=== PATIENT | female | born 1995 | race Caucasian/White ===

== ENCOUNTER → 2018-03-14 15:48 | Outpatient (CLI) | payer OTHER, SELFPAY ==
[2017-09-13 16:09] VITALS: BMI 39.4
[2018-03-14 17:49] LABS: Internal QC Validated? YES +Cl - CLEAR BKGD; Pregnancy, Urine Negative Negative
== END ==
PROVIDERS: Family Provider Nurse Practitioner Family; PCP Nurse Practitioner Family; Referring Provider Dermatology Pediatric Dermatology; Visit Provider Dermatology Pediatric Dermatology
DX: L70.0 Acne vulgaris (principal); Z79.899 Other long term (current) drug therapy
CPT/HCPCS: 81025

== ENCOUNTER → 2018-04-18 14:21 | Outpatient (CLI) | payer OTHER, SELFPAY ==
[2018-03-28 16:08] VITALS: BMI 37.8
[2018-04-18 15:58] LABS: Internal QC Validated? YES +Cl - CLEAR BKGD; Pregnancy, Urine Negative Negative
== END ==
PROVIDERS: Family Provider Pediatrics; PCP Pediatrics; Referring Provider Dermatology Pediatric Dermatology; Visit Provider Dermatology Pediatric Dermatology
DX: L70.0 Acne vulgaris (principal); Z79.899 Other long term (current) drug therapy
CPT/HCPCS: 81025

== ENCOUNTER → 2018-05-23 13:16 | Outpatient (CLI) | payer OTHER, SELFPAY ==
[2018-03-28 16:08] VITALS: BMI 37.8
[2018-05-23 14:22] LABS: Internal QC Validated? YES +Cl - CLEAR BKGD; Pregnancy, Urine Negative Negative
== END ==
PROVIDERS: PCP Family Medicine
DX: L70.0 Acne vulgaris (principal)
CPT/HCPCS: 81025

== ENCOUNTER → 2018-06-26 08:23 | Outpatient (CLI) | payer OTHER, SELFPAY ==
[2018-03-28 16:08] VITALS: BMI 37.8
[2018-06-26 10:35] LABS: Internal QC Validated? YES +Cl - CLEAR BKGD; Pregnancy, Urine Negative Negative
== END ==
PROVIDERS: PCP Family Medicine; Referring Provider Physician Assistant Medical; Visit Provider Physician Assistant Medical
DX: L70.0 Acne vulgaris (principal); Z79.899 Other long term (current) drug therapy
CPT/HCPCS: 81025

== ENCOUNTER → 2018-07-09 07:14 | Outpatient (CLI) | payer OTHER, SELFPAY ==
[2018-03-28 16:08] VITALS: BMI 37.8
[2018-07-09 10:20] LABS: Absolute Neutrophil Count 4.4 X10^3/uL (2.0-7.7); Basophil# 0.02 X10^3/uL; Basophil% 0.3 % (0-1); Eosinophil# 0.22 X10^3/uL; Hematocrit 42.7 % (37-47); Hemoglobin 14.5 g/dl (12.0-15.0); Lymphocyte % 24.9 % (19-41); Mean Corpuscular Hgb 29.5 pg (27.0-32.0); Mean Corpuscular Volume 86.8 fL (81-99); Mean Platelet Vol. 9.8 fl (6.2-12.0); Monocyte# 0.79 X10^3/uL; Monocyte% 10.9 % (0-10); Neutrophil # 4.37 X10^3/uL (2.7-7.7); Neutrophil % 60.6 % (47-70); Platelet Count 266 K/mm3 (150-450); RBC Distribution Width CV 13.1 % (11.6-14.6); RBC Distribution Width SD 41.8 fl (35.1-43.9); Red Blood Count 4.92 M/mm3 (4.2-5.4); White Blood Count 7.2 K/mm3 (4.4-11.0)
[2018-07-09 10:21] LABS: POSITIVE COUNT NO; POSITIVE DIFFERENTIAL NO; POSITIVE MORPHOLOGY NO
[2018-07-09 10:23] LABS: Erythrocyte Sedimentation Rate 7 mm/hr (0-20)
[2018-07-09 10:28] LABS: ALB/GLOB Ratio 0.8 RATIO (0.9-2.4); AST(SGOT) 25 U/L (15-37); Alanine Aminotransfer ALT/SGPT 35 U/L (13-56); Albumin, Serum 3.3 g/dL (3.2-5.0); Alkaline Phosphatase 92 U/L (45-117); Anion Gap 11 (5-15); BUN 14 mg/dL (7-18); BUN/Creat Ratio 17.1 RATIO (10-20); Calcium,Total 8.5 mg/dL (8.5-10.1); Chloride 105 mmol/L (98-107); Cholesterol 229 mg/dL (200); Creatinine, Serum 0.82 mg/dL (0.55-1.02); EST Glomerular Filtration Rate 92 mL/min (>60); Est Glom Filt Rate - Afr Amer 111 mL/min (>60); Globulin 4.1 g/dL (2.2-4.2); Glucose 88 mg/dL (74-106); High Density Lipoprotein 45 mg/dL; Potassium 3.6 mmol/L (3.5-5.1); Protein, Total 7.4 g/dL (6.4-8.2); Sodium Level 140 mmol/L (136-145); Triglycerides 242 mg/dL; Very Low Density Lipoprotein 48 mg/dL (5-40)
== END ==
PROVIDERS: PCP Family Medicine; Referring Provider Physician Assistant Medical; Visit Provider Physician Assistant Medical
DX: L70.0 Acne vulgaris (principal); Z79.899 Other long term (current) drug therapy; M06.09 Rheumatoid arthritis without rheumatoid factor, multiple sites
CPT/HCPCS: 36415; 80053; 80061; 85025; 85652

== ENCOUNTER → 2018-07-31 16:26 | Outpatient (CLI) | payer OTHER, SELFPAY ==
[2018-03-28 16:08] VITALS: BMI 37.8
[2018-07-31 18:29] LABS: Internal QC Validated? YES +Cl - CLEAR BKGD; Pregnancy, Urine Negative Negative
== END ==
PROVIDERS: PCP Family Medicine; Referring Provider Physician Assistant; Visit Provider Physician Assistant
DX: L70.0 Acne vulgaris (principal); Z79.899 Other long term (current) drug therapy
CPT/HCPCS: 81025

== ENCOUNTER → 2018-09-11 16:09 | Outpatient (CLI) | payer OTHER, SELFPAY ==
[2018-03-28 16:08] VITALS: BMI 37.8
[2018-09-11 17:51] LABS: Internal QC Validated? YES +Cl - CLEAR BKGD; Pregnancy, Urine Negative Negative
== END ==
PROVIDERS: PCP Family Medicine; Referring Provider Physician Assistant; Visit Provider Physician Assistant
DX: L70.0 Acne vulgaris (principal); Z79.899 Other long term (current) drug therapy
CPT/HCPCS: 81025

== ENCOUNTER → 2018-09-16 11:53 | Outpatient (CLI) | payer OTHER, SELFPAY ==
[2018-09-16 11:15] VITALS: BMI 37.8
[2018-09-16 12:26] LABS: Estradiol 13.3 pg/mL; Follicle Stimulating Hormone 1.3 mIU/mL
== END ==
PROVIDERS: Family Provider Nurse Practitioner Family; PCP Nurse Practitioner Family; Referring Provider Obstetrics & Gynecology; Visit Provider Obstetrics & Gynecology
DX: Z01.411 Encounter for gynecological examination (general) (routine) with abnormal findings (principal); Z92.29 Personal history of other drug therapy
CPT/HCPCS: 36415; 82670; 83001

== ENCOUNTER → 2018-10-16 11:48 | Outpatient (CLI) | payer OTHER, SELFPAY ==
[2018-09-16 11:15] VITALS: BMI 37.8
[2018-10-16 14:15] LABS: Internal QC Validated? YES +Cl - CLEAR BKGD; Pregnancy, Urine Negative Negative
== END ==
PROVIDERS: Family Provider Nurse Practitioner Family; PCP Nurse Practitioner Family; Referring Provider Physician Assistant; Visit Provider Physician Assistant
DX: L70.0 Acne vulgaris (principal); Z79.899 Other long term (current) drug therapy
CPT/HCPCS: 81025

== ENCOUNTER → 2019-08-05 15:44 | Outpatient (CLI) | payer OTHER, SELFPAY ==
[2019-07-22 10:36] VITALS: BMI 37.8
--- NOTE | 2019-08-05 15:44 | US_ITS ---
STUDY: ULTRASOUND OF THE FEMALE PELVIS - COMPLETE REASON FOR EXAM: Female, 23 years old. Bleeding. Pain. TECHNIQUE: Transabdominal and Transvaginal TECHNICAL QUALITY: Adequate. COMPARISON: CT dated 08/23/2015 FINDINGS: The uterus is anteverted and is in a midline position. The uterus measures 9.0 x 6.3 x 2.8 cm cm. Normal uterine cervix. The endometrium measures 6 mm in thickness, and is hyperechoic. There is no demonstrated endometrial mass. There is no demonstrated myometrial mass. The right ovary is visualized. The right ovary measures 3.3 x 2.3 x 1.6 cm. There is no right ovarian cyst or ovarian mass. There is no visualized right adnexal mass or complex lesion. There is normal arterial and normal venous vascularity. The left ovary is visualized. The left ovary measures 3.4 x 2.1 x 1.7 cm. There is no left ovarian cyst or ovarian mass. There is no visualized left adnexal mass or complex lesion. There is normal arterial and normal venous vascularity. There is no fluid in the cul-de-sac. US/Pelvic (Non ) IMPRESSION: Normal female pelvis. Electronically Signed: Maurice Valerio, at 16:38 EDT Tel , Service support ,
--- NOTE | 2019-08-05 15:44 | US_ITS ---
STUDY: ULTRASOUND OF THE FEMALE PELVIS - COMPLETE REASON FOR EXAM: Female, 23 years old. Bleeding. Pain. TECHNIQUE: Transabdominal and Transvaginal TECHNICAL QUALITY: Adequate. COMPARISON: CT dated 08/23/2015 FINDINGS: The uterus is anteverted and is in a midline position. The uterus measures 9.0 x 6.3 x 2.8 cm cm. Normal uterine cervix. The endometrium measures 6 mm in thickness, and is hyperechoic. There is no demonstrated endometrial mass. There is no demonstrated myometrial mass. The right ovary is visualized. The right ovary measures 3.3 x 2.3 x 1.6 cm. There is no right ovarian cyst or ovarian mass. There is no visualized right adnexal mass or complex lesion. There is normal arterial and normal venous vascularity. The left ovary is visualized. The left ovary measures 3.4 x 2.1 x 1.7 cm. There is no left ovarian cyst or ovarian mass. There is no visualized left adnexal mass or complex lesion. There is normal arterial and normal venous vascularity. There is no fluid in the cul-de-sac. US/Transvaginal Non- IMPRESSION: Normal female pelvis. Electronically Signed: Maurice Valerio, at 16:38 EDT Tel , Service support ,
== END ==
PROVIDERS: PCP Nurse Practitioner Family; Referring Provider Nurse Practitioner Women's Health; Visit Provider Nurse Practitioner Women's Health
DX: N92.0 Excessive and frequent menstruation with regular cycle (principal); N94.6 Dysmenorrhea, unspecified
CPT/HCPCS: 76830; 76856

== ENCOUNTER → 2019-09-25 09:20 | Outpatient (CLI) | payer OTHER, SELFPAY ==
[2019-09-25 08:30] VITALS: BMI 37.8
[2019-09-25 09:56] LABS: Cholesterol 231 mg/dL (200); Glucose 102 mg/dL (74-106); High Density Lipoprotein 50 mg/dL; Triglycerides 252 mg/dL; Very Low Density Lipoprotein 50 mg/dL (5-40)
[2019-09-25 09:59] LABS: Vitamin D,25 Hydroxy 40.4 ng/mL
[2019-10-01 21:34] LABS: HPV Reflexed? NOT INDICATED
== END ==
PROVIDERS: PCP Nurse Practitioner Family; Referring Provider Obstetrics & Gynecology; Visit Provider Obstetrics & Gynecology
DX: Z12.4 Encounter for screening for malignant neoplasm of cervix (principal); E66.9 Obesity, unspecified
CPT/HCPCS: 36415; 80061; 82306; 82947; 88175; G0145

== ENCOUNTER → 2019-12-02 05:59 | Observation (INO) | payer OTHER, SELFPAY ==
[2019-10-09 15:04] VITALS: BMI 37.8
--- NOTE | 2019-12-01 20:54 | HP.PCM_ITS ---
History and Physical Date of Admission: 12/02/19 HISTORY OF PRESENT ILLNESS 24 year old woman presents for evaluation of hidradenitis in her axillary areas. She is having issues with both sides but states the right side is more painful at this time. She has had I&D procedures on the left and the use of the VAC in the past. She has had no procedures done on the right. She denies any fever. She has had some flare ups since she was last seen by us. She has recently been placed on Seysara by Dermatology to help control her flare ups. 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 She presents today for further evaluation and treatment. PAST MEDICAL HISTORY Axillary hidradenitis suppurativa Back problem Breast lump in female History of blood clots Fibromyalgia Rheumatoid arthritis PAST SURGICAL HISTORY [place] teeth extracted ALLERGIES No Known Allergies MEDICATIONS levothyroxine multivitamin spironolactone norgestimate-ethinyl estradiol escitalopram oxalate sarecycline spironolactone cetirizine gabapentin lorazepam FAMILY HISTORY Sister - Diabetes Grandmother - Lung cancer Grandfather - Dementia, CVA (cerebral vascular accident), Parkinsons disease Other - Anxiety, Arthritis, Asthma, Psychiatric care, Thyroid disorder SOCIAL HISTORY Smoking Status: Never smoker alcohol intake: current details: occasionally substance use type: does not use REVIEW OF SYSTEMS General - Denies fever and weight loss. Has fatigue. Eyes - Denies cataracts and glaucoma. ENT - Denies nasal congestion and sore throat. Endocrine - Denies excessive thirst and urination. Has thyroid disease. Skin - Denies skin cancer. Has bilateral axillary hidradenitis. Has family history of skin cancer. Musculoskeletal - Has joint pain, joint stiffness, weakness of muscles and joints, back pain, and arthritis. She no longer takes Methotrexate for her rheumatoid arthritis. Neuro - Denies headaches. Cardiovascular - Denies chest pain, fatigue, and shortness of breath with exertion. Psych - Denies anxiety and depression. Has claustrophobia. Respiratory - Denies chronic cough and shortness of breath. Gastrointestinal - Denies nausea, vomiting, diarrhea. Has constipation. Hematologic - Denies abnormal bruising and bleeding. Genitourinary - Denies hematuria and urinary frequency. PHYSICAL EXAMINATION General - Alert and Oriented. HEENT - PERRL. EOMI. Throat is clear. Neck - Supple and nontender. No cervical adenopathy. Lungs - Clear to auscultation. Heart - Regular rate and rhythm. Abdomen - Soft and nondistended. Extremities - FROM. No axillary adenopathy. Radial pulses are palpable. On the left axilla are scattered areas of induration and redness and scarring from hidradenitis. Measures 8 cm. No evidence of infection at this time. The area is slightly tender to palpation. On the right axilla are scattered areas of induration and redness and scarring from hidradenitis. There is some extension inferiorly onto the lateral chest wall. Measures 16 cm. No evidence of infection at this time. The area is slightly tender to palpation. Neuro - CN II-XII grossly intact. Psych - Normal mood and affect. ASSESSMENT 1. Bilateral axillary hidradenitis, worse on the right. 2. Rheumatoid arthritis, and she is off Methotrexate. 3. Family history of skin cancer. PLAN Patient's hidradenitis is stable at this time with the use of Sarecycline but she has had recent flare ups. Patient is interested in surgical excision at this time because she does not want to be on group home antibiotics. The right axilla is more bothersome at this time, so she would like to start on that side. When excised, tissue is sent to Pathology for analysis to rule out carcinoma and to Microbiology for culture. A positive culture will necessitate antibiotic therapy. Will leave the wound open initially and proceed with wound care with the VAC or with Silver dressing changes daily. Surgery will be done under general anesthesia with a surgical observation overnight stay in the hospital. Discussed the size of the wound with the patient in detail. It will be much larger than the smaller wound she had in the past that required the VAC. She voiced understanding. After discharge, can followup at the [facility]. If there is a plateau in the healing process, then can proceed with delayed closure with skin grafting. After healing has occurred on the right, then can proceed with excision of hidradenitis on the left. I don't do both sides at the same time because of difficulties with activities of daily living. Patient was informed of the risks and complications of the procedure including alternatives to surgery. These were discussed with the patient personally. Patient voices understanding and wishes to proceed. Some of the risks and complications were included in a form from the [place] [employer]. We discussed the current risks associated with COVID-19. While it is understood that there is a community spread of COVID-19, the risk of barbara COVID-19 while at [facility] ([facility]) is very low; however, the risk cannot be completely mitigated because of the community spread of the disease. We discussed in detail the risk of exposure to and/or potential harm posed by the COVID-19 virus with having a surgery/procedure at this time versus the risk of delaying the surgery/procedure. It is not possible to know either the risk of delaying the surgery or procedure or chance of getting an infection with perfect accuracy, but a joint decision was made to proceed at this time with the scheduled surgery/procedure as indicated on the consent form. Patient was notified that we will need to comply with any screening or testing [facility] wishes to perform or that surgery may be delayed for any positive results. Discussed with the patient that I was tested for COVID-19 on 08/21/19 which was negative and on 09/04/19 which was negative and on 09/18/19 which was negative and on 10/02/19 which was negative and on 10/16/19 which was negative and on 11/06/19 which was negative and on 11/27/19 which was negative. My testing regimen at this time is to be COVID-19 tested every 2 weeks or so. Procedure Criteria Procedure Type: Elective COVID Risk Discussion: The surgeon/proceduralist and patient have discussed in detail the risk of exposure to and/or potential harm posed by the COVID-19 virus with having a surgery/procedure at this time versus the risk of delaying the surgery/procedure. It is not possible to know either the risk of delaying the surgery or procedure or chance of getting an infection with perfect accuracy, but a joint decision was made between the patient and the surgeon/proceduralist to proceed at this time with the scheduled surgery/procedure as indicated on the consent form.
[2019-12-02] VITALS (10 sets, daily range): BP systolic 114–147; BP diastolic 59–88; PULSE 69–88; RESP 16–18; TEMP 36.6–37; O2SAT 95–99; BMI 43.7; BMI 44.6
--- NOTE | 2019-12-02 | HID_PTH ---
PATIENT: CHRISTIN GÓMEZ LOC: MS3 U#:[id number] AGE/SX: [place] [facility] [place]: Dr. Rudy Cerna MD : 1995 BED: 1 DIS: SPEC #: [id number] RECD: 12/02/19 10:19 STATUS: BHANU RONAL #: [id number] SOY: 12/02/19 00:[address]: Rudy Cerna DEPT: SURGICAL PATHOLOGY RECD BY: Rupert Castro ENTERED: 12/02/19 10:19 SP TYPE: Kayla JEAN DR: Ninfa Harrison, RITO Tissues: Axilla, NOS Procedures: Surgery Specimen Level III HEADER OPERATION: Excision hidradenitis axilla PRE-OP DIAGNOSIS: Bilateral axillary hidradenitis, worse on right TISSUE SUBMITTED: Debrided tissue right axillary hidradenitis MICROSCOPIC DIAGNOSIS Skin and soft tissue of right axilla, excision: Consistent with hidradenitis. AM:cele 12/03/19 MICROSCOPIC DESCRIPTION Slides are reviewed. GROSS DESCRIPTION Received in fixative is one container labeled with the patient's name and designated right axilla tissue. The specimen consists of an irregular fragment of light leblanc excised skin measuring 16 x 7 cm and excised to a depth of 2 cm. No cutaneous mass lesions are identified. Serial sections do not reveal mass lesions. Prepper sections are submitted in two cassettes. / AM:cele 12/02/19 TC:3 CPT: 29997
[2019-12-02 06:22] LABS: Internal QC Validated? YES +Cl - CLEAR BKGD; Pregnancy, Urine Negative Negative
[2019-12-02] MEDS: Lactated Ringers 1,000 ML 100 ML IV (06:43)
--- NOTE | 2019-12-02 08:26 | PCM.OPRPT ---
Report of Operation Date of Procedure: 12/02/19 Pre-Operative Diagnosis: 1. Bilateral axillary hidradenitis, worse on the right. 2. Rheumatoid arthritis, and she is off Methotrexate. 3. Family history of skin cancer. Post-Operative Diagnosis: 1. Bilateral axillary hidradenitis, worse on the right. 2. Open surgical hidradenitis wound right axilla. 3. Rheumatoid arthritis, and she is off Methotrexate. 4. Family history of skin cancer. Surgery/Procedure Performed:: Surgical preparation right axilla with excision hidradenitis (176 cm2). Description of Surgical Findings:: 24 year old woman presents for evaluation of hidradenitis in her axillary areas. She is having issues with both sides but states the right side is more painful at this time. She has had I&D procedures on the left and the use of the VAC in the past. She has had no procedures done on the right. She denies any fever. She has had some flare ups since she was last seen by us. She has recently been placed on Seysara by Dermatology to help control her flare ups. 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 Patient was informed of the risks and complications of the procedure including alternatives to surgery. These were discussed with the patient personally. Patient voices understanding and wishes to proceed. Some of the risks and complications were included in a form from the [place] [employer]. Size of defect right axilla - 16 x 11 x 4 cm. bottle labeler: None Type of Anesthesia:: General Specimen's removed: Right axillary hidradenitis to Pathology and Microbiology. Drains: None. Estimated Blood Loss (mL): 25 ml. Description of Procedure: Patient was taken to OR in supine position and was placed under general anesthesia. The right axilla was prepped and draped in the usual fashion. SCD's were placed for DVT prophylaxis. Perioperative antibiotics were given intravenously. For the procedure, I wore an N95 mask and wore proper eyewear protection. Using a scalpel, I proceeded with surgical preparation of the right axilla with extension onto the lateral chest wall with excision of her extensive hidradenitis. No purulent drainage was seen. In the subcutaneous tissue, there was extensive fat necrosis. There was indurated scar tissue extending down to the underlying muscle and was excised. Some of the tissue was sent to Pathology for analysis to rule out carcinoma and to Microbiology for culture. A positive culture will necessitate antibiotic therapy. The wound was irrigated with saline. Hemostasis was obtained with electrocautery. The size of the defect right axilla after excision hidradenitis was 16 x 11 x 4 cm or 176 cm2. The wound was dressed with Mepitel nonadherent dressing followed by Kerlix gauze and Betadine followed by dry Kerlix gauze followed by ABD pads and compression GRETEL wrap. Patient tolerated the procedure well and was sent to PACU in satisfactory condition. Patient will be sent upstairs for continued postop care. The VAC will be applied tomorrow. Grafts/Implants Used: None. - Complications None. - Admit VTE Documentation VTE Present on Admission: No VTE Mechan Device Prophylaxis: SCD's VTE Pharm Prophylaxis ordered?: No Surgery Charges CPT - 22380 ICD-10 - L73.2, S41.101A, Z80.8, M06.9
[2019-12-02] MEDS: Lactated Ringers 1,000 ML 60 ML IV (09:01)
[2019-12-02] MEDS: oxyCODONE 5 MG Tablet 10 MG PO ×3 (11:55→20:12)
--- NOTE | 2019-12-02 13:33 | CPS ---
started by nursing
--- NOTE | 2019-12-02 15:37 | NURSING ---
Rx staff brought meds to room when rounding @ approx 1500
[2019-12-02] MEDS: Spironolactone 50 MG Tablet 100 MG PO (15:44)
[2019-12-02] MEDS: Levothyroxine 25 MCG TABLET PO (15:44)
[2019-12-02] MEDS: Loratadine 10 MG Tablet PO (20:16)
[2019-12-02] MEDS: Escitalopram Oxalate 20 MG Tablet PO (21:48)
[2019-12-02] MEDS: Docusate Sodium 100 MG Capsule PO (21:48)
[2019-12-02] MEDS: NORGESTIMATE-ETHINYL ESTRADIOL 1 DOSE.PACK 1 TABLET PO (21:48)
[2019-12-03] MEDS: Lactated Ringers 1,000 ML 60 ML IV (02:14)
[2019-12-03 02:15] VITALS: BP 108/62; PULSE 79; RESP 18; TEMP 36.7; O2SAT 94
[2019-12-03] MEDS: oxyCODONE 5 MG Tablet 10 MG PO ×3 (02:15→14:57)
[2019-12-03] MEDS: Levothyroxine 25 MCG TABLET PO (05:50)
[2019-12-03 06:10] LABS: Hematocrit 43.9 % (37-47); Hemoglobin 13.3 g/dL (12.0-15.0); Mean Corp Hgb Conc 30.3 g/dL (32-36); Mean Corpuscular Hgb 30.6 pg (27.0-32.0); Mean Corpuscular Volume 100.9 fL (81-99); Mean Platelet Vol. 9.7 fl (6.2-12.0); Platelet Count 116 K/mm3 (150-450); RBC Distribution Width CV 12.7 % (11.6-14.6); RBC Distribution Width SD 47.8 fl (35.1-43.9); Red Blood Count 4.35 M/mm3 (4.2-5.4); White Blood Count 9.5 K/mm3 (4.4-11.0)
[2019-12-03 06:47] LABS: Anion Gap 3 (5-15); BUN 10 mg/dL (7-18); BUN/Creat Ratio 15.9 RATIO (10-20); Calcium,Total 7.9 mg/dL (8.5-10.1); Chloride 108 mmol/L (98-107); Creatinine, Serum 0.63 mg/dL (0.55-1.02); EST Glomerular Filtration Rate 123 mL/min (>60); Est Glom Filt Rate - Afr Amer 149 mL/min (>60); Glucose 89 mg/dL (74-106); Prealbumin 28.2 mg/dL (20.0-40.0); Sodium Level 135 mmol/L (136-145)
[2019-12-03 07:58] VITALS: BP 128/75; PULSE 80; RESP 16; TEMP 36.3; O2SAT 98
[2019-12-03] MEDS: HYDROmorphone 1 MG/ML Syringe IV (09:36)
[2019-12-03] MEDS: Spironolactone 50 MG Tablet 100 MG PO (10:45)
--- NOTE | 2019-12-03 10:45 | NURSING ---
wound photo: right axilla
[2019-12-03] MEDS: Docusate Sodium 100 MG Capsule PO (10:46)
--- NOTE | 2019-12-03 11:30 | CASEMGMT ---
JOSE NINA updated by wound nurse that patient will need HHC at discharge for wound vac dressing changes. JOSE NINA in to discuss HHC with patient and father. Patient provided options for HHC agencies and would like [facility]. JOSE NINA sent referral to [facility] and they are able to accept the patient. JOSE NINA updated patient regarding acceptance of [facility] and provided contact information. Patient had no further questions or concerns at this time.
[2019-12-03] MEDS: Multivitamins,Therapeutic Tablet 1 TABLET PO (13:19)
--- NOTE | 2019-12-03 13:21 | PN.SURG_ITS ---
Subjective: Postop #1 Patient is resting comfortably. VAC applied today. - Physical Exam Vitals/I&O's: Vital Signs Temp Pulse Resp BP Pulse Ox 97.4 F L 80 16 128/75 H 98 12/03/19 07:58 12/03/19 07:58 12/03/19 07:58 12/03/19 07:58 12/03/19 07:58 Oxygen Delivery Method Room Air Weight: 244 lb 4.355 oz Body Mass Index (BMI) 44.6 Intake and Output for Last 24 Hours 12/01/19 12/02/19 12/03/19 23:59 23:59 23:59 Intake Total 2831 / 2831 259 / 259 Balance 2831 / 2831 259 / 259 General: Alert, Oriented x3 HEENT: PERRLA, EOMI Oral: Moist Mucosa Neck: Supple Abdomen: Soft, Non-Distended Skin: Ulcer/ Wound - right axillary wound stable. No active bleeding seen. VAC applied today. Tolerated reasonably well. Neurological: Cranial nerves II-XII grossly intact Psych/Mental Status: Normal Affect, Appropriate Microbiology Past 72 Hours 12/02/19 08:39 Tissue - Arm Gram Stain - Final 12/02/19 08:39 Tissue - Arm Wound Culture - Preliminary Staphylococcus species Laboratory Results 12/03/19 05:34: WBC 9.5, RBC 4.35, Hgb 13.3, Hct 43.9, MCV 100.9 H, MCH 30.6, MCHC 30.3 L, RDW Std Deviation 47.8 H, RDW Coeff of Genesis 12.7, Plt Count 116 L, MPV 9.7 12/03/19 05:34: Sodium 135 L, Potassium 4.0, Chloride 108 H, Carbon Dioxide 24.0, Anion Gap 3 L, BUN 10, Creatinine 0.63, Estim Creat Clear Calc 108.90, Est GFR (MDRD) Af Amer 149, Est GFR (MDRD) Non-Af 123, BUN/Creatinine Ratio 15.9, Glucose 89, Calcium 7.9 L, Prealbumin 28.2 Current Medications Diazepam (Diazepam 5 Mg Tablet) 5 mg PO 4X/DAY PRN PRN PRN Reason: SPASMS Docusate Sodium (Docusate Sodium 100 Mg Capsule) 100 mg PO BID [facility]ULLEN Last Admin: 12/03/19 10:46 Dose: 100 mg Documented by: Escitalopram Oxalate (Escitalopram Oxalate 20 Mg Tablet) 20 mg PO QHS [facility] Last Admin: 12/02/19 21:48 Dose: 20 mg Documented by: Gabapentin (Gabapentin 300 Mg Capsule) 300 mg PO 4X/DAY PRN PRN PRN Reason: Pain 1-10 Hydromorphone HCl (Hydromorphone 1 Mg/Ml Syringe) 1 mg IV Q4H PRN PRN PRN Reason: Pain Score 6-10 Last Admin: 12/03/19 09:36 Dose: 1 mg Documented by: Clindamycin Phosphate 600 mg/ (Dextrose) 54 mls @ 100 mls/hr IV Q8 [facility] Last Infusion: 12/03/19 06:22 Dose: Infused Documented by: Lactated Ringer's () 1,000 mls @ 60 mls/hr IV .[id number] [facility] Last Admin: 12/03/19 02:14 Dose: 60 mls/hr Documented by: Sodium Chloride () 250 mls @ 15 mls/hr IV .[id number] PRN PRN Reason: Saline Flush Sodium Chloride () 250 mls @ 15 mls/hr IV .[id number] PRN PRN Reason: Additional IVPB Infusion Levothyroxine Sodium (Levothyroxine 25 Mcg Tablet) 25 mcg PO DAILY@0600 [facility] Last Admin: 12/03/19 05:50 Dose: 25 mcg Documented by: Loratadine (Loratadine 10 Mg Tablet) 10 mg PO DAILY PRN PRN PRN Reason: ALLERGY SYMPTOMS Last Admin: 12/02/19 20:16 Dose: 10 mg Documented by: Lorazepam (Lorazepam 0.5 Mg Tablet) 0.5 mg PO DAILY PRN PRN PRN Reason: ANXIETY Multivitamins (Multivitamins,Therapeutic Tablet) 1 tablet PO DAILY@1200 [facility] Last Admin: 12/03/19 13:19 Dose: 1 tablet Documented by: Norgestimate (Norgestimate-Ethinyl Estradiol 1 Dose.Pack) 1 tablet PO DAILY [facility] Last Admin: 12/03/19 10:47 Dose: Not Given Documented by: Nutritional Formula (Nutritional Supplement (Abdullahi) Packet) 1 packet PO BIDCM [facility] Last Admin: 12/03/19 07:56 Dose: 1 packet Documented by: Ondansetron HCl (Ondansetron 4 Mg/2 Ml Vial) 4 mg IV Q6H PRN PRN PRN Reason: NAUSEA Oxycodone HCl (Oxycodone 5 Mg Tablet) 10 mg PO Q4H PRN PRN PRN Reason: Pain Score 4-5 Last Admin: 12/03/19 07:56 Dose: 10 mg Documented by: Promethazine HCl (Promethazine 25 Mg Tablet) 25 mg PO Q4H PRN PRN PRN Reason: NAUSEA/VOMITING Sodium Chloride (0.9% Saline Lock 10 Ml Syringe) 10 - 40 ml IV UD PRN PRN Reason: SALINE FLUSH Spironolactone (Spironolactone 50 Mg Tablet) 100 mg PO DAILY [facility] Last Admin: 12/03/19 10:45 Dose: 100 mg Documented by: Medical Necessity - Tobacco Use Smoking Status: Never smoker Tobacco Use: Non-smoker Assessment/Plan All Active Problems (Last Reviewed 10/11/19 @ 15:[address] Rudy Cerna MD) Open wound of right axillary region with complication (Acute) Menorrhagia with regular cycle (Acute) Dysmenorrhea (Acute) Immunocompromised state due to drug therapy (Resolved) 1. Bilateral axillary hidradenitis, worse on the right. 2. Rheumatoid arthritis, and she is off Methotrexate. 3. Family history of skin cancer. 4. s/p surgical preparation right axilla with excision hidradenitis (176 cm2). Patient has some wound pain. VAC applied today and she tolerated reasonably well. Home Health to assist with VAC changes three times per week at 150 mmHg continuous suction. She is tolerating po analgesia. Operative culture shows Staphylococcus species. She is on Clindamycin. Prealbumin was 28.2. Encourage nutritional supplementation with protein to help the healing process. Discharge home today. Wrote script for Cleocin for 10 days. A positive culture may necessitate antibiotic modification. Wrote scripts for Percocet for pain (40 tabs) and for Valium for spasm (30 tabs). Followup at [facility] on 12/15/19 at 1000am. If there is a plateau in the healing process, can proceed with delayed closure with skin grafting. Encourage range of motion exercises to minimize stiffness.
[2019-12-03 13:22] VITALS: BP 115/66; PULSE 74; RESP 18; TEMP 36.6; O2SAT 98
--- NOTE | 2019-12-03 13:29 | PCM.DC ---
You will use the following diet at home:: No restrictions, Other - encourage nutritional supplementation with protein to help the healing process. Discharge Activity: May not drive while taking narcotic pain medications., May Shower - on the days the vac is changed., - - elevate right arm. no heavy lifting. May shower in (days): 2 - on the days the vac is changed. May resume sexual activity in: No Restrictions Weight Bearing Status: Weight bearing as tolerated Lifting Restrictions: 20 lbs. Keep extremity elevated above heart level: Right Arm Call your doctor if your incision/area has: Continuous Slow Oozing, Sudden Increased Bleeding, Increased Pain/ Swelling, Increased Redness, Foul Smelling Discharge, Swelling at the incision site Call your doctor if you observe: Fever of 101 or Higher, Coldness, Increased Pain, Shortness of breath, Chest pain, Calf discomfort, Uncontrolled pain Suture Line Care: - - vac changes three times per week at 150 mmHg continuous suction. Change Dressing in (Days):: 2 - vac changes three times per week. Cleanse incision/area with: Soap & Water - may cleanse the wound with soap and water at the time of the vac change., - - may shower on the days the vac is changed. Additional Dressing/Incision Instructions:: Home Health to assist with vac changes three times per week at 150 mmHg continuous suction. May cleanse the wound with soap and water at the time of the vac change. Allergies/Adverse Reactions: Allergies No Known Allergies Allergy (Verified 11/24/19 10:04) Medications to take at Discharge levothyroxine 25 mcg capsule 25 mcg PO DAILY 03/28/18 multivitamin 1 tab PO DAILY 03/28/18 spironolactone 25 mg tablet 100 mg PO DAILY 03/28/18 norgestimate 0.25 mg-ethinyl estradiol 35 mcg tablet 1 tab PO QDAY #84 tab 07/22/19 escitalopram oxalate 5 mg tablet 20 mg PO QHS 09/25/19 sarecycline 60 mg tablet 150 mg PO DAILY 10/09/19 cetirizine 10 mg tablet 10 mg PO .PRN tab 10/10/19 gabapentin 300 mg capsule 300 mg PO 4X/DAY PRN PRN cap 10/10/19 lorazepam 0.5 mg tablet 0.5 mg PO DAILY PRN 10/10/19 Clindamycin HCl [Cleocin] 300 mg PO TID #30 cap 12/03/19 Diazepam [Valium] 5 mg PO 4X/DAY PRN PRN #30 tablet 12/03/19 Docusate Sodium [Colace] 100 mg PO BID capsule 12/03/19 Loratadine [Claritin] 10 mg PO DAILY PRN PRN tablet 12/03/19 Oxycodone HCl/Acetaminophen [Percocet 5/325] 1 tablet PO Q4H PRN PRN 7 Days #40 tablet 12/03/19 The following prescriptions were given: Clindamycin HCl [Cleocin] 300 mg PO TID #30 cap Transmission Status: Pending to [facility] Oxycodone HCl/Acetaminophen [Percocet 5/325] 1 tablet PO Q4H PRN PRN 7 Days #40 tablet PRN Reason: Pain Score 6-10 Transmission Status: Sent to [facility] Diazepam [Valium] 5 mg PO 4X/DAY PRN PRN #30 tablet PRN Reason: Spasms Transmission Status: Sent to [facility] Primary Care Physician: Ninfa Harrison MILL ATTENDANT, MILL ATTENDANT-C [Primary Care Provider] - Test Results: Test results from this visit will be discussed in further detail at your follow-up appointment, if applicable. Please Follow Up With: Rudy Cerna MD - call [phone] if any questions. When: Sunday12/15/19 at [facility] at 1000am. Proposed Discharge Date: 12/03/19
--- NOTE | 2019-12-03 13:35 | NURSING ---
Pt switched over to the home VAC. proof of delivery signed and faxed to [facility]. reviewed alarms, etc. with patient. denies questions.
== END | disposition home health service (06) ==
LOC: SDC 06:00 → AC 06:00 → MS3 08:19 → SDC 08:50 → MS3 08:50
PROVIDERS: Anesthesiology; Admitting Provider Surgery; PCP Nurse Practitioner Family; Referring Provider Surgery; Visit Provider Surgery
PROC: (CPT 11450; principal; 2019-12-02 07:15)
DX: L73.2 Hidradenitis suppurativa (principal); M06.9 Rheumatoid arthritis, unspecified; E03.9 Hypothyroidism, unspecified; Z79.899 Other long term (current) drug therapy; Z86.718 Personal history of other venous thrombosis and embolism; M79.7 Fibromyalgia; Z80.8 Family history of malignant neoplasm of other organs or systems; F41.9 Anxiety disorder, unspecified
CPT/HCPCS: 00400; 11450; 36415; 80048; 81025; 84134; 85027; 87070; 87075; 87077; 87102; 87176; 87186; 87205; 87206; 87635; 88304; 96365; 96366; 96375; 99218; 99251; C9803; J7120; G0378; G0379; G0463; J2405; U0003

== ENCOUNTER 2019-12-08 21:59 | Emergency (ER) | payer OTHER, SELFPAY ==
[2019-12-02 09:55] VITALS: BMI 44.6
[2019-12-08 22:01] VITALS: BP 130/80; PULSE 76; RESP 15; TEMP 36.6; O2SAT 97; BMI 43.3
--- NOTE | 2019-12-08 23:22 | ED.DCSUM_ITS ---
History of Present Illness Chief Complaint: Allergic Reaction Narrative: Patient had surgery for hidradenitis 1 week ago, she is on a wound VAC, she developed localized reaction around the wound VAC which is spreading to her arm and neck regions. She has no shortness of breath she has no fever or chills. The rash is not generalized it seems to be spreading from the wound VAC area and spreading outwards. Past Medical History - Allergies and Home Meds Allergies/Adverse Reactions: Allergies No Known Allergies Allergy (Verified 12/08/19 22:04) Primary Care Physician: Ninfa Harrison ASSISTED SALES REPRESENTATIVE, ASSISTED SALES REPRESENTATIVE-C [Primary Care Provider] - Past Medical History: - - Hidradenitis Smoking Status: Never smoker Review of Systems All systems negative except as indicated General: Denies: Fever ENT: Denies: Sore throat Cardiovascular: Denies: Chest pain Respiratory: Denies: Dyspnea, Cough Gastrointestinal: Denies: Nausea, Vomiting Musculoskeletal: Reports: Extremity Pain Skin: Reports: Rash Neurological: Denies: Weakness Hematologic: Denies: Easy bruising, Easy bleeding Allergy: Denies: Swelling of the mouth, Swelling of the tongue Physical Exam Vital Signs/Narrative: Vital Signs Temp Pulse Resp BP Pulse Ox 12/08/19 22:01 97.8 F 76 15 130/80 H 97 General: - - Patient appears in some distress ENT: Moist mucous membranes Cardiovascular: Regular rate, Regular rhythm Respiratory: No distress, CTA bilaterally Abdomen: Soft, Nontender Back: Nontender Extremities: - - There is a wound VAC around her right axilla, this was removed. Wound has granulation tissue there is no signs of infections. There is surrounding rash, see below Skin: - - Patient has a blanching salmon-colored rash which is raised, there is some urticarial-like lesions around it also. The rash extends to the breast neck region and upper arm. There is no other rash on the other parts of the body. Neurological: Normal Strength, Normal Sensation Diagnostic/Tx/Re-eval - Medical Decision Making Patient likely has a localized reaction to either the tape or the wound VAC, this was removed I talked to Dr. Cerna who is okay with a wound VAC holiday for about a week. Otherwise we will treat her with steroids she is to continue her clindamycin. I do not believe she has an allergic reaction to clindamycin this is quite localized and not diffuse. She is to continue her clindamycin for now. If anything changes she is to return and she understands this. ED Disposition - Plan for ED Patient: Disposition: Home or Assisted Living Instructions: ED General Allergic Reactions Referrals: Rudy Cerna MD [STAFF PHYSICIAN] - 3-5 Days
[2019-12-08] MEDS: Triamcinolone Acetonide 40 MG/ML Vial IM (23:36)
[2019-12-08] MEDS: HYDROmorphone 1 MG/ML Syringe IM (23:36)
[2019-12-08] MEDS: MethylPREDNISolone 125 MG/2 ML Vial IM (23:36)
[2019-12-09 00:03] VITALS: BP 123/78; PULSE 71; RESP 18; O2SAT 98
--- NOTE | 2019-12-09 00:03 | ED.RN ---
wet to dry dressing to rt underarm per
== END 2019-12-09 00:06 | disposition home or self-care (01) ==
PROVIDERS: Emergency Provider Emergency Medicine; PCP Nurse Practitioner Family
DX: T78.40XA Allergy, unspecified, initial encounter (principal)
CPT/HCPCS: 96372; 99282

== ENCOUNTER 2019-12-15 09:53 | Outpatient (RCR) | payer OTHER, SELFPAY ==
[2019-12-02 09:55] VITALS: BMI 44.6
[2019-12-15 10:05] VITALS: BP 137/66; PULSE 79; RESP 22; TEMP 36.3; BMI 42.0
--- NOTE | 2019-12-17 13:35 | HP.PCM_ITS ---
(1) Open wound of right axillary region with complication Status: Acute Code(s): S41.101A - Unspecified open wound of right upper arm, initial encounter (2) Axillary hidradenitis suppurativa Status: Chronic Code(s): L73.2 - Hidradenitis suppurativa Comment: bilateral axillary hidradenitis, worse on the left (3) Encounter for postoperative wound care Status: Acute Code(s): Z48.89 - Encounter for other specified surgical aftercare (4) Rheumatoid arthritis Status: Chronic Code(s): M06.9 - Rheumatoid arthritis, unspecified Comment: at present is off Methotrexate History of Present Illness Date of Service: 12/15/19 Chief Complaint: post-op wound care of right axillary hidradenitis suppurative excision on 12/02/2019 History of Wound: The patient presents for her initial wound healing center visit on 12/15/2019. She has been evaluated for postsurgical wound care of her right axilla status post right axillary hidradenitis suppurative surgical excision (176 cm?) by Dr. Cerna on 12/02/2019. Following surgery, the patient was started on a wound VAC. She subsequently developed a rash of her right arm, axilla, and right sided abdomen. It was unclear whether the rash was due to the VAC or surgical prep with ChloraPrep solution. The VAC was discontinued and the patient was instructed to perform daily dressing changes with gauze packing. The rash has since cleared. The patient reports an increase in pain and difficulty managing her postsurgical wound since discontinuation of the VAC, and is eager to restart the VAC. Patient's operative wound tissue culture was positive for rare Staphylococcus lugdunensis. She is currently taking Doxycycline. The patient denies any fever, chills, nausea, vomiting, or diarrhea. Denies any increasing redness, swelling, or purulent/malodorous drainage from affected area. Past Medical History Past Medical History: Chronic Problems (Last Reviewed 12/10/19 @ 20:[address] Rudy Cerna MD) Rheumatoid arthritis (Chronic) at present is off Methotrexate Family history of skin cancer (Chronic) Axillary hidradenitis suppurativa (Chronic) bilateral axillary hidradenitis, worse on the left Allergies/Adverse Reactions: Allergies ChloraPrep Adverse Reaction (Uncoded 12/17/19 13:43) Rash Home Medications: Ambulatory Orders Medication Instructions Recorded levothyroxine 25 mcg capsule 25 mcg PO DAILY 03/28/18 multivitamin 1 tab PO DAILY 03/28/18 spironolactone 25 mg tablet 100 mg PO DAILY 03/28/18 norgestimate 0.25 mg-ethinyl 1 tab PO QDAY #84 tab 07/22/19 estradiol 35 mcg tablet escitalopram oxalate 5 mg tablet 20 mg PO QHS 09/25/19 sarecycline 60 mg tablet 150 mg PO DAILY 10/09/19 cetirizine 10 mg tablet 10 mg PO .PRN tab 10/10/19 gabapentin 300 mg capsule 300 mg PO 4X/DAY PRN PRN cap 10/10/19 lorazepam 0.5 mg tablet 0.5 mg PO DAILY PRN 10/10/19 Clindamycin HCl [Cleocin] 300 mg PO TID #30 cap 12/03/19 Diazepam [Valium] 5 mg PO 4X/DAY PRN PRN #30 tab 12/03/19 Docusate Sodium [Colace] 100 mg PO BID cap 12/03/19 Loratadine [Claritin] 10 mg PO DAILY PRN PRN tab 12/03/19 doxycycline hyclate 100 mg capsule 100 mg PO BID #60 cap 12/09/19 gabapentin 300 mg capsule 300 mg PO BID #60 cap 12/11/19 oxycodone-acetaminophen 5 mg-325 1 tab PO Q4H PRN PRN 7 Days #40 tab 12/13/19 mg tablet Escitalopram Oxalate [Lexapro] 25 mg PO DAILY 12/15/19 Smoking Status: Never smoker Review of Systems Constitutional: Denies: Chills, Fever, Weight Change Eyes: Denies: Pain, Vision Change HEENT: Denies: Difficulty Hearing, Difficulty Swallowing, Sinus Congestion Cardiovascular: Denies: Chest Pain, Palpitations Respiratory: Denies: Cough, Shortness of Breath Gastrointestinal: Denies: Diarrhea, Nausea, Vomiting Genitourinary: Denies: Dysuria, Hematuria Musculoskeletal: Reports: Arm Pain Skin: Reports: Wounds - Postsurgical right axilla wound Neurological: Denies: Balance problems, Focal weakness Endocrine: Denies: Heat/ Cold Intolerance, Polydipsia, Polyuria Hematologic/ Lymphatic: Denies: Easy Bruising, Easy Bleeding - Physical Exam Vital Signs Temp Pulse Resp BP 97.3 F L 79 22 H 137/66 H 12/15/19 10:05 12/15/19 10:05 12/15/19 10:05 12/15/19 10:05 General: Alert, Oriented x3, Cooperative, No apparent distress HEENT: Atraumatic, Normocephalic Oral: Moist Mucosa Neck: Supple, No JVD, Trachea Midline Lungs: Clear to auscultation, Normal air movement, No rhonchi, No wheeze, No rales Cardiovascular: Regular rate, Regular Rhythm, Normal S1, Normal S2 Abdomen: Bowel Sounds Present, Soft, Non Tender, Obese Extremities: No clubbing, No cyanosis, No edema, Capillary Refill Less than 3 Seconds, Peripheral Pulses Normal Skin: Ulcer/ Wound - Large postsurgical right axillary wound with subcutaneous layer exposed. Beefy red tissue is present. No tunneling or undermining. No purulent/malodorous drainage. Wound Measurements and Assessment WC - Nurse 1 - General Ulcer Measurement Start: 12/15/19 09:58 Freq: Status: Active Protocol: Activity Type Activity Date Activity User E-Sign Co-Sign Detail Recorded Client Recorded Date Recorded By Document 12/15/19 10:05 DL [id number] 12/15/19 10:31 DL 12/15/19 10:05 Wound Center Nurse 1 [Ulcer Assessment] #1 R Axilla -Current Size (cm) - Length 12 -Current Size (cm) - Width 10 -Current Size (cm) - Depth 4.2 -Total Square Cm 120 -Photo Taken Yes -Classification - Thickness Full Thickness without Exposed Support Structure -Exudate Amt Medium -Exudate Type Sanguineous -Wound Margin Distinct, Outline Attached -Granulation Amt Large (67-100%) -Granulation Quality Red -Necrosis Amt None Present (0 %) -Structure Exposed N/A -Texture (Karin-wound Skin Appearance) No Abnormality, Rash -Moisture (Karin-wound Skin Appearance No Abnormality ) -Color (Karin-wound Skin Appearance) No Abnormality -Temperature (Karin-wound Skin No Abnormality Appearance) (Pt Warm) -Ulcer Cleansing Wound Cleanser -Foul Odor after Cleansing No -Anesthetic Used 4% Lidocaine Solution WC - Nurse 2 - General Ulcer CM Notes Start: 12/15/19 09:58 Freq: Status: Active Protocol: Activity Type Activity Date Activity User E-Sign Co-Sign Detail Recorded Client Recorded Date Recorded By Document 12/15/19 10:56 [id number] 12/15/19 11:05 12/15/19 10:56 Wound Center Nurse 2 [Procedure/Treatment] -Time 10:56 -Correct Patient Yes -Correct Side, Site, Position Yes -Correct Procedure Yes -Procedure Performed Yes -Type of Procedure Debridement -Clinical Debridement Subcutaneous -Tissue Removed Subcutaneous -Post Debridement (cm) - Length 12.1 -Post Debridement (cm) - Width 10.1 -Post Debridement (cm) - Depth 4.2 -Total Square (Post) (cm) 122.21 -Area of Debridement (cm) - Length 12.1 -Area of Debridement (cm) - Width 10.1 -Total Square (Area) (cm) 122.21 -Tunneling No -Undermining/Tunneling No -Circular Undermining No -Wound/Ulcer Outcome Not Healed -Ulcer Cleansing Rinsed/ Irrigated with Saline -Foul Odor after Cleansing No -Bioengineered Tissue No -Bleeding Controlled with Pressure -Offloading No -Treatment Response Procedure Tolerated Well -Debridement - Subq, 1st 20sq cm Yes -Debridement, SubQ, ea addt'l 20sq cm 6 or part thereof [See Physician Procedure note for Specifics] Pain Scale: 0-10 Numeric [Pain] -Is Patient Pain Free? Yes - Nurse 3 - General Ulcer D/C NN Start: 12/15/19 09:58 Freq: Status: Active Protocol: Activity Type Activity Date Activity User E-Sign Co-Sign Detail Recorded Client Recorded Date Recorded By Document 12/15/19 11:34 [facility] [id number] 12/15/19 11:34 [facility] 12/15/19 11:34 Wound Care Nurse 3 [Wound Dressing] #1 R Axilla -Ulcer Cleansing Rinsed/ Irrigated with Saline -Foul Odor after Cleansing No -Negative Pressure Wound Therapy Continue -Setting (mmHg) 150 -Negative Pressure is Continuous -NPWT Application Charge ($) NPWT > 50 sq cm [Post Procedure Tolerated] -Treatment Response Procedure Tolerated Well Pain Scale: 0-10 Numeric [Pain] -Is Patient Pain Free? Yes - Visit Discharge [Visit Discharge Information] -Discharge Condition Stable -Ambulatory Status Ambulatory -Transportation Private Auto -Accompanied by dad [Facility Notification] -Facility Type Home Health Musculoskeletal: Tenderness - On debridement of right axilla Neurological: Neuro grossly intact Psych/Mental Status: Normal Affect, Appropriate Debridement Note Post-Debridement Measurements/Treatment - Nurse 2 - General Ulcer CM Notes Start: 12/15/19 09:58 Freq: Status: Active Protocol: Activity Type Activity Date Activity User E-Sign Co-Sign Detail Recorded Client Recorded Date Recorded By Document 12/15/19 10:56 [id number] 12/15/19 11:05 12/15/19 10:56 Wound Center Nurse 2 #1 R Axilla -Time 10:56 -Correct Patient Yes -Correct Side, Site, Position Yes -Correct Procedure Yes -Procedure Performed Yes -Type of Procedure Debridement -Clinical Debridement Subcutaneous -Tissue Removed Subcutaneous -Post Debridement (cm) - Length 12.1 -Post Debridement (cm) - Width 10.1 -Post Debridement (cm) - Depth 4.2 -Total Square (Post) (cm) 122.21 -Area of Debridement (cm) - Length 12.1 -Area of Debridement (cm) - Width 10.1 -Total Square (Area) (cm) 122.21 -Tunneling No -Undermining/Tunneling No -Circular Undermining No -Wound/Ulcer Outcome Not Healed -Ulcer Cleansing Rinsed/ Irrigated with Saline -Foul Odor after Cleansing No -Bioengineered Tissue No -Bleeding Controlled with Pressure -Offloading No -Treatment Response Procedure Tolerated Well -Debridement - Subq, 1st 20sq cm Yes -Debridement, SubQ, ea addt'l 20sq cm 6 or part thereof Pain Scale: 0-10 Numeric Is Patient Pain Free? Yes - Nurse 3 - General Ulcer D/C NN Start: 12/15/19 09:58 Freq: Status: Active Protocol: Activity Type Activity Date Activity User E-Sign Co-Sign Detail Recorded Client Recorded Date Recorded By Document 12/15/19 11:34 [facility] [id number] 12/15/19 11:34 [facility] 12/15/19 11:34 Wound Care Nurse 3 #1 R Axilla -Ulcer Cleansing Rinsed/ Irrigated with Saline -Foul Odor after Cleansing No -Negative Pressure Wound Therapy Continue -Setting (mmHg) 150 -Negative Pressure is Continuous -NPWT Application Charge ($) NPWT > 50 sq cm Treatment Response Procedure Tolerated Well Pain Scale: 0-10 Numeric Is Patient Pain Free? Yes WC - Visit Discharge Discharge Condition Stable Ambulatory Status Ambulatory Transportation Private Auto Accompanied by dad Facility Type Home Health Wound debrided: Right axilla Laterality: Right Type of Debridement: Excisional debridement Anesthesia Used: 4% Lidocaine Solution Depth: in the subcutaneous layer Percentage of wound debrided: 100 Instrument Used: 7mm curette Tissue Removed: Slough and devitalized tissue Severity: Fat Layer Exposed Amount of bleeding with debridement: Moderate Bleeding Controlled with: Pressure Patient tolerated procedure well Assessment/Plan Active Problems (Last Reviewed 12/10/19 @ 20:[address] Rudy Cerna MD) Encounter for postoperative wound care (Acute) Open wound of right axillary region with complication (Acute) Rheumatoid arthritis (Chronic) at present is off Methotrexate Axillary hidradenitis suppurativa (Chronic) bilateral axillary hidradenitis, worse on the left Assessment: Encounter for postoperative wound care (right axilla at bedtime surgery 12/02/2019). Open wound of right axillary region with complication. Axillary hidradenitis suppurative. Rheumatoid arthritis Plan: Debridement performed today in clinic. Wound VAC applied. At home wound- care instructions: Prior to VAC changes, remove VAC and shower, washing right axilla region with antibacterial soap and water and rinsing thoroughly. Diet: Patient encouraged to increase protein and vitamin C intake while taking caution to avoid high carbohydrate and/or sugar intake. Labs/cultures/imaging: Intraoperative wound tissue culture was positive for rare Staphylococcus lugdunensis. Patient is currently taking doxycycline and this should be continued. Patient's recent labs from 12/03/2019 were reviewed. Continue gabapentin, oxycodone?acetaminophen, and lorazepam as prescribed for pain management. Follow-up: Return to clinic in 1 week for re-evaluation. Return sooner or report to the emergency room should symptoms worsen, or new symptoms arise. Note: Matthew [employer] speech recognition tire fabric impregnating range tender software was used to create portions of this document. Sound-alike and misspelled words, as well as other tire fabric impregnating range tender errors may be contained in the documentation. [id number]: [id number] Global Visit
== END 2019-12-20 23:59 ==
LOC: WC 09:53
PROVIDERS: PCP Nurse Practitioner Family; Visit Provider Surgery
DX: L73.2 Hidradenitis suppurativa (principal); S41.101A Unspecified open wound of right upper arm, initial encounter; Z48.89 Encounter for other specified surgical aftercare; M06.9 Rheumatoid arthritis, unspecified; Z79.899 Other long term (current) drug therapy
CPT/HCPCS: 11042; 11045; 97606; 99213; G0463

== ENCOUNTER 2020-01-19 08:30 | Outpatient (RCR) | payer OTHER, SELFPAY ==
[2019-12-21 00:39] VITALS: BP 137/66; PULSE 79; RESP 22; TEMP 36.3
[2019-12-22 08:23] VITALS: BP 132/83; PULSE 73; RESP 17; TEMP 36.2; BMI 42.0
--- NOTE | 2019-12-22 12:36 | PN.PCM_ITS ---
(1) Open wound of right axillary region with complication Status: Acute Code(s): S41.101A - Unspecified open wound of right upper arm, initial encounter (2) Axillary hidradenitis suppurativa Status: Chronic Code(s): L73.2 - Hidradenitis suppurativa Comment: bilateral axillary hidradenitis, worse on the left (3) Rheumatoid arthritis Status: Chronic Code(s): M06.9 - Rheumatoid arthritis, unspecified Comment: at present is off Methotrexate Type of Wound Date of Service: 12/22/19 Chief Complaint: post-op wound care of right axillary hidradenitis suppurative excision on 12/02/2019 History of Wound: The patient presents for her initial wound healing center visit on 12/15/2019. She has been evaluated for postsurgical wound care of her right axilla status post right axillary hidradenitis suppurative surgical excision (176 cm?) by Dr. Cerna on 12/02/2019. Following surgery, the patient was started on a wound VAC. She subsequently developed a rash of her right arm, axilla, and right sided abdomen. It was unclear whether the rash was due to the VAC or surgical prep with ChloraPrep solution. The VAC was discontinued and the patient was instructed to perform daily dressing changes with gauze packing. The rash has since cleared. The patient reports an increase in pain and difficulty managing her postsurgical wound since discontinuation of the VAC, and is eager to restart the VAC. Patient's operative wound tissue culture was positive for rare Staphylococcus lugdunensis. She is currently taking Doxycycline. The patient denies any fever, chills, nausea, vomiting, or diarrhea. Denies any increasing redness, swelling, or purulent/malodorous drainage from affected area. Progress of Wound: Improved. - Physical Exam Vital Signs Temp Pulse Resp BP 97.1 F L 73 17 132/83 H 12/22/19 08:23 12/22/19 08:23 12/22/19 08:23 12/22/19 08:23 General: Alert, Oriented x3, Cooperative HEENT: Atraumatic Oral: Moist Mucosa Lungs: Normal air movement Cardiovascular: Regular rate Extremities: Capillary Refill Less than 3 Seconds Skin: Ulcer/ Wound - Right axilla wound is beefy pink with good granulation tissue. Wound Measurements and Assessment WC - Nurse 1 - General Ulcer Measurement Start: 12/22/19 08:23 Freq: Status: Active Protocol: Activity Type Activity Date Activity User E-Sign Co-Sign Detail Recorded Client Recorded Date Recorded By Document 12/22/19 08:23 MS [id number] 12/22/19 08:32 MS 12/22/19 08:23 Wound Center Nurse 1 [Ulcer Assessment] #1 R Axilla -Current Size (cm) - Length 16.1 -Current Size (cm) - Width 9 -Current Size (cm) - Depth 4.8 -Total Square Cm 144.9 -Exudate Amt Medium -Exudate Type Serosanguineous -Wound Margin Distinct, Outline Attached -Granulation Amt Large (67-100%) -Granulation Quality Red -Slough/Fibrin Yes -Necrosis Amt Small (1-33%) -Necrotic Tissue Type Adherent Slough -Texture (Karin-wound Skin Appearance) No Abnormality -Moisture (Karin-wound Skin Appearance No Abnormality ) -Color (Karin-wound Skin Appearance) No Abnormality, Assessed -Tenderness on Palpation (Karin-wound No Skin Appearance) -Ulcer Cleansing Rinsed/ Irrigated with Saline -Foul Odor after Cleansing No -Anesthetic Used 4% Lidocaine Solution - Nurse 2 - General Ulcer CM Notes Start: 12/22/19 08:23 Freq: Status: Active Protocol: Activity Type Activity Date Activity User E-Sign Co-Sign Detail Recorded Client Recorded Date Recorded By Document 12/22/19 09:05 MARQUITA [id number] 12/22/19 09:07 MARQUITA 12/22/19 09:05 Wound Center Nurse 2 [Procedure/Treatment] -Time 09:05 -Correct Patient Yes -Correct Side, Site, Position Yes -Correct Procedure Yes -Procedure Performed Yes -Type of Procedure Debridement -Clinical Debridement Subcutaneous -Tissue Removed Subcutaneous -Post Debridement (cm) - Length 15.5 -Post Debridement (cm) - Width 10.5 -Post Debridement (cm) - Depth 3.5 -Total Square (Post) (cm) 162.75 -Area of Debridement (cm) - Length 15.5 -Area of Debridement (cm) - Width 10.5 -Total Square (Area) (cm) 162.75 -Tunneling No -Undermining/Tunneling No -Circular Undermining No -Wound/Ulcer Outcome Not Healed -Ulcer Cleansing Rinsed/ Irrigated with Saline -Foul Odor after Cleansing No -Bioengineered Tissue No -Bleeding Controlled with Pressure -Offloading No -Treatment Response Procedure Tolerated Well -Debridement - Subq, 1st 20sq cm Yes -Debridement, SubQ, ea addt'l 20sq cm 8 or part thereof [See Physician Procedure note for Specifics] Pain Scale: 0-10 Numeric [Pain] -Is Patient Pain Free? Yes - Nurse 3 - General Ulcer D/C NN Start: 12/22/19 08:23 Freq: Status: Active Protocol: Activity Type Activity Date Activity User E-Sign Co-Sign Detail Recorded Client Recorded Date Recorded By Document 12/22/19 09:17 ALFRED [id number] 12/22/19 09:19 DL 12/22/19 09:17 Wound Care Nurse 3 [Wound Dressing] #1 R Axilla -Ulcer Cleansing Wound Cleanser -Foul Odor after Cleansing No -Negative Pressure Wound Therapy Continue -Setting (mmHg) 150 -Negative Pressure is Continuous -NPWT Application Charge ($) NPWT </= 50 sq cm [Post Procedure Tolerated] -Treatment Response Procedure Tolerated Well Pain Scale: 0-10 Numeric [Pain] -Is Patient Pain Free? Yes - Visit Discharge [Visit Discharge Information] -Discharge Condition Stable -Ambulatory Status Ambulatory -Transportation Private Auto Musculoskeletal: No Tenderness to Palpation of Joints or Extremities Neurological: Cranial nerves II-XII grossly intact Psych/Mental Status: Normal Affect, Appropriate Debridement Note Post-Debridement Measurements/Treatment - Nurse 2 - General Ulcer CM Notes Start: 12/22/19 08:23 Freq: Status: Active Protocol: Activity Type Activity Date Activity User E-Sign Co-Sign Detail Recorded Client Recorded Date Recorded By Document 12/22/19 09:05 MARQUITA [id number] 12/22/19 09:07 MARQUITA 12/22/19 09:05 Wound Center Nurse 2 #1 R Axilla -Time 09:05 -Correct Patient Yes -Correct Side, Site, Position Yes -Correct Procedure Yes -Procedure Performed Yes -Type of Procedure Debridement -Clinical Debridement Subcutaneous -Tissue Removed Subcutaneous -Post Debridement (cm) - Length 15.5 -Post Debridement (cm) - Width 10.5 -Post Debridement (cm) - Depth 3.5 -Total Square (Post) (cm) 162.75 -Area of Debridement (cm) - Length 15.5 -Area of Debridement (cm) - Width 10.5 -Total Square (Area) (cm) 162.75 -Tunneling No -Undermining/Tunneling No -Circular Undermining No -Wound/Ulcer Outcome Not Healed -Ulcer Cleansing Rinsed/ Irrigated with Saline -Foul Odor after Cleansing No -Bioengineered Tissue No -Bleeding Controlled with Pressure -Offloading No -Treatment Response Procedure Tolerated Well -Debridement - Subq, 1st 20sq cm Yes -Debridement, SubQ, ea addt'l 20sq cm 8 or part thereof Pain Scale: 0-10 Numeric Is Patient Pain Free? Yes - Nurse 3 - General Ulcer D/C NN Start: 12/22/19 08:23 Freq: Status: Active Protocol: Activity Type Activity Date Activity User E-Sign Co-Sign Detail Recorded Client Recorded Date Recorded By Document 12/22/19 09:17 DL [id number] 12/22/19 09:19 DL 12/22/19 09:17 Wound Care Nurse 3 #1 R Axilla -Ulcer Cleansing Wound Cleanser -Foul Odor after Cleansing No -Negative Pressure Wound Therapy Continue -Setting (mmHg) 150 -Negative Pressure is Continuous -NPWT Application Charge ($) NPWT </= 50 sq cm Treatment Response Procedure Tolerated Well Pain Scale: 0-10 Numeric Is Patient Pain Free? Yes WC - Visit Discharge Discharge Condition Stable Ambulatory Status Ambulatory Transportation Private Auto Wound debrided: axilla wound Laterality: Right Type of Debridement: Excisional debridement Anesthesia Used: 5% Lidocaine Gel Depth: Down to and including healthy tissue, in the subcutaneous layer Percentage of wound debrided: 100 Instrument Used: 7mm curette Tissue Removed: Subcutaneous tissue and slough Severity: Fat Layer Exposed Amount of bleeding with debridement: Mild Bleeding Controlled with: Pressure Patient tolerated procedure well Assessment/Plan Assessment: Encounter for postoperative wound care (right axilla at bedtime surgery 12/02/2019). Open wound of right axillary region with complication. Axillary hidradenitis suppurative. Rheumatoid arthritis Plan: Debridement performed today in clinic. Wound VAC applied. At home wound- care instructions: Prior to VAC changes, remove VAC and shower, washing right axilla region with antibacterial soap and water and rinsing thoroughly. Had extensive discussion about applying water down the tube to help moisten/loosen the sponge to help make it less painful when removing. Diet: Patient encouraged to increase protein and vitamin C intake while taking caution to avoid high carbohydrate and/or sugar intake. Labs/cultures/imaging: Intraoperative wound tissue culture was positive for rare Staphylococcus lugdunensis. Patient is currently taking doxycycline and this should be continued. Follow-up: Return to clinic in 1 week for re-evaluation. Return sooner or report to the emergency room should symptoms worsen, or new symptoms arise. Note: [employer] speech recognition bus analyst software was used to create portions of this document. Sound-alike and misspelled words, as well as other bus analyst errors may be contained in the documentation. [id number]: [id number] Global Visit
[2019-12-29 08:49] VITALS: BP 137/74; PULSE 83; TEMP 36.1; BMI 42.0
--- NOTE | 2019-12-29 14:25 | PCM.WC.PN ---
(1) Open wound of right axillary region with complication Status: Acute Code(s): S41.101A - Unspecified open wound of right upper arm, initial encounter (2) Axillary hidradenitis suppurativa Status: Chronic Code(s): L73.2 - Hidradenitis suppurativa Comment: bilateral axillary hidradenitis, worse on the left (3) Rheumatoid arthritis Status: Chronic Code(s): M06.9 - Rheumatoid arthritis, unspecified Comment: at present is off Methotrexate Type of Wound Date of Service: 12/29/19 Chief Complaint: post-op wound care of right axillary hidradenitis suppurative excision on 12/02/2019 History of Wound: The patient presents for her initial wound healing center visit on 12/15/2019. She has been evaluated for postsurgical wound care of her right axilla status post right axillary hidradenitis suppurative surgical excision (176 cm?) by Dr. Cerna on 12/02/2019. Following surgery, the patient was started on a wound VAC. She subsequently developed a rash of her right arm, axilla, and right sided abdomen. It was unclear whether the rash was due to the VAC or surgical prep with ChloraPrep solution. The VAC was discontinued and the patient was instructed to perform daily dressing changes with gauze packing. The rash has since cleared. The patient reports an increase in pain and difficulty managing her postsurgical wound since discontinuation of the VAC, and is eager to restart the VAC. Patient's operative wound tissue culture was positive for rare Staphylococcus lugdunensis. She is currently taking Doxycycline. The patient denies any fever, chills, nausea, vomiting, or diarrhea. Denies any increasing redness, swelling, or purulent/malodorous drainage from affected area. Progress of Wound: Surgical wound improved. Karin- wound is very excoriated. - Physical Exam Vital Signs Temp Pulse Resp BP 97.0 F L 83 17 137/74 H 12/29/19 08:49 12/29/19 08:49 12/22/19 08:23 12/29/19 08:49 General: Alert, Oriented x3, Cooperative HEENT: Atraumatic Oral: Moist Mucosa Lungs: Normal air movement Cardiovascular: Regular rate Extremities: Capillary Refill Less than 3 Seconds Skin: Ulcer/ Wound - Right axilla wound is beefy pink with good granulation tissue. The karin wound is excoriated where the drape is located. Wound Measurements and Assessment WC - Nurse 1 - General Ulcer Measurement Start: 12/22/19 08:23 Freq: Status: Active Protocol: Activity Type Activity Date Activity User E-Sign Co-Sign Detail Recorded Client Recorded Date Recorded By Document 12/29/19 08:49 MARGAUX [id number] 12/29/19 09:03 MARGAUX 12/29/19 08:49 Wound Center Nurse 1 [Ulcer Assessment] #1 R Axilla -Current Size (cm) - Length 14.7 -Current Size (cm) - Width 9.5 -Current Size (cm) - Depth 2 -Total Square Cm 139.65 -Photo Taken No -Exudate Amt Medium -Exudate Type Serosanguineous -Wound Margin Distinct, Outline Attached -Granulation Amt Large (67-100%) -Granulation Quality Red -Slough/Fibrin Yes -Necrosis Amt Small (1-33%) -Necrotic Tissue Type Adherent Slough -Structure Exposed N/A -Texture (Karin-wound Skin Appearance) Assessed, Excoriation, Scarring -Moisture (Karin-wound Skin Appearance Assessed ) -Color (Karin-wound Skin Appearance) Assessed -Temperature (Karin-wound Skin No Abnormality Appearance) (Pt Warm) -Tenderness on Palpation (Karin-wound Yes Skin Appearance) -Ulcer Cleansing Wound Cleanser -Foul Odor after Cleansing No -Anesthetic Used 4% Lidocaine Solution WC - Nurse 2 - General Ulcer CM Notes Start: 12/22/19 08:23 Freq: Status: Active Protocol: Activity Type Activity Date Activity User E-Sign Co-Sign Detail Recorded Client Recorded Date Recorded By Document 12/29/19 09:30 MARQUITA [id number] 12/29/19 09:36 MARQUITA 12/29/19 09:30 Wound Center Nurse 2 [Procedure/Treatment] -Time 09:30 -Correct Patient Yes -Correct Side, Site, Position Yes -Correct Procedure Yes -Procedure Performed Yes -Type of Procedure Debridement -Clinical Debridement Subcutaneous -Tissue Removed Subcutaneous -Post Debridement (cm) - Length 16.2 -Post Debridement (cm) - Width 8.5 -Post Debridement (cm) - Depth 2.8 -Total Square (Post) (cm) 137.70 -Area of Debridement (cm) - Length 16.2 -Area of Debridement (cm) - Width 8.5 -Total Square (Area) (cm) 137.70 -Tunneling No -Undermining/Tunneling No -Circular Undermining No -Wound/Ulcer Outcome Not Healed -Ulcer Cleansing Rinsed/ Irrigated with Saline -Foul Odor after Cleansing No -Bioengineered Tissue No -Bleeding Controlled with Pressure -Offloading No -Treatment Response Procedure Tolerated Well -Debridement - Subq, 1st 20sq cm Yes -Debridement, SubQ, ea addt'l 20sq cm 6 or part thereof [See Physician Procedure note for Specifics] Pain Scale: 0-10 Numeric [Pain] -Is Patient Pain Free? Yes - Nurse 3 - General Ulcer D/C NN Start: 12/22/19 08:23 Freq: Status: Active Protocol: Activity Type Activity Date Activity User E-Sign Co-Sign Detail Recorded Client Recorded Date Recorded By Document 12/29/19 09:45 MARGAUX [id number] 12/29/19 09:51 KR 12/29/19 09:45 Wound Care Nurse 3 [Wound Dressing] #1 R Axilla -Ulcer Cleansing Rinsed/ Irrigated with Saline -Foul Odor after Cleansing No -Primary Dressing Applied Silvercel -Primary Dressing Covered/Secured Dry Gauze with -Silvercel 1 - Visit Discharge [Visit Discharge Information] -Discharge Condition Stable -Ambulatory Status Ambulatory -Transportation Private Auto -Notes: Silvercel applied today. pt to start dakins at home. Musculoskeletal: No Tenderness to Palpation of Joints or Extremities, - - Good range of motion of right shoulder Neurological: Cranial nerves II-XII grossly intact Psych/Mental Status: Normal Affect, Appropriate Debridement Note Post-Debridement Measurements/Treatment - Nurse 2 - General Ulcer CM Notes Start: 12/22/19 08:23 Freq: Status: Active Protocol: Activity Type Activity Date Activity User E-Sign Co-Sign Detail Recorded Client Recorded Date Recorded By Document 12/22/19 09:05 MARQUITA [id number] 12/22/19 09:07 JF Document 12/29/19 09:30 MARQUITA [id number] 12/29/19 09:36 JF 12/22/19 12/29/19 09:05 09:30 Wound Center Nurse 2 #1 R Axilla -Time 09:05 09:30 -Correct Patient Yes Yes -Correct Side, Site, Position Yes Yes -Correct Procedure Yes Yes -Procedure Performed Yes Yes -Type of Procedure Debridement Debridement -Clinical Debridement Subcutaneous Subcutaneous -Tissue Removed Subcutaneous Subcutaneous -Post Debridement (cm) - Length 15.5 16.2 -Post Debridement (cm) - Width 10.5 8.5 -Post Debridement (cm) - Depth 3.5 2.8 -Total Square (Post) (cm) 162.75 137.70 -Area of Debridement (cm) - Length 15.5 16.2 -Area of Debridement (cm) - Width 10.5 8.5 -Total Square (Area) (cm) 162.75 137.70 -Tunneling No No -Undermining/Tunneling No No -Circular Undermining No No -Wound/Ulcer Outcome Not Healed Not Healed -Ulcer Cleansing Rinsed/ Rinsed/ Irrigated with Irrigated with Saline Saline -Foul Odor after Cleansing No No -Bioengineered Tissue No No -Bleeding Controlled with Pressure Pressure -Offloading No No -Treatment Response Procedure Procedure Tolerated Well Tolerated Well -Debridement - Subq, 1st 20sq cm Yes Yes -Debridement, SubQ, ea addt'l 20sq cm 8 6 or part thereof Pain Scale: 0-10 Numeric Is Patient Pain Free? Yes Yes - Nurse 3 - General Ulcer D/C NN Start: 12/22/19 08:23 Freq: Status: Active Protocol: Activity Type Activity Date Activity User E-Sign Co-Sign Detail Recorded Client Recorded Date Recorded By Document 12/22/19 09:17 DL [id number] 12/22/19 09:19 DL Document 12/29/19 09:45 KR [id number] 12/29/19 09:51 KR 12/22/19 12/29/19 09:17 09:45 Wound Care Nurse 3 #1 R Axilla -Ulcer Cleansing Wound Cleanser Rinsed/ Irrigated with Saline -Foul Odor after Cleansing No No -Negative Pressure Wound Therapy Continue -Setting (mmHg) 150 -Negative Pressure is Continuous -Primary Dressing Applied Silvercel -Primary Dressing Covered/Secured with Dry Gauze -NPWT Application Charge ($) NPWT </= 50 sq cm -Silvercel 1 Treatment Response Procedure Tolerated Well Pain Scale: 0-10 Numeric Is Patient Pain Free? Yes - Visit Discharge Discharge Condition Stable Stable Ambulatory Status Ambulatory Ambulatory Transportation Private Auto Private Auto Notes: Silvercel applied today. pt to start dakins at home. Wound debrided: axilla wound Laterality: Right Type of Debridement: Excisional debridement Anesthesia Used: 5% Lidocaine Gel Depth: Down to and including healthy tissue, in the subcutaneous layer Percentage of wound debrided: 100 Instrument Used: 7mm curette Tissue Removed: Subcutaneous tissue and slough Severity: Fat Layer Exposed Amount of bleeding with debridement: Moderate Bleeding Controlled with: Pressure, Compression and gauze Patient tolerated procedure well Assessment/Plan Active Problems (Last Reviewed 12/10/19 @ 20:[address] Rudy Cerna MD) Open wound of right axillary region with complication (Acute) Rheumatoid arthritis (Chronic) at present is off Methotrexate Axillary hidradenitis suppurativa (Chronic) bilateral axillary hidradenitis, worse on the left Assessment: Encounter for postoperative wound care (right axilla at bedtime surgery 12/02/2019). Open wound of right axillary region with complication. Axillary hidradenitis suppurative. Rheumatoid arthritis Plan: Debridement performed today in clinic. Wound VAC holiday until Sunday to help get karin wound healed. She will do 1/4 strength Dakin's solution moistened gauze covered by ABD daily until Sunday. Home health can restart VAC Sunday01/02/20. At home wound-care instructions: Prior to VAC changes, remove VAC and shower, washing right axilla region with antibacterial soap and water and rinsing thoroughly. Had extensive discussion about applying water down the tube to help moisten/loosen the sponge to help make it less painful when removing. Diet: Patient encouraged to increase protein and vitamin C intake while taking caution to avoid high carbohydrate and/or sugar intake. Labs/cultures/imaging: Intraoperative wound tissue culture was positive for rare Staphylococcus lugdunensis. Patient is currently taking doxycycline and this should be continued. Renewed Percocet (28 tabs). PDMP reviewed. Follow-up: Return to clinic in 1 week for re-evaluation. Return sooner or report to the emergency room should symptoms worsen, or new symptoms arise. 111xxx-[id number]: [id number] Global Visit
[2020-01-05 08:22] VITALS: BP 159/89; PULSE 84; TEMP 35.7; BMI 42.0
--- NOTE | 2020-01-05 15:57 | PCM.WC.PN ---
Type of Wound Date of Service: 01/05/20 Chief Complaint: Nonhealing hidradenitis ulcer right axilla. History of Wound: Surgery 12/02/19 - Surgical preparation right axilla with excision hidradenitis (176 cm2). Wound care - Dakin's with a VAC holiday. Operative culture - Staphylococcus lugdunensis. She was treated perioperatively with Clindamycin. She was then switched to Doxycycline and is finishing them. Prealbumin from 12/03/19 was 28.2. Encourage nutritional supplementation with protein to help the healing process. Today she denies fever. Her appetite is good. She has no problems with range of motion with her right arm and shoulder. She is able to do daily hygiene activities with her right upper extremity. She is interested while she is currently off work to take care of her left axillary hidradenitis. Progress of Wound: Improved. - Physical Exam Vital Signs Temp Pulse Resp BP 96.3 F L 84 17 159/89 H 01/05/20 08:22 01/05/20 08:22 12/22/19 08:23 01/05/20 08:22 Wound Measurements and Assessment WC - Nurse 1 - General Ulcer Measurement Start: 12/22/19 08:23 Freq: Status: Active Protocol: Activity Type Activity Date Activity User E-Sign Co-Sign Detail Recorded Client Recorded Date Recorded By Document 01/05/20 08:22 [email or web address] [id number] 01/05/20 08:36 [email or web address] 01/05/20 08:22 Wound Center Nurse 1 [Ulcer Assessment] #1 R Axilla -Combined with other wound No -Current Size (cm) - Length 14.7 -Current Size (cm) - Width 6.3 -Current Size (cm) - Depth 2.8 -Total Square Cm 92.61 -Photo Taken No -Exudate Amt Medium -Exudate Type Serosanguineous -Wound Margin Distinct, Outline Attached -Granulation Amt Large (67-100%) -Granulation Quality Red -Slough/Fibrin No -Necrosis Amt None Present (0 %) -Structure Exposed N/A -Texture (Karin-wound Skin Appearance) Assessed, Scarring -Moisture (Karin-wound Skin Appearance No Abnormality ) -Color (Karin-wound Skin Appearance) No Abnormality -Temperature (Karin-wound Skin No Abnormality Appearance) (Pt Warm) -Tenderness on Palpation (Karin-wound Yes Skin Appearance) -Ulcer Cleansing soapy water -Anesthetic Used 4% Lidocaine Solution,5% Lidocaine Gel ERMA - Nurse 2 - General Ulcer CM Notes Start: 12/22/19 08:23 Freq: Status: Active Protocol: Activity Type Activity Date Activity User E-Sign Co-Sign Detail Recorded Client Recorded Date Recorded By Document 01/05/20 08:46 [id number] 01/05/20 08:48 01/05/20 08:46 Wound Center Nurse 2 [Procedure/Treatment] -Time 08:46 -Correct Patient Yes -Correct Side, Site, Position Yes -Correct Procedure Yes -Procedure Performed Yes -Type of Procedure Debridement -Clinical Debridement Subcutaneous -Tissue Removed Subcutaneous -Post Debridement (cm) - Length 15.2 -Post Debridement (cm) - Width 6.2 -Post Debridement (cm) - Depth 2.0 -Total Square (Post) (cm) 94.24 -Area of Debridement (cm) - Length 15.2 -Area of Debridement (cm) - Width 6.2 -Total Square (Area) (cm) 94.24 -Tunneling No -Undermining/Tunneling No -Circular Undermining No -Wound/Ulcer Outcome Not Healed -Ulcer Cleansing Rinsed/ Irrigated with Saline -Foul Odor after Cleansing No -Bioengineered Tissue No -Bleeding Controlled with Pressure -Offloading No -Treatment Response Procedure Tolerated Well -Debridement - Subq, 1st 20sq cm Yes -Debridement, SubQ, ea addt'l 20sq cm 4 or part thereof [See Physician Procedure note for Specifics] Pain Scale: 0-10 Numeric [Pain] -Is Patient Pain Free? Yes ERMA - Nurse 3 - General Ulcer D/C NN Start: 12/22/19 08:23 Freq: Status: Active Protocol: Activity Type Activity Date Activity User E-Sign Co-Sign Detail Recorded Client Recorded Date Recorded By Document 01/05/20 09:16 DL [id number] 01/05/20 09:17 DL 01/05/20 09:16 Wound Care Nurse 3 [Wound Dressing] #1 R Axilla -Ulcer Cleansing Wound Cleanser -Foul Odor after Cleansing No -Negative Pressure Wound Therapy Start -Setting (mmHg) 150 -Negative Pressure is Continuous -NPWT Application Charge ($) NPWT </= 50 sq cm [Post Procedure Tolerated] -Treatment Response Procedure Tolerated Well Pain Scale: 0-10 Numeric [Pain] -Is Patient Pain Free? Yes WC - Visit Discharge [Visit Discharge Information] -Discharge Condition Stable -Ambulatory Status Ambulatory -Transportation Private Auto [Facility Notification] -Facility Type Home Health -Telephoned (if yes, spoke with:) Yes Debridement Note Post-Debridement Measurements/Treatment WC - Nurse 2 - General Ulcer CM Notes Start: 12/22/19 08:23 Freq: Status: Active Protocol: Activity Type Activity Date Activity User E-Sign Co-Sign Detail Recorded Client Recorded Date Recorded By Document 12/22/19 09:05 [id number] 12/22/19 09:07 Document 12/29/19 09:30 [id number] 12/29/19 09:36 Document 01/05/20 08:46 [id number] 01/05/20 08:48 12/22/19 12/29/19 01/05/20 09:05 09:30 08:46 Wound Center Nurse 2 #1 R Axilla -Time 09:05 09:30 08:46 -Correct Patient Yes Yes Yes -Correct Side, Site, Position Yes Yes Yes -Correct Procedure Yes Yes Yes -Procedure Performed Yes Yes Yes -Type of Procedure Debridement Debridement Debridement -Clinical Debridement Subcutaneous Subcutaneous Subcutaneous -Tissue Removed Subcutaneous Subcutaneous Subcutaneous -Post Debridement (cm) - Length 15.5 16.2 15.2 -Post Debridement (cm) - Width 10.5 8.5 6.2 -Post Debridement (cm) - Depth 3.5 2.8 2.0 -Total Square (Post) (cm) 162.75 137.70 94.24 -Area of Debridement (cm) - Length 15.5 16.2 15.2 -Area of Debridement (cm) - Width 10.5 8.5 6.2 -Total Square (Area) (cm) 162.75 137.70 94.24 -Tunneling No No No -Undermining/Tunneling No No No -Circular Undermining No No No -Wound/Ulcer Outcome Not Healed Not Healed Not Healed -Ulcer Cleansing Rinsed/ Rinsed/ Rinsed/ Irrigated with Irrigated with Irrigated with Saline Saline Saline -Foul Odor after Cleansing No No No -Bioengineered Tissue No No No -Bleeding Controlled with Pressure Pressure Pressure -Offloading No No No -Treatment Response Procedure Procedure Procedure Tolerated Well Tolerated Well Tolerated Well -Debridement - Subq, 1st 20sq cm Yes Yes Yes -Debridement, SubQ, ea addt'l 20sq cm 8 6 4 or part thereof Pain Scale: 0-10 Numeric Is Patient Pain Free? Yes Yes Yes WC - Nurse 3 - General Ulcer D/C NN Start: 12/22/19 08:23 Freq: Status: Active Protocol: Activity Type Activity Date Activity User E-Sign Co-Sign Detail Recorded Client Recorded Date Recorded By Document 12/22/19 09:17 DL [id number] 12/22/19 09:19 DL Document 12/29/19 09:45 KR [id number] 12/29/19 09:51 KR Document 01/05/20 09:16 DL [id number] 01/05/20 09:17 DL 12/22/19 12/29/19 01/05/20 09:17 09:45 09:16 Wound Care Nurse 3 #1 R Axilla -Ulcer Cleansing Wound Cleanser Rinsed/ Wound Cleanser Irrigated with Saline -Foul Odor after Cleansing No No No -Negative Pressure Wound Therapy Continue Start -Setting (mmHg) 150 150 -Negative Pressure is Continuous Continuous -Primary Dressing Applied Silvercel -Primary Dressing Covered/Secured with Dry Gauze -NPWT Application Charge ($) NPWT </= 50 sq NPWT </= 50 sq cm cm -Silvercel 1 Treatment Response Procedure Procedure Tolerated Well Tolerated Well Pain Scale: 0-10 Numeric Is Patient Pain Free? Yes Yes WC - Visit Discharge Discharge Condition Stable Stable Stable Ambulatory Status Ambulatory Ambulatory Ambulatory Transportation Private Auto Private Auto Private Auto Notes: Silvercel applied today. pt to start dakins at home. Facility Type Home Health Telephoned (if yes, spoke with:) Yes Wound debrided: #1 Right axilla. Laterality: Right Wound Grade/Stage: 2. Type of Debridement: Excisional debridement Anesthesia Used: 4% Lidocaine Solution Depth: Down to and including healthy tissue, in the subcutaneous layer Percentage of wound debrided: 100 Instrument Used: 5mm curette Tissue Removed: subcutaneous tissue. Severity: Fat Layer Exposed Amount of bleeding with debridement: Mild Bleeding Controlled with: Pressure Patient tolerated procedure well Assessment/Plan Active Problems (Last Reviewed 12/10/19 @ 20:[address] Rudy Cerna MD) Open wound of right axillary region with complication (Acute) Rheumatoid arthritis (Chronic) at present is off Methotrexate Axillary hidradenitis suppurativa (Chronic) bilateral axillary hidradenitis, worse on the left Assessment: 1. Nonhealing hidradenitis ulcer right axilla. 2. Bilateral axillary hidradenitis, worse on the right. 3. Rheumatoid arthritis, and she is off Methotrexate. 4. Family history of skin cancer. Plan: The periwound area is better. Will change the Dakin's back to the VAC. Good improvement is noted. It is not quite ready for a skin graft but is becoming more superficial. She exhibits good range of motion of her right arm and shoulder. Operative culture showed Staphylococcus lugdunensis. She was treated perioperatively with Clindamycin and was switched to Doxycycline and is finishing them. Prealbumin from 12/03/19 was 28.2. Encourage nutritional supplementation with protein to help the healing process. Patient is interested in proceeding with surgery on her left axilla for hidradenitis as she is able to perform daily hygiene activities with her right upper extremity. Will schedule the surgery after Thanksgi. She is not quite ready yet for a skin graft on the right as I would like to see a little more superficial healing before proceeding with a skin graft. Surgery will be done under general anesthesia with a surgical observation overnight stay. Will leave the wound open and proceed with the VAC for postoperative wound care. At that time, we would have already switched dressings on the right as I don't want both axillae to have a VAC. Patient was informed of the risks and complications of the procedure including alternaitves to surgery. These were discussed with her personally. She voices understanding and wishes to proceed. We discussed the current risks associated with COVID-19. While it is understood that there is a community spread of COVID-19, the risk of barbara COVID-19 while at [facility] ([facility]) is very low; however, the risk cannot be completely mitigated because of the community spread of the disease. We discussed in detail the risk of exposure to and/or potential harm posed by the COVID-19 virus with having a surgery/procedure at this time versus the risk of delaying the surgery/procedure. It is not possible to know either the risk of delaying the surgery or procedure or chance of getting an infection with perfect accuracy, but a joint decision was made to proceed at this time with the scheduled surgery/procedure as indicated on the consent form. Patient was notified that we will need to comply with any screening or testing [facility] wishes to perform or that surgery may be delayed for any positive results. Followup one week. Discussed with the patient that I was tested for COVID-19 on 08/21/19 which was negative and on 09/04/19 which was negative and on 09/18/19 which was negative and on 10/02/19 which was negative and on 10/16/19 which was negative and on 11/06/19 which was negative and on 11/27/19 which was negative. My testing regimen at this time is to be COVID-19 tested every 2 weeks or so. I was recently tested on 01/01/20. Those results are pending.
[2020-01-12 08:33] VITALS: BP 131/90; PULSE 88; RESP 20; TEMP 36.4; BMI 42.0
--- NOTE | 2020-01-12 13:03 | PCM.WC.PN ---
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 History of Wound: Surgery 12/02/19 - Surgical preparation right axilla with excision hidradenitis (176 cm2). Wound care - Dakin's with a VAC holiday that was started on Sunday due to excoriation of karin wound. Operative culture - Staphylococcus lugdunensis. She was treated perioperatively with Clindamycin. She was then switched to Doxycycline and is finishing them. Prealbumin from 12/03/19 was 28.2. Encourage nutritional supplementation with protein to help the healing process. Today she denies fever. Her appetite is good. She has no problems with range of motion with her right arm and shoulder. She is able to do daily hygiene activities with her right upper extremity. She is scheduled on 01/23/20 to have excision of her left axillary hidradenitis. Progress of Wound: Improved. Ulcer is beefy pink. Karin wound is excoriated this week. - Physical Exam Vital Signs Temp Pulse Resp BP 97.6 F L 88 20 H 131/90 H 01/12/20 08:33 01/12/20 08:33 01/12/20 08:33 01/12/20 08:33 General: Alert, Oriented x3, Cooperative HEENT: Atraumatic Oral: Moist Mucosa Lungs: Normal air movement Cardiovascular: Regular rate Abdomen: Soft Extremities: Capillary Refill Less than 3 Seconds Skin: Ulcer/ Wound - Right axilla ulcer is beefy pink. There is excoriation of the karin wound Wound Measurements and Assessment WC - Nurse 1 - General Ulcer Measurement Start: 12/22/19 08:23 Freq: Status: Active Protocol: Activity Type Activity Date Activity User E-Sign Co-Sign Detail Recorded Client Recorded Date Recorded By Document 01/12/20 08:33 DL [id number] 01/12/20 08:41 DL 01/12/20 08:33 Wound Center Nurse 1 [Ulcer Assessment] #1 R Axilla -Current Size (cm) - Length 14.3 -Current Size (cm) - Width 5 -Current Size (cm) - Depth 2.3 -Total Square Cm 71.5 -Photo Taken No -Exudate Amt Large -Exudate Type Sanguineous -Wound Margin Distinct, Outline Attached -Granulation Amt Large (67-100%) -Granulation Quality Red -Necrosis Amt None Present (0 %) -Structure Exposed N/A -Texture (Karin-wound Skin Appearance) Scarring -Moisture (Karin-wound Skin Appearance No Abnormality ) -Color (Karin-wound Skin Appearance) No Abnormality -Temperature (Karin-wound Skin No Abnormality Appearance) (Pt Warm) -Tenderness on Palpation (Karin-wound No Skin Appearance) -Ulcer Cleansing Wound Cleanser -Foul Odor after Cleansing No -Anesthetic Used 4% Lidocaine Solution WC - Nurse 2 - General Ulcer CM Notes Start: 12/22/19 08:23 Freq: Status: Active Protocol: Activity Type Activity Date Activity User E-Sign Co-Sign Detail Recorded Client Recorded Date Recorded By Document 01/12/20 09:14 MARQUITA [id number] 01/12/20 09:15 01/12/20 09:14 Wound Center Nurse 2 [Procedure/Treatment] -Time 09:14 -Correct Patient Yes -Correct Side, Site, Position Yes -Correct Procedure Yes -Procedure Performed Yes -Type of Procedure Debridement -Clinical Debridement Subcutaneous -Tissue Removed Subcutaneous -Post Debridement (cm) - Length 14.6 -Post Debridement (cm) - Width 6 -Post Debridement (cm) - Depth 1.3 -Total Square (Post) (cm) 87.6 -Area of Debridement (cm) - Length 14.6 -Area of Debridement (cm) - Width 6.0 -Total Square (Area) (cm) 87.60 -Tunneling No -Undermining/Tunneling No -Circular Undermining No -Wound/Ulcer Outcome Not Healed -Ulcer Cleansing Rinsed/ Irrigated with Saline -Foul Odor after Cleansing No -Bioengineered Tissue No -Bleeding Controlled with Pressure -Offloading No -Treatment Response Procedure Tolerated Well -Debridement - Subq, 1st 20sq cm Yes -Debridement, SubQ, ea addt'l 20sq cm 4 or part thereof [See Physician Procedure note for Specifics] Pain Scale: 0-10 Numeric [Pain] -Is Patient Pain Free? Yes - Nurse 3 - General Ulcer D/C NN Start: 12/22/19 08:23 Freq: Status: Active Protocol: Activity Type Activity Date Activity User E-Sign Co-Sign Detail Recorded Client Recorded Date Recorded By Document 01/12/20 09:25 [facility] [id number] 01/12/20 09:26 [facility] 01/12/20 09:25 Wound Care Nurse 3 [Wound Dressing] #1 R Axilla -Ulcer Cleansing Rinsed/ Irrigated with Saline -Foul Odor after Cleansing No -Primary Dressing Applied Other -Other Dressing saline moistened gauze -Primary Dressing Covered/Secured Secured with with Tape,Other -Other Covering abd [Post Procedure Tolerated] -Treatment Response Procedure Tolerated Well Pain Scale: 0-10 Numeric [Pain] -Is Patient Pain Free? Yes - Visit Discharge [Visit Discharge Information] -Discharge Condition Stable -Ambulatory Status Ambulatory -Transportation Private Auto Musculoskeletal: No Tenderness to Palpation of Joints or Extremities Neurological: Cranial nerves II-XII grossly intact Psych/Mental Status: Normal Affect, Appropriate Debridement Note Post-Debridement Measurements/Treatment - Nurse 2 - General Ulcer CM Notes Start: 12/22/19 08:23 Freq: Status: Active Protocol: Activity Type Activity Date Activity User E-Sign Co-Sign Detail Recorded Client Recorded Date Recorded By Document 12/22/19 09:05 [id number] 12/22/19 09:07 Document 12/29/19 09:30 [id number] 12/29/19 09:36 Document 01/05/20 08:46 [id number] 01/05/20 08:48 Document 01/12/20 09:14 [id number] 01/12/20 09:15 12/22/19 12/29/19 01/05/20 09:05 09:30 08:46 Wound Center Nurse 2 #1 R Axilla -Time 09:05 09:30 08:46 -Correct Patient Yes Yes Yes -Correct Side, Site, Position Yes Yes Yes -Correct Procedure Yes Yes Yes -Procedure Performed Yes Yes Yes -Type of Procedure Debridement Debridement Debridement -Clinical Debridement Subcutaneous Subcutaneous Subcutaneous -Tissue Removed Subcutaneous Subcutaneous Subcutaneous -Post Debridement (cm) - Length 15.5 16.2 15.2 -Post Debridement (cm) - Width 10.5 8.5 6.2 -Post Debridement (cm) - Depth 3.5 2.8 2.0 -Total Square (Post) (cm) 162.75 137.70 94.24 -Area of Debridement (cm) - Length 15.5 16.2 15.2 -Area of Debridement (cm) - Width 10.5 8.5 6.2 -Total Square (Area) (cm) 162.75 137.70 94.24 -Tunneling No No No -Undermining/Tunneling No No No -Circular Undermining No No No -Wound/Ulcer Outcome Not Healed Not Healed Not Healed -Ulcer Cleansing Rinsed/ Rinsed/ Rinsed/ Irrigated with Irrigated with Irrigated with Saline Saline Saline -Foul Odor after Cleansing No No No -Bioengineered Tissue No No No -Bleeding Controlled with Pressure Pressure Pressure -Offloading No No No -Treatment Response Procedure Procedure Procedure Tolerated Well Tolerated Well Tolerated Well -Debridement - Subq, 1st 20sq cm Yes Yes Yes -Debridement, SubQ, ea addt'l 20sq cm 8 6 4 or part thereof Pain Scale: 0-10 Numeric Is Patient Pain Free? Yes Yes Yes 01/12/20 09:14 Wound Center Nurse 2 #1 R Axilla -Time 09:14 -Correct Patient Yes -Correct Side, Site, Position Yes -Correct Procedure Yes -Procedure Performed Yes -Type of Procedure Debridement -Clinical Debridement Subcutaneous -Tissue Removed Subcutaneous -Post Debridement (cm) - Length 14.6 -Post Debridement (cm) - Width 6 -Post Debridement (cm) - Depth 1.3 -Total Square (Post) (cm) 87.6 -Area of Debridement (cm) - Length 14.6 -Area of Debridement (cm) - Width 6.0 -Total Square (Area) (cm) 87.60 -Tunneling No -Undermining/Tunneling No -Circular Undermining No -Wound/Ulcer Outcome Not Healed -Ulcer Cleansing Rinsed/ Irrigated with Saline -Foul Odor after Cleansing No -Bioengineered Tissue No -Bleeding Controlled with Pressure -Offloading No -Treatment Response Procedure Tolerated Well -Debridement - Subq, 1st 20sq cm Yes -Debridement, SubQ, ea addt'l 20sq cm 4 or part thereof Pain Scale: 0-10 Numeric Is Patient Pain Free? Yes - Nurse 3 - General Ulcer D/C NN Start: 12/22/19 08:23 Freq: Status: Active Protocol: Activity Type Activity Date Activity User E-Sign Co-Sign Detail Recorded Client Recorded Date Recorded By Document 12/22/19 09:17 DL [id number] 12/22/19 09:19 DL Document 12/29/19 09:45 KR [id number] 12/29/19 09:51 KR Document 01/05/20 09:16 DL [id number] 01/05/20 09:17 DL Document 01/12/20 09:25 BMF [id number] 01/12/20 09:26 BM 12/22/19 12/29/19 01/05/20 09:17 09:45 09:16 Wound Care Nurse 3 #1 R Axilla -Ulcer Cleansing Wound Cleanser Rinsed/ Wound Cleanser Irrigated with Saline -Foul Odor after Cleansing No No No -Negative Pressure Wound Therapy Continue Start -Setting (mmHg) 150 150 -Negative Pressure is Continuous Continuous -Primary Dressing Applied Silvercel -Other Dressing -Primary Dressing Covered/Secured with Dry Gauze -Other Covering -NPWT Application Charge ($) NPWT </= 50 sq NPWT > 50 sq cm cm -Silvercel 1 Treatment Response Procedure Procedure Tolerated Well Tolerated Well Pain Scale: 0-10 Numeric Is Patient Pain Free? Yes Yes WC - Visit Discharge Discharge Condition Stable Stable Stable Ambulatory Status Ambulatory Ambulatory Ambulatory Transportation Private Auto Private Auto Private Auto Notes: Silvercel applied today. pt to start dakins at home. Facility Type Home Health Telephoned (if yes, spoke with:) Yes 01/12/20 09:25 Wound Care Nurse 3 #1 R Axilla -Ulcer Cleansing Rinsed/ Irrigated with Saline -Foul Odor after Cleansing No -Negative Pressure Wound Therapy -Setting (mmHg) -Negative Pressure is -Primary Dressing Applied Other -Other Dressing saline moistened gauze -Primary Dressing Covered/Secured with Secured with Tape,Other -Other Covering abd -NPWT Application Charge ($) -Silvercel Treatment Response Procedure Tolerated Well Pain Scale: 0-10 Numeric Is Patient Pain Free? Yes WC - Visit Discharge Discharge Condition Stable Ambulatory Status Ambulatory Transportation Private Auto Notes: Facility Type Telephoned (if yes, spoke with:) Wound debrided: axilla ulcer Laterality: Right Type of Debridement: Excisional debridement Anesthesia Used: 5% Lidocaine Gel Depth: Down to and including healthy tissue, in the subcutaneous layer Percentage of wound debrided: 100 Instrument Used: 7mm curette Tissue Removed: Subcutaneous tissue and slough Severity: Fat Layer Exposed Amount of bleeding with debridement: Mild Bleeding Controlled with: Pressure Patient tolerated procedure well Assessment/Plan Active Problems (Last Reviewed 12/10/19 @ 20:[address] Rudy Cerna MD) Skin ulcer of axilla with fat layer exposed (Chronic) Open wound of right axillary region with complication (Acute) Rheumatoid arthritis (Chronic) at present is off Methotrexate Axillary hidradenitis suppurativa (Chronic) bilateral axillary hidradenitis, worse on the left Assessment: 1. Nonhealing hidradenitis ulcer right axilla. 2. Bilateral axillary hidradenitis, worse on the right. 3. Rheumatoid arthritis, and she is off Methotrexate. 4. Family history of skin cancer. Plan: Wound care - She started a VAC holiday on Sunday. Will continue VAC holiday with daily Dakin's moistened gauze dressing changes due to her excoriated karin wound. Will re-evaluate next week. It is not quite ready for a skin graft but is becoming more superficial. She exhibits good range of motion of her right arm and shoulder. Operative culture showed Staphylococcus lugdunensis. She was treated perioperatively with Clindamycin and was switched to Doxycycline and is finishing them. Prealbumin from 12/03/19 was 28.2. Encourage nutritional supplementation with protein to help the healing process. Patient is interested in proceeding with surgery on her left axilla for hidradenitis as she is able to perform daily hygiene activities with her right upper extremity which is scheduled 01/23/20. Surgery will be done under general anesthesia with a surgical observation overnight stay. Will leave the wound open and proceed with the VAC for postoperative wound care. At that time, we would have already switched dressings on the right as I don't want both axillae to have a VAC. Patient was informed of the risks and complications of the procedure including alternaitves to surgery. These were discussed with her personally. She voices understanding and wishes to proceed. We discussed the current risks associated with COVID-19. While it is understood that there is a community spread of COVID-19, the risk of barbara COVID-19 while at [facility] ([facility]) is very low; however, the risk cannot be completely mitigated because of the community spread of the disease. We discussed in detail the risk of exposure to and/or potential harm posed by the COVID-19 virus with having a surgery/procedure at this time versus the risk of delaying the surgery/procedure. It is not possible to know either the risk of delaying the surgery or procedure or chance of getting an infection with perfect accuracy, but a joint decision was made to proceed at this time with the scheduled surgery/procedure as indicated on the consent form. Patient was notified that we will need to comply with any screening or testing [facility] wishes to perform or that surgery may be delayed for any positive results. Followup one week. Discussed with the patient that I was tested for COVID-19 on 08/21/19 which was negative and on 09/04/19 which was negative and on 09/18/19 which was negative and on 10/02/19 which was negative and on 10/16/19 which was negative and on 11/06/19 which was negative and on 11/27/19 which was negative. My testing regimen at this time is to be COVID-19 tested every 2 weeks or so. I was recently tested on 01/01/20 which was negative. [id number]: [id number] Global Visit
[2020-01-19 08:38] VITALS: BP 132/88; PULSE 89; RESP 18; TEMP 36.2; BMI 42.0
--- NOTE | 2020-01-19 12:41 | PN.PCM_ITS ---
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 History of Wound: Surgery 12/02/19 - Surgical preparation right axilla with excision hidradenitis (176 cm2). Wound care - Dakin's daily. We were taking a VAC holiday and will discontinue the VAC. Operative culture - Staphylococcus lugdunensis. She was treated perioperatively with Clindamycin. She was then switched to Doxycycline and is finishing them. Prealbumin from 12/03/19 was 28.2. Encourage nutritional supplementation with protein to help the healing process. Today she denies fever. Her appetite is good. She has no problems with range of motion with her right arm and shoulder. She is able to do daily hygiene activities with her right upper extremity. She is scheduled on 01/23/20 to have excision of her left axillary hidradenitis. Progress of Wound: Improved. Ulcer is beefy pink. Karin wound is excoriation is improved this week. - Physical Exam Vital Signs Temp Pulse Resp BP 97.2 F L 89 18 132/88 H 01/19/20 08:38 01/19/20 08:38 01/19/20 08:38 01/19/20 08:38 General: Alert, Oriented x3, Cooperative HEENT: Atraumatic Oral: Moist Mucosa Lungs: Normal air movement Cardiovascular: Regular rate Extremities: No edema, Capillary Refill Less than 3 Seconds Skin: Ulcer/ Wound - Right axilla ulcer is beefy pink and improved. Karin wound is much improved with the VAC holiday. Wound Measurements and Assessment WC - Nurse 1 - General Ulcer Measurement Start: 12/22/19 08:23 Freq: Status: Active Protocol: Activity Type Activity Date Activity User E-Sign Co-Sign Detail Recorded Client Recorded Date Recorded By Document 01/19/20 08:38 ALFRED [id number] 01/19/20 08:45 DL 01/19/20 08:38 Wound Center Nurse 1 [Ulcer Assessment] #1 R Axilla -Current Size (cm) - Length 11.5 -Current Size (cm) - Width 5.2 -Current Size (cm) - Depth 0.1 -Total Square Cm 59.80 -Photo Taken No -Exudate Amt Small -Exudate Type Serosanguineous -Wound Margin Distinct, Outline Attached -Granulation Amt Large (67-100%) -Granulation Quality Red -Necrosis Amt None Present (0 %) -Necrotic Tissue Type Adherent Slough -Structure Exposed N/A -Texture (Karin-wound Skin Appearance) Scarring -Moisture (Karin-wound Skin Appearance Dry/Scaly ) -Color (Karin-wound Skin Appearance) No Abnormality, Rubor -Temperature (Karin-wound Skin No Abnormality Appearance) (Pt Warm) -Tenderness on Palpation (Karin-wound No Skin Appearance) -Ulcer Cleansing Wound Cleanser -Foul Odor after Cleansing No -Anesthetic Used 4% Lidocaine Solution WC - Nurse 2 - General Ulcer CM Notes Start: 12/22/19 08:23 Freq: Status: Active Protocol: Activity Type Activity Date Activity User E-Sign Co-Sign Detail Recorded Client Recorded Date Recorded By Document 01/19/20 08:55 MARQUITA [id number] 01/19/20 08:57 MARQUITA 01/19/20 08:55 Wound Center Nurse 2 [Procedure/Treatment] -Time 08:55 -Correct Patient Yes -Correct Side, Site, Position Yes -Correct Procedure Yes -Procedure Performed Yes -Type of Procedure Debridement -Clinical Debridement Subcutaneous -Tissue Removed Subcutaneous -Post Debridement (cm) - Length 14.6 -Post Debridement (cm) - Width 6 -Post Debridement (cm) - Depth 1.3 -Total Square (Post) (cm) 87.6 -Area of Debridement (cm) - Length 14.6 -Area of Debridement (cm) - Width 6 -Total Square (Area) (cm) 87.6 -Tunneling No -Undermining/Tunneling No -Circular Undermining No -Wound/Ulcer Outcome Not Healed -Ulcer Cleansing Rinsed/ Irrigated with Saline -Foul Odor after Cleansing No -Bioengineered Tissue No -Bleeding Controlled with Pressure -Offloading No -Treatment Response Procedure Tolerated Well -Debridement - Subq, 1st 20sq cm Yes -Debridement, SubQ, ea addt'l 20sq cm 4 or part thereof [See Physician Procedure note for Specifics] Pain Scale: 0-10 Numeric [Pain] -Is Patient Pain Free? Yes - Nurse 3 - General Ulcer D/C NN Start: 12/22/19 08:23 Freq: Status: Active Protocol: Activity Type Activity Date Activity User E-Sign Co-Sign Detail Recorded Client Recorded Date Recorded By Document 01/19/20 09:04 [id number] 01/19/20 09:07 01/19/20 09:04 Wound Care Nurse 3 [Wound Dressing] #1 R Axilla -Ulcer Cleansing Wound Cleanser -Foul Odor after Cleansing No -Primary Dressing Covered/Secured Dry Gauze, with Secured with Tape Pain Scale: 0-10 Numeric [Pain] -Is Patient Pain Free? Yes - Visit Discharge [Visit Discharge Information] -Discharge Condition Stable -Ambulatory Status Ambulatory -Transportation Private Auto -Notes: resume Dakins at home. Musculoskeletal: No Muscle Wasting Neurological: Cranial nerves II-XII grossly intact Psych/Mental Status: Normal Affect, Appropriate Debridement Note Post-Debridement Measurements/Treatment - Nurse 2 - General Ulcer CM Notes Start: 12/22/19 08:23 Freq: Status: Active Protocol: Activity Type Activity Date Activity User E-Sign Co-Sign Detail Recorded Client Recorded Date Recorded By Document 12/22/19 09:05 [id number] 12/22/19 09:07 Document 12/29/19 09:30 [id number] 12/29/19 09:36 Document 01/05/20 08:46 [id number] 01/05/20 08:48 Document 01/12/20 09:14 [id number] 01/12/20 09:15 Document 01/19/20 08:55 [id number] 01/19/20 08:57 12/22/19 12/29/19 01/05/20 09:05 09:30 08:46 Wound Center Nurse 2 #1 R Axilla -Time 09:05 09:30 08:46 -Correct Patient Yes Yes Yes -Correct Side, Site, Position Yes Yes Yes -Correct Procedure Yes Yes Yes -Procedure Performed Yes Yes Yes -Type of Procedure Debridement Debridement Debridement -Clinical Debridement Subcutaneous Subcutaneous Subcutaneous -Tissue Removed Subcutaneous Subcutaneous Subcutaneous -Post Debridement (cm) - Length 15.5 16.2 15.2 -Post Debridement (cm) - Width 10.5 8.5 6.2 -Post Debridement (cm) - Depth 3.5 2.8 2.0 -Total Square (Post) (cm) 162.75 137.70 94.24 -Area of Debridement (cm) - Length 15.5 16.2 15.2 -Area of Debridement (cm) - Width 10.5 8.5 6.2 -Total Square (Area) (cm) 162.75 137.70 94.24 -Tunneling No No No -Undermining/Tunneling No No No -Circular Undermining No No No -Wound/Ulcer Outcome Not Healed Not Healed Not Healed -Ulcer Cleansing Rinsed/ Rinsed/ Rinsed/ Irrigated with Irrigated with Irrigated with Saline Saline Saline -Foul Odor after Cleansing No No No -Bioengineered Tissue No No No -Bleeding Controlled with Pressure Pressure Pressure -Offloading No No No -Treatment Response Procedure Procedure Procedure Tolerated Well Tolerated Well Tolerated Well -Debridement - Subq, 1st 20sq cm Yes Yes Yes -Debridement, SubQ, ea addt'l 20sq cm 8 6 4 or part thereof Pain Scale: 0-10 Numeric Is Patient Pain Free? Yes Yes Yes 01/12/20 01/19/20 09:14 08:55 Wound Center Nurse 2 #1 R Axilla -Time 09:14 08:55 -Correct Patient Yes Yes -Correct Side, Site, Position Yes Yes -Correct Procedure Yes Yes -Procedure Performed Yes Yes -Type of Procedure Debridement Debridement -Clinical Debridement Subcutaneous Subcutaneous -Tissue Removed Subcutaneous Subcutaneous -Post Debridement (cm) - Length 14.6 14.6 -Post Debridement (cm) - Width 6 6 -Post Debridement (cm) - Depth 1.3 1.3 -Total Square (Post) (cm) 87.6 87.6 -Area of Debridement (cm) - Length 14.6 14.6 -Area of Debridement (cm) - Width 6.0 6 -Total Square (Area) (cm) 87.60 87.6 -Tunneling No No -Undermining/Tunneling No No -Circular Undermining No No -Wound/Ulcer Outcome Not Healed Not Healed -Ulcer Cleansing Rinsed/ Rinsed/ Irrigated with Irrigated with Saline Saline -Foul Odor after Cleansing No No -Bioengineered Tissue No No -Bleeding Controlled with Pressure Pressure -Offloading No No -Treatment Response Procedure Procedure Tolerated Well Tolerated Well -Debridement - Subq, 1st 20sq cm Yes Yes -Debridement, SubQ, ea addt'l 20sq cm 4 4 or part thereof Pain Scale: 0-10 Numeric Is Patient Pain Free? Yes Yes WC - Nurse 3 - General Ulcer D/C NN Start: 12/22/19 08:23 Freq: Status: Active Protocol: Activity Type Activity Date Activity User E-Sign Co-Sign Detail Recorded Client Recorded Date Recorded By Document 12/22/19 09:17 DL [id number] 12/22/19 09:19 DL Document 12/29/19 09:45 KR [id number] 12/29/19 09:51 KR Document 01/05/20 09:16 DL [id number] 01/05/20 09:17 DL Document 01/12/20 09:25 BMF [id number] 01/12/20 09:26 BMF Document 01/19/20 09:04 DL [id number] 01/19/20 09:07 DL 12/22/19 12/29/19 01/05/20 09:17 09:45 09:16 Wound Care Nurse 3 #1 R Axilla -Ulcer Cleansing Wound Cleanser Rinsed/ Wound Cleanser Irrigated with Saline -Foul Odor after Cleansing No No No -Negative Pressure Wound Therapy Continue Start -Setting (mmHg) 150 150 -Negative Pressure is Continuous Continuous -Primary Dressing Applied Silvercel -Other Dressing -Primary Dressing Covered/Secured with Dry Gauze -Other Covering -NPWT Application Charge ($) NPWT </= 50 sq NPWT > 50 sq cm cm -Silvercel 1 Treatment Response Procedure Procedure Tolerated Well Tolerated Well Pain Scale: 0-10 Numeric Is Patient Pain Free? Yes Yes WC - Visit Discharge Discharge Condition Stable Stable Stable Ambulatory Status Ambulatory Ambulatory Ambulatory Transportation Private Auto Private Auto Private Auto Notes: Silvercel applied today. pt to start dakins at home. Facility Type Home Health Telephoned (if yes, spoke with:) Yes 01/12/20 01/19/20 09:25 09:04 Wound Care Nurse 3 #1 R Axilla -Ulcer Cleansing Rinsed/ Wound Cleanser Irrigated with Saline -Foul Odor after Cleansing No No -Negative Pressure Wound Therapy -Setting (mmHg) -Negative Pressure is -Primary Dressing Applied Other -Other Dressing saline moistened gauze -Primary Dressing Covered/Secured with Secured with Dry Gauze, Tape,Other Secured with Tape -Other Covering abd -NPWT Application Charge ($) -Silvercel Treatment Response Procedure Tolerated Well Pain Scale: 0-10 Numeric Is Patient Pain Free? Yes Yes WC - Visit Discharge Discharge Condition Stable Stable Ambulatory Status Ambulatory Ambulatory Transportation Private Auto Private Auto Notes: resume Dakins at home. Facility Type Telephoned (if yes, spoke with:) Wound debrided: axilla ulcer Laterality: Right Type of Debridement: Excisional debridement Anesthesia Used: 5% Lidocaine Gel Depth: Down to and including healthy tissue, in the subcutaneous layer Percentage of wound debrided: 100 Instrument Used: 7mm curette Tissue Removed: Subcutaneous tissue and slough Severity: Fat Layer Exposed Amount of bleeding with debridement: Mild Bleeding Controlled with: Pressure, Compression and gauze Patient tolerated procedure well Assessment/Plan Active Problems (Last Reviewed 12/10/19 @ 20:[address] Rudy Cerna MD) Skin ulcer of axilla with fat layer exposed (Chronic) Open wound of right axillary region with complication (Acute) Rheumatoid arthritis (Chronic) at present is off Methotrexate Axillary hidradenitis suppurativa (Chronic) bilateral axillary hidradenitis, worse on the left Assessment: 1. Nonhealing hidradenitis ulcer right axilla. 2. Bilateral axillary hidradenitis, worse on the right. 3. Rheumatoid arthritis, and she is off Methotrexate. 4. Family history of skin cancer. Plan: Wound care - Will discontinue VAC and continue Dakin's moistened gauze dressing changes daily. With her having her left axilla excision on 01/23/20 and she will have a VAC to that. The right is not quite ready for a skin graft but is becoming more superficial. She exhibits good range of motion of her right arm and shoulder. Operative culture showed Staphylococcus lugdunensis. She was treated perioperatively with Clindamycin and was switched to Doxycycline and is finishing them. Prealbumin from 12/03/19 was 28.2. Encourage nutritional supplementation with protein to help the healing process. Patient is interested in proceeding with surgery on her left axilla for hidradenitis as she is able to perform daily hygiene activities with her right upper extremity which is scheduled 01/23/20. Surgery will be done under general anesthesia with a surgical observation overnight stay. Will leave the wound open and proceed with the VAC for postoperative wound care. At that time, we would have already switched dressings on the right as I don't want both axillae to have a VAC. Patient was informed of the risks and complications of the procedure including alternaitves to surgery. These were discussed with her personally. She voices understanding and wishes to proceed. We discussed the current risks associated with COVID-19. While it is understood that there is a community spread of COVID- 19, the risk of barbara COVID-19 while at [facility] ([facility]) is very low; however, the risk cannot be completely mitigated because of the community spread of the disease. We discussed in detail the risk of exposure to and/or potential harm posed by the COVID-19 virus with having a surgery/procedure at this time versus the risk of delaying the surgery/ procedure. It is not possible to know either the risk of delaying the surgery or procedure or chance of getting an infection with perfect accuracy, but a joint decision was made to proceed at this time with the scheduled surgery/procedure as indicated on the consent form. Patient was notified that we will need to comply with any screening or testing [facility] wishes to perform or that surgery may be delayed for any positive results. Followup two weeks. Discussed with the patient that I was tested for COVID-19 on 08/21/19 which was negative and on 09/04/19 which was negative and on 09/18/19 which was negative and on 10/02/19 which was negative and on 10/16/19 which was negative and on 11/06/19 which was negative and on 11/27/19 which was negative. My testing regimen at this time is to be COVID-19 tested every 2 weeks or so. I was recently tested on 01/01/20 which was negative. [id number]: [id number] Global Visit
== END 2020-01-19 23:59 ==
LOC: WC 08:30
PROVIDERS: PCP Nurse Practitioner Family; Visit Provider Surgery
DX: L73.2 Hidradenitis suppurativa (principal); L98.492 Non-pressure chronic ulcer of skin of other sites with fat layer exposed; M06.9 Rheumatoid arthritis, unspecified; Z80.8 Family history of malignant neoplasm of other organs or systems
CPT/HCPCS: 11042; 11045; 97605; 97606

== ENCOUNTER 2020-01-23 12:11 | Observation (INO) | payer OTHER, SELFPAY ==
[2020-01-05 08:22] VITALS: BMI 42.0
--- NOTE | 2020-01-22 21:17 | HP.PCM_ITS ---
History and Physical Date of Admission: 01/23/20 HISTORY OF PRESENT ILLNESS 24 year old woman presents for evaluation of hidradenitis in her axillary areas. She is having issues with both sides with the right side being more painful. She has had I&D procedures on the left and the use of the VAC in the past. She has had no procedures done on the right. She denies any fever. She has had some flare ups since she was last seen by us. She has recently been placed on Seysara by Dermatology to help control her flare ups. She does not want to be on emt intermediate antibiotics due to her other chronic health conditions of rheumatoid arthritis and hypothyroidism. She underwent surgery on 12/02/19 where she underwent surgical preparation right axilla with excision hidradenitis (176 cm2). Postoperatively she did well initially with the VAC and then with daily Dakin's dressing changes. Her operative wound culture showed Staphylococcus lugdunensis. She was treated initially with Clindamycin and then with Doxycycline. She has good range of motion of her right shoulder and she has no difficulty with activities of daily living. She is ready to proceed with surgical excision left axillary hidradenitis. PAST MEDICAL HISTORY Axillary hidradenitis suppurativa Back problem Breast lump in female History of blood clots Fibromyalgia Rheumatoid arthritis PAST SURGICAL HISTORY [place] teeth extracted Surgical preparation right axilla with excision hidradenitis (176 cm2) - 12/02/19 ALLERGIES No Known Allergies MEDICATIONS levothyroxine multivitamin spironolactone norgestimate-ethinyl estradiol escitalopram oxalate sarecycline spironolactone cetirizine gabapentin lorazepam Doxycycline FAMILY HISTORY Sister - Diabetes Grandmother - Lung cancer Grandfather - Dementia, CVA (cerebral vascular accident), Parkinsons disease Other - Anxiety, Arthritis, Asthma, Psychiatric care, Thyroid disorder SOCIAL HISTORY Smoking Status: Never smoker alcohol intake: current details: occasionally substance use type: does not use REVIEW OF SYSTEMS General - Denies fever and weight loss. Has fatigue. Eyes - Denies cataracts and glaucoma. ENT - Denies nasal congestion and sore throat. Endocrine - Denies excessive thirst and urination. Has thyroid disease. Skin - Denies skin cancer. Has bilateral axillary hidradenitis. Has family history of skin cancer. Musculoskeletal - Has joint pain, joint stiffness, weakness of muscles and joints, back pain, and arthritis. She no longer takes Methotrexate for her rheumatoid arthritis. Neuro - Denies headaches. Cardiovascular - Denies chest pain, fatigue, and shortness of breath with exertion. Psych - Denies anxiety and depression. Has claustrophobia. Respiratory - Denies chronic cough and shortness of breath. Gastrointestinal - Denies nausea, vomiting, diarrhea. Has constipation. Hematologic - Denies abnormal bruising and bleeding. Genitourinary - Denies hematuria and urinary frequency. PHYSICAL EXAMINATION General - Alert and Oriented. HEENT - PERRL. EOMI. Throat is clear. Neck - Supple and nontender. No cervical adenopathy. Lungs - Clear to auscultation. Heart - Regular rate and rhythm. Abdomen - Soft and nondistended. Extremities - FROM. No axillary adenopathy. Radial pulses are palpable. On the left axilla are scattered areas of induration and redness and scarring from hidradenitis. Measures 8 cm. No evidence of infection at this time. The area is slightly tender to palpation. On the right axilla is a healing hidradenitis ulcer after recent excision on 12/02/19. The ulcer measures 14 x 6 x 1.3 cm. Good granulation tissue noted. Neuro - CN II-XII grossly intact. Psych - Normal mood and affect. ASSESSMENT 1. Left axillary hidradenitis. 2. Nonhealing hidradenitis ulcer right axilla. 3. Rheumatoid arthritis, and she is off Methotrexate. 4. Family history of skin cancer. PLAN Recommend excision left axillary hidradenitis and send the tissue to Pathology for analysis to rule out carcinoma and to Microbiology for culture. A positive culture will necessitate antibiotic therapy. Will leave the wound open initially and proceed with wound care with the VAC or with Silver dressing changes daily. Surgery will be done under general anesthesia with a surgical observation overnight stay in the hospital. Discussed the size of the wound with the patient in detail. It will be much larger than the smaller wound she had in the past that required the VAC. She voiced understanding. After discharge, can followup at the Wound Center. If there is a plateau in the healing process, then can proceed with delayed closure with skin grafting. Patient was informed of the risks and complications of the procedure including alternatives to surgery. These were discussed with the patient personally. Patient voices understanding and wishes to proceed. Some of the risks and complications were included in a form from the [employer]. We discussed the current risks associated with COVID-19. While it is understood that there is a community spread of COVID-19, the risk of barbara COVID-19 while at [facility] ([facility]) is very low; however, the risk cannot be completely mitigated because of the community spread of the disease. We discussed in detail the risk of exposure to and/or potential harm posed by the COVID-19 virus with having a surgery/procedure at this time versus the risk of delaying the surgery/procedure. It is not possible to know either the risk of delaying the surgery or procedure or chance of getting an infection with perfect accuracy, but a joint decision was made to proceed at this time with the scheduled surgery/procedure as indicated on the consent form. Patient was notified that we will need to comply with any screening or testing [facility] wishes to perform or that surgery may be delayed for any positive results. Discussed with the patient that I was tested for COVID-19 on 08/21/19 which was negative and on 09/04/19 which was negative and on 09/18/19 which was negative and on 10/02/19 which was negative and on 10/16/19 which was negative and on 11/06/19 which was negative and on 11/27/19 which was negative and on 01/01/20 which was negative and on 01/22/20 which was negative. My testing regimen at this time is to be COVID-19 tested every 2 weeks or so. Procedure Criteria Procedure Type: Elective COVID Risk Discussion: The surgeon/proceduralist and patient have discussed in detail the risk of exposure to and/or potential harm posed by the COVID-19 virus with having a surgery/procedure at this time versus the risk of delaying the surgery/pr ocedure. It is not possible to know either the risk of delaying the surgery or procedure or chance of getting an infection with perfect accuracy, but a joint decision was made between the patient and the surgeon/proceduralist to proceed at this time with the scheduled surgery/procedure as indicated on the consent form.
[2020-01-23] VITALS (10 sets, daily range): BP systolic 118–137; BP diastolic 64–87; PULSE 73–96; RESP 16–18; TEMP 36.3–37.2; O2SAT 96–100; BMI 43.7
[2020-01-23 09:16] LABS: Internal QC Validated? YES +Cl - CLEAR BKGD
[2020-01-23 09:19] LABS: Pregnancy, Urine Negative Negative
[2020-01-23] MEDS: Lactated Ringers 1,000 ML 100 ML IV (09:27)
--- NOTE | 2020-01-23 09:30 | CASEMGMT ---
JOSE NINA updated that patient will need HHC for wound vac at discharge. JOSE NINA reviewed notes and patient was previously setup with [facility]. JOSE NINA called [facility] and they are still active with patient and plan for visit Sunday for next vac change. JOSE NINA updated wound nurse regarding HHC with [facility].
--- NOTE | 2020-01-23 10:30 | SOF_PTH ---
PATIENT: CHRISTIN GÓMEZ LOC: MS3 U#:[id number] AGE/SX: 24F ROOM: MS316 RE01/23/[address]: Dr. Rudy Cerna MD : [id number] BED: 1 DIS: 01/24/2020 SPEC #: [id number] RECD: 01/23/20 13:24 STATUS: BHANU RECorey #: [id number] SOY: 01/23/20 10:[address]: Rudy Cerna DEPT: SURGICAL PATHOLOGY RECD BY: Marianna Mckeon ENTERED: 01/23/20 13:55 SP TYPE: SOFT TISS OTHR DR: RITO Augustine Tissues: Soft tissues, NOS Procedures: Surgery Specimen Level III HEADER OPERATION: Surgical preparation axilla with excision hidradenitis PRE-OP DIAGNOSIS: Left axillary hidradenitis TISSUE SUBMITTED: Soft tissue hidradenitis, left axilla MICROSCOPIC DIAGNOSIS Skin and soft tissue of left axilla, excision: Consistent with hidradenitis. AM:cele 01/26/20 MICROSCOPIC DESCRIPTION Slides are reviewed. GROSS DESCRIPTION Received in fixative is one container labeled with the patient's name and designated soft tissue hidradenitis left axilla. The specimen consists of a piece of skin with underlying tissue measuring 15 x 8 x 3 cm. Sections do not reveal any mass lesion. The skin surface is unremarkable. Speeder Worker sections are submitted in six cassettes. / [place]:cele 01/23/20 TC:2 CPT: 62808
[2020-01-23] MEDS: Lidocaine 1% /Epi 1:100 (20ml) 20 ML Vial (11:57)
--- NOTE | 2020-01-23 12:05 | PCM.OPRPT ---
Report of Operation Date of Procedure: 01/23/20 Pre-Operative Diagnosis: 1. Left axillary hidradenitis. 2. Nonhealing hidradenitis ulcer right axilla. 3. Rheumatoid arthritis, and she is off Methotrexate. 4. Family history of skin cancer. Post-Operative Diagnosis: Same. Surgery/Procedure Performed:: Surgical preparation left axilla with excision hidradenitis (93 cm2). Description of Surgical Findings:: 24 year old woman presents for evaluation of hidradenitis in her axillary areas. She is having issues with both sides with the right side being more painful. She has had I&D procedures on the left and the use of the VAC in the past. She has had no procedures done on the right. She denies any fever. She has had some flare ups since she was last seen by us. She has recently been placed on Seysara by Dermatology to help control her flare ups. 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 She underwent surgery on 12/02/19 where she underwent surgical preparation right axilla with excision hidradenitis (176 cm2). Postoperatively she did well initially with the VAC and then with daily Dakin's dressing changes. Her operative wound culture showed Staphylococcus lugdunensis. She was treated initially with Clindamycin and then with Doxycycline. She has good range of motion of her right shoulder and she has no difficulty with activities of daily living. She is ready to proceed with surgical excision left axillary hidradenitis. Patient was informed of the risks and complications of the procedure including alternatives to surgery. These were discussed with the patient personally. Patient voices understanding and wishes to proceed. Some of the risks and complications were included in a form from the [employer]. Size of defect left axilla - 15.5 x 6 x 4 cm. video production coordinator: None Type of Anesthesia:: General Specimen's removed: Left axillary hidradenitis to Pathology and Microbiology. Drains: None. Estimated Blood Loss (mL): 50 ml. Description of Procedure: Patient was taken to OR in supine position and was placed under general anesthesia. The left axilla was prepped and draped in the usual fashion. SCD's were placed for DVT prophylaxis. Perioperative antibiotics were given intravenously. For the procedure, I wore an N95 mask and wore proper eyewear protection. Using a scalpel, I proceeded with surgical preparation of the left axilla with excision of her hidradenitis. No purulent drainage was seen. In the subcutaneous tissue, there was extensive fat necrosis. There was extensive indurated scar tissue extending down to the underlying muscle and was excised. Some of the tissue was sent to Pathology for analysis to rule out carcinoma and to Microbiology for culture. A positive culture will necessitate antibiotic therapy. The wound was irrigated with saline. Hemostasis was obtained with electrocautery. The size of the defect left axilla after excision hidradenitis was 15.5 x 6 x 4 cm or 93 cm2. The wound was dressed with Mepitel nonadherent dressing followed by Kerlix gauze and Betadine followed by dry Kerlix gauze followed by ABD pads and compression GRETEL wrap. Patient tolerated the procedure well and was sent to PACU in satisfactory condition. Patient will be sent upstairs for continued postop care. The VAC will be applied tomorrow. Grafts/Implants Used: None. - Complications None. - Admit VTE Documentation VTE Present on Admission: No VTE Mechan Device Prophylaxis: SCD's VTE Pharm Prophylaxis ordered?: No Surgery Charges CPT - 48351-25 ICD-10 - L73.2, Z80.8, M06.9
[2020-01-23] MEDS: Lactated Ringers 1,000 ML 60 ML IV (12:56)
[2020-01-23] MEDS: HYDROmorphone 1 MG/ML Syringe IV ×2 (13:52→17:15)
[2020-01-23] MEDS: 0.9% NaCl Peripheral Flush Adult/Peds IV (17:15)
[2020-01-23] MEDS: Juven (unflavored) Packet 1 PACKET PO (17:15)
[2020-01-23] MEDS: oxyCODONE 5 MG Tablet 10 MG PO (18:54)
[2020-01-23] MEDS: Ondansetron 4 MG/2 ML Vial IV (18:57)
[2020-01-23] MEDS: Escitalopram Oxalate 20 MG Tablet PO (21:50)
[2020-01-23] MEDS: Docusate Sodium 100 MG Capsule PO (21:50)
[2020-01-23] MEDS: Gabapentin 300 MG Capsule PO (21:50)
[2020-01-23] MEDS: Loratadine 10 MG Tablet PO (21:54)
[2020-01-24] MEDS: oxyCODONE 5 MG Tablet 10 MG PO ×2 (00:09→14:16)
[2020-01-24 02:43] VITALS: BP 106/50; PULSE 66; RESP 16; TEMP 36.6; O2SAT 95
[2020-01-24] MEDS: Lactated Ringers 1,000 ML 60 ML IV (05:32)
[2020-01-24] MEDS: Levothyroxine 25 MCG TABLET PO (05:32)
[2020-01-24 08:07] LABS: Hematocrit 37.8 % (37-47); Hemoglobin 12.4 g/dL (12.0-15.0); Mean Corp Hgb Conc 32.8 g/dL (32-36); Mean Corpuscular Hgb 30.5 pg (27.0-32.0); Mean Corpuscular Volume 92.9 fL (81-99); Mean Platelet Vol. 9.5 fl (6.2-12.0); Platelet Count 221 K/mm3 (150-450); RBC Distribution Width CV 12.5 % (11.6-14.6); RBC Distribution Width SD 42.4 fl (35.1-43.9); Red Blood Count 4.07 M/mm3 (4.2-5.4); White Blood Count 9.2 K/mm3 (4.4-11.0)
[2020-01-24 08:35] LABS: Anion Gap 4 (5-15); BUN 11 mg/dL (7-18); BUN/Creat Ratio 18.6 RATIO (10-20); Calcium,Total 8.1 mg/dL (8.5-10.1); Chloride 106 mmol/L (98-107); Creatinine, Serum 0.59 mg/dL (0.55-1.02); EST Glomerular Filtration Rate 132 mL/min (>60); Est Glom Filt Rate - Afr Amer 160 mL/min (>60); Estimated Creatinine Clearance 116.29 ml/min; Glucose 88 mg/dL (74-106); Potassium 3.6 mmol/L (3.5-5.1); Prealbumin 26.8 mg/dL (20.0-40.0); Sodium Level 139 mmol/L (136-145)
[2020-01-24 08:43] VITALS: BP 153/55; PULSE 85; RESP 18; TEMP 36.6; O2SAT 95
--- NOTE | 2020-01-24 09:32 | PCM.PN.SRG ---
Subjective: Postop #1 Patient is resting comfortably. VAC applied today. - Physical Exam Vitals/I&O's: Vital Signs Temp Pulse Resp BP Pulse Ox 97.8 F 85 18 153/55 H 95 01/24/20 08:43 01/24/20 08:43 01/24/20 08:43 01/24/20 08:43 01/24/20 08:43 Oxygen Delivery Method Room Air Weight: 238 lb 15.697 oz Body Mass Index (BMI) 43.7 Intake and Output for Last 24 Hours 01/22/20 01/23/20 01/24/20 23:59 23:59 23:59 Intake Total 1760 / 1760 1217 / 1217 Balance 1760 / 1760 1217 / 1217 General: Alert, Oriented x3 HEENT: PERRLA, EOMI Oral: Moist Mucosa Neck: Supple Abdomen: Soft, Non-Distended Skin: Ulcer/ Wound - left axillary wound is stable. No active bleeding noted. VAC applied today. right axillary wound is stable. Good granulation tissue seen. Redressed with Silver dressing. Will continue Dakin's dressing changes at home. Neurological: Cranial nerves II-XII grossly intact Psych/Mental Status: Normal Affect, Appropriate Microbiology Past 72 Hours 01/23/20 11:46 Other - Other Gram Stain - Final 01/22/20 09:42 Interface Orders SARS-CoV-2 Antigen (Rapid) - Final Laboratory Results 01/24/20 07:37: WBC 9.2, RBC 4.07 L, Hgb 12.4, Hct 37.8, MCV 92.9, MCH 30.5, MCHC 32.8, RDW Std Deviation 42.4, RDW Coeff of Genesis 12.5, Plt Count 221, MPV 9.5 01/24/20 07:37: Sodium 139, Potassium 3.6, Chloride 106, Carbon Dioxide 29.0, Anion Gap 4 L, BUN 11, Creatinine 0.59, Estim Creat Clear Calc 116.29, Est GFR (MDRD) Af Amer 160, Est GFR (MDRD) Non-Af 132, BUN/Creatinine Ratio 18.6, Glucose 88, Calcium 8.1 L, Prealbumin 26.8 Current Medications Diazepam (Diazepam 5 Mg Tablet) 5 mg PO 4X/DAY PRN PRN PRN Reason: SPASMS Docusate Sodium (Docusate Sodium 100 Mg Capsule) 100 mg PO BID [facility] Last Admin: 01/23/20 21:50 Dose: 100 mg Documented by: Escitalopram Oxalate (Escitalopram Oxalate 20 Mg Tablet) 25 mg PO DAILY [facility] Escitalopram Oxalate (Escitalopram Oxalate 20 Mg Tablet) 20 mg PO QHS [facility] Last Admin: 01/23/20 21:50 Dose: 20 mg Documented by: Gabapentin (Gabapentin 300 Mg Capsule) 300 mg PO BID [facility] Last Admin: 01/23/20 21:50 Dose: 300 mg Documented by: Hydromorphone HCl (Hydromorphone 1 Mg/Ml Syringe) 1 mg IV Q3H PRN PRN PRN Reason: Pain Score 6-10 Last Admin: 01/23/20 17:15 Dose: 1 mg Documented by: Clindamycin Phosphate 600 mg/ (Dextrose) 54 mls @ 100 mls/hr IV Q8H [facility] Last Infusion: 01/24/20 03:18 Dose: Infused Documented by: Lactated Ringer's () 1,000 mls @ 60 mls/hr IV .[id number] [facility] Last Admin: 01/24/20 05:32 Dose: 60 mls/hr Documented by: Sodium Chloride () 250 mls @ 15 mls/hr IV .[id number] PRN PRN Reason: Saline Flush Sodium Chloride () 250 mls @ 15 mls/hr IV .[id number] PRN PRN Reason: Additional IVPB Infusion L-Arginine/L-Glutamine/Calcium HMB ([facility] (Unflavored) Packet) [facility] Last Admin: 01/23/20 17:15 Dose: 1 packet Documented by: Levothyroxine Sodium (Levothyroxine 25 Mcg Tablet) 25 mcg PO DAILY@0600 [facility] Last Admin: 01/24/20 05:32 Dose: 25 mcg Documented by: Loratadine (Loratadine 10 Mg Tablet) 10 mg PO DAILY PRN PRN PRN Reason: ALLERGY SYMPTOMS Last Admin: 01/23/20 21:54 Dose: 10 mg Documented by: Lorazepam (Lorazepam 0.5 Mg Tablet) 0.5 mg PO DAILY PRN PRN Reason: ANXIETY Multivitamins (Multivitamins,Therapeutic Tablet) [facility] Non-Formulary Medication (Sarecycline Hcl [Seysara]) 150 mg PO DAILY [facility] Norgestimate (Norgestimate-Ethinyl Estradiol 1 Dose.Pack) tablet PO QDAY [facility] Ondansetron HCl (Ondansetron 4 Mg/2 Ml Vial) 4 mg IV Q6H PRN PRN PRN Reason: NAUSEA Last Admin: 01/23/20 18:57 Dose: 4 mg Documented by: Oxycodone HCl (Oxycodone 5 Mg Tablet) 10 mg PO Q4H PRN PRN PRN Reason: Pain Score 4-5 Last Admin: 01/24/20 00:09 Dose: 10 mg Documented by: Promethazine HCl (Promethazine 25 Mg Tablet) 25 mg PO Q4H PRN PRN PRN Reason: NAUSEA/VOMITING Sodium Chloride (0.9% Nacl Peripheral Flush Adult/Peds) 5 - 15 ml IV UD PRN PRN Reason: SALINE FLUSH Last Admin: 01/23/20 17:15 Dose: 10 ml Documented by: Sodium Chloride (0.9% Saline Lock 10 Ml Syringe) 10 - 40 ml IV UD PRN PRN Reason: SALINE FLUSH Spironolactone (Spironolactone 50 Mg Tablet) 100 mg PO DAILY [facility] Medical Necessity - Tobacco Use Smoking Status: Never smoker Tobacco Use: Non-smoker Assessment/Plan All Active Problems (Last Reviewed 12/10/19 @ 20:[address] Rudy Cerna MD) Encounter for postoperative wound care (Acute) Open wound of right axillary region with complication (Acute) Menorrhagia with regular cycle (Acute) Dysmenorrhea (Acute) Immunocompromised state due to drug therapy (Resolved) 1. Left axillary hidradenitis. 2. Nonhealing hidradenitis ulcer right axilla. 3. Rheumatoid arthritis, and she is off Methotrexate. 4. Family history of skin cancer. 5. s/p surgical preparation left axilla with excision hidradenitis (93 cm2). 6. Open surgical hidradenitis wound left axilla. Left axillary wound is stable. No active bleeding noted. VAC applied. Nonhealing hidradenitis ulcer right axilla is stable. Redressed with Silver dressing. Will continue Dakin's dressing changes at home. Operative culture is pending. Will be discharged on Doxycycline. When the operative culture is available, antibiotic modification may be necessary. Prealbumin was 26.8. Encourage nutritional supplementation with protein to help the healing process. Discharge home today. VAC has been approved. Wrote script for Doxycycline. Wrote scripts for Percocet for pain (40 tabs) and for Valium for spasm (30 tabs). Wrote script for Phenergan for nausea (30 tabs) and a refill. Elevate left arm. Encourage range of motion exercises to minimize stiffness. Followup Wound Center on 02/02/20.
[2020-01-24 09:34] VITALS: BP 141/82; PULSE 86; RESP 18; TEMP 37; O2SAT 96
--- NOTE | 2020-01-24 09:37 | DCINST_ITS ---
You will use the following diet at home:: No restrictions, Other - encourage nutritional supplementatin wtih protein to help the healing process. Discharge Activity: May not drive while taking narcotic pain medications., May Shower - at the time of the vac change., - - elevate left arm. no heavy lifting. May shower in (days): 2 - on the days the vac is changed. May resume sexual activity in: No Restrictions Weight Bearing Status: Weight bearing as tolerated Lifting Restrictions: 20 lbs. Keep extremity elevated above heart level: Left Arm Additional Activity Instructions:: encourage range of motion exercises to minimize stiffness. Call your doctor if your incision/area has: Continuous Slow Oozing, Sudden Increased Bleeding, Increased Pain/ Swelling, Increased Redness, Foul Smelling Discharge, Swelling at the incision site Call your doctor if you observe: Fever of 101 or Higher, Coldness, Increased Pain, Shortness of breath, Chest pain, Calf discomfort, Uncontrolled pain Suture Line Care: - - vac changes three times per weet at 150 mmHg continuous suction to left axilla, Dakin's dressing changes daily to right axilla. Cleanse incision/area with: Soap & Water - may cleanse the wounds with soap and water at the time of the vac change., - - may shower on the days the vac is changed. Allergies/Adverse Reactions: Allergies ChloraPrep Adverse Reaction (Uncoded 01/20/20 12:18) Rash Medications to take at Discharge levothyroxine 25 mcg capsule 25 mcg PO DAILY 03/28/18 multivitamin 1 tab PO DAILY 03/28/18 spironolactone 25 mg tablet 100 mg PO DAILY 03/28/18 norgestimate 0.25 mg-ethinyl estradiol 35 mcg tablet 1 tab PO QDAY #84 tab 07/22/19 escitalopram oxalate 5 mg tablet 20 mg PO QHS 09/25/19 sarecycline 60 mg tablet 150 mg PO DAILY 10/09/19 cetirizine 10 mg tablet 10 mg PO .PRN tab 10/10/19 lorazepam 0.5 mg tablet 0.5 mg PO DAILY PRN 10/10/19 Docusate Sodium [Colace] 100 mg PO BID cap 12/03/19 Loratadine [Claritin] 10 mg PO DAILY PRN PRN tab 12/03/19 gabapentin 300 mg capsule 300 mg PO BID #60 cap 12/11/19 Escitalopram Oxalate [Lexapro] 25 mg PO DAILY 12/15/19 Diazepam [Valium] 5 mg PO 4X/DAY PRN PRN #30 tab 01/24/20 Doxycycline Hyclate [Acticlate] 150 mg PO BID #60 tab 01/24/20 Oxycodone HCl/Acetaminophen [Percocet 5/325] 1 tablet PO Q4H PRN PRN 7 Days #40 tablet 01/24/20 proMETHazine tablet [Phenergan tablet] 25 mg PO 4X/DAY PRN PRN #30 tab 01/24/20 The following prescriptions were given: Doxycycline Hyclate [Acticlate] 150 mg PO BID #60 tab Transmission Status: Pending to [employer] [facility] #30 Oxycodone HCl/Acetaminophen [Percocet 5/325] 1 tablet PO Q4H PRN PRN 7 Days #40 tablet PRN Reason: Pain Score 6-10 Transmission Status: Sent to [employer] [facility] [employer] #30 proMETHazine tablet [Phenergan tablet] 25 mg PO 4X/DAY PRN PRN #30 tab PRN Reason: NAUSEA/VOMITING Transmission Status: Pending to [employer] [facility] [employer] #30 Diazepam [Valium] 5 mg PO 4X/DAY PRN PRN #30 tab PRN Reason: Spasms Transmission Status: Sent to [employer] #30 Primary Care Physician: Ninfa Harrison MIMEOGRAPHER, MIMEOGRAPHER-C [Primary Care Provider] - Test Results: Test results from this visit will be discussed in further detail at your follow- up appointment, if applicable. Please Follow Up With: Rudy Cerna MD - call [phone] for appt. When: sunday02/02/20 at [facility]. Proposed Discharge Date: 01/24/20
[2020-01-24] MEDS: 0.9% NaCl Peripheral Flush Adult/Peds IV (09:38)
[2020-01-24] MEDS: HYDROmorphone 1 MG/ML Syringe IV ×2 (09:38→13:46)
[2020-01-24] MEDS: Juven (unflavored) Packet 1 PACKET PO (09:39)
[2020-01-24] MEDS: Docusate Sodium 100 MG Capsule PO (09:39)
[2020-01-24] MEDS: Multivitamins,Therapeutic Tablet 1 TABLET PO (09:40)
[2020-01-24] MEDS: Gabapentin 300 MG Capsule PO (09:40)
[2020-01-24] MEDS: Spironolactone 50 MG Tablet 100 MG PO (09:41)
[2020-01-24] MEDS: Ondansetron 4 MG/2 ML Vial IV (09:42)
[2020-01-24] MEDS: diazePAM 5 MG Tablet PO (10:41)
== END 2020-01-24 14:21 | disposition home health service (06) ==
LOC: SDC 12:36 → MS3 12:36
PROVIDERS: Anesthesiology; Admitting Provider Surgery; PCP Nurse Practitioner Family; Referring Provider Surgery; Visit Provider Surgery
PROC: (CPT 11450; principal; 2020-01-23 10:15)
DX: L73.2 Hidradenitis suppurativa (principal); Z20.828 Contact with and (suspected) exposure to other viral communicable diseases; E03.9 Hypothyroidism, unspecified; M06.9 Rheumatoid arthritis, unspecified; M79.7 Fibromyalgia; Z79.899 Other long term (current) drug therapy; Z86.718 Personal history of other venous thrombosis and embolism; E78.00 Pure hypercholesterolemia, unspecified
CPT/HCPCS: 00400; 11450; 36415; 80048; 81025; 84134; 85027; 87070; 87075; 87077; 87102; 87176; 87186; 87205; 87206; 87426; 88304; 88305; 96365; 96366; 96375; 96376; 99218; 99251; C9803; J7120; A4216; G0378; G0379; G0463; J2405

== ENCOUNTER 2020-02-16 10:00 | Outpatient (RCR) | payer OTHER, SELFPAY ==
[2020-01-20 00:36] VITALS: BP 132/88; PULSE 89; RESP 18; TEMP 36.2
[2020-01-23 13:19] VITALS: BMI 43.7
[2020-02-02 08:17] VITALS: BP 150/89; PULSE 102; RESP 20; TEMP 35.7; BMI 43.7
--- NOTE | 2020-02-02 12:03 | PCM.WC.PN ---
Type of Wound Date of Service: 02/02/20 Chief Complaint: Nonhealing hidradenitis ulcer right axilla and open surgical hidradenitis wound left axilla. History of Wound: Surgery 12/02/19 - Surgical preparation right axilla with excision hidradenitis (176 cm2). Surgery 01/23/20 - Surgical preparation left axilla with excision hidradenitis (93 cm2). Wound care - Silver dressing on the right and VAC on the left. Operative culture 12/02/19 - Staphylococcus lugdunensis. She was treated perioperatively with Clindamycin. She was then switched to Doxycycline and has finished them. Operative culture 01/23/20 - MRSA. She was discharged on Doxycycline. Prealbumin from 01/24/20 was 26.8. Encourage nutritional supplementation with protein to help the healing process. Today she denies fever. Her appetite is good. She has no problems with range of motion with both arms and shoulders. Progress of Wound: Improved on the right. Recent surgery on the left, 01/23/20. - Physical Exam Vital Signs Temp Pulse Resp BP 96.2 F L 102 H 20 H 150/89 H 02/02/20 08:17 02/02/20 08:17 02/02/20 08:17 02/02/20 08:17 Wound Measurements and Assessment WC - Nurse 1 - General Ulcer Measurement Start: 02/02/20 08:17 Freq: Status: Active Protocol: Activity Type Activity Date Activity User E-Sign Co-Sign Detail Recorded Client Recorded Date Recorded By Document 02/02/20 08:17 DL [id number] 02/02/20 08:27 DL 02/02/20 08:17 Wound Center Nurse 1 [Ulcer Assessment] #2 L Axilla -Current Size (cm) - Length 17.8 -Current Size (cm) - Width 3.7 -Current Size (cm) - Depth 2.2 -Total Square Cm 65.86 -Photo Taken Yes -Exudate Amt Small -Exudate Type Serosanguineous -Wound Margin Distinct, Outline Attached -Granulation Amt Medium (34-66%) -Granulation Quality Red -Necrosis Amt Medium (34-66%) -Necrotic Tissue Type Adherent Slough -Structure Exposed N/A -Texture (Karin-wound Skin Appearance) Scarring -Moisture (Karin-wound Skin Appearance No Abnormality ) -Color (Karin-wound Skin Appearance) No Abnormality -Temperature (Karin-wound Skin No Abnormality Appearance) (Pt Warm) -Tenderness on Palpation (Karin-wound Yes Skin Appearance) -Ulcer Cleansing Wound Cleanser -Foul Odor after Cleansing No -Anesthetic Used 4% Lidocaine Solution #1 R Axilla -Current Size (cm) - Length 9.7 -Current Size (cm) - Width 2.2 -Current Size (cm) - Depth 0.1 -Total Square Cm 21.34 -Photo Taken No -Exudate Amt Small -Exudate Type Serosanguineous -Wound Margin Distinct, Outline Attached -Granulation Amt Large (67-100%) -Granulation Quality Red -Necrosis Amt Small (1-33%) -Necrotic Tissue Type Adherent Slough -Structure Exposed N/A -Texture (Karin-wound Skin Appearance) Scarring -Moisture (Karin-wound Skin Appearance No Abnormality ) -Color (Karin-wound Skin Appearance) No Abnormality -Temperature (Karin-wound Skin No Abnormality Appearance) (Pt Warm) -Tenderness on Palpation (Karin-wound No Skin Appearance) -Ulcer Cleansing Wound Cleanser -Foul Odor after Cleansing No -Anesthetic Used 4% Lidocaine Solution WC - Nurse 2 - General Ulcer CM Notes Start: 02/02/20 08:17 Freq: Status: Active Protocol: Activity Type Activity Date Activity User E-Sign Co-Sign Detail Recorded Client Recorded Date Recorded By Document 02/02/20 08:52 MARQUITA [id number] 02/02/20 08:56 MARQUITA 02/02/20 08:52 Wound Center Nurse 2 [Procedure/Treatment] #2 L Axilla -Time 08:52 -Correct Patient No -Correct Side, Site, Position No -Correct Procedure No -Procedure Performed No -Wound/Ulcer Outcome Not Healed -Debridement - Subq, 1st 20sq cm No #1 R Axilla -Time 08:53 -Correct Patient Yes -Correct Side, Site, Position Yes -Correct Procedure Yes -Procedure Performed Yes -Type of Procedure Debridement -Clinical Debridement Subcutaneous -Tissue Removed Subcutaneous -Post Debridement (cm) - Length 10.5 -Post Debridement (cm) - Width 2.0 -Post Debridement (cm) - Depth 0.1 -Total Square (Post) (cm) 21.00 -Area of Debridement (cm) - Length 10.5 -Area of Debridement (cm) - Width 2 -Total Square (Area) (cm) 21.0 -Tunneling No -Undermining/Tunneling No -Circular Undermining No -Wound/Ulcer Outcome Not Healed -Ulcer Cleansing Rinsed/ Irrigated with Saline -Foul Odor after Cleansing No -Bioengineered Tissue No -Bleeding Controlled with Pressure -Offloading No -Treatment Response Procedure Tolerated Well -Debridement - Subq, 1st 20sq cm Yes -Debridement, SubQ, ea addt'l 20sq cm 1 or part thereof [See Physician Procedure note for Specifics] Pain Scale: 0-10 Numeric [Pain] -Is Patient Pain Free? Yes - Nurse 3 - General Ulcer D/C NN Start: 02/02/20 08:17 Freq: Status: Active Protocol: Activity Type Activity Date Activity User E-Sign Co-Sign Detail Recorded Client Recorded Date Recorded By Document 02/02/20 09:21 [email or web address] [id number] 02/02/20 09:23 DL 02/02/20 09:21 Wound Care Nurse 3 [Wound Dressing] #2 L Axilla -Ulcer Cleansing Wound Cleanser -Foul Odor after Cleansing No -Negative Pressure Wound Therapy Continue -Setting (mmHg) 150 -Negative Pressure is Continuous -NPWT Application Charge ($) NPWT </= 50 sq cm #1 R Axilla -Ulcer Cleansing Wound Cleanser -Foul Odor after Cleansing No -Other Dressing moist gauze -Primary Dressing Covered/Secured Dry Gauze, with Secured with Tape [Post Procedure Tolerated] -Treatment Response Procedure Tolerated Well Pain Scale: 0-10 Numeric [Pain] -Is Patient Pain Free? Yes - Visit Discharge [Visit Discharge Information] -Discharge Condition Stable -Ambulatory Status Ambulatory -Transportation Private Auto -Notes: Pt to resume dakins to R Axilla. Debridement Note Post-Debridement Measurements/Treatment - Nurse 2 - General Ulcer CM Notes Start: 02/02/20 08:17 Freq: Status: Active Protocol: Activity Type Activity Date Activity User E-Sign Co-Sign Detail Recorded Client Recorded Date Recorded By Document 02/02/20 08:52 MARQUITA [id number] 02/02/20 08:56 MARQUITA 02/02/20 08:52 Wound Center Nurse 2 #2 L Axilla -Time 08:52 -Correct Patient No -Correct Side, Site, Position No -Correct Procedure No -Procedure Performed No -Wound/Ulcer Outcome Not Healed -Debridement - Subq, 1st 20sq cm No #1 R Axilla -Time 08:53 -Correct Patient Yes -Correct Side, Site, Position Yes -Correct Procedure Yes -Procedure Performed Yes -Type of Procedure Debridement -Clinical Debridement Subcutaneous -Tissue Removed Subcutaneous -Post Debridement (cm) - Length 10.5 -Post Debridement (cm) - Width 2.0 -Post Debridement (cm) - Depth 0.1 -Total Square (Post) (cm) 21.00 -Area of Debridement (cm) - Length 10.5 -Area of Debridement (cm) - Width 2 -Total Square (Area) (cm) 21.0 -Tunneling No -Undermining/Tunneling No -Circular Undermining No -Wound/Ulcer Outcome Not Healed -Ulcer Cleansing Rinsed/ Irrigated with Saline -Foul Odor after Cleansing No -Bioengineered Tissue No -Bleeding Controlled with Pressure -Offloading No -Treatment Response Procedure Tolerated Well -Debridement - Subq, 1st 20sq cm Yes -Debridement, SubQ, ea addt'l 20sq cm 1 or part thereof Pain Scale: 0-10 Numeric Is Patient Pain Free? Yes - Nurse 3 - General Ulcer D/C NN Start: 02/02/20 08:17 Freq: Status: Active Protocol: Activity Type Activity Date Activity User E-Sign Co-Sign Detail Recorded Client Recorded Date Recorded By Document 02/02/20 09:21 [id number] 02/02/20 09:23 DL 02/02/20 09:21 Wound Care Nurse 3 #2 L Axilla -Ulcer Cleansing Wound Cleanser -Foul Odor after Cleansing No -Negative Pressure Wound Therapy Continue -Setting (mmHg) 150 -Negative Pressure is Continuous -NPWT Application Charge ($) NPWT </= 50 sq cm #1 R Axilla -Ulcer Cleansing Wound Cleanser -Foul Odor after Cleansing No -Other Dressing moist gauze -Primary Dressing Covered/Secured with Dry Gauze, Secured with Tape Treatment Response Procedure Tolerated Well Pain Scale: 0-10 Numeric Is Patient Pain Free? Yes WC - Visit Discharge Discharge Condition Stable Ambulatory Status Ambulatory Transportation Private Auto Notes: Pt to resume dakins to R Axilla. Wound debrided: #1 Right axilla. Laterality: Right Wound Grade/Stage: 2. Type of Debridement: Excisional debridement Anesthesia Used: 4% Lidocaine Solution Depth: Down to and including healthy tissue, in the subcutaneous layer Percentage of wound debrided: 100 Instrument Used: 7mm curette Tissue Removed: subcutaneous tissue. Severity: Fat Layer Exposed Amount of bleeding with debridement: Mild Bleeding Controlled with: Pressure Patient tolerated procedure well - Additional Wound Wound debrided: #2 Left axilla. Laterality: Left Wound Grade/Stage: 2. Patient tolerated procedure: - - No debridement was done today as she had recent surgery on 01/23/20. Assessment/Plan Assessment: 1. Nonhealing hidradenitis ulcer right axilla. 2. Open surgical hidradenitis wound left axilla. 3. Rheumatoid arthritis, and she is off Methotrexate. 4. Family history of skin cancer. Plan: Continue Silver dressing changes to the right axilla and the VAC to the left axilla. She exhibits good range of motion of both arms and shoulders. Operative culture from 12/02/19 showed Staphylococcus lugdunensis. She was treated perioperatively with Clindamycin and was switched to Doxycycline and has finished them. Operative culture from 01/23/20 showed MRSA. She is on Doxycycline. Prealbumin from 01/24/20 was 26.8. Encourage nutritional supplementation with protein to help the healing process. After her recent surgery on the left axilla, she had noticed increased swelling around the wound that is slowly resolving. Reassured her it should continue to resolve. Renewed her Percocet for pain (40 tabs) and her Valium for spasm (30 tabs). We have discussed further surgery on the right axilla with skin grafting. She will think about it and let me know at a future visit. Followup one week. [id number]: [id number] Global Visit - ICD-10 - Z48.89, L98.492, S41.102A, L73.2, M06.9, Z80.8
[2020-02-09 09:07] VITALS: BP 128/84; PULSE 89; RESP 18; TEMP 36.3; BMI 43.7
--- NOTE | 2020-02-09 13:22 | PN.PCM_ITS ---
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 History of Wound: Surgery 12/02/19 - Surgical preparation right axilla with excision hidradenitis (176 cm2). Surgery 01/23/20 - Surgical preparation left axilla with excision hidradenitis (93 cm2). Wound care - Dakin's moistened gauze on the right and VAC on the left. Taking VAC holiday from left due to davin wound excoriation. Using Dakin's moistened gauze this week. Will restart wound VAC next week. Operative culture 12/02/19 - Staphylococcus lugdunensis. She was treated perioperatively with Clindamycin. She was then switched to Doxycycline and has finished them. Operative culture 01/23/20 - MRSA. She was discharged on Doxycycline. Prealbumin from 01/24/20 was 26.8. Encourage nutritional supplementation with protein to help the healing process. Today she denies fever. Her appetite is good. She has no problems with range of motion with both arms and shoulders. Progress of Wound: Improved on the right. Left is beefy pink. Left davin wound improving since she stopped the VAC last Sunday. - Physical Exam Vital Signs Temp Pulse Resp BP 97.3 F L 89 18 128/84 H 02/09/20 09:07 02/09/20 09:07 02/09/20 09:07 02/09/20 09:07 General: Alert, Oriented x3, Cooperative HEENT: Atraumatic Oral: Moist Mucosa Lungs: Normal air movement Cardiovascular: Regular rate Extremities: Capillary Refill Less than 3 Seconds, Edema - Left arm edema is to her hand. Pain with range of motion of left arm and shoulder. Skin: Ulcer/ Wound - Right axilla ulcer is improved. Beefy pink, decreasing in depth. Left axilla wound is beefy pink. Davin wound is excoriated. Wound Measurements and Assessment WC - Nurse 1 - General Ulcer Measurement Start: 02/02/20 08:17 Freq: Status: Active Protocol: Activity Type Activity Date Activity User E-Sign Co-Sign Detail Recorded Client Recorded Date Recorded By Document 02/09/20 09:07 DL [id number] 02/09/20 09:16 DL 02/09/20 09:07 Wound Center Nurse 1 [Ulcer Assessment] #2 L Axilla -Current Size (cm) - Length 16.6 -Current Size (cm) - Width 2.5 -Current Size (cm) - Depth 1.3 -Total Square Cm 41.50 -Photo Taken No -Exudate Amt Large -Exudate Type Serosanguineous -Wound Margin Distinct, Outline Attached -Granulation Amt Large (67-100%) -Granulation Quality Red -Necrosis Amt None Present (0 %) -Texture (Davin-wound Skin Appearance) Assessed, Localized Edema ,Scarring -Moisture (Davin-wound Skin Appearance No Abnormality, ) Assessed -Color (Davin-wound Skin Appearance) No Abnormality, Assessed -Temperature (Davin-wound Skin No Abnormality Appearance) (Pt Warm) -Tenderness on Palpation (Davin-wound No Skin Appearance) -Ulcer Cleansing Rinsed/ Irrigated with Saline -Foul Odor after Cleansing No -Anesthetic Used 4% Lidocaine Solution #1 R Axilla -Current Size (cm) - Length 9 -Current Size (cm) - Width 1.6 -Current Size (cm) - Depth 0.1 -Total Square Cm 14.4 -Wound Margin Distinct, Outline Attached -Granulation Amt Medium (34-66%) -Granulation Quality Red -Necrosis Amt Medium (34-66%) -Necrotic Tissue Type Adherent Slough -Texture (Davin-wound Skin Appearance) Assessed, Scarring -Moisture (Davin-wound Skin Appearance No Abnormality, ) Assessed -Color (Davin-wound Skin Appearance) No Abnormality, Assessed -Temperature (Davin-wound Skin No Abnormality Appearance) (Pt Warm) -Tenderness on Palpation (Davin-wound No Skin Appearance) -Ulcer Cleansing Rinsed/ Irrigated with Saline -Anesthetic Used 4% Lidocaine Solution WC - Nurse 2 - General Ulcer CM Notes Start: 02/02/20 08:17 Freq: Status: Active Protocol: Activity Type Activity Date Activity User E-Sign Co-Sign Detail Recorded Client Recorded Date Recorded By Document 02/09/20 09:39 MARQUITA [id number] 02/09/20 09:45 MARQUITA 02/09/20 09:39 Wound Center Nurse 2 [Procedure/Treatment] #2 L Axilla -Time 09:40 -Correct Patient Yes -Correct Side, Site, Position Yes -Correct Procedure Yes -Procedure Performed Yes -Type of Procedure Debridement -Clinical Debridement Muscle / Fascia -Tissue Removed Muscle -Post Debridement (cm) - Length 16.5 -Post Debridement (cm) - Width 3 -Post Debridement (cm) - Depth 3.3 -Total Square (Post) (cm) 49.5 -Area of Debridement (cm) - Length 16.5 -Area of Debridement (cm) - Width 3 -Total Square (Area) (cm) 49.5 -Tunneling No -Undermining/Tunneling No -Circular Undermining No -Wound/Ulcer Outcome Not Healed -Ulcer Cleansing Rinsed/ Irrigated with Saline -Foul Odor after Cleansing No -Bioengineered Tissue No -Bleeding Controlled with Pressure -Offloading No -Treatment Response Procedure Tolerated Well -Debridement - Subq, 1st 20sq cm No -Debridement - Muscle / Fascia, 1st Yes 20sq cm -Debridement, Muscle/Fascia, ea addt' 2 l 20sq cm or part thereof #1 R Axilla -Time 09:41 -Correct Patient Yes -Correct Side, Site, Position Yes -Correct Procedure Yes -Procedure Performed Yes -Type of Procedure Debridement -Clinical Debridement Subcutaneous -Tissue Removed Subcutaneous -Post Debridement (cm) - Length 8 -Post Debridement (cm) - Width 1.8 -Post Debridement (cm) - Depth 0.2 -Total Square (Post) (cm) 14.4 -Area of Debridement (cm) - Length 8 -Area of Debridement (cm) - Width 1.8 -Total Square (Area) (cm) 14.4 -Tunneling No -Undermining/Tunneling No -Circular Undermining No -Wound/Ulcer Outcome Not Healed -Ulcer Cleansing Rinsed/ Irrigated with Saline -Foul Odor after Cleansing No -Bioengineered Tissue No -Bleeding Controlled with Pressure -Offloading No -Treatment Response Procedure Tolerated Well -Debridement - Subq, 1st 20sq cm Yes [See Physician Procedure note for Specifics] Pain Scale: 0-10 Numeric [Pain] -Is Patient Pain Free? Yes - Nurse 3 - General Ulcer D/C NN Start: 02/02/20 08:17 Freq: Status: Active Protocol: Activity Type Activity Date Activity User E-Sign Co-Sign Detail Recorded Client Recorded Date Recorded By Document 02/09/20 10:09 [facility] [id number] 02/09/20 10:10 [facility] 02/09/20 10:09 Wound Care Nurse 3 [Wound Dressing] #2 L Axilla -Ulcer Cleansing Rinsed/ Irrigated with Saline -Foul Odor after Cleansing No -Primary Dressing Applied Other -Other Dressing dakins -Primary Dressing Covered/Secured Secured with with Tape,Other -Other Covering abd #1 R Axilla -Ulcer Cleansing Rinsed/ Irrigated with Saline -Foul Odor after Cleansing No -Primary Dressing Applied Other -Other Dressing dakins -Primary Dressing Covered/Secured Secured with with Tape,Other -Other Covering abd [Post Procedure Tolerated] -Treatment Response Procedure Tolerated Well Pain Scale: 0-10 Numeric [Pain] -Is Patient Pain Free? Yes - Visit Discharge [Visit Discharge Information] -Discharge Condition Stable -Ambulatory Status Ambulatory -Transportation Private Auto [Facility Notification] -Facility Type Home Health Musculoskeletal: No Tenderness to Palpation of Joints or Extremities Neurological: Cranial nerves II-XII grossly intact Psych/Mental Status: Normal Affect, Appropriate Debridement Note Post-Debridement Measurements/Treatment - Nurse 2 - General Ulcer CM Notes Start: 02/02/20 08:17 Freq: Status: Active Protocol: Activity Type Activity Date Activity User E-Sign Co-Sign Detail Recorded Client Recorded Date Recorded By Document 02/02/20 08:52 [id number] 02/02/20 08:56 Document 02/09/20 09:39 [id number] 02/09/20 09:45 02/02/20 02/09/20 08:52 09:39 Wound Center Nurse 2 #2 L Axilla -Time 08:52 09:40 -Correct Patient No Yes -Correct Side, Site, Position No Yes -Correct Procedure No Yes -Procedure Performed No Yes -Type of Procedure Debridement -Clinical Debridement Muscle / Fascia -Tissue Removed Muscle -Post Debridement (cm) - Length 16.5 -Post Debridement (cm) - Width 3 -Post Debridement (cm) - Depth 3.3 -Total Square (Post) (cm) 49.5 -Area of Debridement (cm) - Length 16.5 -Area of Debridement (cm) - Width 3 -Total Square (Area) (cm) 49.5 -Tunneling No -Undermining/Tunneling No -Circular Undermining No -Wound/Ulcer Outcome Not Healed Not Healed -Ulcer Cleansing Rinsed/ Irrigated with Saline -Foul Odor after Cleansing No -Bioengineered Tissue No -Bleeding Controlled with Pressure -Offloading No -Treatment Response Procedure Tolerated Well -Debridement - Subq, 1st 20sq cm No No -Debridement - Muscle / Fascia, 1st Yes 20sq cm -Debridement, Muscle/Fascia, ea addt'l 2 20sq cm or part thereof #1 R Axilla -Time 08:53 09:41 -Correct Patient Yes Yes -Correct Side, Site, Position Yes Yes -Correct Procedure Yes Yes -Procedure Performed Yes Yes -Type of Procedure Debridement Debridement -Clinical Debridement Subcutaneous Subcutaneous -Tissue Removed Subcutaneous Subcutaneous -Post Debridement (cm) - Length 10.5 8 -Post Debridement (cm) - Width 2.0 1.8 -Post Debridement (cm) - Depth 0.1 0.2 -Total Square (Post) (cm) 21.00 14.4 -Area of Debridement (cm) - Length 10.5 8 -Area of Debridement (cm) - Width 2 1.8 -Total Square (Area) (cm) 21.0 14.4 -Tunneling No No -Undermining/Tunneling No No -Circular Undermining No No -Wound/Ulcer Outcome Not Healed Not Healed -Ulcer Cleansing Rinsed/ Rinsed/ Irrigated with Irrigated with Saline Saline -Foul Odor after Cleansing No No -Bioengineered Tissue No No -Bleeding Controlled with Pressure Pressure -Offloading No No -Treatment Response Procedure Procedure Tolerated Well Tolerated Well -Debridement - Subq, 1st 20sq cm Yes Yes -Debridement, SubQ, ea addt'l 20sq cm 1 or part thereof Pain Scale: 0-10 Numeric Is Patient Pain Free? Yes Yes WC - Nurse 3 - General Ulcer D/C NN Start: 02/02/20 08:17 Freq: Status: Active Protocol: Activity Type Activity Date Activity User E-Sign Co-Sign Detail Recorded Client Recorded Date Recorded By Document 02/02/20 09:21 [id number] 02/02/20 09:23 DL Document 02/09/20 10:09 [facility] [id number] 02/09/20 10:10 [facility] 02/02/20 02/09/20 09:21 10:09 Wound Care Nurse 3 #2 L Axilla -Ulcer Cleansing Wound Cleanser Rinsed/ Irrigated with Saline -Foul Odor after Cleansing No No -Negative Pressure Wound Therapy Continue -Setting (mmHg) 150 -Negative Pressure is Continuous -Primary Dressing Applied Other -Other Dressing dakins -Primary Dressing Covered/Secured with Secured with Tape,Other -Other Covering abd -NPWT Application Charge ($) NPWT </= 50 sq cm #1 R Axilla -Ulcer Cleansing Wound Cleanser Rinsed/ Irrigated with Saline -Foul Odor after Cleansing No No -Primary Dressing Applied Other -Other Dressing moist gauze dakins -Primary Dressing Covered/Secured with Dry Gauze, Secured with Secured with Tape,Other Tape -Other Covering abd Treatment Response Procedure Procedure Tolerated Well Tolerated Well Pain Scale: 0-10 Numeric Is Patient Pain Free? Yes Yes WC - Visit Discharge Discharge Condition Stable Stable Ambulatory Status Ambulatory Ambulatory Transportation Private Auto Private Auto Notes: Pt to resume dakins to R Axilla. Facility Type Home Health Wound debrided: axillary ulcer Laterality: Right Type of Debridement: Excisional debridement Anesthesia Used: 5% Lidocaine Gel Depth: Down to and including healthy tissue, in the subcutaneous layer Percentage of wound debrided: 100 Instrument Used: 7mm curette Tissue Removed: Subcutaneous tissue and slough Severity: Fat Layer Exposed Amount of bleeding with debridement: Moderate Bleeding Controlled with: Pressure, Compression and gauze Patient tolerated procedure well - Additional Wound Wound debrided: axilla wound Laterality: Left Anesthesia Used: 5% Lidocaine Gel Depth: Down to and including healthy tissue, in the subcutaneous layer, to muscle Percentage of wound debrided: 100 Instrument Used: 7mm curette Tissue Removed: Subcutaneous tissue and slough into the muscle Severity: Fat Layer Exposed Amount of bleeding with debridement: Moderate Bleeding Controlled with: Pressure, Compression and gauze Patient tolerated procedure: Patient tolerated procedure well Assessment/Plan Assessment: 1. Nonhealing hidradenitis ulcer right axilla. 2. Open surgical hidradenitis wound left axilla. 3. Rheumatoid arthritis, and she is off Methotrexate. 4. Family history of skin cancer. Plan: Wound care - Dakin's moistened gauze on the right and VAC on the left. Taking VAC holiday from left due to davin wound excoriation. Using Dakin's moistened gauze this week. Will restart wound VAC next week. She will GRETEL wrap on the left arm for compression. She exhibits good range of motion of both arms and shoulders. She is having swelling of her left arm with increasing pain, will order OT for evaluation and treatment for edema and pain management and range of motion. Operative culture from 12/02/19 showed Staphylococcus lugdunensis. She was treated perioperatively with Clindamycin and was switched to Doxycycline and has finished them. Operative culture from 01/23/20 showed MRSA. She is on Doxycycline. Prealbumin from 01/24/20 was 26.8. Encourage nutritional supplementation with protein to help the healing process. We have discussed further surgery on the right axilla with skin grafting. She will think about it and let me know at a future visit. Followup one week. [id number]: [id number] Global Visit
[2020-02-16 10:11] VITALS: BP 130/73; PULSE 89; RESP 18; TEMP 36.4; BMI 43.7
--- NOTE | 2020-02-16 13:18 | PCM.WC.PN ---
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 History of Wound: Surgery 12/02/19 - Surgical preparation right axilla with excision hidradenitis (176 cm2). Surgery 01/23/20 - Surgical preparation left axilla with excision hidradenitis (93 cm2). Wound care - Dakin's moistened gauze on the right and VAC on the left. Took a VAC holiday from left due to karin wound excoriation. Left karin wound has improved. She continues to have problems with left arm swelling and pain. Will obtain an ultrasound of left arm to r/o DVT. After the ultrasound is obtained, will reapply the wound VAC to the left axilla. Operative culture 12/02/19 - Staphylococcus lugdunensis. She was treated perioperatively with Clindamycin. She was then switched to Doxycycline and has finished them. Operative culture 01/23/20 - MRSA. She was discharged on Doxycycline. Prealbumin from 01/24/20 was 26.8. Encourage nutritional supplementation with protein to help the healing process. Today she denies fever. Her appetite is good. She has no problems with range of motion with both arms and shoulders. Progress of Wound: Improved on the right. Left is beefy pink. Left karin wound has improved. She continues to have problems with left arm swelling and pain. Will obtain an ultrasound of left arm to r/o DVT. After the ultrasound is obtained, will reapply the wound VAC to the left axilla. - Physical Exam Vital Signs Temp Pulse Resp BP 97.5 F L 89 18 130/73 H 02/16/20 10:11 02/16/20 10:11 02/16/20 10:11 02/16/20 10:11 General: Alert, Oriented x3, Cooperative HEENT: Atraumatic Oral: Moist Mucosa Lungs: Normal air movement Cardiovascular: Regular rate Extremities: Edema - Left arm is swollen from hand to shoulder. She complains of increased pain at antecubital area when bending arm. She is wearing GRETEL wraps for compression. Skin: Ulcer/ Wound - Right axilla ulcer is beefy pink and improving in size. Left axilla ulcer is beefy pink. Karin wound is much improved from VAC holiday. Wound Measurements and Assessment WC - Nurse 1 - General Ulcer Measurement Start: 02/02/20 08:17 Freq: Status: Active Protocol: Activity Type Activity Date Activity User E-Sign Co-Sign Detail Recorded Client Recorded Date Recorded By Document 02/16/20 10:11 DL [id number] 02/16/20 10:24 DL 02/16/20 10:11 Wound Center Nurse 1 [Ulcer Assessment] #2 L Axilla -Current Size (cm) - Length 3.8 -Current Size (cm) - Width 11.9 -Current Size (cm) - Depth 1.5 -Total Square Cm 45.22 -Photo Taken No -Exudate Amt Small -Exudate Type Sanguineous -Wound Margin Distinct, Outline Attached -Granulation Amt Large (67-100%) -Granulation Quality Red -Necrosis Amt None Present (0 %) -Structure Exposed N/A -Texture (Karin-wound Skin Appearance) Scarring -Moisture (Karin-wound Skin Appearance No Abnormality ) -Color (Karin-wound Skin Appearance) No Abnormality -Temperature (Karin-wound Skin No Abnormality Appearance) (Pt Warm) -Tenderness on Palpation (Karin-wound No Skin Appearance) -Ulcer Cleansing Wound Cleanser -Foul Odor after Cleansing No -Anesthetic Used 4% Lidocaine Solution #1 R Axilla -Current Size (cm) - Length 8.2 -Current Size (cm) - Width 1 -Current Size (cm) - Depth 0.1 -Total Square Cm 8.2 -Photo Taken No -Exudate Amt Small -Exudate Type Serosanguineous -Wound Margin Distinct, Outline Attached -Granulation Amt Large (67-100%) -Granulation Quality [place],Red -Necrosis Amt Small (1-33%) -Necrotic Tissue Type Adherent Slough -Structure Exposed N/A -Texture (Karin-wound Skin Appearance) Scarring -Moisture (Karin-wound Skin Appearance No Abnormality ) -Color (Karin-wound Skin Appearance) No Abnormality -Temperature (Karin-wound Skin No Abnormality Appearance) (Pt Warm) -Tenderness on Palpation (Karin-wound No Skin Appearance) -Ulcer Cleansing Wound Cleanser -Foul Odor after Cleansing No -Anesthetic Used 4% Lidocaine Solution WC - Nurse 2 - General Ulcer CM Notes Start: 02/02/20 08:17 Freq: Status: Active Protocol: Activity Type Activity Date Activity User E-Sign Co-Sign Detail Recorded Client Recorded Date Recorded By Document 02/16/20 10:57 MARQUITA [id number] 02/16/20 11:04 MARQUITA 02/16/20 10:57 Wound Center Nurse 2 [Procedure/Treatment] #2 L Axilla -Time 10:58 -Correct Patient Yes -Correct Side, Site, Position Yes -Correct Procedure Yes -Procedure Performed Yes -Type of Procedure Debridement -Clinical Debridement Subcutaneous -Tissue Removed Subcutaneous -Post Debridement (cm) - Length 14.2 -Post Debridement (cm) - Width 4.0 -Post Debridement (cm) - Depth 1.3 -Total Square (Post) (cm) 56.80 -Area of Debridement (cm) - Length 14.2 -Area of Debridement (cm) - Width 4 -Total Square (Area) (cm) 56.8 -Tunneling No -Undermining/Tunneling No -Circular Undermining No -Wound/Ulcer Outcome Not Healed -Ulcer Cleansing Rinsed/ Irrigated with Saline -Foul Odor after Cleansing No -Bioengineered Tissue No -Bleeding Controlled with Pressure -Offloading No -Treatment Response Procedure Tolerated Well -Debridement - Subq, 1st 20sq cm Yes -Debridement, SubQ, ea addt'l 20sq cm 3 or part thereof #1 R Axilla -Time 10:59 -Correct Patient Yes -Correct Side, Site, Position Yes -Correct Procedure Yes -Procedure Performed Yes -Type of Procedure Debridement -Clinical Debridement Subcutaneous -Tissue Removed Subcutaneous -Post Debridement (cm) - Length 8.2 -Post Debridement (cm) - Width 1.3 -Post Debridement (cm) - Depth 0.1 -Total Square (Post) (cm) 10.66 -Area of Debridement (cm) - Length 8.2 -Area of Debridement (cm) - Width 1.3 -Total Square (Area) (cm) 10.66 -Tunneling No -Undermining/Tunneling No -Circular Undermining No -Wound/Ulcer Outcome Not Healed -Ulcer Cleansing Rinsed/ Irrigated with Saline -Foul Odor after Cleansing No -Bioengineered Tissue No -Bleeding Controlled with Pressure -Offloading No -Treatment Response Procedure Tolerated Well -Debridement - Subq, 1st 20sq cm No [See Physician Procedure note for Specifics] Pain Scale: 0-10 Numeric [Pain] -Is Patient Pain Free? Yes - Nurse 3 - General Ulcer D/C NN Start: 02/02/20 08:17 Freq: Status: Active Protocol: Activity Type Activity Date Activity User E-Sign Co-Sign Detail Recorded Client Recorded Date Recorded By Document 02/16/20 11:18 [facility] [id number] 02/16/20 11:19 [facility] 02/16/20 11:18 Wound Care Nurse 3 [Wound Dressing] #2 L Axilla -Ulcer Cleansing Rinsed/ Irrigated with Saline -Foul Odor after Cleansing No -Primary Dressing Applied Other -Other Dressing MOIST TO DRY -Primary Dressing Covered/Secured Dry Gauze, with Secured with Tape #1 R Axilla -Ulcer Cleansing Rinsed/ Irrigated with Saline -Foul Odor after Cleansing No -Primary Dressing Applied Aquacel AG 4x4 -Primary Dressing Covered/Secured Dry Gauze, with Secured with Tape -Aquacel AG 4x4 1 [Post Procedure Tolerated] -Treatment Response Procedure Tolerated Well Pain Scale: 0-10 Numeric [Pain] -Is Patient Pain Free? Yes - Visit Discharge [Visit Discharge Information] -Discharge Condition Stable -Ambulatory Status Ambulatory -Transportation Private Auto -Accompanied by DAD [Facility Notification] -Facility Type Home Health Musculoskeletal: Tenderness - left arm Neurological: Cranial nerves II-XII grossly intact Psych/Mental Status: Normal Affect, Appropriate Debridement Note Post-Debridement Measurements/Treatment - Nurse 2 - General Ulcer CM Notes Start: 02/02/20 08:17 Freq: Status: Active Protocol: Activity Type Activity Date Activity User E-Sign Co-Sign Detail Recorded Client Recorded Date Recorded By Document 02/02/20 08:52 [id number] 02/02/20 08:56 Document 02/09/20 09:39 [id number] 02/09/20 09:45 Document 02/16/20 10:57 [id number] 02/16/20 11:04 02/02/20 02/09/20 02/16/20 08:52 09:39 10:57 Wound Center Nurse 2 #2 L Axilla -Time 08:52 09:40 10:58 -Correct Patient No Yes Yes -Correct Side, Site, Position No Yes Yes -Correct Procedure No Yes Yes -Procedure Performed No Yes Yes -Type of Procedure Debridement Debridement -Clinical Debridement Muscle / Fascia Subcutaneous -Tissue Removed Muscle Subcutaneous -Post Debridement (cm) - Length 16.5 14.2 -Post Debridement (cm) - Width 3 4.0 -Post Debridement (cm) - Depth 3.3 1.3 -Total Square (Post) (cm) 49.5 56.80 -Area of Debridement (cm) - Length 16.5 14.2 -Area of Debridement (cm) - Width 3 4 -Total Square (Area) (cm) 49.5 56.8 -Tunneling No No -Undermining/Tunneling No No -Circular Undermining No No -Wound/Ulcer Outcome Not Healed Not Healed Not Healed -Ulcer Cleansing Rinsed/ Rinsed/ Irrigated with Irrigated with Saline Saline -Foul Odor after Cleansing No No -Bioengineered Tissue No No -Bleeding Controlled with Pressure Pressure -Offloading No No -Treatment Response Procedure Procedure Tolerated Well Tolerated Well -Debridement - Subq, 1st 20sq cm No No Yes -Debridement, SubQ, ea addt'l 20sq cm 3 or part thereof -Debridement - Muscle / Fascia, 1st Yes 20sq cm -Debridement, Muscle/Fascia, ea addt'l 2 20sq cm or part thereof #1 R Axilla -Time 08:53 09:41 10:59 -Correct Patient Yes Yes Yes -Correct Side, Site, Position Yes Yes Yes -Correct Procedure Yes Yes Yes -Procedure Performed Yes Yes Yes -Type of Procedure Debridement Debridement Debridement -Clinical Debridement Subcutaneous Subcutaneous Subcutaneous -Tissue Removed Subcutaneous Subcutaneous Subcutaneous -Post Debridement (cm) - Length 10.5 8 8.2 -Post Debridement (cm) - Width 2.0 1.8 1.3 -Post Debridement (cm) - Depth 0.1 0.2 0.1 -Total Square (Post) (cm) 21.00 14.4 10.66 -Area of Debridement (cm) - Length 10.5 8 8.2 -Area of Debridement (cm) - Width 2 1.8 1.3 -Total Square (Area) (cm) 21.0 14.4 10.66 -Tunneling No No No -Undermining/Tunneling No No No -Circular Undermining No No No -Wound/Ulcer Outcome Not Healed Not Healed Not Healed -Ulcer Cleansing Rinsed/ Rinsed/ Rinsed/ Irrigated with Irrigated with Irrigated with Saline Saline Saline -Foul Odor after Cleansing No No No -Bioengineered Tissue No No No -Bleeding Controlled with Pressure Pressure Pressure -Offloading No No No -Treatment Response Procedure Procedure Procedure Tolerated Well Tolerated Well Tolerated Well -Debridement - Subq, 1st 20sq cm Yes Yes No -Debridement, SubQ, ea addt'l 20sq cm 1 or part thereof Pain Scale: 0-10 Numeric Is Patient Pain Free? Yes Yes Yes WC - Nurse 3 - General Ulcer D/C NN Start: 02/02/20 08:17 Freq: Status: Active Protocol: Activity Type Activity Date Activity User E-Sign Co-Sign Detail Recorded Client Recorded Date Recorded By Document 02/02/20 09:21 [id number] 02/02/20 09:23 DL Document 02/09/20 10:09 [facility] [id number] 02/09/20 10:10 [facility] Document 02/16/20 11:18 [facility] [id number] 02/16/20 11:19 [facility] 02/02/20 02/09/20 02/16/20 09:21 10:09 11:18 Wound Care Nurse 3 #2 L Axilla -Ulcer Cleansing Wound Cleanser Rinsed/ Rinsed/ Irrigated with Irrigated with Saline Saline -Foul Odor after Cleansing No No No -Negative Pressure Wound Therapy Continue -Setting (mmHg) 150 -Negative Pressure is Continuous -Primary Dressing Applied Other Other -Other Dressing dakins MOIST TO DRY -Primary Dressing Covered/Secured with Secured with Dry Gauze, Tape,Other Secured with Tape -Other Covering abd -NPWT Application Charge ($) NPWT </= 50 sq cm #1 R Axilla -Ulcer Cleansing Wound Cleanser Rinsed/ Rinsed/ Irrigated with Irrigated with Saline Saline -Foul Odor after Cleansing No No No -Primary Dressing Applied Other Aquacel AG 4x4 -Other Dressing moist gauze dakins -Primary Dressing Covered/Secured with Dry Gauze, Secured with Dry Gauze, Secured with Tape,Other Secured with Tape Tape -Other Covering abd -Aquacel AG 4x4 1 Treatment Response Procedure Procedure Procedure Tolerated Well Tolerated Well Tolerated Well Pain Scale: 0-10 Numeric Is Patient Pain Free? Yes Yes Yes WC - Visit Discharge Discharge Condition Stable Stable Stable Ambulatory Status Ambulatory Ambulatory Ambulatory Transportation Private Auto Private Auto Private Auto Accompanied by DAD Notes: Pt to resume dakins to R Axilla. Facility Type Home Health Home Health Wound debrided: axilla ulcer Laterality: Right Type of Debridement: Excisional debridement Anesthesia Used: 5% Lidocaine Gel Depth: Down to and including healthy tissue, in the subcutaneous layer Percentage of wound debrided: 100 Instrument Used: 3mm curette Tissue Removed: subcutaneous tissue and slough Severity: Fat Layer Exposed Amount of bleeding with debridement: Mild Bleeding Controlled with: Pressure Patient tolerated procedure well - Additional Wound Wound debrided: axilla wound Laterality: Left Type of Debridement: Excisional debridement Anesthesia Used: 5% Lidocaine Gel Depth: Down to and including healthy tissue, in the subcutaneous layer Percentage of wound debrided: 100 Instrument Used: 7mm curette Tissue Removed: Subcutaneous tissue and slough Severity: Fat Layer Exposed Amount of bleeding with debridement: Mild Bleeding Controlled with: Pressure Patient tolerated procedure: Patient tolerated procedure well Assessment/Plan Active Problems (Last Reviewed 12/10/19 @ 20:[address] Rudy Cerna MD) Open wound of left axillary region with complication (Acute) Skin ulcer of axilla with fat layer exposed (Chronic) Rheumatoid arthritis (Chronic) at present is off Methotrexate Axillary hidradenitis suppurativa (Chronic) bilateral axillary hidradenitis, worse on the left Assessment: 1. Nonhealing hidradenitis ulcer right axilla. 2. Open surgical hidradenitis wound left axilla. 3. Rheumatoid arthritis, and she is off Methotrexate. 4. Family history of skin cancer. Plan: Wound care - Dakin's moistened gauze on the right and VAC on the left. Took a VAC holiday from left due to karin wound excoriation for a week. Left karin wound has improved. She continues to have problems with left arm swelling and pain. Will obtain an ultrasound of left arm to r/o DVT. After the ultrasound is obtained, will reapply the wound VAC to the left axilla. She will GRETEL wrap on the left arm for compression. She exhibits good range of motion of both arms and shoulders. OT was ordered for evaluation and treatment for edema and pain management and range of motion of left arm. Operative culture from 12/02/19 showed Staphylococcus lugdunensis. She was treated perioperatively with Clindamycin and was switched to Doxycycline and has finished them. Operative culture from 01/23/20 showed MRSA. She is on Doxycycline. Prealbumin from 01/24/20 was 26.8. Encourage nutritional supplementation with protein to help the healing process. We have discussed further surgery on the right axilla with skin grafting. She will think about it and let me know at a future visit. Renewed Percocet (28 tabs) and Neurontin. PDMP reviewed. Followup one week. [id number]: [id number] Global Visit
== END 2020-02-19 23:59 ==
LOC: WC 10:00
PROVIDERS: PCP Nurse Practitioner Family; Visit Provider Surgery
DX: L73.2 Hidradenitis suppurativa (principal); S41.102A Unspecified open wound of left upper arm, initial encounter; L98.492 Non-pressure chronic ulcer of skin of other sites with fat layer exposed; M06.9 Rheumatoid arthritis, unspecified; Z80.8 Family history of malignant neoplasm of other organs or systems
CPT/HCPCS: 11042; 11043; 11045; 11046; 97605

== ENCOUNTER → 2020-02-16 12:49 | Outpatient (CLI) | payer OTHER, SELFPAY ==
[2020-02-16 10:11] VITALS: BMI 43.7
--- NOTE | 2020-02-16 12:51 | VDUE_ITS ---
Reason For Study: Arm swelling Left Proximal Left jugular vein is spontaneous, widely patent, phasic, with no intraluminal echogenicity noted. Left subclavian vein is spontaneous, widely patent, phasic, with no intraluminal echogenicity noted. Left Arm Left axillary vein is spontaneous, patent, phasic, competent, compressible and demonstrates augmentation. Left brachial vein is compressible. Left cephalic vein is compressible. Left basilic vein is compressible. Left Lower Arm Left radial vein is compressible. Left ulnar vein is compressible. Patient Safety Prelim to Gilberto. Interpretation Summary Deep veins of the left upper extremity are patent and compressible segmentally. There is no evidence of deep vein thrombosis. The superficial veins of the left upper extremity, the basilic and cephalic veins, are patent and compressible. There is no evidence of left upper extremity superficial thrombophlebitis involving the veins imaged. Ordering Physician: Francoise Macias Referring Physician: Ninfa Harrison Performed By: Aliza Marte RVT ?
== END ==
PROVIDERS: PCP Nurse Practitioner Family; Referring Provider Nurse Practitioner Family; Visit Provider Nurse Practitioner Family
DX: M79.89 Other specified soft tissue disorders (principal)
CPT/HCPCS: 93971

== ENCOUNTER → 2020-02-26 14:46 | Outpatient (CLI) | payer OTHER, SELFPAY ==
[2020-02-23 08:58] VITALS: BMI 43.7
== END ==
LOC: MFPLAB 14:47 → LABSPEC 14:48
PROVIDERS: PCP Family Medicine; Referring Provider Family Medicine; Visit Provider Family Medicine
DX: Z20.822 Contact with and (suspected) exposure to COVID-19 (principal)
CPT/HCPCS: 87635; U0005; U0003

== ENCOUNTER 2020-03-15 13:15 | Outpatient (RCR) | payer OTHER, SELFPAY ==
[2020-02-20 00:30] VITALS: BP 130/73; PULSE 89; RESP 18; TEMP 36.4
[2020-02-23 08:58] VITALS: BP 148/78; PULSE 93; TEMP 36; BMI 43.7
--- NOTE | 2020-02-23 11:45 | PCM.WC.PN ---
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 History of Wound: Surgery 12/02/19 - Surgical preparation right axilla with excision hidradenitis (176 cm2). Surgery 01/23/20 - Surgical preparation left axilla with excision hidradenitis (93 cm2). Wound care - Dakin's moistened gauze on the right and VAC on the left. Left periwound is erythematous from the VAC drape. Will take a VAC holiday and do Dakin's on bilateral ulcers. Will discuss next week if with try VAC again. Operative culture 12/02/19 - Staphylococcus lugdunensis. She was treated perioperatively with Clindamycin. She was then switched to Doxycycline and has finished them. Operative culture 01/23/20 - MRSA. She was discharged on Doxycycline. Prealbumin from 01/24/20 was 26.8. Encourage nutritional supplementation with protein to help the healing process. Today she denies fever. Her appetite is good. She has no problems with range of motion with both arms and shoulders. Progress of Wound: Improved on the right. Left is beefy pink. Left davin wound is erythematous from the VAC drape. - Physical Exam Vital Signs Temp Pulse Resp BP 96.8 F L 93 18 148/78 H 02/23/20 08:58 02/23/20 08:58 02/20/20 00:30 02/23/20 08:58 General: Alert, Oriented x3, Cooperative HEENT: Atraumatic Oral: Moist Mucosa Lungs: Normal air movement Cardiovascular: Regular rate Extremities: Capillary Refill Less than 3 Seconds Skin: Ulcer/ Wound - Right axilla ulcer is beefy pink. Left axilla ulcer is beefy pink but the periwound is erythematous from reaction to the VAC drape. Wound Measurements and Assessment WC - Nurse 1 - General Ulcer Measurement Start: 02/23/20 08:57 Freq: Status: Active Protocol: Activity Type Activity Date Activity User E-Sign Co-Sign Detail Recorded Client Recorded Date Recorded By Document 02/23/20 08:58 [place] [id number] 02/23/20 09:09 [place] 02/23/20 08:58 Wound Center Nurse 1 [Ulcer Assessment] #2 L Axilla -Current Size (cm) - Length 14.3 -Current Size (cm) - Width 3.5 -Current Size (cm) - Depth 2.7 -Total Square Cm 50.05 -Tunneling Position (O'clock) 6 -Tunneling Distance (cm) 0.4 -Exudate Amt Medium -Exudate Type Serosanguineous -Wound Margin Distinct, Outline Attached -Granulation Amt Medium (34-66%) -Granulation Quality Red -Necrosis Amt Medium (34-66%) -Necrotic Tissue Type Adherent Slough -Texture (Davin-wound Skin Appearance) No Abnormality, Assessed -Moisture (Davin-wound Skin Appearance No Abnormality, ) Assessed -Color (Davin-wound Skin Appearance) No Abnormality, Assessed -Temperature (Davin-wound Skin No Abnormality Appearance) (Pt Warm) -Ulcer Cleansing Rinsed/ Irrigated with Saline -Foul Odor after Cleansing No -Anesthetic Used 4% Lidocaine Solution #1 R Axilla -Current Size (cm) - Length 7.2 -Current Size (cm) - Width 1 -Current Size (cm) - Depth 0.1 -Total Square Cm 7.2 -Exudate Amt Medium -Exudate Type Serosanguineous -Wound Margin Distinct, Outline Attached -Granulation Amt Medium (34-66%) -Granulation Quality [place],Red -Necrosis Amt Medium (34-66%) -Necrotic Tissue Type Adherent Slough -Texture (Davin-wound Skin Appearance) Assessed, Scarring -Moisture (Davin-wound Skin Appearance No Abnormality, ) Assessed -Color (Davin-wound Skin Appearance) No Abnormality, Assessed -Temperature (Davin-wound Skin No Abnormality Appearance) (Pt Warm) -Tenderness on Palpation (Davin-wound No Skin Appearance) -Ulcer Cleansing Rinsed/ Irrigated with Saline -Foul Odor after Cleansing No -Anesthetic Used 4% Lidocaine Solution WC - Nurse 2 - General Ulcer CM Notes Start: 02/23/20 08:57 Freq: Status: Active Protocol: Activity Type Activity Date Activity User E-Sign Co-Sign Detail Recorded Client Recorded Date Recorded By Document 02/23/20 09:24 PL [id number] 02/23/20 09:31 PL 02/23/20 09:24 Wound Center Nurse 2 [Procedure/Treatment] #2 L Axilla -Time 09:25 -Correct Patient Yes -Correct Side, Site, Position Yes -Correct Procedure Yes -Procedure Performed Yes -Type of Procedure Debridement -Clinical Debridement Subcutaneous -Tissue Removed Subcutaneous -Post Debridement (cm) - Length 14.5 -Post Debridement (cm) - Width 2.4 -Post Debridement (cm) - Depth 1.3 -Total Square (Post) (cm) 34.80 -Area of Debridement (cm) - Length 14.5 -Area of Debridement (cm) - Width 2.4 -Total Square (Area) (cm) 34.80 -Tunneling No -Undermining/Tunneling No -Wound/Ulcer Outcome Not Healed -Ulcer Cleansing Rinsed/ Irrigated with Saline -Foul Odor after Cleansing No -Bioengineered Tissue No -Debridement - Subq, 1st 20sq cm No -Debridement, SubQ, ea addt'l 20sq cm 1 or part thereof #1 R Axilla -Time 09:25 -Correct Patient Yes -Correct Side, Site, Position Yes -Correct Procedure Yes -Procedure Performed Yes -Type of Procedure Debridement -Clinical Debridement Subcutaneous -Tissue Removed Subcutaneous -Post Debridement (cm) - Length 7.5 -Post Debridement (cm) - Width 0.7 -Post Debridement (cm) - Depth 0.2 -Total Square (Post) (cm) 5.25 -Area of Debridement (cm) - Length 7.5 -Area of Debridement (cm) - Width 0.7 -Total Square (Area) (cm) 5.25 -Tunneling No -Undermining/Tunneling No -Wound/Ulcer Outcome Not Healed -Ulcer Cleansing Rinsed/ Irrigated with Saline -Foul Odor after Cleansing No -Bioengineered Tissue No -Debridement - Subq, 1st 20sq cm Yes [See Physician Procedure note for Specifics] Pain Scale: 0-10 Numeric [Pain] -Is Patient Pain Free? Yes - Nurse 3 - General Ulcer D/C NN Start: 02/23/20 08:57 Freq: Status: Active Protocol: Activity Type Activity Date Activity User E-Sign Co-Sign Detail Recorded Client Recorded Date Recorded By Document 02/23/20 09:45 [facility] [id number] 02/23/20 10:01 [facility] 02/23/20 09:45 Wound Care Nurse 3 [Wound Dressing] #2 L Axilla -Ulcer Cleansing Rinsed/ Irrigated with Saline -Foul Odor after Cleansing No -Primary Dressing Applied Other -Other Dressing moist to dry -Primary Dressing Covered/Secured Dry Gauze, with Secured with Tape #1 R Axilla -Ulcer Cleansing Rinsed/ Irrigated with Saline -Foul Odor after Cleansing No -Primary Dressing Applied Aquacel AG 4x4 -Primary Dressing Covered/Secured Dry Gauze, with Secured with Tape -Aquacel AG 4x4 1 [Post Procedure Tolerated] -Treatment Response Procedure Tolerated Well Pain Scale: 0-10 Numeric [Pain] -Is Patient Pain Free? Yes - Visit Discharge [Visit Discharge Information] -Discharge Condition Stable -Ambulatory Status Ambulatory -Transportation Private Auto -Accompanied by dad Musculoskeletal: No Tenderness to Palpation of Joints or Extremities Neurological: Cranial nerves II-XII grossly intact Psych/Mental Status: Normal Affect, Appropriate Debridement Note Post-Debridement Measurements/Treatment - Nurse 2 - General Ulcer CM Notes Start: 02/23/20 08:57 Freq: Status: Active Protocol: Activity Type Activity Date Activity User E-Sign Co-Sign Detail Recorded Client Recorded Date Recorded By Document 02/23/20 09:24 [id number] 02/23/20 09:31 PL 02/23/20 09:24 Wound Center Nurse 2 #2 L Axilla -Time 09:25 -Correct Patient Yes -Correct Side, Site, Position Yes -Correct Procedure Yes -Procedure Performed Yes -Type of Procedure Debridement -Clinical Debridement Subcutaneous -Tissue Removed Subcutaneous -Post Debridement (cm) - Length 14.5 -Post Debridement (cm) - Width 2.4 -Post Debridement (cm) - Depth 1.3 -Total Square (Post) (cm) 34.80 -Area of Debridement (cm) - Length 14.5 -Area of Debridement (cm) - Width 2.4 -Total Square (Area) (cm) 34.80 -Tunneling No -Undermining/Tunneling No -Wound/Ulcer Outcome Not Healed -Ulcer Cleansing Rinsed/ Irrigated with Saline -Foul Odor after Cleansing No -Bioengineered Tissue No -Debridement - Subq, 1st 20sq cm No -Debridement, SubQ, ea addt'l 20sq cm 1 or part thereof #1 R Axilla -Time 09:25 -Correct Patient Yes -Correct Side, Site, Position Yes -Correct Procedure Yes -Procedure Performed Yes -Type of Procedure Debridement -Clinical Debridement Subcutaneous -Tissue Removed Subcutaneous -Post Debridement (cm) - Length 7.5 -Post Debridement (cm) - Width 0.7 -Post Debridement (cm) - Depth 0.2 -Total Square (Post) (cm) 5.25 -Area of Debridement (cm) - Length 7.5 -Area of Debridement (cm) - Width 0.7 -Total Square (Area) (cm) 5.25 -Tunneling No -Undermining/Tunneling No -Wound/Ulcer Outcome Not Healed -Ulcer Cleansing Rinsed/ Irrigated with Saline -Foul Odor after Cleansing No -Bioengineered Tissue No -Debridement - Subq, 1st 20sq cm Yes Pain Scale: 0-10 Numeric Is Patient Pain Free? Yes - Nurse 3 - General Ulcer D/C NN Start: 02/23/20 08:57 Freq: Status: Active Protocol: Activity Type Activity Date Activity User E-Sign Co-Sign Detail Recorded Client Recorded Date Recorded By Document 02/23/20 09:45 [facility] [id number] 02/23/20 10:01 [facility] 02/23/20 09:45 Wound Care Nurse 3 #2 L Axilla -Ulcer Cleansing Rinsed/ Irrigated with Saline -Foul Odor after Cleansing No -Primary Dressing Applied Other -Other Dressing moist to dry -Primary Dressing Covered/Secured with Dry Gauze, Secured with Tape #1 R Axilla -Ulcer Cleansing Rinsed/ Irrigated with Saline -Foul Odor after Cleansing No -Primary Dressing Applied Aquacel AG 4x4 -Primary Dressing Covered/Secured with Dry Gauze, Secured with Tape -Aquacel AG 4x4 1 Treatment Response Procedure Tolerated Well Pain Scale: 0-10 Numeric Is Patient Pain Free? Yes WC - Visit Discharge Discharge Condition Stable Ambulatory Status Ambulatory Transportation Private Auto Accompanied by dad Wound debrided: axilla ulcer Laterality: Right Type of Debridement: Excisional debridement Anesthesia Used: 5% Lidocaine Gel Depth: Down to and including healthy tissue, in the subcutaneous layer Percentage of wound debrided: 100 Instrument Used: 5mm curette Tissue Removed: Subcutaneous tissue and slough Severity: Fat Layer Exposed Amount of bleeding with debridement: Mild Bleeding Controlled with: Pressure, Compression and gauze Patient tolerated procedure well - Additional Wound Wound debrided: Axilla wound Laterality: Left Type of Debridement: Excisional debridement Anesthesia Used: 5% Lidocaine Gel Depth: Down to and including healthy tissue, in the subcutaneous layer Percentage of wound debrided: 100 Instrument Used: 7mm curette Tissue Removed: Subcutaneous tissue and slough Severity: Fat Layer Exposed Amount of bleeding with debridement: Mild Bleeding Controlled with: Pressure Patient tolerated procedure: Patient tolerated procedure well Assessment/Plan Assessment: 1. Nonhealing hidradenitis ulcer right axilla. 2. Open surgical hidradenitis wound left axilla. 3. Rheumatoid arthritis, and she is off Methotrexate. 4. Family history of skin cancer. Plan: Wound care - Dakin's moistened gauze on the right and left. Taking VAC holiday from left due to davin wound excoriation. Using Dakin's moistened gauze this week. She will GRETEL wrap on the left arm for compression. She exhibits good range of motion of both arms and shoulders. She is having swelling of her left arm with increasing pain, ordered OT for evaluation and treatment for edema and pain management and range of motion. Operative culture from 12/02/19 showed Staphylococcus lugdunensis. She was treated perioperatively with Clindamycin and was switched to Doxycycline and has finished them. Operative culture from 01/23/20 showed MRSA. She is on Doxycycline. Prealbumin from 01/24/20 was 26.8. Encourage nutritional supplementation with protein to help the healing process. We have discussed further surgery on the right axilla with skin grafting. She will think about it and let me know at a future visit. She returns to work on 03/08/19. Followup one week. [id number]: [id number] Global Visit
[2020-03-01 09:00] VITALS: BP 117/62; PULSE 87; RESP 16; TEMP 35.5; BMI 43.7
--- NOTE | 2020-03-01 13:14 | PN.PCM_ITS ---
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 History of Wound: Surgery 12/02/19 - Surgical preparation right axilla with excision hidradenitis (176 cm2). Surgery 01/23/20 - Surgical preparation left axilla with excision hidradenitis (93 cm2). Wound care - Dakin's moistened gauze on the right and on the left. Took a VAC holiday and will discontinue the wound VAC. Operative culture 12/02/19 - Staphylococcus lugdunensis. She was treated perioperatively with Clindamycin. She was then switched to Doxycycline and has finished them. Operative culture 01/23/20 - MRSA. She was discharged on Doxycycline. Prealbumin from 01/24/20 was 26.8. Encourage nutritional manrique pplementation with protein to help the healing process. Today she denies fever. Her appetite is good. She has no problems with range of motion with both arms and shoulders. Progress of Wound: Improved on the right. Left is beefy pink and improved. Left karin wound is improved. - Physical Exam Vital Signs Temp Pulse Resp BP 96 F L 87 16 117/62 03/01/20 09:00 03/01/20 09:00 03/01/20 09:00 03/01/20 09:00 General: Alert, Oriented x3, Cooperative HEENT: Atraumatic Oral: Moist Mucosa Lungs: Normal air movement Cardiovascular: Regular rate Extremities: Capillary Refill Less than 3 Seconds Skin: Ulcer/ Wound - Right axilla is beefy pink. Left axilla is beefy pink, the karin wound is much improved without the VAC. Wound Measurements and Assessment WC - Nurse 1 - General Ulcer Measurement Start: 02/23/20 08:57 Freq: Status: Active Protocol: Activity Type Activity Date Activity User E-Sign Co-Sign Detail Recorded Client Recorded Date Recorded By Document 03/01/20 09:00 [facility] [id number] 03/01/20 09:10 [facility] 03/01/20 09:00 Wound Center Nurse 1 [Ulcer Assessment] #2 L Axilla -Combined with other wound No -Current Size (cm) - Length 13.5 -Current Size (cm) - Width 1.5 -Current Size (cm) - Depth 0.1 -Total Square Cm 20.25 -Photo Taken No -Epithelialization Small 1-33% -Tunneling No -Undermining/Tunneling No -Circular Undermining No -Exudate Amt Medium -Exudate Type Serosanguineous -Wound Margin Distinct, Outline Attached -Granulation Amt Large (67-100%) -Granulation Quality Red -Slough/Fibrin No -Necrosis Amt None Present (0 %) -Texture (Karin-wound Skin Appearance) Assessed, Scarring -Moisture (Karin-wound Skin Appearance Assessed ) -Color (Karin-wound Skin Appearance) Assessed -Temperature (Karin-wound Skin No Abnormality Appearance) (Pt Warm) -Tenderness on Palpation (Karin-wound No Skin Appearance) -Ulcer Cleansing Rinsed/ Irrigated with Saline -Foul Odor after Cleansing No -Anesthetic Used 4% Lidocaine Solution #1 R Axilla -Combined with other wound No -Current Size (cm) - Length 6.5 -Current Size (cm) - Width 0.4 -Current Size (cm) - Depth 0.2 -Total Square Cm 2.60 -Photo Taken No -Epithelialization None Present -Tunneling No -Undermining/Tunneling No -Circular Undermining No -Exudate Amt Medium -Exudate Type Serosanguineous -Wound Margin Distinct, Outline Attached -Granulation Amt Large (67-100%) -Granulation Quality Red -Slough/Fibrin No -Necrosis Amt None Present (0 %) -Texture (Karin-wound Skin Appearance) Assessed, Scarring -Moisture (Karin-wound Skin Appearance Assessed ) -Color (Karin-wound Skin Appearance) Assessed -Temperature (Karin-wound Skin No Abnormality Appearance) (Pt Warm) -Tenderness on Palpation (Karin-wound No Skin Appearance) -Ulcer Cleansing Rinsed/ Irrigated with Saline -Foul Odor after Cleansing No -Anesthetic Used 4% Lidocaine Solution WC - Nurse 2 - General Ulcer CM Notes Start: 02/23/20 08:57 Freq: Status: Active Protocol: Activity Type Activity Date Activity User E-Sign Co-Sign Detail Recorded Client Recorded Date Recorded By Document 03/01/20 09:14 MARQUITA [id number] 03/01/20 09:21 MARQUITA 03/01/20 09:14 Wound Center Nurse 2 [Procedure/Treatment] #2 L Axilla -Time 09:17 -Correct Patient Yes -Correct Side, Site, Position Yes -Correct Procedure Yes -Procedure Performed Yes -Type of Procedure Debridement -Clinical Debridement Subcutaneous -Tissue Removed Subcutaneous -Post Debridement (cm) - Length 12.9 -Post Debridement (cm) - Width 2 -Post Debridement (cm) - Depth 1 -Total Square (Post) (cm) 25.8 -Area of Debridement (cm) - Length 12.9 -Area of Debridement (cm) - Width 2 -Total Square (Area) (cm) 25.8 -Tunneling No -Undermining/Tunneling No -Circular Undermining No -Wound/Ulcer Outcome Not Healed -Ulcer Cleansing Wound Cleanser -Foul Odor after Cleansing No -Bioengineered Tissue No -Bleeding Controlled with Pressure -Offloading No -Treatment Response Procedure Tolerated Well -Debridement - Subq, 1st 20sq cm Yes -Debridement, SubQ, ea addt'l 20sq cm 1 or part thereof #1 R Axilla -Time 09:19 -Correct Patient Yes -Correct Side, Site, Position Yes -Correct Procedure Yes -Procedure Performed Yes -Type of Procedure Debridement -Clinical Debridement Subcutaneous -Tissue Removed Subcutaneous -Post Debridement (cm) - Length 7 -Post Debridement (cm) - Width 0.5 -Post Debridement (cm) - Depth 0.1 -Total Square (Post) (cm) 3.5 -Area of Debridement (cm) - Length 7 -Area of Debridement (cm) - Width 0.5 -Total Square (Area) (cm) 3.5 -Tunneling No -Undermining/Tunneling No -Circular Undermining No -Wound/Ulcer Outcome Not Healed -Ulcer Cleansing Rinsed/ Irrigated with Saline -Foul Odor after Cleansing No -Bioengineered Tissue No -Bleeding Controlled with Pressure -Offloading No -Treatment Response Procedure Tolerated Well -Debridement - Subq, 1st 20sq cm No [See Physician Procedure note for Specifics] Pain Scale: 0-10 Numeric [Pain] -Is Patient Pain Free? Yes Pain Scale: Adult NonVerbal [Pain] -Is Patient Pain Free? Yes Pain Scale: Ribera/Tesfaye Faces [Pain] -Is Patient Pain Free? Yes - Nurse 3 - General Ulcer D/C NN Start: 02/23/20 08:57 Freq: Status: Active Protocol: Activity Type Activity Date Activity User E-Sign Co-Sign Detail Recorded Client Recorded Date Recorded By Document 03/01/20 09:32 [facility] [id number] 03/01/20 09:33 [facility] 03/01/20 09:32 Wound Care Nurse 3 [Wound Dressing] #2 L Axilla -Ulcer Cleansing Rinsed/ Irrigated with Saline -Foul Odor after Cleansing No -Primary Dressing Applied Other -Other Dressing MOIST TO DRY -Primary Dressing Covered/Secured Dry Gauze, with Secured with Tape #1 R Axilla -Ulcer Cleansing Rinsed/ Irrigated with Saline -Foul Odor after Cleansing No -Primary Dressing Applied Aquacel AG 2x2 -Primary Dressing Covered/Secured Dry Gauze, with Secured with Tape -Aquacel AG 2x2 1 [Post Procedure Tolerated] -Treatment Response Procedure Tolerated Well Pain Scale: 0-10 Numeric [Pain] -Is Patient Pain Free? Yes - Visit Discharge [Visit Discharge Information] -Discharge Condition Stable -Ambulatory Status Ambulatory -Transportation Private Auto -Accompanied by SISTER Musculoskeletal: No Tenderness to Palpation of Joints or Extremities Neurological: Cranial nerves II-XII grossly intact Psych/Mental Status: Normal Affect, Appropriate Debridement Note Post-Debridement Measurements/Treatment - Nurse 2 - General Ulcer CM Notes Start: 02/23/20 08:57 Freq: Status: Active Protocol: Activity Type Activity Date Activity User E-Sign Co-Sign Detail Recorded Client Recorded Date Recorded By Document 02/23/20 09:24 PL [id number] 02/23/20 09:31 PL Document 03/01/20 09:14 JF [id number] 03/01/20 09:21 JF 02/23/20 03/01/20 09:24 09:14 Wound Center Nurse 2 #2 L Axilla -Time 09:25 09:17 -Correct Patient Yes Yes -Correct Side, Site, Position Yes Yes -Correct Procedure Yes Yes -Procedure Performed Yes Yes -Type of Procedure Debridement Debridement -Clinical Debridement Subcutaneous Subcutaneous -Tissue Removed Subcutaneous Subcutaneous -Post Debridement (cm) - Length 14.5 12.9 -Post Debridement (cm) - Width 2.4 2 -Post Debridement (cm) - Depth 1.3 1 -Total Square (Post) (cm) 34.80 25.8 -Area of Debridement (cm) - Length 14.5 12.9 -Area of Debridement (cm) - Width 2.4 2 -Total Square (Area) (cm) 34.80 25.8 -Tunneling No No -Undermining/Tunneling No No -Circular Undermining No -Wound/Ulcer Outcome Not Healed Not Healed -Ulcer Cleansing Rinsed/ Wound Cleanser Irrigated with Saline -Foul Odor after Cleansing No No -Bioengineered Tissue No No -Bleeding Controlled with Pressure -Offloading No -Treatment Response Procedure Tolerated Well -Debridement - Subq, 1st 20sq cm No Yes -Debridement, SubQ, ea addt'l 20sq cm 1 1 or part thereof #1 R Axilla -Time 09: 09:19 -Correct Patient Yes Yes -Correct Side, Site, Position Yes Yes -Correct Procedure Yes Yes -Procedure Performed Yes Yes -Type of Procedure Debridement Debridement -Clinical Debridement Subcutaneous Subcutaneous -Tissue Removed Subcutaneous Subcutaneous -Post Debridement (cm) - Length 7.5 7 -Post Debridement (cm) - Width 0.7 0.5 -Post Debridement (cm) - Depth 0.2 0.1 -Total Square (Post) (cm) 5.25 3.5 -Area of Debridement (cm) - Length 7.5 7 -Area of Debridement (cm) - Width 0.7 0.5 -Total Square (Area) (cm) 5.25 3.5 -Tunneling No No -Undermining/Tunneling No No -Circular Undermining No -Wound/Ulcer Outcome Not Healed Not Healed -Ulcer Cleansing Rinsed/ Rinsed/ Irrigated with Irrigated with Saline Saline -Foul Odor after Cleansing No No -Bioengineered Tissue No No -Bleeding Controlled with Pressure -Offloading No -Treatment Response Procedure Tolerated Well -Debridement - Subq, 1st 20sq cm Yes No Pain Scale: 0-10 Numeric Is Patient Pain Free? Yes Yes Pain Scale: Adult NonVerbal Is Patient Pain Free? Yes Pain Scale: Ribera/Tesfaye Faces Is Patient Pain Free? Yes - Nurse 3 - General Ulcer D/C NN Start: 02/23/20 08:57 Freq: Status: Active Protocol: Activity Type Activity Date Activity User E-Sign Co-Sign Detail Recorded Client Recorded Date Recorded By Document 02/23/20 09:45 [facility] [id number] 02/23/20 10:01 [facility] Document 03/01/20 09:32 [facility] [id number] 03/01/20 09:33 [facility] 02/23/20 03/01/20 09:45 09:32 Wound Care Nurse 3 #2 L Axilla -Ulcer Cleansing Rinsed/ Rinsed/ Irrigated with Irrigated with Saline Saline -Foul Odor after Cleansing No No -Primary Dressing Applied Other Other -Other Dressing moist to dry MOIST TO DRY -Primary Dressing Covered/Secured with Dry Gauze, Dry Gauze, Secured with Secured with Tape Tape #1 R Axilla -Ulcer Cleansing Rinsed/ Rinsed/ Irrigated with Irrigated with Saline Saline -Foul Odor after Cleansing No No -Primary Dressing Applied Aquacel AG 4x4 Aquacel AG 2x2 -Primary Dressing Covered/Secured with Dry Gauze, Dry Gauze, Secured with Secured with Tape Tape -Aquacel AG 4x4 1 -Aquacel AG 2x2 1 Treatment Response Procedure Procedure Tolerated Well Tolerated Well Pain Scale: 0-10 Numeric Is Patient Pain Free? Yes Yes - Visit Discharge Discharge Condition Stable Stable Ambulatory Status Ambulatory Ambulatory Transportation Private Auto Private Auto Accompanied by dad SISTER Wound debrided: axilla ulcer Laterality: Right Type of Debridement: Excisional debridement Anesthesia Used: 5% Lidocaine Gel Depth: Down to and including healthy tissue, in the subcutaneous layer Percentage of wound debrided: 100 Instrument Used: 3mm curette Tissue Removed: Subcutaneous tissue and slough Severity: Fat Layer Exposed Amount of bleeding with debridement: Mild Bleeding Controlled with: Pressure, Compression and gauze Patient tolerated procedure well - Additional Wound Wound debrided: axilla wound Laterality: Left Type of Debridement: Excisional debridement Anesthesia Used: 5% Lidocaine Gel Depth: Down to and including healthy tissue, in the subcutaneous layer Percentage of wound debrided: 100 Instrument Used: 7mm curette Tissue Removed: Subcutaneous tissue and slough Severity: Fat Layer Exposed Amount of bleeding with debridement: Mild Bleeding Controlled with: Pressure, Compression and gauze Patient tolerated procedure: Patient tolerated procedure well Assessment/Plan Active Problems (Last Reviewed 12/10/19 @ 20:[address] Rudy Cerna MD) Open wound of left axillary region with complication (Acute) Skin ulcer of axilla with fat layer exposed (Chronic) Rheumatoid arthritis (Chronic) at present is off Methotrexate Axillary hidradenitis suppurativa (Chronic) bilateral axillary hidradenitis, worse on the left Assessment: 1. Nonhealing hidradenitis ulcer right axilla. 2. Open surgical hidradenitis wound left axilla. 3. Rheumatoid arthritis, and she is off Methotrexate. 4. Family history of skin cancer. Plan: Wound care - Dakin's moistened gauze on the right and left. Discontinue wound VAC. She will GRETEL wrap on the left arm for compression. She exhibits good range of motion of both arms and shoulders. She is having swelling of her left arm with increasing pain, ordered OT for evaluation and treatment for edema and pain management and range of motion. Operative culture from 12/02/19 showed Staphylococcus lugdunensis. She was treated perioperatively with Clindamycin and was switched to Doxycycline and has finished them. Operative culture from 01/23/20 showed MRSA. She is on Doxycycline. Prealbumin from 01/24/20 was 26.8. Encourage nutritional supplementation with protein to help the healing process. We have discussed further surgery on the right axilla with skin grafting. She will think about it and let me know at a future visit. She returns to work on 03/08/19. Followup one week. [id number]: [id number] Global Visit
[2020-03-08 14:25] VITALS: BP 135/58; PULSE 80; TEMP 36.6; BMI 43.7
--- NOTE | 2020-03-08 16:45 | PCM.WC.PN ---
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 History of Wound: Surgery 12/02/19 - Surgical preparation right axilla with excision hidradenitis (176 cm2). Surgery 01/23/20 - Surgical preparation left axilla with excision hidradenitis (93 cm2). Wound care - Dakin's moistened gauze on the left. Will start Collagen hydrogel on the right ulcer. Operative culture 12/02/19 - Staphylococcus lugdunensis. She was treated perioperatively with Clindamycin. She was then switched to Doxycycline and has finished them. Operative culture 01/23/20 - MRSA. She was discharged on Doxycycline. Prealbumin from 01/24/20 was 26.8. Encourage nutritional supplementation with protein to help the healing process. Today she denies fever. Her appetite is good. She has no problems with range of motion with both arms and shoulders. Progress of Wound: Improved on the right. Left is beefy pink and improved. - Physical Exam Vital Signs Temp Pulse Resp BP 97.8 F 80 16 135/58 H 03/08/20 14:25 03/08/20 14:25 03/01/20 09:00 03/08/20 14:25 General: Alert, Oriented x3, Cooperative HEENT: Atraumatic Oral: Moist Mucosa Lungs: Normal air movement Cardiovascular: Regular rate Extremities: Capillary Refill Less than 3 Seconds, Edema, Tenderness Skin: Ulcer/ Wound - Right axilla ulcer is almost healed. It is very superficial. Left axilla wound is improved in over size and depth. It is beefy pink in color. Periwound is stable now that she is no longer using the wound VAC. Wound Measurements and Assessment WC - Nurse 1 - General Ulcer Measurement Start: 02/23/20 08:57 Freq: Status: Active Protocol: Activity Type Activity Date Activity User E-Sign Co-Sign Detail Recorded Client Recorded Date Recorded By Document 03/08/20 14:25 DL [id number] 03/08/20 14:29 DL 03/08/20 14:25 Wound Center Nurse 1 [Ulcer Assessment] #2 L Axilla -Current Size (cm) - Length 8.5 -Current Size (cm) - Width 1 -Current Size (cm) - Depth 0.1 -Total Square Cm 8.5 -Exudate Amt Small -Exudate Type Serosanguineous -Wound Margin Distinct, Outline Attached -Granulation Amt Large (67-100%) -Granulation Quality Red -Necrosis Amt None Present (0 %) -Texture (Karin-wound Skin Appearance) Assessed, Scarring -Moisture (Karin-wound Skin Appearance No Abnormality, ) Assessed -Color (Karin-wound Skin Appearance) No Abnormality, Assessed -Temperature (Karin-wound Skin No Abnormality Appearance) (Pt Warm) -Tenderness on Palpation (Karin-wound No Skin Appearance) -Ulcer Cleansing Rinsed/ Irrigated with Saline -Foul Odor after Cleansing No -Anesthetic Used 4% Lidocaine Solution #1 R Axilla -Current Size (cm) - Length 4.2 -Current Size (cm) - Width 0.5 -Current Size (cm) - Depth 0.1 -Total Square Cm 2.10 -Exudate Amt Small -Exudate Type Serosanguineous -Wound Margin Distinct, Outline Attached -Granulation Amt Large (67-100%) -Granulation Quality [place] -Slough/Fibrin No -Necrosis Amt None Present (0 %) -Texture (Karin-wound Skin Appearance) Assessed, Scarring -Moisture (Karin-wound Skin Appearance No Abnormality, ) Assessed -Color (Karin-wound Skin Appearance) No Abnormality, Assessed -Temperature (Karin-wound Skin No Abnormality Appearance) (Pt Warm) -Tenderness on Palpation (Karin-wound No Skin Appearance) -Ulcer Cleansing Rinsed/ Irrigated with Saline -Foul Odor after Cleansing No -Anesthetic Used 4% Lidocaine Solution ERMA - Nurse 2 - General Ulcer CM Notes Start: 02/23/20 08:57 Freq: Status: Active Protocol: Activity Type Activity Date Activity User E-Sign Co-Sign Detail Recorded Client Recorded Date Recorded By Document 03/08/20 14:37 MARQUITA [id number] 03/08/20 14:40 MARQUITA 03/08/20 14:37 Wound Center Nurse 2 [Procedure/Treatment] #2 L Axilla -Time 14:38 -Correct Patient Yes -Correct Side, Site, Position Yes -Correct Procedure Yes -Procedure Performed Yes -Type of Procedure Debridement -Clinical Debridement Subcutaneous -Tissue Removed Subcutaneous -Post Debridement (cm) - Length 8.9 -Post Debridement (cm) - Width 1.4 -Post Debridement (cm) - Depth 0.3 -Total Square (Post) (cm) 12.46 -Area of Debridement (cm) - Length 8.9 -Area of Debridement (cm) - Width 1.4 -Total Square (Area) (cm) 12.46 -Tunneling No -Undermining/Tunneling No -Circular Undermining No -Ulcer Cleansing Rinsed/ Irrigated with Saline -Foul Odor after Cleansing No -Bioengineered Tissue No -Bleeding Controlled with Pressure -Offloading No -Treatment Response Procedure Tolerated Well -Debridement - Subq, 1st 20sq cm Yes #1 R Axilla -Time 14:39 -Correct Patient Yes -Correct Side, Site, Position Yes -Correct Procedure Yes -Procedure Performed Yes -Type of Procedure Debridement -Clinical Debridement Subcutaneous -Tissue Removed Subcutaneous -Post Debridement (cm) - Length 4.5 -Post Debridement (cm) - Width 0.3 -Post Debridement (cm) - Depth 0.1 -Total Square (Post) (cm) 1.35 -Area of Debridement (cm) - Length 4.5 -Area of Debridement (cm) - Width 0.3 -Total Square (Area) (cm) 1.35 -Tunneling No -Undermining/Tunneling No -Circular Undermining No -Wound/Ulcer Outcome Not Healed -Ulcer Cleansing Rinsed/ Irrigated with Saline -Foul Odor after Cleansing No -Bioengineered Tissue No -Bleeding Controlled with Pressure -Offloading No -Treatment Response Procedure Tolerated Well -Debridement - Subq, 1st 20sq cm No [See Physician Procedure note for Specifics] Pain Scale: 0-10 Numeric [Pain] -Is Patient Pain Free? Yes WC - Nurse 3 - General Ulcer D/C NN Start: 02/23/20 08:57 Freq: Status: Active Protocol: Activity Type Activity Date Activity User E-Sign Co-Sign Detail Recorded Client Recorded Date Recorded By Document 03/08/20 14:52 MARGAUX [id number] 03/08/20 14:52 MARGAUX 03/08/20 14:52 Wound Care Nurse 3 [Wound Dressing] #2 L Axilla -Ulcer Cleansing Rinsed/ Irrigated with Saline -Primary Dressing Applied Silvercel -Primary Dressing Covered/Secured Dry Gauze, with Secured with Tape -Silvercel 1 #1 R Axilla -Ulcer Cleansing Rinsed/ Irrigated with Saline -Primary Dressing Applied C Hydrogel ($) Pain Scale: 0-10 Numeric [Pain] -Is Patient Pain Free? Yes - Visit Discharge [Visit Discharge Information] -Discharge Condition Stable -Ambulatory Status Ambulatory -Transportation Private Auto -Accompanied by dad Musculoskeletal: No Tenderness to Palpation of Joints or Extremities Neurological: Cranial nerves II-XII grossly intact Psych/Mental Status: Normal Affect, Appropriate Debridement Note Post-Debridement Measurements/Treatment - Nurse 2 - General Ulcer CM Notes Start: 02/23/20 08:57 Freq: Status: Active Protocol: Activity Type Activity Date Activity User E-Sign Co-Sign Detail Recorded Client Recorded Date Recorded By Document 02/23/20 09:24 PL [id number] 02/23/20 09:31 PL Document 03/01/20 09:14 [id number] 03/01/20 09:21 Document 03/08/20 14:37 [id number] 03/08/20 14:40 02/23/20 03/01/20 03/08/20 09:24 09:14 14:37 Wound Center Nurse 2 #2 L Axilla -Time 09:25 09:17 14:38 -Correct Patient Yes Yes Yes -Correct Side, Site, Position Yes Yes Yes -Correct Procedure Yes Yes Yes -Procedure Performed Yes Yes Yes -Type of Procedure Debridement Debridement Debridement -Clinical Debridement Subcutaneous Subcutaneous Subcutaneous -Tissue Removed Subcutaneous Subcutaneous Subcutaneous -Post Debridement (cm) - Length 14.5 12.9 8.9 -Post Debridement (cm) - Width 2.4 2 1.4 -Post Debridement (cm) - Depth 1.3 1 0.3 -Total Square (Post) (cm) 34.80 25.8 12.46 -Area of Debridement (cm) - Length 14.5 12.9 8.9 -Area of Debridement (cm) - Width 2.4 2 1.4 -Total Square (Area) (cm) 34.80 25.8 12.46 -Tunneling No No No -Undermining/Tunneling No No No -Circular Undermining No No -Wound/Ulcer Outcome Not Healed Not Healed -Ulcer Cleansing Rinsed/ Wound Cleanser Rinsed/ Irrigated with Irrigated with Saline Saline -Foul Odor after Cleansing No No No -Bioengineered Tissue No No No -Bleeding Controlled with Pressure Pressure -Offloading No No -Treatment Response Procedure Procedure Tolerated Well Tolerated Well -Debridement - Subq, 1st 20sq cm No Yes Yes -Debridement, SubQ, ea addt'l 20sq cm 1 1 or part thereof #1 R Axilla -Time 09:25 09:19 14:39 -Correct Patient Yes Yes Yes -Correct Side, Site, Position Yes Yes Yes -Correct Procedure Yes Yes Yes -Procedure Performed Yes Yes Yes -Type of Procedure Debridement Debridement Debridement -Clinical Debridement Subcutaneous Subcutaneous Subcutaneous -Tissue Removed Subcutaneous Subcutaneous Subcutaneous -Post Debridement (cm) - Length 7.5 7 4.5 -Post Debridement (cm) - Width 0.7 0.5 0.3 -Post Debridement (cm) - Depth 0.2 0.1 0.1 -Total Square (Post) (cm) 5.25 3.5 1.35 -Area of Debridement (cm) - Length 7.5 7 4.5 -Area of Debridement (cm) - Width 0.7 0.5 0.3 -Total Square (Area) (cm) 5.25 3.5 1.35 -Tunneling No No No -Undermining/Tunneling No No No -Circular Undermining No No -Wound/Ulcer Outcome Not Healed Not Healed Not Healed -Ulcer Cleansing Rinsed/ Rinsed/ Rinsed/ Irrigated with Irrigated with Irrigated with Saline Saline Saline -Foul Odor after Cleansing No No No -Bioengineered Tissue No No No -Bleeding Controlled with Pressure Pressure -Offloading No No -Treatment Response Procedure Procedure Tolerated Well Tolerated Well -Debridement - Subq, 1st 20sq cm Yes No No Pain Scale: 0-10 Numeric Is Patient Pain Free? Yes Yes Yes Pain Scale: Adult NonVerbal Is Patient Pain Free? Yes Pain Scale: [place]faye Faces Is Patient Pain Free? Yes - Nurse 3 - General Ulcer D/C NN Start: 02/23/20 08:57 Freq: Status: Active Protocol: Activity Type Activity Date Activity User E-Sign Co-Sign Detail Recorded Client Recorded Date Recorded By Document 02/23/20 09:45 [facility] [id number] 02/23/20 10:01 BM Document 03/01/20 09:32 BMF [id number] 03/01/20 09:33 [facility] Document 03/08/20 14:52 KR [id number] 03/08/20 14:52 KR 02/23/20 03/01/20 03/08/20 09:45 09:32 14:52 Wound Care Nurse 3 #2 L Axilla -Ulcer Cleansing Rinsed/ Rinsed/ Rinsed/ Irrigated with Irrigated with Irrigated with Saline Saline Saline -Foul Odor after Cleansing No No -Primary Dressing Applied Other Other Silvercel -Other Dressing moist to dry MOIST TO DRY -Primary Dressing Covered/Secured with Dry Gauze, Dry Gauze, Dry Gauze, Secured with Secured with Secured with Tape Tape Tape -Silvercel 1 #1 R Axilla -Ulcer Cleansing Rinsed/ Rinsed/ Rinsed/ Irrigated with Irrigated with Irrigated with Saline Saline Saline -Foul Odor after Cleansing No No -Primary Dressing Applied Aquacel AG 4x4 Aquacel AG 2x2 C Hydrogel ($) -Primary Dressing Covered/Secured with Dry Gauze, Dry Gauze, Secured with Secured with Tape Tape -Aquacel AG 4x4 1 -Aquacel AG 2x2 1 Treatment Response Procedure Procedure Tolerated Well Tolerated Well Pain Scale: 0-10 Numeric Is Patient Pain Free? Yes Yes Yes - Visit Discharge Discharge Condition Stable Stable Stable Ambulatory Status Ambulatory Ambulatory Ambulatory Transportation Private Auto Private Auto Private Auto Accompanied by dad SISTER dad Wound debrided: axilla ulcer Laterality: Right Type of Debridement: Excisional debridement Anesthesia Used: 5% Lidocaine Gel Depth: Down to and including healthy tissue, in the subcutaneous layer Percentage of wound debrided: 100 Instrument Used: 3mm curette Tissue Removed: Subcutaneous tissue and slough Severity: Limited To Skin Breakdown Amount of bleeding with debridement: Mild Bleeding Controlled with: Pressure Patient tolerated procedure well - Additional Wound Wound debrided: axilla wound Laterality: Left Type of Debridement: Excisional debridement Anesthesia Used: 5% Lidocaine Gel Depth: Down to and including healthy tissue, in the subcutaneous layer, to muscle Percentage of wound debrided: 100 Instrument Used: 5mm curette Tissue Removed: Subcutaneous tissue and slough Severity: Fat Layer Exposed Amount of bleeding with debridement: Mild Bleeding Controlled with: Pressure, Compression and gauze Patient tolerated procedure: Patient tolerated procedure well Assessment/Plan Active Problems (Last Reviewed 12/10/19 @ 20:[address] Rudy Cerna MD) Open wound of left axillary region with complication (Acute) Skin ulcer of axilla with fat layer exposed (Chronic) Rheumatoid arthritis (Chronic) at present is off Methotrexate Axillary hidradenitis suppurativa (Chronic) bilateral axillary hidradenitis, worse on the left Assessment: 1. Nonhealing hidradenitis ulcer right axilla. 2. Open surgical hidradenitis wound left axilla. 3. Rheumatoid arthritis, and she is off Methotrexate. 4. Family history of skin cancer. Plan: Wound care - Stop Dakin's moistened gauze. On the left wound start daily Silver dressings covered with gauze. Will star Collagen hydrogel covered with gauze daily to the right axilla ulcer. She will GRETEL wrap on the left arm for compression. She exhibits good range of motion of both arms and shoulders. She is having swelling of her left arm with increasing pain, ordered OT for evaluation and treatment for edema and pain management and range of motion. Operative culture from 12/02/19 showed Staphylococcus lugdunensis. She was treated perioperatively with Clindamycin and was switched to Doxycycline and has finished them. Operative culture from 01/23/20 showed MRSA. She is on Doxycycline. Prealbumin from 01/24/20 was 26.8. Encourage nutritional supplementation with protein to help the healing process. We have discussed further surgery on the right axilla with skin grafting. She will think about it and let me know at a future visit. She returned to work today. Followup one week. [id number]: [id number] Global Visit
[2020-03-15 13:21] VITALS: BP 159/93; PULSE 79; TEMP 36; BMI 43.7
--- NOTE | 2020-03-15 13:57 | PN.PCM_ITS ---
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 History of Wound: Surgery 12/02/19 - Surgical preparation right axilla with excision hidradenitis (176 cm2). Surgery 01/23/20 - Surgical preparation left axilla with excision hidradenitis (93 cm2). Wound care - Will stop Dakin's moistened gauze on the left and start Silver daily. Right ulcer is healed today. Operative culture 12/02/19 - Staphylococcus lugdunensis. She was treated perioperatively with Clindamycin. She was then switched to Doxycycline and has finished them. Operative culture 01/23/20 - MRSA. She was discharged on Doxycycline. Prealbumin from 01/24/20 was 26.8. Encourage nutritional supplementation with protein to help the healing process. Today she denies fever. Her appetite is good. She has no problems with range of motion with both arms and shoulders. Progress of Wound: Healed on the right. Left is beefy pink and improved. - Physical Exam Vital Signs Temp Pulse Resp BP 96.8 F L 79 16 159/93 H 03/15/20 13:21 03/15/20 13:21 03/01/20 09:00 03/15/20 13:21 General: Alert, Oriented x3, Cooperative HEENT: Atraumatic Oral: Moist Mucosa Lungs: Normal air movement Cardiovascular: Regular rate Extremities: Capillary Refill Less than 3 Seconds, Edema - left upper arm swelling is improving. Skin: Ulcer/ Wound - Right axilla ulcer is healed today. Left wound is beefy pink and decreasing in size. Wound Measurements and Assessment WC - Nurse 1 - General Ulcer Measurement Start: 02/23/20 08:57 Freq: Status: Active Protocol: Activity Type Activity Date Activity User E-Sign Co-Sign Detail Recorded Client Recorded Date Recorded By Document 03/15/20 13:21 MARGAUX [id number] 03/15/20 13:26 KR 03/15/20 13:21 Wound Center Nurse 1 [Ulcer Assessment] #2 L Axilla -Current Size (cm) - Length 2.6 -Current Size (cm) - Width 0.9 -Current Size (cm) - Depth 0.2 -Total Square Cm 2.34 -Photo Taken No -Exudate Amt Medium -Exudate Type Serosanguineous -Wound Margin Distinct, Outline Attached -Granulation Amt Large (67-100%) -Granulation Quality [place] -Necrosis Amt Small (1-33%) -Necrotic Tissue Type Adherent Slough -Structure Exposed N/A -Texture (Karin-wound Skin Appearance) Scarring -Moisture (Karin-wound Skin Appearance No Abnormality ) -Color (Karin-wound Skin Appearance) No Abnormality -Temperature (Karin-wound Skin No Abnormality Appearance) (Pt Warm) -Tenderness on Palpation (Karin-wound No Skin Appearance) -Ulcer Cleansing Wound Cleanser -Foul Odor after Cleansing No -Anesthetic Used 4% Lidocaine Solution #1 R Axilla -Current Size (cm) - Length 0 -Current Size (cm) - Width 0 -Current Size (cm) - Depth 0 -Total Square Cm 0 -Photo Taken Yes -Exudate Amt None Present -Wound Margin Flat & Intact -Granulation Amt Large (67-100%) -Granulation Quality [place] -Necrosis Amt None Present (0 %) -Structure Exposed N/A -Texture (Karin-wound Skin Appearance) Scarring -Moisture (Karin-wound Skin Appearance No Abnormality ) -Color (Karin-wound Skin Appearance) No Abnormality -Temperature (Karin-wound Skin No Abnormality Appearance) (Pt Warm) -Tenderness on Palpation (Karin-wound No Skin Appearance) -Ulcer Cleansing Wound Cleanser -Foul Odor after Cleansing No WC - Nurse 2 - General Ulcer CM Notes Start: 02/23/20 08:57 Freq: Status: Active Protocol: Activity Type Activity Date Activity User E-Sign Co-Sign Detail Recorded Client Recorded Date Recorded By Document 03/15/20 13:37 MARQUITA [id number] 03/15/20 13:40 JF 03/15/20 13:37 Wound Center Nurse 2 [Procedure/Treatment] #2 L Axilla -Time 13:37 -Correct Patient Yes -Correct Side, Site, Position Yes -Correct Procedure Yes -Procedure Performed Yes -Type of Procedure Debridement -Clinical Debridement Subcutaneous -Tissue Removed Subcutaneous -Post Debridement (cm) - Length 7.5 -Post Debridement (cm) - Width 0.8 -Post Debridement (cm) - Depth 0.3 -Total Square (Post) (cm) 6.00 -Area of Debridement (cm) - Length 7.5 -Area of Debridement (cm) - Width 0.8 -Total Square (Area) (cm) 6.00 -Tunneling No -Undermining/Tunneling No -Circular Undermining No -Wound/Ulcer Outcome Not Healed -Ulcer Cleansing Rinsed/ Irrigated with Saline -Foul Odor after Cleansing No -Bioengineered Tissue No -Bleeding Controlled with Pressure -Offloading No -Treatment Response Procedure Tolerated Well -Debridement - Subq, 1st 20sq cm Yes #1 R Axilla -Correct Patient No -Correct Side, Site, Position No -Correct Procedure No -Procedure Performed No -Post Debridement (cm) - Length 0 -Post Debridement (cm) - Width 0 -Post Debridement (cm) - Depth 0 -Total Square (Post) (cm) 0 -Area of Debridement (cm) - Length 0 -Area of Debridement (cm) - Width 0 -Total Square (Area) (cm) 0 -Wound/Ulcer Outcome Healed- Epithelialized [See Physician Procedure note for Specifics] Pain Scale: 0-10 Numeric [Pain] -Is Patient Pain Free? Yes WC - Nurse 3 - General Ulcer D/C NN Start: 02/23/20 08:57 Freq: Status: Active Protocol: Activity Type Activity Date Activity User E-Sign Co-Sign Detail Recorded Client Recorded Date Recorded By Document 03/15/20 13:50 MARGAUX [id number] 03/15/20 13:50 MARGAUX 03/15/20 13:50 Wound Care Nurse 3 [Wound Dressing] #2 L Axilla -Ulcer Cleansing Rinsed/ Irrigated with Saline -Foul Odor after Cleansing No -Primary Dressing Applied Aquacel AG 2x2 -Primary Dressing Covered/Secured Dry Gauze, with Secured with Tape -[employer] AG 2x2 2 Pain Scale: 0-10 Numeric [Pain] -Is Patient Pain Free? Yes WC - Visit Discharge [Visit Discharge Information] -Discharge Condition Stable -Ambulatory Status Ambulatory -Transportation Private Auto -Accompanied by father Musculoskeletal: No Tenderness to Palpation of Joints or Extremities - Good range of motion of arms and shoulders bilaterally. Neurological: Cranial nerves II-XII grossly intact Psych/Mental Status: Normal Affect, Appropriate Debridement Note Post-Debridement Measurements/Treatment - Nurse 2 - General Ulcer CM Notes Start: 02/23/20 08:57 Freq: Status: Active Protocol: Activity Type Activity Date Activity User E-Sign Co-Sign Detail Recorded Client Recorded Date Recorded By Document 02/23/20 09:24 PL [id number] 02/23/20 09:31 PL Document 03/01/20 09:14 JF [id number] 03/01/20 09:21 JF Document 03/08/20 14:37 JF [id number] 03/08/20 14:40 JF Document 03/15/20 13:37 [id number] 03/15/20 13:40 JF 02/23/20 03/01/20 03/08/20 09:24 09:14 14:37 Wound Center Nurse 2 #2 L Axilla -Time 09:25 09:17 14:38 -Correct Patient Yes Yes Yes -Correct Side, Site, Position Yes Yes Yes -Correct Procedure Yes Yes Yes -Procedure Performed Yes Yes Yes -Type of Procedure Debridement Debridement Debridement -Clinical Debridement Subcutaneous Subcutaneous Subcutaneous -Tissue Removed Subcutaneous Subcutaneous Subcutaneous -Post Debridement (cm) - Length 14.5 12.9 8.9 -Post Debridement (cm) - Width 2.4 2 1.4 -Post Debridement (cm) - Depth 1.3 1 0.3 -Total Square (Post) (cm) 34.80 25.8 12.46 -Area of Debridement (cm) - Length 14.5 12.9 8.9 -Area of Debridement (cm) - Width 2.4 2 1.4 -Total Square (Area) (cm) 34.80 25.8 12.46 -Tunneling No No No -Undermining/Tunneling No No No -Circular Undermining No No -Wound/Ulcer Outcome Not Healed Not Healed -Ulcer Cleansing Rinsed/ Wound Cleanser Rinsed/ Irrigated with Irrigated with Saline Saline -Foul Odor after Cleansing No No No -Bioengineered Tissue No No No -Bleeding Controlled with Pressure Pressure -Offloading No No -Treatment Response Procedure Procedure Tolerated Well Tolerated Well -Debridement - Subq, 1st 20sq cm No Yes Yes -Debridement, SubQ, ea addt'l 20sq cm 1 1 or part thereof #1 R Axilla -Time 09:25 09:19 14:39 -Correct Patient Yes Yes Yes -Correct Side, Site, Position Yes Yes Yes -Correct Procedure Yes Yes Yes -Procedure Performed Yes Yes Yes -Type of Procedure Debridement Debridement Debridement -Clinical Debridement Subcutaneous Subcutaneous Subcutaneous -Tissue Removed Subcutaneous Subcutaneous Subcutaneous -Post Debridement (cm) - Length 7.5 7 4.5 -Post Debridement (cm) - Width 0.7 0.5 0.3 -Post Debridement (cm) - Depth 0.2 0.1 0.1 -Total Square (Post) (cm) 5.25 3.5 1.35 -Area of Debridement (cm) - Length 7.5 7 4.5 -Area of Debridement (cm) - Width 0.7 0.5 0.3 -Total Square (Area) (cm) 5.25 3.5 1.35 -Tunneling No No No -Undermining/Tunneling No No No -Circular Undermining No No -Wound/Ulcer Outcome Not Healed Not Healed Not Healed -Ulcer Cleansing Rinsed/ Rinsed/ Rinsed/ Irrigated with Irrigated with Irrigated with Saline Saline Saline -Foul Odor after Cleansing No No No -Bioengineered Tissue No No No -Bleeding Controlled with Pressure Pressure -Offloading No No -Treatment Response Procedure Procedure Tolerated Well Tolerated Well -Debridement - Subq, 1st 20sq cm Yes No No Pain Scale: 0-10 Numeric Is Patient Pain Free? Yes Yes Yes Pain Scale: Adult NonVerbal Is Patient Pain Free? Yes Pain Scale: Ribera/Tesfaye Faces Is Patient Pain Free? Yes 03/15/20 13:37 Wound Center Nurse 2 #2 L Axilla -Time 13:37 -Correct Patient Yes -Correct Side, Site, Position Yes -Correct Procedure Yes -Procedure Performed Yes -Type of Procedure Debridement -Clinical Debridement Subcutaneous -Tissue Removed Subcutaneous -Post Debridement (cm) - Length 7.5 -Post Debridement (cm) - Width 0.8 -Post Debridement (cm) - Depth 0.3 -Total Square (Post) (cm) 6.00 -Area of Debridement (cm) - Length 7.5 -Area of Debridement (cm) - Width 0.8 -Total Square (Area) (cm) 6.00 -Tunneling No -Undermining/Tunneling No -Circular Undermining No -Wound/Ulcer Outcome Not Healed -Ulcer Cleansing Rinsed/ Irrigated with Saline -Foul Odor after Cleansing No -Bioengineered Tissue No -Bleeding Controlled with Pressure -Offloading No -Treatment Response Procedure Tolerated Well -Debridement - Subq, 1st 20sq cm Yes -Debridement, SubQ, ea addt'l 20sq cm or part thereof #1 R Axilla -Time -Correct Patient No -Correct Side, Site, Position No -Correct Procedure No -Procedure Performed No -Type of Procedure -Clinical Debridement -Tissue Removed -Post Debridement (cm) - Length 0 -Post Debridement (cm) - Width 0 -Post Debridement (cm) - Depth 0 -Total Square (Post) (cm) 0 -Area of Debridement (cm) - Length 0 -Area of Debridement (cm) - Width 0 -Total Square (Area) (cm) 0 -Tunneling -Undermining/Tunneling -Circular Undermining -Wound/Ulcer Outcome Healed- Epithelialized -Ulcer Cleansing -Foul Odor after Cleansing -Bioengineered Tissue -Bleeding Controlled with -Offloading -Treatment Response -Debridement - Subq, 1st 20sq cm Pain Scale: 0-10 Numeric Is Patient Pain Free? Yes Pain Scale: Adult NonVerbal Is Patient Pain Free? Pain Scale: Ribera/Tesfaye Faces Is Patient Pain Free? WC - Nurse 3 - General Ulcer D/C NN Start: 02/23/20 08:57 Freq: Status: Active Protocol: Activity Type Activity Date Activity User E-Sign Co-Sign Detail Recorded Client Recorded Date Recorded By Document 02/23/20 09:45 [facility] [id number] 02/23/20 10:01 BMF Document 03/01/20 09:32 BMF [id number] 03/01/20 09:33 BMF Document 03/08/20 14:52 KR [id number] 03/08/20 14:52 KR Document 03/15/20 13:50 KR [id number] 03/15/20 13:50 KR 02/23/20 03/01/20 03/08/20 09:45 09:32 14:52 Wound Care Nurse 3 #2 L Axilla -Ulcer Cleansing Rinsed/ Rinsed/ Rinsed/ Irrigated with Irrigated with Irrigated with Saline Saline Saline -Foul Odor after Cleansing No No -Primary Dressing Applied Other Other Silvercel -Other Dressing moist to dry MOIST TO DRY -Primary Dressing Covered/Secured with Dry Gauze, Dry Gauze, Dry Gauze, Secured with Secured with Secured with Tape Tape Tape -Aquacel AG 2x2 -Silvercel 1 #1 R Axilla -Ulcer Cleansing Rinsed/ Rinsed/ Rinsed/ Irrigated with Irrigated with Irrigated with Saline Saline Saline -Foul Odor after Cleansing No No -Primary Dressing Applied Aquacel AG 4x4 Aquacel AG 2x2 C Hydrogel ($) -Primary Dressing Covered/Secured with Dry Gauze, Dry Gauze, Secured with Secured with Tape Tape -Aquacel AG 4x4 1 -Aquacel AG 2x2 1 Treatment Response Procedure Procedure Tolerated Well Tolerated Well Pain Scale: 0-10 Numeric Is Patient Pain Free? Yes Yes Yes WC - Visit Discharge Discharge Condition Stable Stable Stable Ambulatory Status Ambulatory Ambulatory Ambulatory Transportation Private Auto Private Auto Private Auto Accompanied by dad SISTER javad 03/15/20 13:50 Wound Care Nurse 3 #2 L Axilla -Ulcer Cleansing Rinsed/ Irrigated with Saline -Foul Odor after Cleansing No -Primary Dressing Applied Aquac[employer] AG 2x2 -Other Dressing -Primary Dressing Covered/Secured with Dry Gauze, Secured with Tape -Aqu[employer]el AG 2x2 2 -Silvercel #1 R Axilla -Ulcer Cleansing -Foul Odor after Cleansing -Primary Dressing Applied -Primary Dressing Covered/Secured with -Aquacel AG 4x4 -Aquacel AG 2x2 Treatment Response Pain Scale: 0-10 Numeric Is Patient Pain Free? Yes WC - Visit Discharge Discharge Condition Stable Ambulatory Status Ambulatory Transportation Private Auto Accompanied by father Wound debrided: axilla wound Laterality: Left Type of Debridement: Excisional debridement Anesthesia Used: 5% Lidocaine Gel Depth: Down to and including healthy tissue, in the subcutaneous layer Percentage of wound debrided: 100 Instrument Used: 5mm curette Tissue Removed: Subcutaneous tissue and slough Severity: Fat Layer Exposed Amount of bleeding with debridement: Mild Bleeding Controlled with: Pressure, Compression and gauze Patient tolerated procedure well Assessment/Plan Active Problems (Last Reviewed 12/10/19 @ 20:[address] Rudy Cerna MD) Open wound of left axillary region with complication (Acute) Skin ulcer of axilla with fat layer exposed (Chronic) Rheumatoid arthritis (Chronic) at present is off Methotrexate Axillary hidradenitis suppurativa (Chronic) bilateral axillary hidradenitis, worse on the left Assessment: 1. Nonhealing hidradenitis ulcer right axilla. 2. Open surgical hidradenitis wound left axilla. 3. Rheumatoid arthritis, and she is off Methotrexate. 4. Family history of skin cancer. Plan: Wound care - The left wound daily Silver dressings covered with gauze. Right axilla ulcer is healed. She will GRETEL wrap on the left arm for compression. She exhibits good range of motion of both arms and shoulders. She is having swelling of her left arm with increasing pain, ordered OT for evaluation and treatment for edema and pain management and range of motion. Prealbumin from 01/24/20 was 26.8. Encourage nutritional supplementation with protein to help the healing process. She returned to work and is doing well. Followup one week. [id number]: [id number] Global Visit
== END 2020-03-21 23:59 ==
LOC: WC 13:15
PROVIDERS: PCP Nurse Practitioner Family; Visit Provider Surgery
DX: L98.492 Non-pressure chronic ulcer of skin of other sites with fat layer exposed (principal); M06.9 Rheumatoid arthritis, unspecified; L73.2 Hidradenitis suppurativa; Z80.8 Family history of malignant neoplasm of other organs or systems; S41.102A Unspecified open wound of left upper arm, initial encounter
CPT/HCPCS: 11042; 11045

== ENCOUNTER 2020-04-12 14:15 | Outpatient (RCR) | payer OTHER, SELFPAY ==
[2020-03-22 00:28] VITALS: BP 159/93; PULSE 79; RESP 16; TEMP 36
[2020-03-22 13:35] VITALS: BP 130/75; PULSE 88; RESP 18; TEMP 36.1; BMI 43.7
--- NOTE | 2020-03-22 14:33 | PCM.WC.PN ---
(1) Open wound of left axillary region with complication Status: Chronic Code(s): S41.102A - Unspecified open wound of left upper arm, initial encounter (2) Rheumatoid arthritis Status: Chronic Code(s): M06.9 - Rheumatoid arthritis, unspecified Comment: at present is off Methotrexate (3) Axillary hidradenitis suppurativa Status: Chronic Code(s): L73.2 - Hidradenitis suppurativa Comment: bilateral axillary hidradenitis, worse on the left Type of Wound Date of Service: 03/22/20 Chief Complaint: Nonhealing hidradenitis ulcer right axilla and open surgical hidradenitis wound left axilla. History of Wound: Surgery 12/02/19 - Surgical preparation right axilla with excision hidradenitis (176 cm2). Surgery 01/23/20 - Surgical preparation left axilla with excision hidradenitis (93 cm2). Wound care - Will stop Silver and start collagen hydrogel covered by gauze daily. Right ulcer remains healed. Operative culture 12/02/19 - Staphylococcus lugdunensis. She was treated perioperatively with Clindamycin. She was then switched to Doxycycline and has finished them. Operative culture 01/23/20 - MRSA. She was discharged on Doxycycline. Prealbumin from 01/24/20 was 26.8. Encourage nutritional supplementation with protein to help the healing process. Today she denies fever. Her appetite is good. She has no problems with range of motion with both arms and shoulders. Progress of Wound: Left is beefy pink and improved. Right axilla remains healed. - Physical Exam Vital Signs Temp Pulse Resp BP 96.9 F L 88 18 130/75 H 03/22/20 13:35 03/22/20 13:35 03/22/20 13:35 03/22/20 13:35 General: Alert, Oriented x3, Cooperative HEENT: Atraumatic Oral: Moist Mucosa Lungs: Normal air movement Cardiovascular: Regular rate Extremities: Capillary Refill Less than 3 Seconds Skin: Ulcer/ Wound - Left axilla ulcer is beefy pink and is smaller in size Wound Measurements and Assessment WC - Nurse 1 - General Ulcer Measurement Start: 03/22/20 13:33 Freq: Status: Active Protocol: Activity Type Activity Date Activity User E-Sign Co-Sign Detail Recorded Client Recorded Date Recorded By Document 03/22/20 13:35 ALFRED [id number] 03/22/20 13:38 DL 03/22/20 13:35 Wound Center Nurse 1 [Ulcer Assessment] #2 L Axilla -Current Size (cm) - Length 0.7 -Current Size (cm) - Width 2.1 -Current Size (cm) - Depth 0.1 -Total Square Cm 1.47 -Photo Taken No -Exudate Amt Small -Exudate Type Serosanguineous -Wound Margin Distinct, Outline Attached -Granulation Amt Large (67-100%) -Granulation Quality [place] -Necrosis Amt Small (1-33%) -Necrotic Tissue Type Adherent Slough -Structure Exposed N/A -Texture (Karin-wound Skin Appearance) Scarring -Moisture (Karin-wound Skin Appearance No Abnormality ) -Color (Karin-wound Skin Appearance) No Abnormality -Temperature (Karin-wound Skin No Abnormality Appearance) (Pt Warm) -Tenderness on Palpation (Karin-wound No Skin Appearance) -Ulcer Cleansing Rinsed/ Irrigated with Saline -Foul Odor after Cleansing No -Anesthetic Used 4% Lidocaine Solution WC - Nurse 2 - General Ulcer CM Notes Start: 03/22/20 13:33 Freq: Status: Active Protocol: Activity Type Activity Date Activity User E-Sign Co-Sign Detail Recorded Client Recorded Date Recorded By Document 03/22/20 13:56 MARQUITA [id number] 03/22/20 13:59 03/22/20 13:56 Wound Center Nurse 2 [Procedure/Treatment] -Time 13:57 -Correct Patient Yes -Correct Side, Site, Position Yes -Correct Procedure Yes -Procedure Performed Yes -Type of Procedure Debridement -Clinical Debridement Subcutaneous -Tissue Removed Subcutaneous -Post Debridement (cm) - Length 5.4 -Post Debridement (cm) - Width 0.9 -Post Debridement (cm) - Depth 0.2 -Total Square (Post) (cm) 4.86 -Area of Debridement (cm) - Length 5.4 -Area of Debridement (cm) - Width 0.9 -Total Square (Area) (cm) 4.86 -Tunneling No -Undermining/Tunneling No -Circular Undermining No -Wound/Ulcer Outcome Not Healed -Ulcer Cleansing Rinsed/ Irrigated with Saline -Foul Odor after Cleansing No -Bioengineered Tissue No -Bleeding Controlled with Pressure -Offloading No -Treatment Response Procedure Tolerated Well -Debridement - Subq, 1st 20sq cm Yes [See Physician Procedure note for Specifics] Pain Scale: 0-10 Numeric [Pain] -Is Patient Pain Free? Yes - Nurse 3 - General Ulcer D/C NN Start: 03/22/20 13:33 Freq: Status: Active Protocol: Activity Type Activity Date Activity User E-Sign Co-Sign Detail Recorded Client Recorded Date Recorded By Document 03/22/20 14:03 [id number] 03/22/20 14:03 03/22/20 14:03 Wound Care Nurse 3 [Wound Dressing] #2 L Axilla -Ulcer Cleansing Rinsed/ Irrigated with Saline -Foul Odor after Cleansing No -Primary Dressing Applied C Hydrogel ($) -Primary Dressing Covered/Secured Dry Gauze, with Secured with Tape Pain Scale: 0-10 Numeric [Pain] -Is Patient Pain Free? Yes - Visit Discharge [Visit Discharge Information] -Discharge Condition Stable -Ambulatory Status Ambulatory -Transportation Private Auto -Accompanied by DAD -Medication Reconcilliation completed Yes & provided to patient/care provider -Clinical Summary of Care Provided Yes Musculoskeletal: No Tenderness to Palpation of Joints or Extremities Neurological: Cranial nerves II-XII grossly intact Psych/Mental Status: Normal Affect, Appropriate Debridement Note Post-Debridement Measurements/Treatment - Nurse 2 - General Ulcer CM Notes Start: 03/22/20 13:33 Freq: Status: Active Protocol: Activity Type Activity Date Activity User E-Sign Co-Sign Detail Recorded Client Recorded Date Recorded By Document 03/22/20 13:56 [id number] 03/22/20 13:59 03/22/20 13:56 Wound Center Nurse 2 #2 L Axilla -Time 13:57 -Correct Patient Yes -Correct Side, Site, Position Yes -Correct Procedure Yes -Procedure Performed Yes -Type of Procedure Debridement -Clinical Debridement Subcutaneous -Tissue Removed Subcutaneous -Post Debridement (cm) - Length 5.4 -Post Debridement (cm) - Width 0.9 -Post Debridement (cm) - Depth 0.2 -Total Square (Post) (cm) 4.86 -Area of Debridement (cm) - Length 5.4 -Area of Debridement (cm) - Width 0.9 -Total Square (Area) (cm) 4.86 -Tunneling No -Undermining/Tunneling No -Circular Undermining No -Wound/Ulcer Outcome Not Healed -Ulcer Cleansing Rinsed/ Irrigated with Saline -Foul Odor after Cleansing No -Bioengineered Tissue No -Bleeding Controlled with Pressure -Offloading No -Treatment Response Procedure Tolerated Well -Debridement - Subq, 1st 20sq cm Yes Pain Scale: 0-10 Numeric Is Patient Pain Free? Yes - Nurse 3 - General Ulcer D/C NN Start: 03/22/20 13:33 Freq: Status: Active Protocol: Activity Type Activity Date Activity User E-Sign Co-Sign Detail Recorded Client Recorded Date Recorded By Document 03/22/20 14:03 MARQUITA [id number] 03/22/20 14:03 MARQUITA 03/22/20 14:03 Wound Care Nurse 3 #2 L Axilla -Ulcer Cleansing Rinsed/ Irrigated with Saline -Foul Odor after Cleansing No -Primary Dressing Applied C Hydrogel ($) -Primary Dressing Covered/Secured with Dry Gauze, Secured with Tape Pain Scale: 0-10 Numeric Is Patient Pain Free? Yes WC - Visit Discharge Discharge Condition Stable Ambulatory Status Ambulatory Transportation Private Auto Accompanied by DAD Medication Reconcilliation completed & Yes provided to patient/care provider Clinical Summary of Care Provided Yes Wound debrided: axilla ulcer Laterality: Left Type of Debridement: Excisional debridement Anesthesia Used: 5% Lidocaine Gel Depth: Down to and including healthy tissue, in the subcutaneous layer Percentage of wound debrided: 100 Instrument Used: 5mm curette Tissue Removed: Subcutaneous tissue and slough Severity: Fat Layer Exposed Amount of bleeding with debridement: Mild Bleeding Controlled with: Pressure, Compression and gauze Patient tolerated procedure well Assessment/Plan Assessment: 1. Nonhealing hidradenitis ulcer right axilla. 2. Open surgical hidradenitis wound left axilla. 3. Rheumatoid arthritis, and she is off Methotrexate. 4. Family history of skin cancer. Plan: Wound care - The left wound will start Collagen Hydrogel covered with gauze. Right axilla ulcer remains healed. She will GRETEL wrap on the left arm for compression. She exhibits good range of motion of both arms and shoulders. She is having swelling of her left arm with increasing pain, ordered OT for evaluation and treatment for edema and pain management and range of motion. Prealbumin from 01/24/20 was 26.8. Encourage nutritional supplementation with protein to help the healing process. She returned to work and is doing well. Followup one week. [id number]: [id number] Global Visit
[2020-03-29 14:02] VITALS: BP 137/64; PULSE 84; TEMP 36.1; BMI 43.7
--- NOTE | 2020-03-29 14:32 | PN.PCM_ITS ---
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 Code(s): L98.492 - Non-pressure chronic ulcer of skin of other sites with fat layer exposed Comment: hidradenitis ulcer left axilla (2) Candidal skin infection Status: Acute Code(s): B37.2 - Candidiasis of skin and nail (3) Rheumatoid arthritis Status: Chronic Code(s): M06.9 - Rheumatoid arthritis, unspecified Comment: at present is off Methotrexate (4) Axillary hidradenitis suppurativa Status: Chronic Code(s): L73.2 - Hidradenitis suppurativa Comment: bilateral axillary hidradenitis, worse on the left Type of Wound Date of Service: 03/29/20 Chief Complaint: Nonhealing hidradenitis ulcer right axilla and open surgical hidradenitis wound left axilla. History of Wound: Surgery 12/02/19 - Surgical preparation right axilla with excision hidradenitis (176 cm2). Surgery 01/23/20 - Surgical preparation left axilla with excision hidradenitis (93 cm2). Wound care - Collagen hydrogel covered by gauze daily to the left. Right ulcer remains healed. Will order Lotrisone cream for her left karin wound where there appears to be yeast infection. Operative culture 12/02/19 - Staphylococcus lugdunensis. She was treated perioperatively with Clindamycin. She was then switched to Doxycycline and has finished them. Operative culture 01/23/20 - MRSA. She was discharged on Doxycycline. Prealbumin from 01/24/20 was 26.8. Encourage nutritional supplementation with protein to help the healing process. Today she denies fever. Her appetite is good. She has no problems with range of motion with both arms and shoulders. Progress of Wound: Right axilla remains healed. Left is beefy pink and improved. Her left karin wound is very excoriated and looks like there is yeast present. - Physical Exam Vital Signs Temp Pulse Resp BP 96.9 F L 84 18 137/64 H 03/29/20 14:02 03/29/20 14:02 03/22/20 13:35 03/29/20 14:02 General: Alert, Oriented x3, Cooperative HEENT: Atraumatic Oral: Moist Mucosa Lungs: Normal air movement Cardiovascular: Regular rate Extremities: No edema Skin: Ulcer/ Wound - Left axilla ulcer is beefy pink and improving in size. Her left karin wound is excoriated and appears to have a red, yeasty rash. Wound Measurements and Assessment WC - Nurse 1 - General Ulcer Measurement Start: 03/22/20 13:33 Freq: Status: Active Protocol: Activity Type Activity Date Activity User E-Sign Co-Sign Detail Recorded Client Recorded Date Recorded By Document 03/29/20 14:02 MARGAUX [id number] 03/29/20 14:05 MARGAUX 03/29/20 14:02 Wound Center Nurse 1 [Ulcer Assessment] #2 L Axilla -Current Size (cm) - Length 8.1 -Current Size (cm) - Width 0.6 -Current Size (cm) - Depth 0.1 -Total Square Cm 4.86 -Exudate Amt Small -Exudate Type Serosanguineous -Wound Margin Distinct, Outline Attached -Granulation Amt Large (67-100%) -Granulation Quality Red -Necrosis Amt None Present (0 %) -Texture (Karin-wound Skin Appearance) Assessed, Scarring -Moisture (Karin-wound Skin Appearance No Abnormality, ) Assessed -Color (Karin-wound Skin Appearance) No Abnormality, Assessed -Temperature (Karin-wound Skin No Abnormality Appearance) (Pt Warm) -Tenderness on Palpation (Karin-wound No Skin Appearance) -Ulcer Cleansing Rinsed/ Irrigated with Saline -Foul Odor after Cleansing No -Anesthetic Used 4% Lidocaine Solution ERMA - Nurse 2 - General Ulcer CM Notes Start: 03/22/20 13:33 Freq: Status: Active Protocol: Activity Type Activity Date Activity User E-Sign Co-Sign Detail Recorded Client Recorded Date Recorded By Document 03/29/20 14:19 MARQUITA [id number] 03/29/20 14:19 MARQUITA 03/29/20 14:19 Wound Center Nurse 2 [Procedure/Treatment] -Time 14:19 -Correct Patient Yes -Correct Side, Site, Position Yes -Correct Procedure Yes -Procedure Performed Yes -Type of Procedure Debridement -Clinical Debridement Subcutaneous -Tissue Removed Subcutaneous -Post Debridement (cm) - Length 2.0 -Post Debridement (cm) - Width 0.7 -Post Debridement (cm) - Depth 0.2 -Total Square (Post) (cm) 1.40 -Area of Debridement (cm) - Length 2.0 -Area of Debridement (cm) - Width 0.7 -Total Square (Area) (cm) 1.40 -Tunneling No -Undermining/Tunneling No -Circular Undermining No -Wound/Ulcer Outcome Not Healed -Ulcer Cleansing Rinsed/ Irrigated with Saline -Foul Odor after Cleansing No -Bioengineered Tissue No -Bleeding Controlled with Pressure -Offloading No -Treatment Response Procedure Tolerated Well -Debridement - Subq, 1st 20sq cm Yes [See Physician Procedure note for Specifics] Pain Scale: 0-10 Numeric [Pain] -Is Patient Pain Free? Yes - Nurse 3 - General Ulcer D/C NN Start: 03/22/20 13:33 Freq: Status: Active Protocol: Activity Type Activity Date Activity User E-Sign Co-Sign Detail Recorded Client Recorded Date Recorded By Document 03/29/20 14:24 [facility] [id number] 03/29/20 14:25 [facility] 03/29/20 14:24 Wound Care Nurse 3 [Wound Dressing] #2 L Axilla -Ulcer Cleansing Rinsed/ Irrigated with Saline -Foul Odor after Cleansing No -Primary Dressing Applied C Hydrogel ($) -Primary Dressing Covered/Secured Dry Gauze, with Secured with Tape [Post Procedure Tolerated] -Treatment Response Procedure Tolerated Well Pain Scale: 0-10 Numeric [Pain] -Is Patient Pain Free? Yes - Visit Discharge [Visit Discharge Information] -Discharge Condition Stable -Ambulatory Status Ambulatory -Transportation Private Auto -Accompanied by father Musculoskeletal: No Tenderness to Palpation of Joints or Extremities, - - good ROM of bilateral arms and shoulders. Neurological: Cranial nerves II-XII grossly intact Psych/Mental Status: Normal Affect, Appropriate Debridement Note Post-Debridement Measurements/Treatment - Nurse 2 - General Ulcer CM Notes Start: 03/22/20 13:33 Freq: Status: Active Protocol: Activity Type Activity Date Activity User E-Sign Co-Sign Detail Recorded Client Recorded Date Recorded By Document 03/22/20 13:56 [id number] 03/22/20 13:59 Document 03/29/20 14:19 [id number] 03/29/20 14:19 03/22/20 03/29/20 13:56 14:19 Wound Center Nurse 2 #2 L Axilla -Time 13:57 14:19 -Correct Patient Yes Yes -Correct Side, Site, Position Yes Yes -Correct Procedure Yes Yes -Procedure Performed Yes Yes -Type of Procedure Debridement Debridement -Clinical Debridement Subcutaneous Subcutaneous -Tissue Removed Subcutaneous Subcutaneous -Post Debridement (cm) - Length 5.4 2.0 -Post Debridement (cm) - Width 0.9 0.7 -Post Debridement (cm) - Depth 0.2 0.2 -Total Square (Post) (cm) 4.86 1.40 -Area of Debridement (cm) - Length 5.4 2.0 -Area of Debridement (cm) - Width 0.9 0.7 -Total Square (Area) (cm) 4.86 1.40 -Tunneling No No -Undermining/Tunneling No No -Circular Undermining No No -Wound/Ulcer Outcome Not Healed Not Healed -Ulcer Cleansing Rinsed/ Rinsed/ Irrigated with Irrigated with Saline Saline -Foul Odor after Cleansing No No -Bioengineered Tissue No No -Bleeding Controlled with Pressure Pressure -Offloading No No -Treatment Response Procedure Procedure Tolerated Well Tolerated Well -Debridement - Subq, 1st 20sq cm Yes Yes Pain Scale: 0-10 Numeric Is Patient Pain Free? Yes Yes - Nurse 3 - General Ulcer D/C NN Start: 03/22/20 13:33 Freq: Status: Active Protocol: Activity Type Activity Date Activity User E-Sign Co-Sign Detail Recorded Client Recorded Date Recorded By Document 03/22/20 14:03 [id number] 03/22/20 14:03 Document 03/29/20 14:24 [facility] [id number] 03/29/20 14:25 [facility] 03/22/20 03/29/20 14:03 14:24 Wound Care Nurse 3 #2 L Axilla -Ulcer Cleansing Rinsed/ Rinsed/ Irrigated with Irrigated with Saline Saline -Foul Odor after Cleansing No No -Primary Dressing Applied C Hydrogel ($) C Hydrogel ($) -Primary Dressing Covered/Secured with Dry Gauze, Dry Gauze, Secured with Secured with Tape Tape Treatment Response Procedure Tolerated Well Pain Scale: 0-10 Numeric Is Patient Pain Free? Yes Yes - Visit Discharge Discharge Condition Stable Stable Ambulatory Status Ambulatory Ambulatory Transportation Private Auto Private Auto Accompanied by DAD father Medication Reconcilliation completed & Yes provided to patient/care provider Clinical Summary of Care Provided Yes Wound debrided: Axilla ulcer Laterality: Left Type of Debridement: Excisional debridement Anesthesia Used: 5% Lidocaine Gel Depth: Down to and including healthy tissue, in the subcutaneous layer Percentage of wound debrided: 100 Instrument Used: 5mm curette Tissue Removed: Subcutaneous tissue and slough Severity: Fat Layer Exposed Amount of bleeding with debridement: Mild Bleeding Controlled with: Pressure Patient tolerated procedure well Assessment/Plan Active Problems (Last Reviewed 12/10/19 @ 20:[address] Rudy Cerna MD) Rheumatoid arthritis (Chronic) at present is off Methotrexate Axillary hidradenitis suppurativa (Chronic) bilateral axillary hidradenitis, worse on the left Assessment: 1. Nonhealing hidradenitis ulcer right axilla. 2. Open surgical hidradenitis wound left axilla. 3. Rheumatoid arthritis, and she is off Methotrexate. 4. Family history of skin cancer. Plan: Wound care - The left ulcer isCollagen Hydrogel covered with gauze. Right axilla ulcer remains healed. She will GRETEL wrap on the left arm for compression. Will start her on Lotrisone cream to the left karin wound twice daily because it is excoriated and has a yeast appearance to it. She exhibits good range of motion of both arms and shoulders. She is having swelling of her left arm with increasing pain, ordered OT for evaluation and treatment for edema and pain management and range of motion. Prealbumin from 01/24/20 was 26.8. Encourage nutritional supplementation with protein to help the healing process. She returned to work and is doing well. Renewed her Percocet (14 tabs). PDMP reviewed. Followup one week. [id number]: [id number] Global Visit
[2020-04-05 13:12] VITALS: TEMP 36.3; BMI 43.7
--- NOTE | 2020-04-05 14:00 | PN.PCM_ITS ---
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 Code(s): L98.492 - Non-pressure chronic ulcer of skin of other sites with fat layer exposed Comment: hidradenitis ulcer left axilla (2) Candidal skin infection Status: Acute Code(s): B37.2 - Candidiasis of skin and nail (3) Rheumatoid arthritis Status: Chronic Code(s): M06.9 - Rheumatoid arthritis, unspecified Comment: at present is off Methotrexate (4) Axillary hidradenitis suppurativa Status: Chronic Code(s): L73.2 - Hidradenitis suppurativa Comment: bilateral axillary hidradenitis, worse on the left Type of Wound Date of Service: 04/05/20 Chief Complaint: Nonhealing hidradenitis ulcer right axilla and open surgical hidradenitis wound left axilla. History of Wound: Surgery 12/02/19 - Surgical preparation right axilla with excision hidradenitis (176 cm2). Surgery 01/23/20 - Surgical preparation left axilla with excision hidradenitis (93 cm2). Wound care - Collagen hydrogel covered by gauze daily to the left. Right ulcer remains healed. Will order Lotrisone cream for her left davin wound where there appears to be yeast infection. Operative culture 12/02/19 - Staphylococcus lugdunensis. She was treated perioperatively with Clindamycin. She was then switched to Doxycycline and has finished them. Operative culture 01/23/20 - MRSA. She was discharged on Doxycycline. Prealbumin from 01/24/20 was 26.8. Encourage nutritional supplementation with protein to help the healing process. Today she denies fever. Her appetite is good. She has no problems with range of motion with both arms and shoulders. Progress of Wound: Right axilla remains healed. Left is beefy pink and much smaller in size. Her left davin wound is much improved compared to last week. She tolerate the Lotrosone cream well. - Physical Exam Vital Signs Temp Pulse Resp BP 97.3 F L 84 18 137/64 H 04/05/20 13:12 03/29/20 14:02 03/22/20 13:35 03/29/20 14:02 General: Alert, Oriented x3, Cooperative HEENT: Atraumatic Oral: Moist Mucosa Lungs: Normal air movement Cardiovascular: Regular rate Abdomen: Soft Extremities: Capillary Refill Less than 3 Seconds Skin: Ulcer/ Wound - Left axilla ulcer is smaller and beefy pink. Periwound is much improved with no excoriation after using the Lotrisone cream for a week. Wound Measurements and Assessment WC - Nurse 1 - General Ulcer Measurement Start: 03/22/20 13:33 Freq: Status: Active Protocol: Activity Type Activity Date Activity User E-Sign Co-Sign Detail Recorded Client Recorded Date Recorded By Document 04/05/20 13:12 UT [id number] 04/05/20 13:18 MS 04/05/20 13:12 Wound Center Nurse 1 [Ulcer Assessment] #2 L Axilla -Combined with other wound No -Current Size (cm) - Length 0.4 -Current Size (cm) - Width 1.5 -Current Size (cm) - Depth 0.1 -Total Square Cm 0.60 -Exudate Amt Small -Exudate Type Serosanguineous -Wound Margin Distinct, Outline Attached -Granulation Amt Large (67-100%) -Slough/Fibrin Yes -Ulcer Cleansing soap and water -Foul Odor after Cleansing No -Anesthetic Used 4% Lidocaine Solution - Nurse 2 - General Ulcer CM Notes Start: 03/22/20 13:33 Freq: Status: Active Protocol: Activity Type Activity Date Activity User E-Sign Co-Sign Detail Recorded Client Recorded Date Recorded By Document 04/05/20 13:32 [id number] 04/05/20 13:33 04/05/20 13:32 Wound Center Nurse 2 [Procedure/Treatment] -Time 13:33 -Correct Patient Yes -Correct Side, Site, Position Yes -Correct Procedure Yes -Procedure Performed Yes -Type of Procedure Debridement -Clinical Debridement Subcutaneous -Tissue Removed Subcutaneous -Post Debridement (cm) - Length 1.5 -Post Debridement (cm) - Width 0.7 -Post Debridement (cm) - Depth 0.1 -Total Square (Post) (cm) 1.05 -Area of Debridement (cm) - Length 1.5 -Area of Debridement (cm) - Width 0.7 -Total Square (Area) (cm) 1.05 -Tunneling No -Undermining/Tunneling No -Circular Undermining No -Wound/Ulcer Outcome Not Healed -Ulcer Cleansing Rinsed/ Irrigated with Saline -Foul Odor after Cleansing No -Bioengineered Tissue No -Bleeding Controlled with Pressure -Offloading No -Treatment Response Procedure Tolerated Well -Debridement - Subq, 1st 20sq cm Yes [See Physician Procedure note for Specifics] Pain Scale: 0-10 Numeric [Pain] -Is Patient Pain Free? Yes - Nurse 3 - General Ulcer D/C NN Start: 03/22/20 13:33 Freq: Status: Active Protocol: Activity Type Activity Date Activity User E-Sign Co-Sign Detail Recorded Client Recorded Date Recorded By Document 04/05/20 13:38 [id number] 04/05/20 13:38 04/05/20 13:38 Wound Care Nurse 3 [Wound Dressing] #2 L Axilla -Ulcer Cleansing Rinsed/ Irrigated with Saline -Foul Odor after Cleansing No -Primary Dressing Applied C Hydrogel ($) -Primary Dressing Covered/Secured Dry Gauze, with Secured with Tape Pain Scale: 0-10 Numeric [Pain] -Is Patient Pain Free? Yes - Visit Discharge [Visit Discharge Information] -Discharge Condition Stable -Ambulatory Status Ambulatory -Transportation Private Auto -Medication Reconcilliation completed Yes & provided to patient/care provider -Clinical Summary of Care Provided Yes Musculoskeletal: No Tenderness to Palpation of Joints or Extremities Neurological: Cranial nerves II-XII grossly intact Psych/Mental Status: Normal Affect, Appropriate Debridement Note Post-Debridement Measurements/Treatment - Nurse 2 - General Ulcer CM Notes Start: 03/22/20 13:33 Freq: Status: Active Protocol: Activity Type Activity Date Activity User E-Sign Co-Sign Detail Recorded Client Recorded Date Recorded By Document 03/22/20 13:56 [id number] 03/22/20 13:59 Document 03/29/20 14:19 [id number] 03/29/20 14:19 Document 04/05/20 13:32 [id number] 04/05/20 13:33 03/22/20 03/29/20 04/05/20 13:56 14:19 13:32 Wound Center Nurse 2 #2 L Axilla -Time 13:57 14:19 13:33 -Correct Patient Yes Yes Yes -Correct Side, Site, Position Yes Yes Yes -Correct Procedure Yes Yes Yes -Procedure Performed Yes Yes Yes -Type of Procedure Debridement Debridement Debridement -Clinical Debridement Subcutaneous Subcutaneous Subcutaneous -Tissue Removed Subcutaneous Subcutaneous Subcutaneous -Post Debridement (cm) - Length 5.4 2.0 1.5 -Post Debridement (cm) - Width 0.9 0.7 0.7 -Post Debridement (cm) - Depth 0.2 0.2 0.1 -Total Square (Post) (cm) 4.86 1.40 1.05 -Area of Debridement (cm) - Length 5.4 2.0 1.5 -Area of Debridement (cm) - Width 0.9 0.7 0.7 -Total Square (Area) (cm) 4.86 1.40 1.05 -Tunneling No No No -Undermining/Tunneling No No No -Circular Undermining No No No -Wound/Ulcer Outcome Not Healed Not Healed Not Healed -Ulcer Cleansing Rinsed/ Rinsed/ Rinsed/ Irrigated with Irrigated with Irrigated with Saline Saline Saline -Foul Odor after Cleansing No No No -Bioengineered Tissue No No No -Bleeding Controlled with Pressure Pressure Pressure -Offloading No No No -Treatment Response Procedure Procedure Procedure Tolerated Well Tolerated Well Tolerated Well -Debridement - Subq, 1st 20sq cm Yes Yes Yes Pain Scale: 0-10 Numeric Is Patient Pain Free? Yes Yes Yes WC - Nurse 3 - General Ulcer D/C NN Start: 03/22/20 13:33 Freq: Status: Active Protocol: Activity Type Activity Date Activity User E-Sign Co-Sign Detail Recorded Client Recorded Date Recorded By Document 03/22/20 14:03 [id number] 03/22/20 14:03 Document 03/29/20 14:24 [facility] [id number] 03/29/20 14:25 [facility] Document 04/05/20 13:38 [id number] 04/05/20 13:38 03/22/20 03/29/20 04/05/20 14:03 14:24 13:38 Wound Care Nurse 3 #2 L Axilla -Ulcer Cleansing Rinsed/ Rinsed/ Rinsed/ Irrigated with Irrigated with Irrigated with Saline Saline Saline -Foul Odor after Cleansing No No No -Primary Dressing Applied C Hydrogel ($) C Hydrogel ($) C Hydrogel ($) -Primary Dressing Covered/Secured with Dry Gauze, Dry Gauze, Dry Gauze, Secured with Secured with Secured with Tape Tape Tape Treatment Response Procedure Tolerated Well Pain Scale: 0-10 Numeric Is Patient Pain Free? Yes Yes Yes WC - Visit Discharge Discharge Condition Stable Stable Stable Ambulatory Status Ambulatory Ambulatory Ambulatory Transportation Private Auto Private Auto Private Auto Accompanied by DAD father Medication Reconcilliation completed & Yes Yes provided to patient/care provider Clinical Summary of Care Provided Yes Yes Wound debrided: Axilla ulcer Laterality: Left Type of Debridement: Excisional debridement Anesthesia Used: 5% Lidocaine Gel Depth: Down to and including healthy tissue, in the subcutaneous layer Percentage of wound debrided: 100 Instrument Used: 3mm curette Tissue Removed: Subcutaneous tissue and slough Severity: Limited To Skin Breakdown Amount of bleeding with debridement: Mild Bleeding Controlled with: Pressure Patient tolerated procedure well Assessment/Plan Active Problems (Last Reviewed 12/10/19 @ 20:[address] Rudy Cerna MD) Candidal skin infection (Acute) Skin ulcer of axilla with fat layer exposed (Chronic) hidradenitis ulcer left axilla Rheumatoid arthritis (Chronic) at present is off Methotrexate Axillary hidradenitis suppurativa (Chronic) bilateral axillary hidradenitis, worse on the left Assessment: 1. Nonhealing hidradenitis ulcer right axilla. 2. Open surgical hidradenitis wound left axilla. 3. Rheumatoid arthritis, and she is off Methotrexate. 4. Family history of skin cancer. Plan: Wound care - The left ulcer is Collagen Hydrogel covered with gauze. Right axilla ulcer remains healed. She will GRETEL wrap on the left arm for compression. The Lotrisone cream to the left davin wound twice daily improved the excoriated area. She exhibits good range of motion of both arms and shoulders. She is having swelling of her left arm with increasing pain, ordered OT for evaluation and treatment for edema and pain management and range of motion. Prealbumin from 01/24/20 was 26.8. Encourage nutritional supplem entation with protein to help the healing process. She returned to work and is doing well. Followup one week. [id number]: [id number] Global Visit
[2020-04-12 14:31] VITALS: BP 151/107; PULSE 94; RESP 16; BMI 43.7
--- NOTE | 2020-04-12 15:17 | PCM.WC.PN ---
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 Code(s): L98.492 - Non-pressure chronic ulcer of skin of other sites with fat layer exposed Comment: hidradenitis ulcer left axilla (2) Candidal skin infection Status: Acute Code(s): B37.2 - Candidiasis of skin and nail (3) Rheumatoid arthritis Status: Chronic Code(s): M06.9 - Rheumatoid arthritis, unspecified Comment: at present is off Methotrexate (4) Axillary hidradenitis suppurativa Status: Chronic Code(s): L73.2 - Hidradenitis suppurativa Comment: bilateral axillary hidradenitis, worse on the left Type of Wound Date of Service: 04/12/20 Chief Complaint: Nonhealing hidradenitis ulcer right axilla and open surgical hidradenitis wound left axilla. History of Wound: Surgery 12/02/19 - Surgical preparation right axilla with excision hidradenitis (176 cm2). Surgery 01/23/20 - Surgical preparation left axilla with excision hidradenitis (93 cm2). Wound care - Collagen hydrogel covered by gauze daily to the left. Right ulcer remains healed. The Lotrisone cream for her left davin wound where there appears to be yeast infection, improved her symptoms. Operative culture 12/02/19 - Staphylococcus lugdunensis. She was treated perioperatively with Clindamycin. She was then switched to Doxycycline and has finished them. Operative culture 01/23/20 - MRSA. She was discharged on Doxycycline. Prealbumin from 01/24/20 was 26.8. Encourage nutritional supplementation with protein to help the healing process. Today she denies fever. Her appetite is good. She has no problems with range of motion with both arms and shoulders. Progress of Wound: Right axilla remains healed. Left axila ulcer is almost healed. Davin wound much improved this week after using the antifungal/steroid cream. - Physical Exam Vital Signs Temp Pulse Resp BP 97.3 F L 94 16 151/107 H 04/05/20 13:12 04/12/20 14:31 04/12/20 14:31 04/12/20 14:31 General: Alert, Oriented x3, Cooperative HEENT: Atraumatic Oral: Moist Mucosa Lungs: Normal air movement Cardiovascular: Regular rate Extremities: No edema, Capillary Refill Less than 3 Seconds Skin: Ulcer/ Wound - Left axilla ulcer is much smaller, it is almost healed. Good ROM in her left shoulder and arm. Wound Measurements and Assessment - Nurse 1 - General Ulcer Measurement Start: 03/22/20 13:33 Freq: Status: Active Protocol: Activity Type Activity Date Activity User E-Sign Co-Sign Detail Recorded Client Recorded Date Recorded By Document 04/12/20 14:31 [facility] [id number] 04/12/20 14:37 [facility] 04/12/20 14:31 Wound Center Nurse 1 [Ulcer Assessment] #2 L Axilla -Combined with other wound No -Current Size (cm) - Length 0.1 -Current Size (cm) - Width 0.1 -Current Size (cm) - Depth 0.1 -Total Square Cm 0.01 -Epithelialization Large 67-100% -Tunneling No -Undermining/Tunneling No -Circular Undermining No -Exudate Amt None Present -Wound Margin Distinct, Outline Attached -Granulation Amt Small (1-33%) -Granulation Quality Red -Slough/Fibrin No -Necrosis Amt None Present (0 %) -Texture (Davin-wound Skin Appearance) Assessed, Scarring -Moisture (Davin-wound Skin Appearance Assessed ) -Color (Davin-wound Skin Appearance) Assessed -Temperature (Davin-wound Skin No Abnormality Appearance) (Pt Warm) -Tenderness on Palpation (Davin-wound No Skin Appearance) -Ulcer Cleansing Rinsed/ Irrigated with Saline -Foul Odor after Cleansing No -Anesthetic Used 4% Lidocaine Solution - Nurse 2 - General Ulcer CM Notes Start: 03/22/20 13:33 Freq: Status: Active Protocol: Activity Type Activity Date Activity User E-Sign Co-Sign Detail Recorded Client Recorded Date Recorded By Document 04/12/20 14:46 [id number] 04/12/20 14:46 04/12/20 14:46 Wound Center Nurse 2 [Procedure/Treatment] -Time 14:46 -Correct Patient Yes -Correct Side, Site, Position Yes -Correct Procedure Yes -Procedure Performed Yes -Type of Procedure Debridement -Clinical Debridement Subcutaneous -Tissue Removed Subcutaneous -Post Debridement (cm) - Length 0.4 -Post Debridement (cm) - Width 0.3 -Post Debridement (cm) - Depth 0.1 -Total Square (Post) (cm) 0.12 -Area of Debridement (cm) - Length 0.4 -Area of Debridement (cm) - Width 0.3 -Total Square (Area) (cm) 0.12 -Tunneling No -Undermining/Tunneling No -Circular Undermining No -Wound/Ulcer Outcome Not Healed -Ulcer Cleansing Rinsed/ Irrigated with Saline -Foul Odor after Cleansing No -Bioengineered Tissue No -Bleeding Controlled with Pressure -Offloading No -Treatment Response Procedure Tolerated Well -Debridement - Subq, 1st 20sq cm Yes [See Physician Procedure note for Specifics] Pain Scale: 0-10 Numeric [Pain] -Is Patient Pain Free? Yes - Nurse 3 - General Ulcer D/C NN Start: 03/22/20 13:33 Freq: Status: Active Protocol: Activity Type Activity Date Activity User E-Sign Co-Sign Detail Recorded Client Recorded Date Recorded By Document 04/12/20 14:46 [id number] 04/12/20 14:47 04/12/20 14:46 Wound Care Nurse 3 [Wound Dressing] #2 L Axilla -Ulcer Cleansing Rinsed/ Irrigated with Saline -Foul Odor after Cleansing No -Primary Dressing Applied C Hydrogel ($) -Primary Dressing Covered/Secured Dry Gauze, with Secured with Tape Pain Scale: 0-10 Numeric [Pain] -Is Patient Pain Free? Yes - Visit Discharge [Visit Discharge Information] -Discharge Condition Stable -Ambulatory Status Ambulatory -Transportation Private Auto -Medication Reconcilliation completed Yes & provided to patient/care provider -Clinical Summary of Care Provided Yes Musculoskeletal: No Tenderness to Palpation of Joints or Extremities Neurological: Deep Tendon Reflexes 2+/4 and Symmetrical Psych/Mental Status: Normal Affect, Appropriate Debridement Note Post-Debridement Measurements/Treatment - Nurse 2 - General Ulcer CM Notes Start: 03/22/20 13:33 Freq: Status: Active Protocol: Activity Type Activity Date Activity User E-Sign Co-Sign Detail Recorded Client Recorded Date Recorded By Document 03/22/20 13:56 [id number] 03/22/20 13:59 Document 03/29/20 14:19 [id number] 03/29/20 14:19 Document 04/05/20 13:32 [id number] 04/05/20 13:33 Document 04/12/20 14:46 [id number] 04/12/20 14:46 JF 03/22/20 0204/05/20 13:56 14:19 13:32 Wound Center Nurse 2 #2 L Axilla -Time 13:57 14:19 13:33 -Correct Patient Yes Yes Yes -Correct Side, Site, Position Yes Yes Yes -Correct Procedure Yes Yes Yes -Procedure Performed Yes Yes Yes -Type of Procedure Debridement Debridement Debridement -Clinical Debridement Subcutaneous Subcutaneous Subcutaneous -Tissue Removed Subcutaneous Subcutaneous Subcutaneous -Post Debridement (cm) - Length 5.4 2.0 1.5 -Post Debridement (cm) - Width 0.9 0.7 0.7 -Post Debridement (cm) - Depth 0.2 0.2 0.1 -Total Square (Post) (cm) 4.86 1.40 1.05 -Area of Debridement (cm) - Length 5.4 2.0 1.5 -Area of Debridement (cm) - Width 0.9 0.7 0.7 -Total Square (Area) (cm) 4.86 1.40 1.05 -Tunneling No No No -Undermining/Tunneling No No No -Circular Undermining No No No -Wound/Ulcer Outcome Not Healed Not Healed Not Healed -Ulcer Cleansing Rinsed/ Rinsed/ Rinsed/ Irrigated with Irrigated with Irrigated with Saline Saline Saline -Foul Odor after Cleansing No No No -Bioengineered Tissue No No No -Bleeding Controlled with Pressure Pressure Pressure -Offloading No No No -Treatment Response Procedure Procedure Procedure Tolerated Well Tolerated Well Tolerated Well -Debridement - Subq, 1st 20sq cm Yes Yes Yes Pain Scale: 0-10 Numeric Is Patient Pain Free? Yes Yes Yes 04/12/20 14:46 Wound Center Nurse 2 #2 L Axilla -Time 14:46 -Correct Patient Yes -Correct Side, Site, Position Yes -Correct Procedure Yes -Procedure Performed Yes -Type of Procedure Debridement -Clinical Debridement Subcutaneous -Tissue Removed Subcutaneous -Post Debridement (cm) - Length 0.4 -Post Debridement (cm) - Width 0.3 -Post Debridement (cm) - Depth 0.1 -Total Square (Post) (cm) 0.12 -Area of Debridement (cm) - Length 0.4 -Area of Debridement (cm) - Width 0.3 -Total Square (Area) (cm) 0.12 -Tunneling No -Undermining/Tunneling No -Circular Undermining No -Wound/Ulcer Outcome Not Healed -Ulcer Cleansing Rinsed/ Irrigated with Saline -Foul Odor after Cleansing No -Bioengineered Tissue No -Bleeding Controlled with Pressure -Offloading No -Treatment Response Procedure Tolerated Well -Debridement - Subq, 1st 20sq cm Yes Pain Scale: 0-10 Numeric Is Patient Pain Free? Yes - Nurse 3 - General Ulcer D/C NN Start: 03/22/20 13:33 Freq: Status: Active Protocol: Activity Type Activity Date Activity User E-Sign Co-Sign Detail Recorded Client Recorded Date Recorded By Document 03/22/20 14:03 [id number] 03/22/20 14:03 Document 03/29/20 14:24 [facility] [id number] 03/29/20 14:25 [facility] Document 04/05/20 13:38 [id number] 04/05/20 13:38 Document 04/12/20 14:46 [id number] 04/12/20 14:47 03/22/20 03/29/20 04/05/20 14:03 14:24 13:38 Wound Care Nurse 3 #2 L Axilla -Ulcer Cleansing Rinsed/ Rinsed/ Rinsed/ Irrigated with Irrigated with Irrigated with Saline Saline Saline -Foul Odor after Cleansing No No No -Primary Dressing Applied C Hydrogel ($) C Hydrogel ($) C Hydrogel ($) -Primary Dressing Covered/Secured with Dry Gauze, Dry Gauze, Dry Gauze, Secured with Secured with Secured with Tape Tape Tape Treatment Response Procedure Tolerated Well Pain Scale: 0-10 Numeric Is Patient Pain Free? Yes Yes Yes WC - Visit Discharge Discharge Condition Stable Stable Stable Ambulatory Status Ambulatory Ambulatory Ambulatory Transportation Private Auto Private Auto Private Auto Accompanied by DAD Medication Reconcilliation completed & Yes Yes provided to patient/care provider Clinical Summary of Care Provided Yes Yes 04/12/20 14:46 Wound Care Nurse 3 #2 L Axilla -Ulcer Cleansing Rinsed/ Irrigated with Saline -Foul Odor after Cleansing No -Primary Dressing Applied C Hydrogel ($) -Primary Dressing Covered/Secured with Dry Gauze, Secured with Tape Treatment Response Pain Scale: 0-10 Numeric Is Patient Pain Free? Yes WC - Visit Discharge Discharge Condition Stable Ambulatory Status Ambulatory Transportation Private Auto Accompanied by Medication Reconcilliation completed & Yes provided to patient/care provider Clinical Summary of Care Provided Yes Wound debrided: axilla ulcer Laterality: Left Type of Debridement: Excisional debridement Anesthesia Used: 5% Lidocaine Gel Depth: Down to and including healthy tissue, in the subcutaneous layer Percentage of wound debrided: 100 Instrument Used: 3mm curette Tissue Removed: Subcutaneous tissue and slough Severity: Limited To Skin Breakdown Amount of bleeding with debridement: Mild Bleeding Controlled with: Pressure Patient tolerated procedure well Assessment/Plan Active Problems (Last Reviewed 12/10/19 @ 20:[address] Rudy Cerna MD) Candidal skin infection (Acute) Skin ulcer of axilla with fat layer exposed (Chronic) hidradenitis ulcer left axilla Rheumatoid arthritis (Chronic) at present is off Methotrexate Axillary hidradenitis suppurativa (Chronic) bilateral axillary hidradenitis, worse on the left Assessment: 1. Nonhealing hidradenitis ulcer right axilla. 2. Open surgical hidradenitis wound left axilla. 3. Rheumatoid arthritis, and she is off Methotrexate. 4. Family history of skin cancer. Plan: Wound care - The left ulcer is Collagen Hydrogel covered with gauze. Right axilla ulcer remains healed. She will GRETEL wrap on the left arm for compression. The Lotrisone cream to the left davin wound twice daily improved the excoriated area. She exhibits good range of motion of both arms and shoulders. She is having swelling of her left arm with increasing pain, ordered OT for evaluation and treatment for edema and pain management and range of motion. Prealbumin from 01/24/20 was 26.8. Encourage nutritional supplementation with protein to help the healing process. She returned to work and is doing well. Followup one week. [id number]: [id number] Global Visit
== END 2020-04-18 23:59 ==
LOC: WC 14:15
PROVIDERS: PCP Nurse Practitioner Family; Visit Provider Surgery
DX: L73.2 Hidradenitis suppurativa (principal); L98.492 Non-pressure chronic ulcer of skin of other sites with fat layer exposed; S41.102A Unspecified open wound of left upper arm, initial encounter; M06.9 Rheumatoid arthritis, unspecified; Z80.8 Family history of malignant neoplasm of other organs or systems; B37.2 Candidiasis of skin and nail; Z86.14 Personal history of Methicillin resistant Staphylococcus aureus infection
CPT/HCPCS: 11042

== ENCOUNTER 2020-05-03 13:00 | Outpatient (RCR) | payer OTHER, SELFPAY ==
[2020-04-19 00:25] VITALS: BP 151/107; PULSE 94; RESP 16; TEMP 36.3
[2020-04-19 14:03] VITALS: BP 134/81; PULSE 80; RESP 18; TEMP 36.4; BMI 43.7
--- NOTE | 2020-04-19 14:45 | PCM.WC.PN ---
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 History of Wound: Surgery 12/02/19 - Surgical preparation right axilla with excision hidradenitis (176 cm2). Surgery 01/23/20 - Surgical preparation left axilla with excision hidradenitis (93 cm2). Wound care - Collagen hydrogel covered by gauze daily to the left. Right ulcer remains healed. The Lotrisone cream for her left karin wound where there appears to be yeast infection, improved her symptoms. Operative culture 12/02/19 - Staphylococcus lugdunensis. She was treated perioperatively with Clindamycin. She was then switched to Doxycycline and has finished them. Operative culture 01/23/20 - MRSA. She was discharged on Doxycycline. Prealbumin from 01/24/20 was 26.8. Encourage nutritional supplementation with protein to help the healing process. Today she denies fever. Her appetite is good. She has no problems with range of motion with both arms and shoulders. Progress of Wound: Right axilla remains healed. Left axila ulcer is almost healed. Karin wound remains healed. - Physical Exam Vital Signs Temp Pulse Resp BP 97.6 F L 80 18 134/81 H 04/19/20 14:03 04/19/20 14:03 04/19/20 14:03 04/19/20 14:03 General: Alert, Oriented x3, Cooperative HEENT: Atraumatic Oral: Moist Mucosa Lungs: Normal air movement Cardiovascular: Regular rate Extremities: No edema, Capillary Refill Less than 3 Seconds Skin: Ulcer/ Wound - Left axilla ulcer is superficial. It is along the scarring. Wound Measurements and Assessment WC - Nurse 1 - General Ulcer Measurement Start: 04/19/20 14:03 Freq: Status: Active Protocol: Activity Type Activity Date Activity User E-Sign Co-Sign Detail Recorded Client Recorded Date Recorded By Document 04/19/20 14:03 ALFRED [id number] 04/19/20 14:08 ALFRED 04/19/20 14:03 Wound Center Nurse 1 [Ulcer Assessment] #2 L Axilla -Current Size (cm) - Length 0.6 -Current Size (cm) - Width 0.3 -Current Size (cm) - Depth 0.1 -Total Square Cm 0.18 -Photo Taken No -Exudate Amt None Present -Wound Margin Flat & Intact -Granulation Amt Large (67-100%) -Granulation Quality [place] -Necrosis Amt None Present (0 %) -Structure Exposed N/A -Texture (Karin-wound Skin Appearance) Scarring -Moisture (Karin-wound Skin Appearance No Abnormality ) -Color (Karin-wound Skin Appearance) No Abnormality -Temperature (Karin-wound Skin No Abnormality Appearance) (Pt Warm) -Tenderness on Palpation (Karin-wound No Skin Appearance) -Ulcer Cleansing Rinsed/ Irrigated with Saline -Foul Odor after Cleansing No -Anesthetic Used 4% Lidocaine Solution - Nurse 2 - General Ulcer CM Notes Start: 04/19/20 14:03 Freq: Status: Active Protocol: Activity Type Activity Date Activity User E-Sign Co-Sign Detail Recorded Client Recorded Date Recorded By Document 04/19/20 14:34 MARQUITA [id number] 04/19/20 14:35 MARQUITA 04/19/20 14:34 Wound Center Nurse 2 [Procedure/Treatment] -Time 14:35 -Correct Patient Yes -Correct Side, Site, Position Yes -Correct Procedure Yes -Procedure Performed Yes -Type of Procedure Debridement -Clinical Debridement Subcutaneous -Tissue Removed Subcutaneous -Post Debridement (cm) - Length 0.7 -Post Debridement (cm) - Width 0.3 -Post Debridement (cm) - Depth 0.1 -Total Square (Post) (cm) 0.21 -Area of Debridement (cm) - Length 0.7 -Area of Debridement (cm) - Width 0.3 -Total Square (Area) (cm) 0.21 -Tunneling No -Undermining/Tunneling No -Circular Undermining No -Wound/Ulcer Outcome Not Healed -Ulcer Cleansing Rinsed/ Irrigated with Saline -Foul Odor after Cleansing No -Bioengineered Tissue No -Bleeding Controlled with Pressure -Offloading No -Treatment Response Procedure Tolerated Well -Debridement - Subq, 1st 20sq cm Yes [See Physician Procedure note for Specifics] Pain Scale: 0-10 Numeric [Pain] -Is Patient Pain Free? Yes Musculoskeletal: No Tenderness to Palpation of Joints or Extremities - Good ROM of bilateral arms and shoulders. Neurological: Cranial nerves II-XII grossly intact Psych/Mental Status: Normal Affect, Appropriate Debridement Note Post-Debridement Measurements/Treatment WC - Nurse 2 - General Ulcer CM Notes Start: 04/19/20 14:03 Freq: Status: Active Protocol: Activity Type Activity Date Activity User E-Sign Co-Sign Detail Recorded Client Recorded Date Recorded By Document 04/19/20 14:34 MARQUITA [id number] 04/19/20 14:35 MARQUITA 04/19/20 14:34 Wound Center Nurse 2 #2 L Axilla -Time 14:35 -Correct Patient Yes -Correct Side, Site, Position Yes -Correct Procedure Yes -Procedure Performed Yes -Type of Procedure Debridement -Clinical Debridement Subcutaneous -Tissue Removed Subcutaneous -Post Debridement (cm) - Length 0.7 -Post Debridement (cm) - Width 0.3 -Post Debridement (cm) - Depth 0.1 -Total Square (Post) (cm) 0.21 -Area of Debridement (cm) - Length 0.7 -Area of Debridement (cm) - Width 0.3 -Total Square (Area) (cm) 0.21 -Tunneling No -Undermining/Tunneling No -Circular Undermining No -Wound/Ulcer Outcome Not Healed -Ulcer Cleansing Rinsed/ Irrigated with Saline -Foul Odor after Cleansing No -Bioengineered Tissue No -Bleeding Controlled with Pressure -Offloading No -Treatment Response Procedure Tolerated Well -Debridement - Subq, 1st 20sq cm Yes Pain Scale: 0-10 Numeric Is Patient Pain Free? Yes Wound debrided: axilla ulcer Laterality: Left Type of Debridement: Excisional debridement Anesthesia Used: 5% Lidocaine Gel Depth: Down to and including healthy tissue, in the subcutaneous layer Percentage of wound debrided: 100 Instrument Used: 3mm curette Tissue Removed: Subcutaneous tissue and slough Severity: Limited To Skin Breakdown Amount of bleeding with debridement: Mild Bleeding Controlled with: Pressure Patient tolerated procedure well Assessment/Plan Assessment: 1. Nonhealing hidradenitis ulcer right axilla. 2. Open surgical hidradenitis wound left axilla. 3. Rheumatoid arthritis, and she is off Methotrexate. 4. Family history of skin cancer. Plan: Wound care - The left ulcer is Collagen Hydrogel covered with gauze. Right axilla ulcer remains healed. She will GRETEL wrap on the left arm for compression. The Lotrisone cream to the left karin wound twice daily improved the excoriated area. Gently massage the healed incision with lotion daily. The area that is open is different from last week. She states that it completely healed and she went skiing last week and a new spot opened up. Instructed her to keep area dry and it is ok to be active and live her life. This opening is superficial. She exhibits good range of motion of both arms and shoulders. She is having swelling of her left arm with increasing pain, ordered OT for evaluation and treatment for edema and pain management and range of motion. Prealbumin from 01/24/20 was 26.8. Encourage nutritional supplementation with protein to help the healing process. She returned to work and is doing well. Followup two weeks. [id number]: [id number] Global Visit
[2020-05-03 13:09] VITALS: BP 143/97; PULSE 85; RESP 16; TEMP 36.2; BMI 43.7
--- NOTE | 2020-05-03 14:45 | PCM.WC.PN ---
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 History of Wound: Surgery 12/02/19 - Surgical preparation right axilla with excision hidradenitis (176 cm2). Surgery 01/23/20 - Surgical preparation left axilla with excision hidradenitis (93 cm2). Wound care - She is healed on the left axilla and the right axilla remains healed. Operative culture 12/02/19 - Staphylococcus lugdunensis. She was treated perioperatively with Clindamycin. She was then switched to Doxycycline and has finished them. Operative culture 01/23/20 - MRSA. She was discharged on Doxycycline. Prealbumin from 01/24/20 was 26.8. Encourage nutritional supplementation with protein to help the healing process. Today she denies fever. Her appetite is good. She has no problems with range of motion with both arms and shoulders. Progress of Wound: Right axilla remains healed. Left axila ulcer is healed. - Physical Exam Vital Signs Temp Pulse Resp BP 97.2 F L 85 16 143/97 H 05/03/20 13:09 05/03/20 13:09 05/03/20 13:09 05/03/20 13:09 General: Alert, Oriented x3, Cooperative HEENT: Atraumatic Oral: Moist Mucosa Lungs: Normal air movement Cardiovascular: Regular rate Abdomen: Soft Extremities: No edema, Capillary Refill Less than 3 Seconds Skin: Ulcer/ Wound - Bilateral axilla are healed today. Wound Measurements and Assessment WC - Nurse 1 - General Ulcer Measurement Start: 04/19/20 14:03 Freq: Status: Active Protocol: Activity Type Activity Date Activity User E-Sign Co-Sign Detail Recorded Client Recorded Date Recorded By Document 05/03/20 13:09 [facility] [id number] 05/03/20 13:12 [facility] 05/03/20 13:09 Wound Center Nurse 1 [Ulcer Assessment] #2 L Axilla -Combined with other wound No -Current Size (cm) - Length 0.1 -Current Size (cm) - Width 0.1 -Current Size (cm) - Depth 0.1 -Total Square Cm 0.01 -Epithelialization Large 67-100% -Tunneling No -Undermining/Tunneling No -Circular Undermining No -Texture (Karin-wound Skin Appearance) Assessed, Scarring -Moisture (Karin-wound Skin Appearance Assessed,Dry/ ) Scaly -Color (Karin-wound Skin Appearance) Assessed -Temperature (Karin-wound Skin No Abnormality Appearance) (Pt Warm) -Tenderness on Palpation (Karin-wound No Skin Appearance) -Ulcer Cleansing Rinsed/ Irrigated with Saline - Nurse 2 - General Ulcer CM Notes Start: 04/19/20 14:03 Freq: Status: Active Protocol: Activity Type Activity Date Activity User E-Sign Co-Sign Detail Recorded Client Recorded Date Recorded By Document 05/03/20 13:26 [id number] 05/03/20 13:26 05/03/20 13:26 Wound Center Nurse 2 [Procedure/Treatment] -Correct Patient No -Correct Side, Site, Position No -Correct Procedure No -Procedure Performed No -Post Debridement (cm) - Length 0 -Post Debridement (cm) - Width 0 -Post Debridement (cm) - Depth 0 -Total Square (Post) (cm) 0 -Area of Debridement (cm) - Length 0 -Area of Debridement (cm) - Width 0 -Total Square (Area) (cm) 0 -Wound/Ulcer Outcome Healed- Epithelialized [See Physician Procedure note for Specifics] Pain Scale: 0-10 Numeric [Pain] -Is Patient Pain Free? Yes - Nurse 3 - General Ulcer D/C NN Start: 04/19/20 14:03 Freq: Status: Active Protocol: Activity Type Activity Date Activity User E-Sign Co-Sign Detail Recorded Client Recorded Date Recorded By Document 05/03/20 13:26 [id number] 05/03/20 13:27 05/03/20 13:26 -Is Patient Pain Free? Yes - Visit Discharge [Visit Discharge Information] -Discharge Condition Stable -Ambulatory Status Ambulatory -Transportation Private Auto -Medication Reconcilliation completed Yes & provided to patient/care provider -Clinical Summary of Care Provided Yes Musculoskeletal: No Tenderness to Palpation of Joints or Extremities - She has good range of motion of both her arms and shoulders. Neurological: Cranial nerves II-XII grossly intact Psych/Mental Status: Normal Affect, Appropriate Debridement Note Post-Debridement Measurements/Treatment WC - Nurse 2 - General Ulcer CM Notes Start: 04/19/20 14:03 Freq: Status: Active Protocol: Activity Type Activity Date Activity User E-Sign Co-Sign Detail Recorded Client Recorded Date Recorded By Document 04/19/20 14:34 [id number] 04/19/20 14:35 Document 05/03/20 13:26 [id number] 05/03/20 13:26 04/19/20 05/03/20 14:34 13:26 Wound Center Nurse 2 #2 L Axilla -Time 14:35 -Correct Patient Yes No -Correct Side, Site, Position Yes No -Correct Procedure Yes No -Procedure Performed Yes No -Type of Procedure Debridement -Clinical Debridement Subcutaneous -Tissue Removed Subcutaneous -Post Debridement (cm) - Length 0.7 0 -Post Debridement (cm) - Width 0.3 0 -Post Debridement (cm) - Depth 0.1 0 -Total Square (Post) (cm) 0.21 0 -Area of Debridement (cm) - Length 0.7 0 -Area of Debridement (cm) - Width 0.3 0 -Total Square (Area) (cm) 0.21 0 -Tunneling No -Undermining/Tunneling No -Circular Undermining No -Wound/Ulcer Outcome Not Healed Healed- Epithelialized -Ulcer Cleansing Rinsed/ Irrigated with Saline -Foul Odor after Cleansing No -Bioengineered Tissue No -Bleeding Controlled with Pressure -Offloading No -Treatment Response Procedure Tolerated Well -Debridement - Subq, 1st 20sq cm Yes Pain Scale: 0-10 Numeric Is Patient Pain Free? Yes Yes - Nurse 3 - General Ulcer D/C NN Start: 04/19/20 14:03 Freq: Status: Active Protocol: Activity Type Activity Date Activity User E-Sign Co-Sign Detail Recorded Client Recorded Date Recorded By Document 04/19/20 14:46 [id number] 04/19/20 14:46 JF Document 05/03/20 13:26 [id number] 05/03/20 13:27 JF 04/19/20 05/03/20 14:46 13:26 Wound Care Nurse 3 #2 L Axilla -Foul Odor after Cleansing No -Primary Dressing Applied C Hydrogel ($) -Primary Dressing Covered/Secured with Dry Gauze, Secured with Tape Pain Scale: 0-10 Numeric Is Patient Pain Free? Yes Yes WC - Visit Discharge Discharge Condition Stable Stable Ambulatory Status Ambulatory Ambulatory Transportation Private Auto Private Auto Medication Reconcilliation completed & Yes Yes provided to patient/care provider Clinical Summary of Care Provided Yes Yes No debridement was completed today Assessment/Plan Active Problems (Last Reviewed 12/10/19 @ 20:[address] Rudy Cerna MD) Skin ulcer of axilla with fat layer exposed (Chronic) hidradenitis ulcer left axilla Rheumatoid arthritis (Chronic) at present is off Methotrexate Axillary hidradenitis suppurativa (Chronic) bilateral axillary hidradenitis, worse on the left Assessment: 1. Nonhealing hidradenitis ulcer right axilla. 2. Open surgical hidradenitis wound left axilla. 3. Rheumatoid arthritis, and she is off Methotrexate. 4. Family history of skin cancer. Plan: Wound care - The left ulcer is healed today and the right axilla ulcer remains healed. She is now seeing dermatology and they have her on aldactone for her bilateral groin hidradenitis. She states that she was on Humira in the past for her rheumatoid arthritis and she had improvement in her hidradenitis symptoms. She exhibits good range of motion of both arms and shoulders. She is having swelling of her left arm with increasing pain, ordered OT for evaluation and treatment for edema and pain management and range of motion. Prealbumin from 01/24/20 was 26.8. Encourage nutritional supplementation with protein to help the healing process. She returned to work and is doing well. Follow up as needed. Office Visits / Consults: [id number] OV L3 Est
== END 2020-05-19 23:59 ==
LOC: WC 13:00
PROVIDERS: PCP Nurse Practitioner Family; Visit Provider Surgery
DX: L73.2 Hidradenitis suppurativa (principal); L98.492 Non-pressure chronic ulcer of skin of other sites with fat layer exposed; M06.9 Rheumatoid arthritis, unspecified; Z80.8 Family history of malignant neoplasm of other organs or systems
CPT/HCPCS: 11042; 99213; G0463

== ENCOUNTER → 2020-07-01 09:08 | Outpatient (CLI) | payer OTHER, SELFPAY ==
[2020-07-01 08:47] VITALS: BMI 43.7
[2020-07-01 10:12] LABS: Erythrocyte Sedimentation Rate 14 mm/hr (0-30)
[2020-07-01 10:15] LABS: Hematocrit 46.5 % (37-47); Hemoglobin 15.1 g/dL (12.0-15.0); Mean Corp Hgb Conc 32.5 g/dL (32-36); Mean Corpuscular Hgb 28.2 pg (27.0-32.0); Mean Corpuscular Volume 86.9 fL (81-99); Mean Platelet Vol. 9.4 fl (6.2-12.0); Platelet Count 252 K/mm3 (150-450); RBC Distribution Width SD 40.8 fl (35.1-43.9); Red Blood Count 5.35 M/mm3 (4.2-5.4); White Blood Count 7.8 K/mm3 (4.4-11.0)
[2020-07-01 10:44] LABS: Vitamin D,25 Hydroxy 19.3 ng/mL
[2020-07-01 10:56] LABS: ALB/GLOB Ratio 0.8 RATIO (0.9-2.4); AST(SGOT) 31 U/L (15-37); Alanine Aminotransfer ALT/SGPT 45 U/L (13-56); Alkaline Phosphatase 99 U/L (45-117); Anion Gap 7 (5-15); BUN 8 mg/dL (7-18); BUN/Creat Ratio 12.7 RATIO (10-20); Calcium,Total 8.6 mg/dL (8.5-10.1); Chloride 110 mmol/L (98-107); Cholesterol 225 mg/dL (200); Creatinine, Serum 0.63 mg/dL (0.55-1.02); EST Glomerular Filtration Rate 123 mL/min (>60); Est Glom Filt Rate - Afr Amer 149 mL/min (>60); Globulin 3.9 g/dL (2.2-4.2); Glucose 110 mg/dL (74-106); High Density Lipoprotein 41 mg/dL; Potassium 3.8 mmol/L (3.5-5.1); Protein, Total 6.9 g/dL (6.4-8.2); Sodium Level 141 mmol/L (136-145); T4 Free Direct 0.72 ng/dL (0.76-1.46); Triglycerides 165 mg/dL; Very Low Density Lipoprotein 33 mg/dL (5-40)
== END ==
PROVIDERS: PCP Family Medicine; Referring Provider Family Medicine; Visit Provider Family Medicine
DX: M06.9 Rheumatoid arthritis, unspecified (principal); E03.9 Hypothyroidism, unspecified; M79.7 Fibromyalgia; Z13.220 Encounter for screening for lipoid disorders
CPT/HCPCS: 36415; 80053; 80061; 82306; 84439; 84443; 85027; 85652

== ENCOUNTER → 2020-08-05 17:18 | Outpatient (CLI) | payer OTHER, SELFPAY ==
[2020-07-01 08:47] VITALS: BMI 43.7
== END ==
PROVIDERS: PCP Family Medicine; Referring Provider Family Medicine; Visit Provider Family Medicine
DX: E03.9 Hypothyroidism, unspecified (principal)
CPT/HCPCS: 36415; 84439; 84443

== ENCOUNTER 2020-08-20 17:15 | Emergency (ER) | payer OTHER, SELFPAY ==
[2020-07-01 08:47] VITALS: BMI 43.7
[2020-08-20 17:15] VITALS: BP 156/98; PULSE 79; RESP 16; TEMP 36.2; O2SAT 98; BMI 46.1
[2020-08-20 18:03] VITALS: PULSE 86; RESP 15; O2SAT 98
--- NOTE | 2020-08-20 18:58 | ED.VIS.LOWEX ---
HPI History of Present Illness HPI Narrative: Patient presents with lower extremity pain that has been getting worse over the past 2 to 3 weeks. Patient states she was on vacation in [place] recently. Patient states that while she was there she fell down some steps. Patient states the pain became worse when she got home. Patient states she contacted her primary care physician. Patient was then referred to the emergency department for possible venous duplex of her lower extremities. Patient states her pain is dull and throbbing. Patient states her pain is worse with palpation. Chief Complaint: Lower Extremity Injury Informant: patient Onset/Context/Timing Onset: Weeks (2-3) Context: Gradual Onset Timing: Continuous Quality of Pain: Dull and Throbbing Location: Bilateral lower legs Worsened by: Palpation Relieved by: Nothing Associated Symptoms Associated Symptoms: Positive for Parasthesia; Negative for Weakness and Loss of Funtion PFSH REPLACED BY [facility] Medical History Allergies Axillary hidradenitis suppurativa Back problem Breast lump in female Fibromyalgia Hidradenitis suppurativa History of blood clots Rheumatoid arthritis Home Medications levothyroxine 25 mcg capsule 150 mcg PO DAILY 03/28/18 [History Last Taken Unknown] multivitamin 1 tab PO DAILY 03/28/18 [History Last Taken Unknown] spironolactone 25 mg tablet 100 mg PO DAILY PRN 03/28/18 [History Last Taken Unknown] norgestimate 0.25 mg-ethinyl estradiol 35 mcg tablet 1 tab PO QDAY #84 tab 05/18/20 [Rx Last Taken Unknown] Allergy/AdvReac Type Severity Reaction Status Date / Time ChloraPrep AdvReac Rash Uncoded 08/20/20 17:18 Family History Sister Diabetes Grandmother Lung cancer Skin cancer Grandfather Dementia CVA (cerebral vascular accident) Parkinsons disease Other Anxiety Arthritis Asthma Psychiatric care Thyroid disorder Surgical History [place] teeth extracted Social History Smoking Status: Never smoker alcohol intake: current details: occasionally substance use type: does not use caffeine: Yes what type of physical activity do you participate in: walking, aerobics and weight training frequency: 3-4 times per week seatbelt use: always do you feel safe at home: Yes additional social history: Single- Patient works at [employer] DOES NOT USE ASPIRIN DOES NOT USE IBUPROFEN NEEDED ROS ROS ED Constitutional Constitutional ED: Denies chills or fever(s) Eyes Eyes: Denies blurry vision or change in vision ENT ENT ED: Denies rhinorrhea or sore throat Cardiovascular Cardiovascular: Denies chest pain or palpitations Respiratory/Chest Respiratory/Chest: Denies cough or dyspnea Gastrointestinal Gastrointestinal: Denies nausea or vomiting Genitourinary Genitourinary ED: Denies dysuria or hematuria Musculoskeletal Musculoskeletal: Denies back pain or neck pain Integumentary Denies abscess or rash Neurologic Neurologic: Denies headache(s) or weakness Allergic/Immunologic Allergic/Immunologic ED: Denies mouth swelling or urticaria EXAM Physical Exam Const Vital Signs: 08/20/20 17:15 08/20/20 18:03 Temperature 97.2 F L Temperature Source Temporal Pulse Rate 79 86 Respiratory Rate 16 15 Blood Pressure 156/98 H Blood Pressure Mean 117 Pulse Ox 98 98 Oxygen Delivery Method Room Air Room Air Positive well nourished, well developed and obese General Appearance ED: well developed Nutritional Appearance: obese HEENT normocephalic and atraumatic Neck full ROM Extremity Extremity Narrative: There is tenderness and edema of the lower legs bilaterally, worse on the left. There is some mild ecchymosis on the left. There is no bony crepitance or step-off. There is pain with dorsiflexion of the ankles bilaterally, worse on the left. Sensation was intact to light touch in all digits. Capillary refill was less than 2 seconds in all digits. Pedal pulses are equal bilaterally. There is full range of motion. There is no deformity noted. There is a healing abrasion of the anterior aspect of the left lower leg. Neuro oriented x3, CN's II-XII intact bilaterally, moves all extremities and no sensory deficits noted Sensorium / Orientation: alert Motor Exam: strength 5/5 throughout Psych mental status grossly normal MDM MDM MDM Narrative Medical decision making narrative: Venous duplex of the lower extremities was obtained. There is no evidence of DVT. Patient was advised of her findings. Patient was instructed to keep her legs elevated. Patient was instructed to follow-up with her primary care physician in 5 to 7 days. Patient understood and was agreeable with the plan. All questions were answered. Discharge Plan Triage Chief Complaint: Lower Extremity Injury ED Provider: Migue Yap Dx/Rx/DC Orders Clinical Impression: Contusion of lower leg, Peripheral edema Instructions: ED Contusion, Lower Extremity, ED Lymphedema Prescriptions: No Action spironolactone 25 mg tablet 100 mg PO DAILY PRN (Reason: Edema) RF: 0 levothyroxine 25 mcg capsule 150 mcg PO DAILY RF: 0 multivitamin [Daily Multi-Vitamin] tablet 1 tab PO DAILY RF: 0 norgestimate-ethinyl estradiol [Sprintec (28)] 0.25-35 mg-mcg tablet 1 tab PO QDAY Qty: 84 RF: 1 Primary Care Provider: Marlon Gaona Referrals: Marlon Gaona MD [Primary Care Provider] - 3-5 Days Disposition Disposition: Home, Self Care
--- NOTE | 2020-08-20 19:05 | US_ITS ---
STUDY: VENOUS DOPPLER ULTRASOUND - BILATERAL LOWER EXTREMITIES REASON FOR EXAM: Female, 25 years old. BILAT LEG PAIN AND SWELLING TECHNIQUE: Ultrasound evaluation of the deep vein system to include wong-scale imaging and compression was performed. Wong-scale imaging and Doppler sonographic evaluation, including duplex spectral analysis and qualitative color flow sonography, was performed. COMPARISON: None. FINDINGS: RIGHT LEG Common Femoral Vein: Normal compression, spontaneity and augmentation. Normal color Doppler. Common Femoral Vein/Greater Saphenous Junction: Normal compression Femoral Proximal: Normal compression Femoral Middle: Normal compression, spontaneity and augmentation. Normal color Doppler. Femoral Distal: Normal compression Popliteal Vein: Normal compression, spontaneity and augmentation. Normal color Doppler. Posterior Tibial Vein: Normal compression Peroneal Vein: Normal compression LEFT LEG Common Femoral Vein: Normal compression, spontaneity and augmentation. Normal color Doppler. Common Femoral Vein/Greater Saphenous Junction: Normal compression Femoral Proximal: Normal compression Femoral Middle: Normal compression, spontaneity and augmentation. Normal color Doppler. Femoral Distal: Normal compression Popliteal Vein: Normal compression, spontaneity and augmentation. Normal color Doppler. Posterior Tibial Vein: Normal compression Peroneal Vein: Normal compression US/Venous Duplex Imag/Carlos Extrem IMPRESSION: Normal venous Doppler ultrasound of the bilateral lower extremities. Electronically Signed: Carmencita Adair MD at 20:14 EDT , Service support ,
[2020-08-20 20:24] VITALS: BP 121/84; PULSE 72; RESP 15; O2SAT 98
== END 2020-08-20 20:25 | disposition home or self-care (01) ==
PROVIDERS: Emergency Provider Emergency Medicine; PCP Family Medicine
DX: S80.12XA Contusion of left lower leg, initial encounter (principal); S80.11XA Contusion of right lower leg, initial encounter; W10.9XXA Fall (on) (from) unspecified stairs and steps, initial encounter; Y92.9 Unspecified place or not applicable; Y99.9 Unspecified external cause status; M06.9 Rheumatoid arthritis, unspecified; M79.7 Fibromyalgia; R60.9 Edema, unspecified
CPT/HCPCS: 93970; 99282

== ENCOUNTER → 2020-08-25 13:28 | Outpatient (CLI) | payer OTHER, SELFPAY ==
[2020-08-20 17:15] VITALS: BMI 46.1
[2020-08-25 15:03] LABS: Absolute Lymphocyte Count 1.64 X10^3/uL (0.83-4.51); Absolute Neutrophil Count 4.4 X10^3/uL (2.0-7.7); Basophil# 0.04 X10^3/uL; Basophil% 0.6 % (0-1); Eosinophil# 0.14 X10^3/uL; Hematocrit 41.9 % (37-47); Hemoglobin 13.9 g/dL (12.0-15.0); Lymphocyte # 1.64 X10^3/ul (0.83-4.51); Lymphocyte % 23.2 % (19-41); Mean Corp Hgb Conc 33.2 g/dL (32-36); Mean Corpuscular Hgb 29.1 pg (27.0-32.0); Mean Corpuscular Volume 87.7 fL (81-99); Mean Platelet Vol. 9.9 fl (6.2-12.0); Monocyte# 0.85 X10^3/uL; NRBC Flagged by Analyzer 0 % (0-5); Neutrophil # 4.38 X10^3/uL (2.7-7.7); Neutrophil % 61.9 % (47-70); Platelet Count 302 K/mm3 (150-450); RBC Distribution Width CV 13.4 % (11.6-14.6); RBC Distribution Width SD 43.1 fl (35.1-43.9); Red Blood Count 4.78 M/mm3 (4.2-5.4); White Blood Count 7.1 K/mm3 (4.4-11.0)
[2020-08-25 15:10] LABS: Erythrocyte Sedimentation Rate 16 mm/hr (0-30)
[2020-08-25 15:24] LABS: ALB/GLOB Ratio 0.8 RATIO (0.9-2.4); AST(SGOT) 31 U/L (15-37); Alanine Aminotransfer ALT/SGPT 36 U/L (13-56); Albumin, Serum 3.3 g/dL (3.2-5.0); Alkaline Phosphatase 101 U/L (45-117); Anion Gap 7 (5-15); BUN 12 mg/dL (7-18); BUN/Creat Ratio 17.9 RATIO (10-20); Calcium,Total 8.6 mg/dL (8.5-10.1); Chloride 103 mmol/L (98-107); Creatinine, Serum 0.67 mg/dL (0.55-1.02); EST Glomerular Filtration Rate 114 mL/min (>60); Est Glom Filt Rate - Afr Amer 138 mL/min (>60); Globulin 4.1 g/dL (2.2-4.2); Glucose 98 mg/dL (74-106); Potassium 3.5 mmol/L (3.5-5.1); Protein, Total 7.4 g/dL (6.4-8.2); Sodium Level 137 mmol/L (136-145)
[2020-08-25 15:33] LABS: BNP,B-Type NATRIURETIC PEPTIDE 12.5 pg/mL (0-100)
== END ==
PROVIDERS: PCP Family Medicine; Referring Provider Family Medicine; Visit Provider Family Medicine
DX: R60.0 Localized edema (principal); M06.9 Rheumatoid arthritis, unspecified
CPT/HCPCS: 36415; 80053; 83880; 85025; 85652

== ENCOUNTER → 2020-09-14 17:54 | Outpatient (CLI) | payer OTHER, SELFPAY ==
[2020-08-20 17:15] VITALS: BMI 46.1
== END ==
PROVIDERS: Visit Provider Family Medicine
DX: T14.8XXA Other injury of unspecified body region, initial encounter (principal)
CPT/HCPCS: 87070; 87077; 87186; 87205

== ENCOUNTER → 2020-09-23 08:53 | Outpatient (CLI) | payer OTHER, SELFPAY ==
[2020-09-20 08:29] VITALS: BMI 46.1
[2020-09-23 08:58] LABS: Bacteria 0 SEEN /hpf (None Seen); Mucous, Urine 0 SEEN /hpf (<or=2+); Red Blood Cells-Urine 0 SEEN /hpf (0-5); White Blood Cells 0 SEEN /hpf (0-5)
[2020-09-23 10:07] LABS: Color, Urine Straw (Yellow); Glucose, Dipstick Normal (Normal); Ketone-Dipstick Negative (Negative); Leukocyte Esterase-Dipstick Negative /ul (Negative); Nitrite-Dipstick Negative (Negative); Occult Blood-Urine 150 /ul (Negative); Protein-Dipstick Negative (Negative); Urine Bilirubin Dipstick Negative (Negative); Urine Clarity Clear (Clear); Urine Urobilinogen Normal (Normal)
[2020-09-23 10:11] LABS: Erythrocyte Sedimentation Rate 7 mm/hr (0-30)
[2020-09-23 10:12] LABS: Absolute Lymphocyte Count 1.67 X10^3/uL (0.83-4.51); Absolute Neutrophil Count 4.9 X10^3/uL (2.0-7.7); Basophil# 0.03 X10^3/uL; Basophil% 0.4 % (0-1); Eosinophils% 3.9 % (0-5); Hematocrit 43.4 % (37-47); Hemoglobin 14.4 g/dL (12.0-15.0); Lymphocyte # 1.67 X10^3/ul (0.83-4.51); Lymphocyte % 21.9 % (19-41); Mean Corp Hgb Conc 33.2 g/dL (32-36); Mean Corpuscular Hgb 29.6 pg (27.0-32.0); Mean Corpuscular Volume 89.3 fL (81-99); Mean Platelet Vol. 9.7 fl (6.2-12.0); Monocyte# 0.69 X10^3/uL; Monocyte% 9.1 % (0-10); NRBC Flagged by Analyzer 0 % (0-5); Neutrophil # 4.89 X10^3/uL (2.7-7.7); Neutrophil % 64.3 % (47-70); Platelet Count 307 K/mm3 (150-450); RBC Distribution Width CV 13.1 % (11.6-14.6); RBC Distribution Width SD 42.8 fl (35.1-43.9); Red Blood Count 4.86 M/mm3 (4.2-5.4); White Blood Count 7.6 K/mm3 (4.4-11.0)
[2020-09-23 10:13] LABS: Squamous Epithelial Cells - UA 0-5 SEEN /hpf (5-10)
[2020-09-23 10:31] LABS: BNP,B-Type NATRIURETIC PEPTIDE 71.9 pg/mL (0-100)
[2020-09-23 10:46] LABS: ALB/GLOB Ratio 0.9 RATIO (0.9-2.4); AST(SGOT) 25 U/L (15-37); Alanine Aminotransfer ALT/SGPT 35 U/L (13-56); Albumin, Serum 3.3 g/dL (3.2-5.0); Alkaline Phosphatase 100 U/L (45-117); Anion Gap 8 (5-15); BUN 11 mg/dL (7-18); BUN/Creat Ratio 14.7 RATIO (10-20); CRP 3.59 mg/L (0.0-3.0); Calcium,Total 8.4 mg/dL (8.5-10.1); Chloride 104 mmol/L (98-107); Creatinine, Serum 0.75 mg/dL (0.55-1.02); EST Glomerular Filtration Rate 101 mL/min (>60); Est Glom Filt Rate - Afr Amer 122 mL/min (>60); Globulin 3.8 g/dL (2.2-4.2); Glucose 96 mg/dL (74-106); Potassium 3.8 mmol/L (3.5-5.1); Protein, Total 7.1 g/dL (6.4-8.2); Sodium Level 137 mmol/L (136-145)
== END ==
PROVIDERS: PCP Family Medicine; Referring Provider Family Medicine; Visit Provider Family Medicine
DX: R60.0 Localized edema (principal); T14.8XXA Other injury of unspecified body region, initial encounter; M06.9 Rheumatoid arthritis, unspecified
CPT/HCPCS: 36415; 80053; 81001; 83880; 84443; 85025; 85652; 86140

== ENCOUNTER 2020-10-18 10:30 | Outpatient (RCR) | payer OTHER, SELFPAY ==
[2020-09-20 08:29] VITALS: BP 146/93; PULSE 87; TEMP 36.4; BMI 46.1
--- NOTE | 2020-09-20 09:57 | PCM.WC.HP ---
History of Present Illness Date of Service: 09/20/20 Chief Complaint: Ulcer to left anterior leg after a fall August 13, 2020. History of Wound: Patient fell down 3 steps August 13, 2020. She went to the ED 08/21/20, an ultrasound was negative for DVT. She has been seeing her PCP for wound management. He placed her on Doxycycline, removed the scabbing. She has been doing wet to dry dressings. Her PCP did a wound Culture on 09/14/20 which was positive for Aeromonas hydrophilia/caviae, Corynebacterium amycolatum/xer, MRSA, Klebsiella oxytoca. Wound care - Start Aquacel-Ag covered by gauze daily. Double tubigrip for compression. Will seek insurance approval for a SNAP VAC to seek if negative pressure can help decrease the wound depth. Will start her on Bactrim DS twice daily for her culture. Today denies fever, chills, nausea and vomiting. States appetite is ok. Progress of Wound: Stable. [facility] Medical History Allergies Axillary hidradenitis suppurativa Back problem Breast lump in female Fibromyalgia Hidradenitis suppurativa History of blood clots Rheumatoid arthritis Home Medications levothyroxine 25 mcg capsule 150 mcg PO DAILY 03/28/18 [History Last Taken Unknown] multivitamin 1 tab PO DAILY 03/28/18 [History Last Taken Unknown] spironolactone 25 mg tablet 100 mg PO DAILY PRN 03/28/18 [History Last Taken Unknown] norgestimate 0.25 mg-ethinyl estradiol 35 mcg tablet 1 tab PO QDAY #84 tab 05/18/20 [Rx Last Taken Unknown] sulfamethoxazole-trimethoprim [Bactrim DS] 1 tab PO BID 21 Days #42 tab 09/20/20 [Rx Last Taken Unknown] Allergy/AdvReac Type Severity Reaction Status Date / Time ChloraPrep AdvReac Rash Uncoded 08/20/20 17:18 Family History Sister Diabetes Grandmother Lung cancer Skin cancer Grandfather Dementia CVA (cerebral vascular accident) Parkinsons disease Other Anxiety Arthritis Asthma Psychiatric care Thyroid disorder Surgical History [place] teeth extracted Social History Smoking Status: Never smoker alcohol intake: current details: occasionally substance use type: does not use caffeine: Yes what type of physical activity do you participate in: walking, aerobics and weight training frequency: 3-4 times per week seatbelt use: always do you feel safe at home: Yes additional social history: Single- Patient works at [employer] DOES NOT USE ASPIRIN DOES NOT USE IBUPROFEN NEEDED ROS Constitutional Constitutional: Denies body ache(s), chills, fatigue, fever(s) or headache(s) Eyes Eyes: Reports none ENT HEENT: Reports none Cardiovascular Cardiovascular: Denies chest pain, dizziness or dyspnea Respiratory/Chest Respiratory/Chest: Reports none Gastrointestinal Gastrointestinal: Reports none Musculoskeletal Musculoskeletal: Reports none Integumentary Integumentary: Reports skin ulcer and skin swelling Neurologic Neurologic: Reports none Psychiatric Psychiatric: Reports none Endocrine Endocrinology: Reports fatigue and other Details: weight gain Hematologic/Lymphatic Hematologic/Lymphatic: Reports none Allergic/Immunologic Allergic/Immunologic: Reports none Vital Signs Vital Signs Vital Signs: 09/20/20 08:29 Temperature 97.6 F L Temperature Source Temporal Pulse Rate 87 Blood Pressure 146/93 H Blood Pressure Mean 110 Blood Pressure Source Monitor Weight Body Mass Index (BMI) 46.1 Physical Exam Const alert, oriented x3 and no apparent distress General Appearance: cooperative and comfortable HEENT normocephalic Head and Scalp: normal to inspection Eyes PERRL Neck full ROM Lymph Lymphatic: no lymphedema noted Resp normal respiratory effort, normal air movement and clear to auscultation bilaterally Cardio regular rate and regular rhythm GI normal to inspection, nondistended, normoactive bowel sounds, soft to palpation and non-tender Back/Spine normal ROM Extremity full ROM and normal capillary refill Skin Skin Narrative: Left anterior leg ulcer with undermining. [place] in color. Painful to palpation. Neuro oriented x3 and CN's II-XII intact bilaterally Psych mental status grossly normal Debridement Note Debridement Note Post-Debridement Measurements and Additional Note: Post-Debridement Measurements/Treatment WC - Nurse 1 - General Ulcer Assessment Start: 09/20/20 08:29 Freq: Status: Active Protocol: WC.LOWEXT Activity Type Activity Date Activity User E-Sign Co-Sign Detail Recorded Client Recorded Date Recorded By Document 09/20/20 08:29 OLIVE [id number] 09/20/20 08:47 OLIVE 09/20/20 08:29 - Today's Visit Information Type of service Initial Visit Arrival Mode Ambulatory Patient Identification Verified (Name & Yes ) Patient Requires Transmission-Based No Precautions Height and Weight Body Mass Index (BMI) 46.1 BMI Classification Obese Vital Signs Temperature (97.8 F-99.1 F) 97.6 F L Temperature Source Temporal Pulse Rate (60-100) 87 Pulse Location Monitor Blood Pressure (90/60-120/80) 146/93 H Blood Pressure Mean 110 Source Monitor History Since Last Visit- (Skip if this is Patient's initial visit) Have you changed medications since your No last visit? Any new allergies or adverse reactions No Had a fall/change in ADL's that may No increase risk of falls Signs or symptoms of abuse and/or No neglect since last visit Have you been in the hospital since your No last visit? Has dressing in place as prescribed No Has compression in place as prescribed No Has offloadiing in place as prescribed No Experienced any changes in pain level or No management Left Footwear Regular Shoe Right Footwear Regular Shoe Pain Scale: 0-10 Numeric Is Patient Pain Free? Yes - Nurse 1 - General Ulcer Measurement Start: 09/20/20 08:29 Freq: Status: Active Protocol: Activity Type Activity Date Activity User E-Sign Co-Sign Detail Recorded Client Recorded Date Recorded By Document 09/20/20 08:29 OLIVE [id number] 09/20/20 08:47 LOIVE 09/20/20 08:29 Wound Center Nurse 1 #3 left gandara -Combined with other wound No -Current Size (cm) - Length 1.9 -Current Size (cm) - Width 2 -Current Size (cm) - Depth 0.7 -Total Square Cm 3.8 -Undermining/Tunneling Yes -Undermining/Tunneling Starts (O'clock 3 ) -Undermining/Tunneling Ends (O'clock) 4 -Maximum Distance (cm) 0.4 -Circular Undermining No -Exudate Amt Small -Exudate Type Serosanguineous -Wound Margin Distinct, Outline Attached -Granulation Amt Medium (34-66%) -Granulation Quality Red -Necrosis Amt None Present (0 %) -Necrotic Tissue Type Adherent Slough -Structure Exposed Muscle,Fat Layer Exposed -Texture (Karin-wound Skin Appearance) Assessed, Scarring -Moisture (Karin-wound Skin Appearance) No Abnormality, Assessed -Color (Karin-wound Skin Appearance) No Abnormality, Assessed -Temperature (Karin-wound Skin No Abnormality Appearance) (Pt Warm) -Tenderness on Palpation (Karin-wound Yes Skin Appearance) -Ulcer Cleansing Rinsed/ Irrigated with Saline -Foul Odor after Cleansing No -Anesthetic Used 4% Lidocaine Solution,5% Lidocaine Gel Right Calf (cm) 46.5 Right Ankle (cm) 28 Left Calf (cm) 46 Left Ankle (cm) 28.5 WC - Nurse 2 - General Ulcer CM Notes Start: 09/20/20 08:29 Freq: Status: Active Protocol: Activity Type Activity Date Activity User E-Sign Co-Sign Detail Recorded Client Recorded Date Recorded By Document 09/20/20 09:02 MARQUITA [id number] 09/20/20 09:05 MARQUITA 09/20/20 09:02 Wound Center Nurse 2 #3 left gandara -Time 09:03 -Correct Patient Yes -Correct Side, Site, Position Yes -Correct Procedure Yes -Procedure Performed Yes -Type of Procedure Debridement -Clinical Debridement Subcutaneous -Tissue Removed Epidermis, Subcutaneous -Post Debridement (cm) - Length 2 -Post Debridement (cm) - Width 2 -Post Debridement (cm) - Depth 0.7 -Total Square (Post) (cm) 4 -Area of Debridement (cm) - Length 2 -Area of Debridement (cm) - Width 2 -Total Square (Area) (cm) 4 -Tunneling No -Undermining/Tunneling Yes -Undermining/Tunneling Starts (O'clock 6 ) -Undermining/Tunneling Ends (O'clock) 7 -Maximum Distance (cm) 0.8 -Circular Undermining No -Wound/Ulcer Outcome Not Healed -Ulcer Cleansing Rinsed/ Irrigated with Saline -Foul Odor after Cleansing No -Bioengineered Tissue No -Bleeding Controlled with Pressure -Offloading No -Treatment Response Procedure Tolerated Well -Debridement - Subq, 1st 20sq cm Yes Pain Scale: 0-10 Numeric Is Patient Pain Free? Yes ERMA - Nurse 3 - General Ulcer D/C NN Start: 09/20/20 08:29 Freq: Status: Active Protocol: Activity Type Activity Date Activity User E-Sign Co-Sign Detail Recorded Client Recorded Date Recorded By Document 09/20/20 09:21 OLIVE [id number] 09/20/20 09:27 OLIVE 09/20/20 09:21 Wound Care Nurse 3 #3 left gandara -Ulcer Cleansing Rinsed/ Irrigated with Saline -Foul Odor after Cleansing No -Primary Dressing Applied Aquacel AG 4x4 -Primary Dressing Covered/Secured with Dry Gauze,Dry Gauze & Roll Gauze -Other Covering coban -Aquacel AG 4x4 1 Left -Tubular Bandage Double Layer -Size of Tubigrip Used Size E -Size E ($) 2 Treatment Response Procedure Tolerated Well Pain Scale: 0-10 Numeric Is Patient Pain Free? Yes WC - Visit Discharge Discharge Condition Stable Ambulatory Status Ambulatory Transportation Private Auto Wound debrided: Anterior leg ulcer Laterality: Left Type of Debridement: Excisional debridement Anesthesia Used: 5% Lidocaine Gel Depth: Down to and including healthy tissue and in the subcutaneous layer Percentage of wound debrided: 100 Instrument Used: 5mm curette Tissue Removed: Subcutaneous tissue and slough Severity: Fat Layer Exposed Amount of bleeding with debridement: Mild Bleeding Controlled with: Pressure and Compression and gauze Patient tolerated procedure: Patient tolerated procedure well Charges/Coding Visit Charges Office Visits / Consults: 18297 OV L3 Est (25 modifier) Procedures Integumentary 111xxx-113xx: 78024 Yakelin subq tissue 20 sq cm/< Assessment/Plan Assessment/Plan (1) Ulcer of left lower extremity with fat layer exposed: CODE(S): L97.922 - Non-pressure chronic ulcer of unspecified part of left lower leg with fat layer exposed (2) Contusion of lower leg: CODE(S): S80.10XA - Contusion of unspecified lower leg, initial encounter QUALIFIERS: Encounter type: subsequent encounter Laterality: left Qualified Code(s): S80.12XD - Contusion of left lower leg, subsequent encounter (3) Peripheral edema: CODE(S): R60.9 - Edema, unspecified PLAN: Wound care - Start Aquacel-Ag covered by gauze daily. Double layer tubigrip for compression, this should help with leg edema. Will seek insurance approval for a SNAP VAC to seek if negative pressure can help decrease the wound depth. Wound Culture on 09/14/20 which was positive for Aeromonas hydrophilia/caviae, Corynebacterium amycolatum/xer, MRSA, Klebsiella oxytoca. Will start her on Bactrim DS twice daily for her culture. Encouraged increase in protein intake to help with wound healing.
[2020-09-27 08:13] VITALS: BP 139/87; PULSE 85; RESP 18; TEMP 36.6; BMI 46.1
--- NOTE | 2020-09-27 09:44 | PCM.WC.PN ---
History of Present Illness Date of Service: 09/27/20 Chief Complaint: Ulcer to left anterior leg after a fall August 13, 2020. History of Wound: Patient fell down 3 steps August 13, 2020. She went to the ED 08/21/20, an ultrasound was negative for DVT. She has been seeing her PCP for wound management. He placed her on Doxycycline, removed the scabbing. She has been doing wet to dry dressings. Her PCP did a wound Culture on 09/14/20 which was positive for Aeromonas hydrophilia/caviae, Corynebacterium amycolatum/xer, MRSA, Klebsiella oxytoca. Being treated with Bactrim DS. Wound care - Approved for the SNAP VAC which was applied today. Double tubigrip for compression. Today denies fever, chills, nausea and vomiting. States appetite is ok. Progress of Wound: Improved. Objective Data Objective Data Vital Signs: Vital Signs Temp Pulse Resp BP 97.8 F 85 18 139/87 H 09/27/20 08:13 09/27/20 08:13 09/27/20 08:13 09/27/20 08:13 Body Mass Index (BMI) 46.1 Charges/Coding Procedures Integumentary 111xxx-113xx: [id number] Yakelin subq tissue 20 sq cm/< Physical Exam Const alert and oriented x3 General Appearance: cooperative HEENT normocephalic Head and Scalp: atraumatic Eyes PERRL Lymph Lymphatic: no lymphedema noted Resp normal respiratory effort Cardio regular rate GI normal to inspection, nondistended, normoactive bowel sounds Extremity normal capillary refill Extremity Narrative: +1 edema bilateral lower extremities. Skin Wound Narrative: Left anterior leg ulcer with undermining. Beefy pink in color. Improved in size and depth. Neuro CN's II-XII intact bilaterally Psych Appearance: grossly normal Debridement Note Debridement Note Post-Debridement Measurements and Additional Note: Post-Debridement Measurements/Treatment WC - Nurse 1 - General Ulcer Assessment Start: 09/20/20 08:29 Freq: Status: Active Protocol: KARLA Activity Type Activity Date Activity User E-Sign Co-Sign Detail Recorded Client Recorded Date Recorded By Document 09/20/20 08:29 AK [id number] 09/20/20 08:47 AK Document 09/27/20 08:13 DL [id number] 09/27/20 08:15 DL 09/20/20 09/27/20 08:29 08:13 - Today's Visit Information Type of service Initial Visit Follow-up Visit (Physician/STAFF MIDWIFE/APPRENTICESHIP DIRECTOR ) Arrival Mode Ambulatory Ambulatory Transfer Assistance None Patient Identification Verified (Name & Yes Yes ) Patient Requires Transmission-Based No No Precautions Height and Weight Body Mass Index (BMI) 46.1 46.1 BMI Classification Obese Obese Vital Signs Temperature (97.8 F-99.1 F) 97.6 F L 97.8 F Temperature Source Temporal Temporal Pulse Rate (60-100) 87 85 Pulse Location Monitor Monitor Respiratory Rate (12-18) 18 Respiratory rate source Observation Blood Pressure (90/60-120/80) 146/93 H 139/87 H Blood Pressure Mean (mm Hg) 110 104 Source Monitor Monitor History Since Last Visit- (Skip if this is Patient's initial visit) Have you changed medications since your No No last visit? Any new allergies or adverse reactions No No Had a fall/change in ADL's that may No No increase risk of falls Signs or symptoms of abuse and/or No No neglect since last visit Have you been in the hospital since your No No last visit? Has dressing in place as prescribed No Yes Has compression in place as prescribed No Yes Has offloadiing in place as prescribed No N/A Experienced any changes in pain level or No No management Left Footwear Regular Shoe Right Footwear Regular Shoe Pain Scale: 0-10 Numeric Is Patient Pain Free? Yes Yes - Nurse 1 - General Ulcer Measurement Start: 09/20/20 08:29 Freq: Status: Active Protocol: Activity Type Activity Date Activity User E-Sign Co-Sign Detail Recorded Client Recorded Date Recorded By Document 09/20/20 08:29 AK [id number] 09/20/20 08:47 AK Document 09/27/20 08:13 DL [id number] 09/27/20 08:15 DL 09/20/20 09/27/20 08:29 08:13 Wound Center Nurse 1 #3 left gandara -Combined with other wound No -Current Size (cm) - Length 1.9 1.8 -Current Size (cm) - Width 2 1.8 -Current Size (cm) - Depth 0.7 0.8 -Total Square Cm 3.8 3.24 -Photo Taken No -Undermining/Tunneling Yes -Undermining/Tunneling Starts (O'clock 3 ) -Undermining/Tunneling Ends (O'clock) 4 -Maximum Distance (cm) 0.4 -Circular Undermining No -Exudate Amt Small Medium -Exudate Type Serosanguineous Serosanguineous -Wound Margin Distinct, Distinct, Outline Outline Attached Attached -Granulation Amt Medium (34-66%) Medium (34-66%) -Granulation Quality Red -Necrosis Amt None Present (0 Medium (34-66%) %) -Necrotic Tissue Type Adherent Slough Adherent Slough -Structure Exposed Muscle,Fat N/A Layer Exposed -Texture (Karin-wound Skin Appearance) Assessed, Scarring Scarring -Moisture (Karin-wound Skin Appearance) No Abnormality, Assessed Assessed -Color (Karin-wound Skin Appearance) No Abnormality, No Abnormality Assessed -Temperature (Karin-wound Skin No Abnormality No Abnormality Appearance) (Pt Warm) (Pt Warm) -Tenderness on Palpation (Karin-wound Yes No Skin Appearance) -Ulcer Cleansing Rinsed/ Irrigated with Saline -Foul Odor after Cleansing No Yes, Due to Product Use -Anesthetic Used 4% Lidocaine 4% Lidocaine Solution,5% Solution,5% Lidocaine Gel Lidocaine Gel Right Calf (cm) 46.5 Right Ankle (cm) 28 Left Calf (cm) 46 45 Left Ankle (cm) 28.5 26.5 WC - Nurse 2 - General Ulcer CM Notes Start: 09/20/20 08:29 Freq: Status: Active Protocol: Activity Type Activity Date Activity User E-Sign Co-Sign Detail Recorded Client Recorded Date Recorded By Document 09/20/20 09:02 JF [id number] 09/20/20 09:05 Document 09/27/20 08:25 [id number] 09/27/20 08:28 09/20/20 09/27/20 09:02 08:25 Wound Center Nurse 2 #3 left gandara -Time 09:03 08:25 -Correct Patient Yes Yes -Correct Side, Site, Position Yes Yes -Correct Procedure Yes Yes -Procedure Performed Yes Yes -Type of Procedure Debridement Debridement -Clinical Debridement Subcutaneous Subcutaneous -Tissue Removed Epidermis, Subcutaneous Subcutaneous -Post Debridement (cm) - Length 2 2 -Post Debridement (cm) - Width 2 2 -Post Debridement (cm) - Depth 0.7 0.6 -Total Square (Post) (cm) 4 4 -Area of Debridement (cm) - Length 2 2 -Area of Debridement (cm) - Width 2 2 -Total Square (Area) (cm) 4 4 -Tunneling No No -Undermining/Tunneling Yes Yes -Undermining/Tunneling Starts (O'clock 6 3 ) -Undermining/Tunneling Ends (O'clock) 7 7 -Maximum Distance (cm) 0.8 1 -Circular Undermining No No -Wound/Ulcer Outcome Not Healed Not Healed -Ulcer Cleansing Rinsed/ Rinsed/ Irrigated with Irrigated with Saline Saline -Foul Odor after Cleansing No No -Bioengineered Tissue No No -Bleeding Controlled with Pressure Pressure -Offloading No No -Treatment Response Procedure Procedure Tolerated Well Tolerated Well -Debridement - Subq, 1st 20sq cm Yes Yes Pain Scale: 0-10 Numeric Is Patient Pain Free? Yes Yes - Nurse 3 - General Ulcer D/C NN Start: 09/20/20 08:29 Freq: Status: Active Protocol: Activity Type Activity Date Activity User E-Sign Co-Sign Detail Recorded Client Recorded Date Recorded By Document 09/20/20 09:21 OR [id number] 09/20/20 09:27 OR Document 09/27/20 08:51 [id number] 09/27/20 08:51 09/20/20 09/27/20 09:21 08:51 Wound Care Nurse 3 #3 left gandara -Ulcer Cleansing Rinsed/ Rinsed/ Irrigated with Irrigated with Saline Saline -Foul Odor after Cleansing No No -Negative Pressure Wound Therapy Start -Setting (mmHg) 125 -Negative Pressure is Continuous -Primary Dressing Applied Aquacel AG 4x4 -Primary Dressing Covered/Secured with Dry Gauze,Dry Gauze & Roll Gauze -Other Covering coban -NPWT Application Charge ($) NPWT </= 50 sq cm (disp) -Aquacel AG 4x4 1 Left -Compression Wrap Yony Wrap -Tubular Bandage Double Layer -Size of Tubigrip Used Size E -Size E ($) 2 Treatment Response Procedure Tolerated Well Pain Scale: 0-10 Numeric Is Patient Pain Free? Yes Yes - Visit Discharge Discharge Condition Stable Stable Ambulatory Status Ambulatory Ambulatory Transportation Private Auto Private Auto Accompanied by dad Medication Reconcilliation completed & Yes provided to patient/care provider Clinical Summary of Care Provided Yes Wound debrided: anterior leg ulcer Laterality: Left Type of Debridement: Excisional debridement Anesthesia Used: 5% Lidocaine Gel Depth: Down to and including healthy tissue and in the subcutaneous layer Percentage of wound debrided: 100 Instrument Used: 5mm curette Tissue Removed: Subcutaneous tissue and slough Severity: Fat Layer Exposed Amount of bleeding with debridement: Mild Bleeding Controlled with: Pressure Patient tolerated procedure: Patient tolerated procedure well Assessment/Plan Assessment/Plan (1) Ulcer of left lower extremity with fat layer exposed: CODE(S): L97.922 - Non-pressure chronic ulcer of unspecified part of left lower leg with fat layer exposed (2) Contusion of lower leg: CODE(S): S80.10XA - Contusion of unspecified lower leg, initial encounter QUALIFIERS: Encounter type: subsequent encounter Laterality: left Qualified Code(s): S80.12XD - Contusion of left lower leg, subsequent encounter (3) Peripheral edema: CODE(S): R60.9 - Edema, unspecified PLAN: Wound care - Start SNAP VAC. Do not get it wet. Double layer tubigrip for compression, this should help with leg edema. Wound Culture on 09/14/20 which was positive for Aeromonas hydrophilia/caviae, Corynebacterium amycolatum/xer, MRSA, Klebsiella oxytoca. Continue Bactrim DS. Encouraged increase in protein intake to help with wound healing. She has been having increased pain. She has been taking Acetaminophen with no improvement in symptoms. She is unable to take Ibuprofen, so will prescribe Tramadol (14 tabs) for breakthrough pain. PDMP reviewed. She is going out of town at the end of this week. She will remove the SNAP VAC on Sunday and do daily Aquacel-Ag dressing changes covered with gauze until she returns on Sunday to have the SNAP VAC placed Follow up one week.
[2020-10-04 08:40] VITALS: BP 150/92; PULSE 93; RESP 16; TEMP 36.6; BMI 46.1
--- NOTE | 2020-10-04 09:26 | PCM.WC.PN ---
History of Present Illness Date of Service: 10/04/20 Chief Complaint: Ulcer to left anterior leg after a fall August 13, 2020. History of Wound: Patient fell down 3 steps August 13, 2020. She went to the ED 08/21/20, an ultrasound was negative for DVT. She has been seeing her PCP for wound management. He placed her on Doxycycline, removed the scabbing. She has been doing wet to dry dressings. Her PCP did a wound Culture on 09/14/20 which was positive for Aeromonas hydrophilia/caviae, Corynebacterium amycolatum/xer, MRSA, Klebsiella oxytoca. Being treated with Bactrim DS. Wound care - Approved for the SNAP VAC which was applied today. Double tubigrip for compression. Today denies fever, chills, nausea and vomiting. States appetite is ok. Progress of Wound: Improved. Objective Data Objective Data Vital Signs: Vital Signs Temp Pulse Resp BP 97.9 F 93 16 150/92 H 10/04/20 08:40 10/04/20 08:40 10/04/20 08:40 10/04/20 08:40 Oxygen Delivery Method Room Air Body Mass Index (BMI) 46.1 Charges/Coding Procedures Integumentary 111xxx-113xx: [id number] Yakelin subq tissue 20 sq cm/< Physical Exam Const alert and oriented x3 General Appearance: cooperative HEENT normocephalic Head and Scalp: atraumatic Eyes PERRL Lymph Lymphatic: no lymphedema noted Resp normal respiratory effort Cardio regular rate GI normal to inspection, nondistended, normoactive bowel sounds Extremity normal capillary refill Skin Wound Narrative: Left anterior leg ulcer that is decreasing in size and the undermining from 3-6 o'clock is improving with the SNAP VAC. Neuro CN's II-XII intact bilaterally Psych Appearance: grossly normal Debridement Note Debridement Note Post-Debridement Measurements and Additional Note: Post-Debridement Measurements/Treatment WC - Nurse 1 - General Ulcer Assessment Start: 09/20/20 08:29 Freq: Status: Active Protocol: KARLA Activity Type Activity Date Activity User E-Sign Co-Sign Detail Recorded Client Recorded Date Recorded By Document 09/20/20 08:29 AK [id number] 09/20/20 08:47 AK Document 09/27/20 08:13 DL [id number] 09/27/20 08:15 DL Document 10/04/20 08:40 BMF [id number] 10/04/20 08:46 BMF 09/20/20 09/27/20 10/04/20 08:29 08:13 08:40 - Today's Visit Information Type of service Initial Visit Follow-up Visit Follow-up Visit (Physician/DEMONSTRATOR SEWING TECHNIQUES (Physician/DEMONSTRATOR SEWING TECHNIQUES ) ) Arrival Mode Ambulatory Ambulatory Ambulatory Transfer Assistance None None Accompanied by dad Patient Identification Verified (Name & Yes Yes Yes ) Patient Requires Transmission-Based No No No Precautions Height and Weight Body Mass Index (BMI) 46.1 46.1 46.1 BMI Classification Obese Obese Obese Vital Signs Temperature (97.8 F-99.1 F) 97.6 F L 97.8 F 97.9 F Temperature Source Temporal Temporal Temporal Pulse Rate (60-100) 87 85 93 Pulse Location Monitor Monitor Monitor Respiratory Rate (12-18) 18 16 Respiratory rate source Observation Observation Oxygen Delivery Method Room Air Blood Pressure (90/60-120/80) 146/93 H 139/87 H 150/92 H Blood Pressure Mean (mm Hg) 110 104 111 Source Monitor Monitor Monitor Position Sitting Blood Pressure Location Left Arm History Since Last Visit- (Skip if this is Patient's initial visit) Have you changed medications since your No No No last visit? Any new allergies or adverse reactions No No No Had a fall/change in ADL's that may No No No increase risk of falls Signs or symptoms of abuse and/or No No No neglect since last visit Have you been in the hospital since your No No No last visit? Has dressing in place as prescribed No Yes Yes Has compression in place as prescribed No Yes Yes Has offloadiing in place as prescribed No N/A N/A Experienced any changes in pain level or No No No management Left Footwear Regular Shoe Regular Shoe Right Footwear Regular Shoe Regular Shoe Pain Scale: 0-10 Numeric Is Patient Pain Free? Yes Yes Yes - Nurse 1 - General Ulcer Measurement Start: 09/20/20 08:29 Freq: Status: Active Protocol: Activity Type Activity Date Activity User E-Sign Co-Sign Detail Recorded Client Recorded Date Recorded By Document 09/20/20 08:29 AK [id number] 09/20/20 08:47 AK Document 09/27/20 08:13 DL [id number] 09/27/20 08:15 DL Document 10/04/20 08:40 [facility] [id number] 10/04/20 08:46 BMF 09/20/20 09/27/20 10/04/20 08:29 08:13 08:40 Wound Center Nurse 1 #3 left gandara -Combined with other wound No No -Current Size (cm) - Length 1.9 1.8 1.7 -Current Size (cm) - Width 2 1.8 1.8 -Current Size (cm) - Depth 0.7 0.8 0.4 -Total Square Cm 3.8 3.24 3.06 -Photo Taken No No -Epithelialization Small 1-33% -Tunneling No -Undermining/Tunneling Yes No -Undermining/Tunneling Starts (O'clock 3 ) -Undermining/Tunneling Ends (O'clock) 4 -Maximum Distance (cm) 0.4 -Circular Undermining No No -Exudate Amt Small Medium Medium -Exudate Type Serosanguineous Serosanguineous Serosanguineous -Wound Margin Distinct, Distinct, Distinct, Outline Outline Outline Attached Attached Attached -Granulation Amt Medium (34-66%) Medium (34-66%) Medium (34-66%) -Granulation Quality Red Pale,Red -Slough/Fibrin Yes -Necrosis Amt None Present (0 Medium (34-66%) Medium (34-66%) %) -Necrotic Tissue Type Adherent Slough Adherent Slough Adherent Slough -Structure Exposed Muscle,Fat N/A Layer Exposed -Texture (Karin-wound Skin Appearance) Assessed, Scarring Assessed, Scarring Scarring -Moisture (Karin-wound Skin Appearance) No Abnormality, Assessed Assessed Assessed -Color (Karin-wound Skin Appearance) No Abnormality, No Abnormality Assessed Assessed -Temperature (Karin-wound Skin No Abnormality No Abnormality No Abnormality Appearance) (Pt Warm) (Pt Warm) (Pt Warm) -Tenderness on Palpation (Karin-wound Yes No No Skin Appearance) -Ulcer Cleansing Rinsed/ Rinsed/ Irrigated with Irrigated with Saline Saline -Foul Odor after Cleansing No Yes, Due to No Product Use -Anesthetic Used 4% Lidocaine 4% Lidocaine 4% Lidocaine Solution,5% Solution,5% Solution Lidocaine Gel Lidocaine Gel Right Calf (cm) 46.5 Right Ankle (cm) 28 Left Calf (cm) 46 45 Left Ankle (cm) 28.5 26.5 WC - Nurse 2 - General Ulcer CM Notes Start: 09/20/20 08:29 Freq: Status: Active Protocol: Activity Type Activity Date Activity User E-Sign Co-Sign Detail Recorded Client Recorded Date Recorded By Document 09/20/20 09:02 JF [id number] 09/20/20 09:05 JF Document 09/27/20 08:25 JF [id number] 09/27/20 08:28 JF Document 10/04/20 08:56 JF [id number] 10/04/20 08:59 JF 09/20/20 09/27/20 10/04/20 09:02 08:25 08:56 Wound Center Nurse 2 #3 left gandara -Time 09:03 08:25 08:56 -Correct Patient Yes Yes Yes -Correct Side, Site, Position Yes Yes Yes -Correct Procedure Yes Yes Yes -Procedure Performed Yes Yes Yes -Type of Procedure Debridement Debridement Debridement -Clinical Debridement Subcutaneous Subcutaneous Subcutaneous -Tissue Removed Epidermis, Subcutaneous Subcutaneous Subcutaneous -Post Debridement (cm) - Length 2 2 1.8 -Post Debridement (cm) - Width 2 2 1.8 -Post Debridement (cm) - Depth 0.7 0.6 0.7 -Total Square (Post) (cm) 4 4 3.24 -Area of Debridement (cm) - Length 2 2 1.8 -Area of Debridement (cm) - Width 2 2 1.8 -Total Square (Area) (cm) 4 4 3.24 -Tunneling No No No -Undermining/Tunneling Yes Yes Yes -Undermining/Tunneling Starts (O'clock 6 3 3 ) -Undermining/Tunneling Ends (O'clock) 7 7 6 -Maximum Distance (cm) 0.8 1 0.5 -Circular Undermining No No No -Wound/Ulcer Outcome Not Healed Not Healed Not Healed -Ulcer Cleansing Rinsed/ Rinsed/ Rinsed/ Irrigated with Irrigated with Irrigated with Saline Saline Saline -Foul Odor after Cleansing No No No -Bioengineered Tissue No No No -Bleeding Controlled with Pressure Pressure Pressure -Offloading No No No -Treatment Response Procedure Procedure Procedure Tolerated Well Tolerated Well Tolerated Well -Debridement - Subq, 1st 20sq cm Yes Yes Yes Pain Scale: 0-10 Numeric Is Patient Pain Free? Yes Yes Yes - Nurse 3 - General Ulcer D/C NN Start: 09/20/20 08:29 Freq: Status: Active Protocol: Activity Type Activity Date Activity User E-Sign Co-Sign Detail Recorded Client Recorded Date Recorded By Document 09/20/20 09:21 AK [id number] 09/20/20 09:27 AK Document 09/27/20 08:51 JF [id number] 09/27/20 08:51 JF Document 10/04/20 09:16 BM [id number] 10/04/20 09:17 BM 09/20/20 09/27/20 10/04/20 09:21 08:51 09:16 Wound Care Nurse 3 #3 left gandara -Ulcer Cleansing Rinsed/ Rinsed/ Rinsed/ Irrigated with Irrigated with Irrigated with Saline Saline Saline -Foul Odor after Cleansing No No No -Negative Pressure Wound Therapy Start Continue -Setting (mmHg) 125 125 -Negative Pressure is Continuous Continuous -Primary Dressing Applied Aquacel AG 4x4 -Primary Dressing Covered/Secured with Dry Gauze,Dry Gauze & Roll Gauze -Other Covering coban -NPWT Application Charge ($) NPWT </= 50 sq NPWT </= 50 sq cm (disp) cm (disp) -Aquacel AG 4x4 1 Left -Compression Wrap Yony Wrap -Tubular Bandage Double Layer -Size of Tubigrip Used Size E -Size E ($) 2 -Other pt applied own tubi Treatment Response Procedure Procedure Tolerated Well Tolerated Well Pain Scale: 0-10 Numeric Is Patient Pain Free? Yes Yes Yes WC - Visit Discharge Discharge Condition Stable Stable Stable Ambulatory Status Ambulatory Ambulatory Ambulatory Transportation Private Auto Private Auto Private Auto Accompanied by dad javad Medication Reconcilliation completed & Yes provided to patient/care provider Clinical Summary of Care Provided Yes Wound debrided: Anterior leg ulcer Laterality: Left Type of Debridement: Excisional debridement Anesthesia Used: 5% Lidocaine Gel Depth: Down to and including healthy tissue and in the subcutaneous layer Percentage of wound debrided: 100 Instrument Used: 5mm curette Tissue Removed: Subcutaneous tissue and slough Amount of bleeding with debridement: Moderate Bleeding Controlled with: Pressure and Compression and gauze Patient tolerated procedure: Patient tolerated procedure well Assessment/Plan Assessment/Plan (1) Ulcer of left lower extremity with fat layer exposed: CODE(S): L97.922 - Non-pressure chronic ulcer of unspecified part of left lower leg with fat layer exposed (2) Contusion of lower leg: CODE(S): S80.10XA - Contusion of unspecified lower leg, initial encounter QUALIFIERS: Encounter type: subsequent encounter Laterality: left Qualified Code(s): S80.12XD - Contusion of left lower leg, subsequent encounter (3) Peripheral edema: CODE(S): R60.9 - Edema, unspecified PLAN: Wound care - Start SNAP VAC. Do not get it wet. Double layer tubigrip for compression, this should help with leg edema. Wound Culture on 09/14/20 which was positive for Aeromonas hydrophilia/caviae, Corynebacterium amycolatum/xer, MRSA, Klebsiella oxytoca. Continue Bactrim DS. Encouraged increase in protein intake to help with wound healing. Follow up at the end of the week for a nurse visit to have the SNAP VAC changed. Follow up one week.
[2020-10-04 13:22] VITALS: BMI 46.1
[2020-10-08 12:04] VITALS: BP 130/78; PULSE 80; RESP 20; TEMP 36.8; BMI 46.1
[2020-10-11 08:13] VITALS: BP 141/86; PULSE 83; RESP 16; TEMP 36.1; BMI 46.1
--- NOTE | 2020-10-11 09:42 | PN.PCM_ITS ---
History of Present Illness Date of Service: 10/11/20 Chief Complaint: Ulcer to left anterior leg after a fall August 13, 2020. History of Wound: Patient fell down 3 steps August 13, 2020. She went to the ED 08/21/20, an ultrasound was negative for DVT. She has been seeing her PCP for wound management. He placed her on Doxycycline, removed the scabbing. She has been doing wet to dry dressings. Her PCP did a wound Culture on 09/14/20 which was positive for Aeromonas hydrophilia/caviae, Corynebacterium amycolatum/xer, MRSA, Klebsiella oxytoca. Being treated with Bactrim DS. Wound Care - SNAP VAC on hold for one week. Daily Aquacel-Ag covered with gauze. Double tubigrip for compression. Today denies fever, chills, nausea and vomiting. States appetite is ok. Progress of Wound: Improved. Objective Data Objective Data Vital Signs: Vital Signs Temp Pulse Resp BP 96.9 F L 83 16 141/86 H 10/11/20 08:13 10/11/20 08:13 10/11/20 08:13 10/11/20 08:13 Oxygen Delivery Method Room Air Body Mass Index (BMI) 46.1 Charges/Coding Procedures Integumentary 111xxx-113xx: [id number] Yakelin subq tissue 20 sq cm/< Physical Exam Const alert and oriented x3 General Appearance: cooperative HEENT normocephalic Eyes PERRL Lymph Lymphatic: no lymphedema noted Resp clear to auscultation bilaterally Cardio regular rate GI non-tender Palpation: soft Extremity normal capillary refill and no calf tenderness Skin Wound Narrative: Left anterior leg ulcer is beefy pink. Undermining is improving, as is the overall depth of the ulcer. Neuro CN's II-XII intact bilaterally Psych Appearance: grossly normal Debridement Note Debridement Note Post-Debridement Measurements and Additional Note: Post-Debridement Measurements/Treatment WC - Nurse 1 - General Ulcer Assessment Start: 09/20/20 08:29 Freq: Status: Active Protocol: KARLA Activity Type Activity Date Activity User E-Sign Co-Sign Detail Recorded Client Recorded Date Recorded By Document 09/20/20 08:29 AK [id number] 09/20/20 08:47 AK Document 09/27/20 08:13 DL [id number] 09/27/20 08:15 DL Document 10/04/20 08:40 BMF [id number] 10/04/20 08:46 BMF Document 10/04/20 13:22 KR [id number] 10/04/20 13:25 KR Document 10/08/20 12:04 DL [id number] 10/08/20 12:18 DL Document 10/11/20 08:13 BMF [id number] 10/11/20 08:15 BMF 09/20/20 09/27/20 10/04/20 08:29 08:13 08:40 WC - Today's Visit Information Type of service Initial Visit Follow-up Visit Follow-up Visit (Physician/CAMPUS AIDE (Physician/CAMPUS AIDE ) ) Arrival Mode Ambulatory Ambulatory Ambulatory Transfer Assistance None None Accompanied by dad Patient Identification Verified (Name & Yes Yes Yes ) Patient Requires Transmission-Based No No No Precautions Height and Weight Body Mass Index (BMI) 46.1 46.1 46.1 BMI Classification Obese Obese Obese Vital Signs Temperature (97.8 F-99.1 F) 97.6 F L 97.8 F 97.9 F Temperature Source Temporal Temporal Temporal Pulse Rate (60-100) 87 85 93 Pulse Location Monitor Monitor Monitor Respiratory Rate (12-18) 18 16 Respiratory rate source Observation Observation Oxygen Delivery Method Room Air Blood Pressure (90/60-120/80) 146/93 H 139/87 H 150/92 H Blood Pressure Mean (mm Hg) 110 104 111 Source Monitor Monitor Monitor Position Sitting Blood Pressure Location Left Arm History Since Last Visit- (Skip if this is Patient's initial visit) Have you changed medications since your No No No last visit? Any new allergies or adverse reactions No No No Had a fall/change in ADL's that may No No No increase risk of falls Signs or symptoms of abuse and/or No No No neglect since last visit Have you been in the hospital since your No No No last visit? Has dressing in place as prescribed No Yes Yes Has compression in place as prescribed No Yes Yes Has offloadiing in place as prescribed No N/A N/A Experienced any changes in pain level or No No No management Left Footwear Regular Shoe Regular Shoe Right Footwear Regular Shoe Regular Shoe Pain Scale: 0-10 Numeric Is Patient Pain Free? Yes Yes Yes 10/04/20 10/08/20 10/11/20 13:22 12:04 08:13 WC - Today's Visit Information Type of service Nurse-only Follow-up Visit Visit (Physician/CAMPUS AIDE ) Arrival Mode Ambulatory Ambulatory Transfer Assistance None None Accompanied by Patient Identification Verified (Name & Yes Yes ) Patient Requires Transmission-Based No No Precautions Height and Weight Body Mass Index (BMI) 46.1 46.1 46.1 BMI Classification Obese Obese Obese Vital Signs Temperature (97.8 F-99.1 F) 98.3 F 96.9 F L Temperature Source Temporal Temporal Pulse Rate (60-100) 80 83 Pulse Location Monitor Monitor Respiratory Rate (12-18) 20 H 16 Respiratory rate source Observation Observation Oxygen Delivery Method Room Air Blood Pressure (90/60-120/80) 130/78 H 141/86 H Blood Pressure Mean (mm Hg) 95 104 Source Monitor Monitor Position Sitting Blood Pressure Location Left Forearm History Since Last Visit- (Skip if this is Patient's initial visit) Have you changed medications since your No No last visit? Any new allergies or adverse reactions No No Had a fall/change in ADL's that may No No increase risk of falls Signs or symptoms of abuse and/or No No neglect since last visit Have you been in the hospital since your No No last visit? Has dressing in place as prescribed No No Has compression in place as prescribed N/A No Has offloadiing in place as prescribed N/A N/A Experienced any changes in pain level or No No management Left Footwear Regular Shoe Right Footwear Regular Shoe Pain Scale: 0-10 Numeric Is Patient Pain Free? Yes Yes - Nurse 1 - General Ulcer Measurement Start: 09/20/20 08:29 Freq: Status: Active Protocol: Activity Type Activity Date Activity User E-Sign Co-Sign Detail Recorded Client Recorded Date Recorded By Document 09/20/20 08:29 AK [id number] 09/20/20 08:47 AK Document 09/27/20 08:13 DL [id number] 09/27/20 08:15 DL Document 10/04/20 08:40 BMF [id number] 10/04/20 08:46 BMF Document 10/08/20 12:04 DL [id number] 10/08/20 12:18 DL Document 10/11/20 08:13 BMF [id number] 10/11/20 08:15 BMF 09/20/20 09/27/20 10/04/20 08:29 08:13 08:40 Wound Center Nurse 1 #3 left gandara -Combined with other wound No No -Current Size (cm) - Length 1.9 1.8 1.7 -Current Size (cm) - Width 2 1.8 1.8 -Current Size (cm) - Depth 0.7 0.8 0.4 -Total Square Cm 3.8 3.24 3.06 -Photo Taken No No -Epithelialization Small 1-33% -Tunneling No -Undermining/Tunneling Yes No -Undermining/Tunneling Starts (O'clock 3 ) -Undermining/Tunneling Ends (O'clock) 4 -Maximum Distance (cm) 0.4 -Circular Undermining No No -Exudate Amt Small Medium Medium -Exudate Type Serosanguineous Serosanguineous Serosanguineous -Wound Margin Distinct, Distinct, Distinct, Outline Outline Outline Attached Attached Attached -Granulation Amt Medium (34-66%) Medium (34-66%) Medium (34-66%) -Granulation Quality Red Pale,Red -Slough/Fibrin Yes -Necrosis Amt None Present (0 Medium (34-66%) Medium (34-66%) %) -Necrotic Tissue Type Adherent Slough Adherent Slough Adherent Slough -Structure Exposed Muscle,Fat N/A Layer Exposed -Texture (Karin-wound Skin Appearance) Assessed, Scarring Assessed, Scarring Scarring -Moisture (Karin-wound Skin Appearance) No Abnormality, Assessed Assessed Assessed -Color (Karin-wound Skin Appearance) No Abnormality, No Abnormality Assessed Assessed -Temperature (Karin-wound Skin No Abnormality No Abnormality No Abnormality Appearance) (Pt Warm) (Pt Warm) (Pt Warm) -Tenderness on Palpation (Karin-wound Yes No No Skin Appearance) -Ulcer Cleansing Rinsed/ Rinsed/ Irrigated with Irrigated with Saline Saline -Foul Odor after Cleansing No Yes, Due to No Product Use -Anesthetic Used 4% Lidocaine 4% Lidocaine 4% Lidocaine Solution,5% Solution,5% Solution Lidocaine Gel Lidocaine Gel Right Calf (cm) 46.5 Right Ankle (cm) 28 Left Calf (cm) 46 45 Left Ankle (cm) 28.5 26.5 10/08/20 10/11/20 12:04 08:13 Wound Center Nurse 1 #3 left gandara -Combined with other wound No -Current Size (cm) - Length 1.5 -Current Size (cm) - Width 1.5 -Current Size (cm) - Depth 0.2 -Total Square Cm 2.25 -Photo Taken No No -Epithelialization Small 1-33% -Tunneling No -Undermining/Tunneling No -Undermining/Tunneling Starts (O'clock ) -Undermining/Tunneling Ends (O'clock) -Maximum Distance (cm) -Circular Undermining No -Exudate Amt Small Medium -Exudate Type Serosanguineous Serosanguineous -Wound Margin Distinct, Distinct, Outline Outline Attached Attached -Granulation Amt Large (67-100%) Medium (34-66%) -Granulation Quality Red -Slough/Fibrin Yes -Necrosis Amt Medium (34-66%) Medium (34-66%) -Necrotic Tissue Type Adherent Slough Adherent Slough -Structure Exposed N/A -Texture (Karin-wound Skin Appearance) Scarring Assessed, Fluctuance -Moisture (Karin-wound Skin Appearance) No Abnormality Assessed -Color (Karin-wound Skin Appearance) No Abnormality Assessed -Temperature (Karin-wound Skin No Abnormality No Abnormality Appearance) (Pt Warm) (Pt Warm) -Tenderness on Palpation (Karin-wound No No Skin Appearance) -Ulcer Cleansing Wound Cleanser Rinsed/ Irrigated with Saline -Foul Odor after Cleansing No No -Anesthetic Used 5% Lidocaine Gel Right Calf (cm) Right Ankle (cm) Left Calf (cm) Left Ankle (cm) WC - Nurse 2 - General Ulcer CM Notes Start: 09/20/20 08:29 Freq: Status: Active Protocol: Activity Type Activity Date Activity User E-Sign Co-Sign Detail Recorded Client Recorded Date Recorded By Document 09/20/20 09:02 [id number] 09/20/20 09:05 Document 09/27/20 08:25 JF [id number] 09/27/20 08:28 JF Document 10/04/20 08:56 JF [id number] 10/04/20 08:59 JF Document 10/11/20 08:23 JF [id number] 10/11/20 08:27 JF 09/20/20 09/27/20 10/04/20 09:02 08:25 08:56 Wound Center Nurse 2 #3 left gandara -Time 09:03 08:25 08:56 -Correct Patient Yes Yes Yes -Correct Side, Site, Position Yes Yes Yes -Correct Procedure Yes Yes Yes -Procedure Performed Yes Yes Yes -Type of Procedure Debridement Debridement Debridement -Clinical Debridement Subcutaneous Subcutaneous Subcutaneous -Tissue Removed Epidermis, Subcutaneous Subcutaneous Subcutaneous -Post Debridement (cm) - Length 2 2 1.8 -Post Debridement (cm) - Width 2 2 1.8 -Post Debridement (cm) - Depth 0.7 0.6 0.7 -Total Square (Post) (cm) 4 4 3.24 -Area of Debridement (cm) - Length 2 2 1.8 -Area of Debridement (cm) - Width 2 2 1.8 -Total Square (Area) (cm) 4 4 3.24 -Tunneling No No No -Undermining/Tunneling Yes Yes Yes -Undermining/Tunneling Starts (O'clock 6 3 3 ) -Undermining/Tunneling Ends (O'clock) 7 7 6 -Maximum Distance (cm) 0.8 1 0.5 -Circular Undermining No No No -Wound/Ulcer Outcome Not Healed Not Healed Not Healed -Ulcer Cleansing Rinsed/ Rinsed/ Rinsed/ Irrigated with Irrigated with Irrigated with Saline Saline Saline -Foul Odor after Cleansing No No No -Bioengineered Tissue No No No -Bleeding Controlled with Pressure Pressure Pressure -Offloading No No No -Treatment Response Procedure Procedure Procedure Tolerated Well Tolerated Well Tolerated Well -Debridement - Subq, 1st 20sq cm Yes Yes Yes Pain Scale: 0-10 Numeric Is Patient Pain Free? Yes Yes Yes 10/11/20 08:23 Wound Center Nurse 2 #3 left gandara -Time 08:23 -Correct Patient Yes -Correct Side, Site, Position Yes -Correct Procedure Yes -Procedure Performed Yes -Type of Procedure Debridement -Clinical Debridement Subcutaneous -Tissue Removed Subcutaneous -Post Debridement (cm) - Length 1.7 -Post Debridement (cm) - Width 1.7 -Post Debridement (cm) - Depth 0.3 -Total Square (Post) (cm) 2.89 -Area of Debridement (cm) - Length 1.7 -Area of Debridement (cm) - Width 1.7 -Total Square (Area) (cm) 2.89 -Tunneling No -Undermining/Tunneling Yes -Undermining/Tunneling Starts (O'clock 3 ) -Undermining/Tunneling Ends (O'clock) 5 -Maximum Distance (cm) 0.2 -Circular Undermining No -Wound/Ulcer Outcome Not Healed -Ulcer Cleansing Rinsed/ Irrigated with Saline -Foul Odor after Cleansing No -Bioengineered Tissue No -Bleeding Controlled with Pressure -Offloading No -Treatment Response Procedure Tolerated Well -Debridement - Subq, 1st 20sq cm Yes Pain Scale: 0-10 Numeric Is Patient Pain Free? Yes WC - Nurse 3 - General Ulcer D/C NN Start: 09/20/20 08:29 Freq: Status: Active Protocol: Activity Type Activity Date Activity User E-Sign Co-Sign Detail Recorded Client Recorded Date Recorded By Document 09/20/20 09:21 AK [id number] 09/20/20 09:27 AK Document 09/27/20 08:51 JF [id number] 09/27/20 08:51 JF Document 10/04/20 09:16 BMF [id number] 10/04/20 09:17 BMF Document 10/04/20 13:25 KR [id number] 10/04/20 13:27 KR Document 10/08/20 12:04 DL [id number] 10/08/20 12:18 DL Document 10/11/20 08:44 DL [id number] 10/11/20 08:48 DL 09/20/20 09/27/20 10/04/20 09:21 08:51 09:16 Wound Care Nurse 3 #3 left gandara -Ulcer Cleansing Rinsed/ Rinsed/ Rinsed/ Irrigated with Irrigated with Irrigated with Saline Saline Saline -Foul Odor after Cleansing No No No -Negative Pressure Wound Therapy Start Continue -Setting (mmHg) 125 125 -Negative Pressure is Continuous Continuous -Primary Dressing Applied Aquacel AG 4x4 -Primary Dressing Covered/Secured with Dry Gauze,Dry Gauze & Roll Gauze -Other Covering coban -NPWT Application Charge ($) NPWT </= 50 sq NPWT </= 50 sq cm (disp) cm (disp) -Aquacel AG 4x4 1 Left -Multi-Layered Wrap Application -Compression Wrap Yony Wrap -Unna Boots (Bilat) ($) -Tubular Bandage Double Layer -Size of Tubigrip Used Size E -Size E ($) 2 -Other pt applied own tubi Treatment Response Procedure Procedure Tolerated Well Tolerated Well Vital Signs Temperature (97.8 F-99.1 F) Temperature Source Pulse Rate (60-100) Pulse Location Respiratory Rate (12-18) Respiratory rate source Blood Pressure (90/60-120/80) Blood Pressure Mean (mm Hg) Source Pain Scale: 0-10 Numeric Is Patient Pain Free? Yes Yes Yes WC - Visit Discharge Discharge Condition Stable Stable Stable Ambulatory Status Ambulatory Ambulatory Ambulatory Transportation [employer] Accompanied by dad javad Medication Reconcilliation completed & Yes provided to patient/care provider Clinical Summary of Care Provided Yes Notes: 10/04/20 10/08/20 10/11/20 13:25 12:04 08:44 Wound Care Nurse 3 #3 left gandara -Ulcer Cleansing Wound Cleanser Rinsed/ Irrigated with Saline -Foul Odor after Cleansing No No -Negative Pressure Wound Therapy Continue -Setting (mmHg) 125 -Negative Pressure is Continuous -Primary Dressing Applied Aquacel AG 4x4 -Primary Dressing Covered/Secured with Dry Gauze, Secured with Tape -Other Covering -NPWT Application Charge ($) NPWT </= 50 sq cm (disp) -Aquacel AG 4x4 1 Left -Multi-Layered Wrap Application Unna Boot - Bilateral ($) -Compression Wrap -Unna Boots (Bilat) ($) 2 -Tubular Bandage Double Layer -Size of Tubigrip Used Size E -Size E ($) 2 -Other Treatment Response Vital Signs Temperature (97.8 F-99.1 F) 98.3 F Temperature Source Temporal Pulse Rate (60-100) 80 Pulse Location Monitor Respiratory Rate (12-18) 20 H Respiratory rate source Observation Blood Pressure (90/60-120/80) 130/78 H Blood Pressure Mean (mm Hg) 95 Source Monitor Pain Scale: 0-10 Numeric Is Patient Pain Free? Yes WC - Visit Discharge Discharge Condition Stable Stable Ambulatory Status Ambulatory Ambulatory Transportation [employer] Accompanied by Medication Reconcilliation completed & provided to patient/care provider Clinical Summary of Care Provided Notes: Snap Vac applied today. Wound debrided: anterior leg ulcer Laterality: Left Type of Debridement: Excisional debridement Anesthesia Used: 5% Lidocaine Gel Depth: Down to and including healthy tissue and in the subcutaneous layer Percentage of wound debrided: 100 Instrument Used: 3mm curette Tissue Removed: Subcutaneous tissue and slough Severity: Fat Layer Exposed Amount of bleeding with debridement: Mild Bleeding Controlled with: Pressure and Compression and gauze Patient tolerated procedure: Patient tolerated procedure well Assessment/Plan Assessment/Plan (1) Ulcer of left lower extremity with fat layer exposed: CODE(S): L97.922 - Non-pressure chronic ulcer of unspecified part of left lower leg with fat layer exposed (2) Contusion of lower leg: CODE(S): S80.10XA - Contusion of unspecified lower leg, initial encounter QUALIFIERS: Encounter type: subsequent encounter Laterality: left Qualified Code(s): S80.12XD - Contusion of left lower leg, subsequent encounter (3) Peripheral edema: CODE(S): R60.9 - Edema, unspecified PLAN: Wound Care - SNAP VAC on hold for one week. Daily Aquacel-Ag covered with gauze. Double tubigrip for compression. She is traveling this week for work and does not want to deal with the VAC while traveling. Will re- evaluate the need for the VAC next week. Wound Culture on 09/14/20 which was positive for Aeromonas hydrophilia/caviae, Corynebacterium amycolatum/xer, MRSA, Klebsiella oxytoca. Continue Bactrim DS. Encouraged increase in protein intake to help with wound healing. Follow up one week.
[2020-10-18 10:30] VITALS: BP 133/88; PULSE 73; RESP 18; TEMP 36.4; BMI 46.1
--- NOTE | 2020-10-18 12:43 | PN.PCM_ITS ---
History of Present Illness Date of Service: 10/18/20 Chief Complaint: Ulcer to left anterior leg after a fall August 13, 2020. History of Wound: Patient fell down 3 steps August 13, 2020. She went to the ED 08/21/20, an ultrasound was negative for DVT. She has been seeing her PCP for wound management. He placed her on Doxycycline, removed the scabbing. She has been doing wet to dry dressings. Her PCP did a wound Culture on 09/14/20 which was positive for Aeromonas hydrophilia/caviae, Corynebacterium amycolatum/xer, MRSA, Klebsiella oxytoca. Being treated with Bactrim DS. Wound Care - Daily Aquacel-Ag covered with gauze. Double tubigrip for compression. Today denies fever, chills, nausea and vomiting. States appetite is ok. Progress of Wound: Improved. Objective Data Objective Data Vital Signs: Vital Signs Temp Pulse Resp BP 97.6 F L 73 18 133/88 H 10/18/20 10:30 10/18/20 10:30 10/18/20 10:30 10/18/20 10:30 Oxygen Delivery Method Room Air Body Mass Index (BMI) 46.1 Charges/Coding Procedures Integumentary 111xxx-113xx: [id number] Yakelin subq tissue 20 sq cm/< Physical Exam Const alert and oriented x3 General Appearance: cooperative HEENT normocephalic Head and Scalp: atraumatic Lymph Lymphatic: no lymphedema noted Resp normal respiratory effort Cardio regular rate GI non-tender Palpation: soft Extremity normal to inspection Extremity Narrative: +1 edema bilateral lower leg Skin no rashes or lesions noted Neuro CN's II-XII intact bilaterally Psych Appearance: grossly normal Debridement Note Debridement Note Post-Debridement Measurements and Additional Note: Post-Debridement Measurements/Treatment WC - Nurse 1 - General Ulcer Assessment Start: 09/20/20 08:29 Freq: Status: Active Protocol: KARLA Activity Type Activity Date Activity User E-Sign Co-Sign Detail Recorded Client Recorded Date Recorded By Document 09/20/20 08:29 AK [id number] 09/20/20 08:47 AK Document 09/27/20 08:13 DL [id number] 09/27/20 08:15 DL Document 10/04/20 08:40 BMF [id number] 10/04/20 08:46 BMF Document 10/04/20 13:22 KR [id number] 10/04/20 13:25 KR Document 10/08/20 12:04 DL [id number] 10/08/20 12:18 DL Document 10/11/20 08:13 BMF [id number] 10/11/20 08:15 BMF Document 10/18/20 10:30 KR [id number] 10/18/20 10:34 KR 09/20/20 09/27/20 10/04/20 08:29 08:13 08:40 WC - Today's Visit Information Type of service Initial Visit Follow-up Visit Follow-up Visit (Physician/ADULT BASIC EDUCATION MANAGER (Physician/ADULT BASIC EDUCATION MANAGER ) ) Arrival Mode Ambulatory Ambulatory Ambulatory Transfer Assistance None None Accompanied by dad Patient Identification Verified (Name & Yes Yes Yes ) Patient Requires Transmission-Based No No No Precautions Height and Weight Body Mass Index (BMI) 46.1 46.1 46.1 BMI Classification Obese Obese Obese Vital Signs Temperature (97.8 F-99.1 F) 97.6 F L 97.8 F 97.9 F Temperature Source Temporal Temporal Temporal Pulse Rate (60-100) 87 85 93 Pulse Location Monitor Monitor Monitor Respiratory Rate (12-18) 18 16 Respiratory rate source Observation Observation Oxygen Delivery Method Room Air Blood Pressure (90/60-120/80) 146/93 H 139/87 H 150/92 H Blood Pressure Mean (mm Hg) 110 104 111 Source Monitor Monitor Monitor Position Sitting Blood Pressure Location Left Arm History Since Last Visit- (Skip if this is Patient's initial visit) Have you changed medications since your No No No last visit? Any new allergies or adverse reactions No No No Had a fall/change in ADL's that may No No No increase risk of falls Signs or symptoms of abuse and/or No No No neglect since last visit Have you been in the hospital since your No No No last visit? Has dressing in place as prescribed No Yes Yes Has compression in place as prescribed No Yes Yes Has offloadiing in place as prescribed No N/A N/A Experienced any changes in pain level or No No No management Left Footwear Regular Shoe Regular Shoe Right Footwear Regular Shoe Regular Shoe Pain Scale: 0-10 Numeric Is Patient Pain Free? Yes Yes Yes 10/04/20 10/08/20 10/11/20 13:22 12:04 08:13 WC - Today's Visit Information Type of service Nurse-only Follow-up Visit Visit (Physician/ADULT BASIC EDUCATION MANAGER ) Arrival Mode Ambulatory Ambulatory Transfer Assistance None None Accompanied by Patient Identification Verified (Name & Yes Yes ) Patient Requires Transmission-Based No No Precautions Height and Weight Body Mass Index (BMI) 46.1 46.1 46.1 BMI Classification Obese Obese Obese Vital Signs Temperature (97.8 F-99.1 F) 98.3 F 96.9 F L Temperature Source Temporal Temporal Pulse Rate (60-100) 80 83 Pulse Location Monitor Monitor Respiratory Rate (12-18) 20 H 16 Respiratory rate source Observation Observation Oxygen Delivery Method Room Air Blood Pressure (90/60-120/80) 130/78 H 141/86 H Blood Pressure Mean (mm Hg) 95 104 Source Monitor Monitor Position Sitting Blood Pressure Location Left Forearm History Since Last Visit- (Skip if this is Patient's initial visit) Have you changed medications since your No No last visit? Any new allergies or adverse reactions No No Had a fall/change in ADL's that may No No increase risk of falls Signs or symptoms of abuse and/or No No neglect since last visit Have you been in the hospital since your No No last visit? Has dressing in place as prescribed No No Has compression in place as prescribed N/A No Has offloadiing in place as prescribed N/A N/A Experienced any changes in pain level or No No management Left Footwear Regular Shoe Right Footwear Regular Shoe Pain Scale: 0-10 Numeric Is Patient Pain Free? Yes Yes 10/18/20 10:30 [facility] Today's Visit Information Type of service Follow-up Visit (Physician/ADULT BASIC EDUCATION MANAGER ) Arrival Mode Ambulatory Transfer Assistance Accompanied by Patient Identification Verified (Name & Yes ) Patient Requires Transmission-Based Precautions Height and Weight Body Mass Index (BMI) 46.1 BMI Classification Obese Vital Signs Temperature (97.8 F-99.1 F) 97.6 F L Temperature Source Temporal Pulse Rate (60-100) 73 Pulse Location Monitor Respiratory Rate (12-18) 18 Respiratory rate source Observation Oxygen Delivery Method Blood Pressure (90/60-120/80) 133/88 H Blood Pressure Mean (mm Hg) 103 Source Manual Position Blood Pressure Location History Since Last Visit- (Skip if this is Patient's initial visit) Have you changed medications since your No last visit? Any new allergies or adverse reactions No Had a fall/change in ADL's that may No increase risk of falls Signs or symptoms of abuse and/or No neglect since last visit Have you been in the hospital since your No last visit? Has dressing in place as prescribed Yes Has compression in place as prescribed N/A Has offloadiing in place as prescribed No Experienced any changes in pain level or No management Left Footwear Right Footwear Pain Scale: 0-10 Numeric Is Patient Pain Free? Yes WC - Nurse 1 - General Ulcer Measurement Start: 09/20/20 08:29 Freq: Status: Active Protocol: Activity Type Activity Date Activity User E-Sign Co-Sign Detail Recorded Client Recorded Date Recorded By Document 09/20/20 08:29 AK [id number] 09/20/20 08:47 AK Document 09/27/20 08:13 DL [id number] 09/27/20 08:15 DL Document 10/04/20 08:40 BMF [id number] 10/04/20 08:46 BMF Document 10/08/20 12:04 DL [id number] 10/08/20 12:18 DL Document 10/11/20 08:13 BMF [id number] 10/11/20 08:15 BMF Document 10/18/20 10:30 KR [id number] 10/18/20 10:34 KR 09/20/20 09/27/20 10/04/20 08:29 08:13 08:40 Wound Center Nurse 1 #3 left gandara -Combined with other wound No No -Current Size (cm) - Length 1.9 1.8 1.7 -Current Size (cm) - Width 2 1.8 1.8 -Current Size (cm) - Depth 0.7 0.8 0.4 -Total Square Cm 3.8 3.24 3.06 -Photo Taken No No -Epithelialization Small 1-33% -Tunneling No -Undermining/Tunneling Yes No -Undermining/Tunneling Starts (O'clock 3 ) -Undermining/Tunneling Ends (O'clock) 4 -Maximum Distance (cm) 0.4 -Circular Undermining No No -Exudate Amt Small Medium Medium -Exudate Type Serosanguineous Serosanguineous Serosanguineous -Wound Margin Distinct, Distinct, Distinct, Outline Outline Outline Attached Attached Attached -Granulation Amt Medium (34-66%) Medium (34-66%) Medium (34-66%) -Granulation Quality Red Pale,Red -Slough/Fibrin Yes -Necrosis Amt None Present (0 Medium (34-66%) Medium (34-66%) %) -Necrotic Tissue Type Adherent Slough Adherent Slough Adherent Slough -Structure Exposed Muscle,Fat N/A Layer Exposed -Texture (Karin-wound Skin Appearance) Assessed, Scarring Assessed, Scarring Scarring -Moisture (Karin-wound Skin Appearance) No Abnormality, Assessed Assessed Assessed -Color (Karin-wound Skin Appearance) No Abnormality, No Abnormality Assessed Assessed -Temperature (Karin-wound Skin No Abnormality No Abnormality No Abnormality Appearance) (Pt Warm) (Pt Warm) (Pt Warm) -Tenderness on Palpation (Karin-wound Yes No No Skin Appearance) -Ulcer Cleansing Rinsed/ Rinsed/ Irrigated with Irrigated with Saline Saline -Foul Odor after Cleansing No Yes, Due to No Product Use -Anesthetic Used 4% Lidocaine 4% Lidocaine 4% Lidocaine Solution,5% Solution,5% Solution Lidocaine Gel Lidocaine Gel Right Calf (cm) 46.5 Right Ankle (cm) 28 Left Calf (cm) 46 45 Left Ankle (cm) 28.5 26.5 10/08/20 10/11/20 10/18/20 12:04 08:13 10:30 Wound Center Nurse 1 #3 left gandara -Combined with other wound No -Current Size (cm) - Length 1.5 1.2 -Current Size (cm) - Width 1.5 1.3 -Current Size (cm) - Depth 0.2 0.2 -Total Square Cm 2.25 1.56 -Photo Taken No No No -Epithelialization Small 1-33% -Tunneling No -Undermining/Tunneling No -Undermining/Tunneling Starts (O'clock ) -Undermining/Tunneling Ends (O'clock) -Maximum Distance (cm) -Circular Undermining No -Exudate Amt Small Medium Small -Exudate Type Serosanguineous Serosanguineous Serosanguineous -Wound Margin Distinct, Distinct, Distinct, Outline Outline Outline Attached Attached Attached -Granulation Amt Large (67-100%) Medium (34-66%) Small (1-33%) -Granulation Quality Red Pale,[place] -Slough/Fibrin Yes -Necrosis Amt Medium (34-66%) Medium (34-66%) Large (67-100%) -Necrotic Tissue Type Adherent Slough Adherent Slough Adherent Slough -Structure Exposed N/A N/A -Texture (Karin-wound Skin Appearance) Scarring Assessed, Scarring Fluctuance -Moisture (Karin-wound Skin Appearance) No Abnormality Assessed No Abnormality -Color (Karin-wound Skin Appearance) No Abnormality Assessed No Abnormality -Temperature (Karin-wound Skin No Abnormality No Abnormality No Abnormality Appearance) (Pt Warm) (Pt Warm) (Pt Warm) -Tenderness on Palpation (Karin-wound No No No Skin Appearance) -Ulcer Cleansing Wound Cleanser Rinsed/ Wound Cleanser Irrigated with Saline -Foul Odor after Cleansing No No No -Anesthetic Used 5% Lidocaine 5% Lidocaine Gel Gel Right Calf (cm) Right Ankle (cm) Left Calf (cm) 45.5 Left Ankle (cm) 26.8 WC - Nurse 2 - General Ulcer CM Notes Start: 09/20/20 08:29 Freq: Status: Active Protocol: Activity Type Activity Date Activity User E-Sign Co-Sign Detail Recorded Client Recorded Date Recorded By Document 09/20/20 09:02 [id number] 09/20/20 09:05 Document 09/27/20 08:25 [id number] 09/27/20 08:28 JF Document 10/04/20 08:56 [id number] 10/04/20 08:59 Document 10/11/20 08:23 [id number] 10/11/20 08:27 JF Document 10/18/20 11:03 JF [id number] 10/18/20 11:05 09/20/20 09/27/20 10/04/20 09:02 08:25 08:56 Wound Center Nurse 2 #3 left gandara -Time 09:03 08:25 08:56 -Correct Patient Yes Yes Yes -Correct Side, Site, Position Yes Yes Yes -Correct Procedure Yes Yes Yes -Procedure Performed Yes Yes Yes -Type of Procedure Debridement Debridement Debridement -Clinical Debridement Subcutaneous Subcutaneous Subcutaneous -Tissue Removed Epidermis, Subcutaneous Subcutaneous Subcutaneous -Post Debridement (cm) - Length 2 2 1.8 -Post Debridement (cm) - Width 2 2 1.8 -Post Debridement (cm) - Depth 0.7 0.6 0.7 -Total Square (Post) (cm) 4 4 3.24 -Area of Debridement (cm) - Length 2 2 1.8 -Area of Debridement (cm) - Width 2 2 1.8 -Total Square (Area) (cm) 4 4 3.24 -Tunneling No No No -Undermining/Tunneling Yes Yes Yes -Undermining/Tunneling Starts (O'clock 6 3 3 ) -Undermining/Tunneling Ends (O'clock) 7 7 6 -Maximum Distance (cm) 0.8 1 0.5 -Circular Undermining No No No -Wound/Ulcer Outcome Not Healed Not Healed Not Healed -Ulcer Cleansing Rinsed/ Rinsed/ Rinsed/ Irrigated with Irrigated with Irrigated with Saline Saline Saline -Foul Odor after Cleansing No No No -Bioengineered Tissue No No No -Bleeding Controlled with Pressure Pressure Pressure -Offloading No No No -Treatment Response Procedure Procedure Procedure Tolerated Well Tolerated Well Tolerated Well -Debridement - Subq, 1st 20sq cm Yes Yes Yes Pain Scale: 0-10 Numeric Is Patient Pain Free? Yes Yes Yes 10/11/20 10/18/20 08:23 11:03 Wound Center Nurse 2 #3 left gandara -Time 08: 11:04 -Correct Patient Yes Yes -Correct Side, Site, Position Yes Yes -Correct Procedure Yes Yes -Procedure Performed Yes Yes -Type of Procedure Debridement Debridement -Clinical Debridement Subcutaneous Subcutaneous -Tissue Removed Subcutaneous Subcutaneous -Post Debridement (cm) - Length 1.7 1.7 -Post Debridement (cm) - Width 1.7 1.5 -Post Debridement (cm) - Depth 0.3 0.2 -Total Square (Post) (cm) 2.89 2.55 -Area of Debridement (cm) - Length 1.7 1.7 -Area of Debridement (cm) - Width 1.7 1.5 -Total Square (Area) (cm) 2.89 2.55 -Tunneling No No -Undermining/Tunneling Yes No -Undermining/Tunneling Starts (O'clock 3 ) -Undermining/Tunneling Ends (O'clock) 5 -Maximum Distance (cm) 0.2 -Circular Undermining No No -Wound/Ulcer Outcome Not Healed Not Healed -Ulcer Cleansing Rinsed/ Rinsed/ Irrigated with Irrigated with Saline Saline -Foul Odor after Cleansing No No -Bioengineered Tissue No No -Bleeding Controlled with Pressure Pressure -Offloading No No -Treatment Response Procedure Procedure Tolerated Well Tolerated Well -Debridement - Subq, 1st 20sq cm Yes Yes Pain Scale: 0-10 Numeric Is Patient Pain Free? Yes Yes WC - Nurse 3 - General Ulcer D/C NN Start: 09/20/20 08:29 Freq: Status: Active Protocol: Activity Type Activity Date Activity User E-Sign Co-Sign Detail Recorded Client Recorded Date Recorded By Document 09/20/20 09:21 AK [id number] 09/20/20 09:27 AK Document 09/27/20 08:51 JF [id number] 09/27/20 08:51 JF Document 10/04/20 09:16 BMF [id number] 10/04/20 09:17 BMF Document 10/04/20 13:25 KR [id number] 10/04/20 13:27 KR Document 10/08/20 12:04 DL [id number] 10/08/20 12:18 DL Document 10/11/20 08:44 DL [id number] 10/11/20 08:48 DL Document 10/18/20 11:20 KR [id number] 10/18/20 11:20 KR 09/20/20 09/27/20 10/04/20 09:21 08:51 09:16 Wound Care Nurse 3 #3 left gandara -Ulcer Cleansing Rinsed/ Rinsed/ Rinsed/ Irrigated with Irrigated with Irrigated with Saline Saline Saline -Foul Odor after Cleansing No No No -Negative Pressure Wound Therapy Start Continue -Setting (mmHg) 125 125 -Negative Pressure is Continuous Continuous -Primary Dressing Applied Aquacel AG 4x4 -Primary Dressing Covered/Secured with Dry Gauze,Dry Gauze & Roll Gauze -Other Covering coban -NPWT Application Charge ($) NPWT </= 50 sq NPWT </= 50 sq cm (disp) cm (disp) -Aquacel AG 4x4 1 Left -Multi-Layered Wrap Application -Compression Wrap Yony Wrap -Unna Boots (Bilat) ($) -Tubular Bandage Double Layer -Size of Tubigrip Used Size E -Size E ($) 2 -Other pt applied own tubi Treatment Response Procedure Procedure Tolerated Well Tolerated Well Vital Signs Temperature (97.8 F-99.1 F) Temperature Source Pulse Rate (60-100) Pulse Location Respiratory Rate (12-18) Respiratory rate source Blood Pressure (90/60-120/80) Blood Pressure Mean (mm Hg) Source Pain Scale: 0-10 Numeric Is Patient Pain Free? Yes Yes Yes WC - Visit Discharge Discharge Condition Stable Stable Stable Ambulatory Status Ambulatory Ambulatory Ambulatory Transportation Private Auto Private Auto Private Auto Accompanied by dad javad Medication Reconcilliation completed & Yes provided to patient/care provider Clinical Summary of Care Provided Yes Notes: 10/04/20 10/08/20 10/11/20 13:25 12:04 08:44 Wound Care Nurse 3 #3 left gandara -Ulcer Cleansing Wound Cleanser Rinsed/ Irrigated with Saline -Foul Odor after Cleansing No No -Negative Pressure Wound Therapy Continue -Setting (mmHg) 125 -Negative Pressure is Continuous -Primary Dressing Applied Aquacel AG 4x4 -Primary Dressing Covered/Secured with Dry Gauze, Secured with Tape -Other Covering -NPWT Application Charge ($) NPWT </= 50 sq cm (disp) -Aquacel AG 4x4 1 Left -Multi-Layered Wrap Application Unna Boot - Bilateral ($) -Compression Wrap -Unna Boots (Bilat) ($) 2 -Tubular Bandage Double Layer -Size of Tubigrip Used Size E -Size E ($) 2 -Other Treatment Response Vital Signs Temperature (97.8 F-99.1 F) 98.3 F Temperature Source Temporal Pulse Rate (60-100) 80 Pulse Location Monitor Respiratory Rate (12-18) 20 H Respiratory rate source Observation Blood Pressure (90/60-120/80) 130/78 H Blood Pressure Mean (mm Hg) 95 Source Monitor Pain Scale: 0-10 Numeric Is Patient Pain Free? Yes WC - Visit Discharge Discharge Condition Stable Stable Ambulatory Status Ambulatory Ambulatory Transportation Private Auto Private Auto Accompanied by Medication Reconcilliation completed & provided to patient/care provider Clinical Summary of Care Provided Notes: Snap Vac applied today. 10/18/20 11:20 Wound Care Nurse 3 #3 left gandara -Ulcer Cleansing Rinsed/ Irrigated with Saline -Foul Odor after Cleansing -Negative Pressure Wound Therapy -Setting (mmHg) -Negative Pressure is -Primary Dressing Applied Aquacel AG 4x4 -Primary Dressing Covered/Secured with Dry Gauze, Secured with Tape -Other Covering -NPWT Application Charge ($) -Aquacel AG 4x4 1 Left -Multi-Layered Wrap Application -Compression Wrap -Unna Boots (Bilat) ($) -Tubular Bandage -Size of Tubigrip Used -Size E ($) -Other Treatment Response Vital Signs Temperature (97.8 F-99.1 F) Temperature Source Pulse Rate (60-100) Pulse Location Respiratory Rate (12-18) Respiratory rate source Blood Pressure (90/60-120/80) Blood Pressure Mean (mm Hg) Source Pain Scale: 0-10 Numeric Is Patient Pain Free? Yes WC - Visit Discharge Discharge Condition Stable Ambulatory Status Ambulatory Transportation Private Auto Accompanied by Medication Reconcilliation completed & provided to patient/care provider Clinical Summary of Care Provided Notes: Wound debrided: anterior leg ulcer Laterality: Left Type of Debridement: Excisional debridement Anesthesia Used: 5% Lidocaine Gel Depth: Down to and including healthy tissue and in the subcutaneous layer Percentage of wound debrided: 100 Instrument Used: 3mm curette Tissue Removed: Subcutaneous tissue and slough Severity: Fat Layer Exposed Amount of bleeding with debridement: Mild Bleeding Controlled with: Pressure Patient tolerated procedure: Patient tolerated procedure well Assessment/Plan Assessment/Plan (1) Ulcer of left lower extremity with fat layer exposed: CODE(S): L97.922 - Non-pressure chronic ulcer of unspecified part of left lower leg with fat layer exposed (2) Contusion of lower leg: CODE(S): S80.10XA - Contusion of unspecified lower leg, initial encounter QUALIFIERS: Encounter type: subsequent encounter Laterality: left Qualified Code(s): S80.12XD - Contusion of left lower leg, subsequent encounter (3) Peripheral edema: CODE(S): R60.9 - Edema, unspecified (4) Rheumatoid arthritis: CODE(S): M06.9 - Rheumatoid arthritis, unspecified PLAN: Wound Care - Daily Aquacel-Ag covered with gauze. Double tubigrip for compression. Wound Culture on 09/14/20 which was positive for Aeromonas hydrophilia/caviae, Corynebacterium amycolatum/xer, MRSA, Klebsiella oxytoca. Continue Bactrim DS. Encouraged increase in protein intake to help with wound healing. Follow up two weeks due to the holiday.
== END 2020-10-19 23:59 ==
LOC: WC 10:30
PROVIDERS: PCP Family Medicine; Visit Provider Nurse Practitioner Family
DX: S80.12XD Contusion of left lower leg, subsequent encounter (principal); L97.922 Non-pressure chronic ulcer of unspecified part of left lower leg with fat layer exposed; M06.9 Rheumatoid arthritis, unspecified; R60.9 Edema, unspecified
CPT/HCPCS: 11042; 29580; 97607; 99213; G0463

== ENCOUNTER 2020-11-08 08:30 | Outpatient (RCR) | payer OTHER, SELFPAY ==
[2020-10-20 00:17] VITALS: BP 133/88; PULSE 73; RESP 18; TEMP 36.4; BMI 46.1
[2020-11-01 08:55] VITALS: BP 137/91; PULSE 80; RESP 20; TEMP 36.7; BMI 46.1
--- NOTE | 2020-11-01 09:47 | PN.PCM_ITS ---
History of Present Illness Date of Service: 11/01/20 Chief Complaint: Ulcer to left anterior leg after a fall August 13, 2020. History of Wound: Patient fell down 3 steps August 13, 2020. She went to the ED 08/21/20, an ultrasound was negative for DVT. She has been seeing her PCP for wound management. He placed her on Doxycycline, removed the scabbing. She has been doing wet to dry dressings. Her PCP did a wound Culture on 09/14/20 which was positive for Aeromonas hydrophilia/caviae, Corynebacterium amycolatum/xer, MRSA, Klebsiella oxytoca. Being treated with Bactrim DS. Wound Care - Start Collagen hydrogel covered with adaptic, then covered with dry gauze daily. Double tubigrip for compression. Today denies fever, chills, nausea and vomiting. States appetite is ok. Progress of Wound: Improved. Subjective Subjective Patient states she is having a lot of itching at the site. Objective Data Objective Data Vital Signs: Vital Signs Temp Pulse Resp BP 98.1 F 80 20 H 137/91 H 11/01/20 08:55 11/01/20 08:55 11/01/20 08:55 11/01/20 08:55 Body Mass Index (BMI) 46.1 Charges/Coding Procedures Integumentary 111xxx-113xx: [id number] Yakelin subq tissue 20 sq cm/< Physical Exam Const alert and oriented x3 General Appearance: cooperative HEENT normocephalic Head and Scalp: atraumatic Eyes PERRL Lymph Lymphatic: no lymphedema noted Resp normal respiratory effort Cardio regular rate GI Palpation: soft Extremity no calf tenderness General Extremity: Negative for edema Skin Wound Narrative: Left anterior leg ulcer is smaller, beefy pink, drying out. Healing well. Neuro CN's II-XII intact bilaterally Psych Appearance: grossly normal Debridement Note Debridement Note Wound debrided: anterior leg ulcer Laterality: Left Type of Debridement: Excisional debridement Anesthesia Used: 5% Lidocaine Gel Depth: Down to and including healthy tissue and in the subcutaneous layer Percentage of wound debrided: 100 Instrument Used: 3mm curette Tissue Removed: Subcutaneous tissue and slough Severity: Limited To Skin Breakdown Bleeding Controlled with: Pressure Patient tolerated procedure: Patient tolerated procedure well Post-Debridement Measurements and Additional Note: Post-Debridement Measurements/Treatment WC - Nurse 1 - General Ulcer Assessment Start: 11/01/20 08:54 Freq: Status: Active Protocol: KARLA Activity Type Activity Date Activity User E-Sign Co-Sign Detail Recorded Client Recorded Date Recorded By Document 11/01/20 08:55 DL [id number] 11/01/20 08:59 DL 11/01/20 08:55 - Today's Visit Information Type of service Follow-up Visit (Physician/REAL ESTATE DIRECTOR ) Arrival Mode Ambulatory Transfer Assistance None Patient Identification Verified (Name & Yes ) Patient Requires Transmission-Based No Precautions Height and Weight Body Mass Index (BMI) 46.1 BMI Classification Obese Vital Signs Temperature (97.8 F-99.1 F) 98.1 F Temperature Source Temporal Pulse Rate (60-100) 80 Pulse Location Monitor Respiratory Rate (12-18) 20 H Respiratory rate source Observation Blood Pressure (90/60-120/80) 137/91 H Blood Pressure Mean (mm Hg) 106 Source Monitor History Since Last Visit- (Skip if this is Patient's initial visit) Have you changed medications since your No last visit? Any new allergies or adverse reactions No Had a fall/change in ADL's that may No increase risk of falls Signs or symptoms of abuse and/or No neglect since last visit Have you been in the hospital since your No last visit? Has dressing in place as prescribed Yes Has compression in place as prescribed N/A Has offloadiing in place as prescribed N/A Experienced any changes in pain level or No management Pain Scale: 0-10 Numeric Is Patient Pain Free? Yes - Nurse 1 - General Ulcer Measurement Start: 11/01/20 08:54 Freq: Status: Active Protocol: Activity Type Activity Date Activity User E-Sign Co-Sign Detail Recorded Client Recorded Date Recorded By Document 11/01/20 08:55 DL [id number] 11/01/20 08:59 DL 11/01/20 08:55 Wound Center Nurse 1 #3 left gandara -Current Size (cm) - Length 0.6 -Current Size (cm) - Width 0.7 -Current Size (cm) - Depth 0.1 -Total Square Cm 0.42 -Photo Taken No -Exudate Amt None Present -Wound Margin Thickened -Granulation Quality Hyper- granulation -Necrosis Amt Large (67-100%) -Necrotic Tissue Type Eschar -Structure Exposed N/A -Texture (Karin-wound Skin Appearance) Scarring -Moisture (Karin-wound Skin Appearance) No Abnormality -Color (Karin-wound Skin Appearance) No Abnormality -Temperature (Karin-wound Skin No Abnormality Appearance) (Pt Warm) -Tenderness on Palpation (Karin-wound No Skin Appearance) -Ulcer Cleansing Rinsed/ Irrigated with Saline -Foul Odor after Cleansing No -Anesthetic Used 4% Lidocaine Solution - Nurse 2 - General Ulcer CM Notes Start: 11/01/20 08:54 Freq: Status: Active Protocol: Activity Type Activity Date Activity User E-Sign Co-Sign Detail Recorded Client Recorded Date Recorded By Document 11/01/20 09:13 [id number] 11/01/20 09:16 JF 11/01/20 09:13 Wound Center Nurse 2 -Correct Patient Yes -Correct Side, Site, Position Yes -Correct Procedure Yes -Procedure Performed Yes -Type of Procedure Debridement -Clinical Debridement Subcutaneous -Tissue Removed Subcutaneous -Post Debridement (cm) - Length 0.5 -Post Debridement (cm) - Width 0.9 -Post Debridement (cm) - Depth 0.1 -Total Square (Post) (cm) 0.45 -Area of Debridement (cm) - Length 0.5 -Area of Debridement (cm) - Width 0.9 -Total Square (Area) (cm) 0.45 -Tunneling No -Undermining/Tunneling No -Circular Undermining No -Wound/Ulcer Outcome Not Healed -Ulcer Cleansing Rinsed/ Irrigated with Saline -Foul Odor after Cleansing No -Bioengineered Tissue No -Bleeding Controlled with Pressure -Offloading No -Treatment Response Procedure Tolerated Well -Debridement - Subq, 1st 20sq cm Yes Pain Scale: 0-10 Numeric Is Patient Pain Free? Yes - Nurse 3 - General Ulcer D/C NN Start: 11/01/20 08:54 Freq: Status: Active Protocol: Activity Type Activity Date Activity User E-Sign Co-Sign Detail Recorded Client Recorded Date Recorded By Document 11/01/20 09:26 PL [id number] 11/01/20 09:26 PL 11/01/20 09:26 Wound Care Nurse 3 #3 left gandara -Ulcer Cleansing Rinsed/ Irrigated with Saline -Foul Odor after Cleansing No -Primary Dressing Applied C Hydrogel ($) -Primary Dressing Covered/Secured with Dry Gauze, Secured with Tape WC - Visit Discharge Discharge Condition Stable Ambulatory Status Ambulatory Transportation Private Auto Clinical Summary of Care Provided Yes Assessment/Plan Assessment/Plan (1) Ulcer of left lower extremity with fat layer exposed: CODE(S): L97.922 - Non-pressure chronic ulcer of unspecified part of left lower leg with fat layer exposed (2) Contusion of lower leg: CODE(S): S80.10XA - Contusion of unspecified lower leg, initial encounter QUALIFIERS: Encounter type: subsequent encounter Laterality: left Qualified Code(s): S80.12XD - Contusion of left lower leg, subsequent encounter (3) Rheumatoid arthritis: CODE(S): M06.9 - Rheumatoid arthritis, unspecified (4) Family history of skin cancer: CODE(S): Z80.8 - Family history of malignant neoplasm of other organs or systems PLAN: Wound Care - Daily collagen hydrogel covered with Adaptic, topped with dry gauze. Double tubigrip for compression. Wound Culture on 09/14/20 which was positive for Aeromonas hydrophilia/caviae, Corynebacterium amycolatum/xer, MRSA, Klebsiella oxytoca. Completed Bactrim DS. Encouraged increase in protein intake to help with wound healing. Follow up 1 week.
[2020-11-08 08:34] VITALS: BP 152/93; PULSE 93; RESP 16; TEMP 36; BMI 46.1
--- NOTE | 2020-11-08 12:53 | PCM.WC.PN ---
History of Present Illness Date of Service: 11/08/20 Chief Complaint: Ulcer to left anterior leg after a fall August 13, 2020. History of Wound: Patient fell down 3 steps August 13, 2020. She went to the ED 08/21/20, an ultrasound was negative for DVT. She has been seeing her PCP for wound management. He placed her on Doxycycline, removed the scabbing. She has been doing wet to dry dressings. Her PCP did a wound Culture on 09/14/20 which was positive for Aeromonas hydrophilia/caviae, Corynebacterium amycolatum/xer, MRSA, Klebsiella oxytoca. Being treated with Bactrim DS. Wound Care - Collagen hydrogel covered with adaptic, then covered with dry gauze daily. Double tubigrip for compression. Today denies fever, chills, nausea and vomiting. States appetite is ok. Progress of Wound: Healed. Objective Data Objective Data Vital Signs: Vital Signs Temp Pulse Resp BP 96.8 F L 93 16 152/93 H 11/08/20 08:34 11/08/20 08:34 11/08/20 08:34 11/08/20 08:34 Oxygen Delivery Method Room Air Body Mass Index (BMI) 46.1 Charges/Coding Visit Charges Office Visits / Consults: 69133 OV L3 Est Physical Exam Const alert and oriented x3 General Appearance: cooperative HEENT normocephalic Head and Scalp: atraumatic Eyes PERRL Lymph Lymphatic: no lymphedema noted Resp normal respiratory effort Cardio regular rate GI Palpation: soft Extremity normal capillary refill General Extremity: Negative for edema Skin Wound Narrative: Left anterior leg is healed today. Neuro CN's II-XII intact bilaterally Psych Appearance: grossly normal Debridement Note Debridement Note No debridement was completed: No debridement was completed today Assessment/Plan Assessment/Plan (1) Ulcer of left lower extremity with fat layer exposed: CODE(S): L97.922 - Non-pressure chronic ulcer of unspecified part of left lower leg with fat layer exposed (2) Contusion of lower leg: CODE(S): S80.10XA - Contusion of unspecified lower leg, initial encounter QUALIFIERS: Encounter type: subsequent encounter Laterality: left Qualified Code(s): S80.12XD - Contusion of left lower leg, subsequent encounter (3) Family history of skin cancer: CODE(S): Z80.8 - Family history of malignant neoplasm of other organs or systems PLAN: She is healed today. Encouraged her to massage the scarring with lotion 1-2 times per day to help soften scarring. When she is active, she may want to cover the healed scar with dry dressing to protect it until the scarring firms up. Wound Culture on 09/14/20 which was positive for Aeromonas hydrophilia/caviae, Corynebacterium amycolatum/xer, MRSA, Klebsiella oxytoca. Completed Bactrim DS. Follow up as needed.
== END 2020-11-08 09:10 | disposition home or self-care (01) ==
LOC: WC 08:30
PROVIDERS: PCP Family Medicine; Visit Provider Nurse Practitioner Family
DX: L97.922 Non-pressure chronic ulcer of unspecified part of left lower leg with fat layer exposed (principal); M06.9 Rheumatoid arthritis, unspecified; S80.12XD Contusion of left lower leg, subsequent encounter; Z80.8 Family history of malignant neoplasm of other organs or systems; W10.9XXD Fall (on) (from) unspecified stairs and steps, subsequent encounter; A49.02 Methicillin resistant Staphylococcus aureus infection, unspecified site
CPT/HCPCS: 11042; 99213; G0463

== ENCOUNTER → 2021-01-24 11:49 | Outpatient (CLI) | payer OTHER, SELFPAY ==
[2021-01-24 15:31] LABS: Vitamin B12 246 pg/mL (211-911)
[2021-01-24 15:39] LABS: Cholesterol 212 mg/dL (200); Glucose 115 mg/dL (74-106); High Density Lipoprotein 43 mg/dL; Triglycerides 231 mg/dL; Very Low Density Lipoprotein 46 mg/dL (5-40)
[2021-01-24 15:41] LABS: T4 Free Direct 1.32 ng/dL (0.76-1.46); Thyroid Stim Hormone (TSH) 5.29 uIU/mL (0.358-3.74)
[2021-01-24 15:42] LABS: Hemoglobin A1c 4.8 % (3.8-5.6)
[2021-01-27 13:13] LABS: Testosterone Free 2.1 pg/mL (0.0-4.2)
[2021-01-28 16:13] LABS: 17-Hydroxyprogesterone 52 ng/dL (.)
== END ==
PROVIDERS: Obstetrics & Gynecology; PCP Family Medicine; Referring Provider Internal Medicine Endocrinology, Diabetes & Metabolism; Visit Provider Internal Medicine Endocrinology, Diabetes & Metabolism
DX: R20.2 Paresthesia of skin (principal); E03.9 Hypothyroidism, unspecified
CPT/HCPCS: 36415; 80061; 82607; 82627; 82947; 83036; 83498; 84402; 84439; 84443; 82626

== ENCOUNTER → 2021-10-13 | Outpatient (CLI) | payer OTHER, SELFPAY ==
[2021-10-13 10:41] LABS: Vitamin B12 287 pg/mL (211-911)
[2021-10-13 10:43] LABS: ALB/GLOB Ratio 0.7 RATIO (0.9-2.4); AST(SGOT) 22 U/L (15-37); Alanine Aminotransfer ALT/SGPT 39 U/L (13-56); Albumin, Serum 2.9 g/dL (3.2-5.0); Alkaline Phosphatase 100 U/L (45-117); Anion Gap 5 (5-15); BUN 13 mg/dL (7-18); Calcium,Total 8.3 mg/dL (8.5-10.1); Chloride 110 mmol/L (98-107); Creatinine, Serum 0.72 mg/dL (0.55-1.02); EST Glomerular Filtration Rate 103 mL/min (>60); Est Glom Filt Rate - Afr Amer 125 mL/min (>60); Globulin 3.9 g/dL (2.2-4.2); Glucose 101 mg/dL (74-106); Potassium 3.8 mmol/L (3.5-5.1); Protein, Total 6.8 g/dL (6.4-8.2); Sodium Level 141 mmol/L (136-145); T4 Free Direct 0.92 ng/dL (0.76-1.46); Thyroid Stim Hormone (TSH) 8.37 uIU/mL (0.358-3.74)
== END | disposition home or self-care (01) ==
LOC: LAB 08:31
PROVIDERS: PCP Family Medicine; Referring Provider Internal Medicine Endocrinology, Diabetes & Metabolism; Visit Provider Internal Medicine Endocrinology, Diabetes & Metabolism
DX: E28.2 Polycystic ovarian syndrome (principal); E03.8 Other specified hypothyroidism; E06.3 Autoimmune thyroiditis; E53.8 Deficiency of other specified B group vitamins
CPT/HCPCS: 36415; 80053; 82607; 84439; 84443

== ENCOUNTER → 2021-10-17 | Outpatient (CLI) | payer OTHER, SELFPAY ==
[2021-10-23 14:27] LABS: HPV Reflexed? NOT INDICATED
== END | disposition home or self-care (01) ==
LOC: LABSPEC 16:42
PROVIDERS: PCP Family Medicine; Referring Provider Obstetrics & Gynecology; Visit Provider Obstetrics & Gynecology
DX: Z12.4 Encounter for screening for malignant neoplasm of cervix (principal)
CPT/HCPCS: 88175; G0145

== ENCOUNTER 2022-06-12 11:56 | Outpatient (RCR) | payer OTHER, SELFPAY | END 2022-06-18 23:59 | LOC: NS 11:56 | PROVIDERS: PCP Family Medicine; Referring Provider Obstetrics & Gynecology; Visit Provider Obstetrics & Gynecology | DX: Z71.3 Dietary counseling and surveillance (principal); E66.01 Morbid (severe) obesity due to excess calories; Z68.41 Body mass index [BMI] 40.0-44.9, adult; E28.2 Polycystic ovarian syndrome; E88.81 Metabolic syndrome and other insulin resistance | CPT/HCPCS: 97802 ==

== ENCOUNTER → 2022-06-26 | Outpatient (CLI) | payer OTHER, SELFPAY ==
[2022-06-26 17:18] LABS: ALB/GLOB Ratio 0.9 RATIO (0.9-2.4); AST(SGOT) 28 U/L (15-37); Alanine Aminotransfer ALT/SGPT 51 U/L (13-56); Albumin, Serum 3.5 g/dL (3.2-5.0); Alkaline Phosphatase 114 U/L (45-117); Anion Gap 8 (5-15); BUN 11 mg/dL (7-18); BUN/Creat Ratio 14.2 RATIO (10-20); Calcium,Total 8.7 mg/dL (8.5-10.1); Chloride 107 mmol/L (98-107); Creatinine, Serum 0.77 mg/dL (0.55-1.02); EST Glomerular Filtration Rate 95 mL/min (>60); Est Glom Filt Rate - Afr Amer 115 mL/min (>60); Glucose 87 mg/dL (74-106); Potassium 3.6 mmol/L (3.5-5.1); Protein, Total 7.5 g/dL (6.4-8.2); Sodium Level 137 mmol/L (136-145); T4 Free Direct 0.99 ng/dL (0.76-1.46); Thyroid Stim Hormone (TSH) 6.79 uIU/mL (0.358-3.74)
== END | disposition home or self-care (01) ==
LOC: LAB 16:25
PROVIDERS: PCP Family Medicine; Referring Provider Obstetrics & Gynecology; Visit Provider Obstetrics & Gynecology
DX: E03.8 Other specified hypothyroidism (principal); E06.3 Autoimmune thyroiditis; E66.9 Obesity, unspecified
CPT/HCPCS: 36415; 80053; 84439; 84443

== ENCOUNTER 2022-07-10 11:58 | Outpatient (RCR) | payer OTHER, SELFPAY | END 2022-07-19 23:59 | LOC: NS 11:58 | PROVIDERS: PCP Family Medicine; Referring Provider Obstetrics & Gynecology; Visit Provider Obstetrics & Gynecology | DX: Z71.3 Dietary counseling and surveillance (principal); E66.01 Morbid (severe) obesity due to excess calories; Z68.41 Body mass index [BMI] 40.0-44.9, adult; E28.2 Polycystic ovarian syndrome; E88.81 Metabolic syndrome and other insulin resistance | CPT/HCPCS: 97803 ==

== ENCOUNTER → 2022-11-02 | Outpatient (CLI) | payer OTHER, SELFPAY ==
[2022-11-02 18:29] LABS: T4 Free Direct 0.95 ng/dL (0.76-1.46); Thyroid Stim Hormone (TSH) 5.82 uIU/mL (0.358-3.74)
== END | disposition home or self-care (01) ==
LOC: LAB 16:37
PROVIDERS: Referring Provider Obstetrics & Gynecology; Visit Provider Obstetrics & Gynecology
DX: E03.8 Other specified hypothyroidism (principal); E06.3 Autoimmune thyroiditis
CPT/HCPCS: 36415; 84439; 84443

== ENCOUNTER → 2022-12-20 | Outpatient (CLI) | payer OTHER, SELFPAY ==
[2022-12-20 08:24] LABS: Cholesterol 197 mg/dL (200); High Density Lipoprotein 41 mg/dL; Triglycerides 216 mg/dL; Very Low Density Lipoprotein 43 mg/dL (5-40)
[2022-12-20 09:13] LABS: Hemoglobin A1c 4.7 % (3.8-5.6)
[2022-12-20 09:38] LABS: Vitamin B12 294 pg/mL (211-911); Vitamin D,25 Hydroxy 31.5 ng/mL
== END | disposition home or self-care (01) ==
PROVIDERS: PCP Family Medicine; Referring Provider Nurse Practitioner Family; Visit Provider Nurse Practitioner Family
DX: E55.9 Vitamin D deficiency, unspecified (principal); E66.01 Morbid (severe) obesity due to excess calories; Z68.42 Body mass index [BMI] 45.0-49.9, adult; E88.810 Metabolic syndrome; E28.2 Polycystic ovarian syndrome; E53.8 Deficiency of other specified B group vitamins
CPT/HCPCS: 36415; 80061; 82306; 82607; 83036

== ENCOUNTER 2023-05-12 06:42 | Emergency (ER) | payer OTHER, SELFPAY ==
[2023-05-12 06:44] VITALS: BP 146/97; PULSE 114; RESP 18; TEMP 36.1; O2SAT 96; BMI 38.9
--- NOTE | 2023-05-12 07:27 | ED.VIS.GI ---
HPI HPI - GI History of Present Illness Chief Complaint: Nausea/Vomiting Narrative Narrative: 27-year-old female with nausea and vomiting since early this morning. States he went out last night had a few drinks and dinner with the family. She woke up with nausea and vomiting. She states she does not feel like she is come down with COVID, flu. She states that a few drinks would not typically make her sick. Denies concern for . She denies cough, congestion, fever, chills. She denies abdominal pain. Patient states she does have pretty bad anxiety and states that anxiety typically will make her feel nauseous. She states it feels better from an anxiety standpoint this point but can get her nausea under control. 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 Insulin resistance Obesity Open wound of left axillary region with complication Open wound of right axillary region with complication Paresthesia PCOS (polycystic ovarian syndrome) Rheumatoid arthritis Home Medications multivitamin (Daily Multi-Vitamin tablet) 1 tab PO DAILY 03/28/18 [History Last Taken Unknown] sertraline 50 mg tablet (Zoloft) 50 mg PO QDAY #30 tabs 05/22/22 [Rx Last Taken Unknown] levothyroxine 175 mcg tablet 175 mcg PO DAILY #90 tabs 01/04/23 [Rx Last Taken Unknown] etonogestrel 0.12 mg-ethinyl estradiol 0.015 mg/24 hr vaginal ring (NuvaRing) See Rx Instructions .Route .COMPLEX ##3 02/20/23 [Rx Last Taken Unknown] tirzepatide 2.5 mg/0.5 mL subcutaneous pen injector (Mounjaro) 2.5 mg (0.5 mL) subcut QWEEK 4 weeks #2 mL 05/04/23 [Rx Last Taken Unknown] ondansetron 4 mg disintegrating tablet 4 mg PO Q8H PRN PRN Nausea #14 tabs 05/12/23 [Rx Last Taken Unknown] Allergy/AdvReac Type Severity Reaction Status Date / Time chlorhexidine AdvReac Rash Verified 05/12/23 06:43 [From ChloraPrep Clear] isopropyl alcohol AdvReac Rash Verified 05/12/23 06:43 [From ChloraPrep Clear] Family History Sister Diabetes Grandmother Lung cancer Skin cancer Grandfather Dementia CVA (cerebral vascular accident) Parkinsons disease Other Anxiety Arthritis Asthma Psychiatric care Thyroid disorder Surgical History [place] teeth extracted Social History Smoking Status: Never smoker alcohol intake: current alcohol intake frequency: 0-2 drinks per day details: occasionally substance use type: does not use caffeine: Yes what type of physical activity do you participate in: walking, aerobics and weight training frequency: 3-4 times per week seatbelt use: always do you feel safe at home: Yes additional social history: Single- Patient works at [employer] DOES NOT USE ASPIRIN DOES NOT USE IBUPROFEN NEEDED ROS ROS ED Review of Systems ROS Unobtainable: Denies due to encephalopathy Constitutional Constitutional ED: Denies chills, fever(s) or sweats ENT ENT ED: Denies rhinorrhea or sore throat Cardiovascular Cardiovascular: Denies chest pain or palpitations Respiratory/Chest Respiratory/Chest: Denies cough, dyspnea or dyspnea on exertion Gastrointestinal Gastrointestinal: Reports nausea and vomiting; Denies abdominal pain Genitourinary Genitourinary ED: Denies dysuria or hematuria Musculoskeletal Musculoskeletal: Denies arthralgias or back pain Integumentary Denies abscess or Abrasions Neurologic Neurologic: Denies headache(s) Psychiatric Psychiatric: Reports anxiety; Denies depression EXAM Physical Exam Const Vital Signs: 05/12/23 06:44 05/12/23 08:04 Temperature 97 F L Temperature Source Temporal Pulse Rate 114 H 94 Respiratory Rate 18 16 Blood Pressure 146/97 H 134/84 H Blood Pressure Mean 113 100 Pulse Ox 96 97 Oxygen Delivery Method Room Air Positive well nourished General Appearance ED: NAD; Negative for pallor HEENT Reports moist mucous membranes normocephalic and atraumatic Eyes PERRL Neck no lymphadenopathy Resp normal respiratory effort and clear to auscultation bilaterally Cardio regular rate and regular rhythm GI non-distended Back/Spine no CVA tenderness Neuro CN's II-XII intact bilaterally Sensorium / Orientation: alert Psych mental status grossly normal Skin General Skin Exam: Negative for jaundice or pallor MDM MDM MDM Narrative Medical decision making narrative: Patient presenting with nausea and vomiting. She is wanting testing for viral sources. After discussion she wants to try oral antiemetics and Pepcid. Will reevaluate her and if she is not improving we will likely start an IV and give some fluids. Patient minimal this course. Patient was reevaluated at 9:05 AM. She was able to pass p.o. challenge. I will give her prescription for Zofran for home. She is counseled to drink small amounts of fluids frequently. Return precautions discussed. Impression: 1. Nausea/vomiting Lab Data Attestation: I reviewed the patient's lab results. Discharge Plan Triage Chief Complaint: Nausea/Vomiting ED Provider: Howie Garcia Dx/Rx/DC Orders Instructions: ED Vomiting (Adult) Prescriptions: New ondansetron 4 mg tablet,disintegrating 4 mg PO Q8H PRN PRN (Reason: Nausea) Qty: 14 0RF No Action multivitamin [Daily Multi-Vitamin] tablet 1 tab PO DAILY sertraline [Zoloft] 50 mg tablet 50 mg PO QDAY Qty: 30 12RF levothyroxine 175 mcg tablet 175 mcg PO DAILY Qty: 90 3RF Mounjaro 2.5 mg/0.5 mL pen injector 2.5 mg subcut QWEEK 28 Days Qty: 2 0RF etonogestrel-ethinyl estradiol [NuvaRing] 0.12-0.015 mg/24 hr ring See Rx Instructions .ROUTE .COMPLEX Qty: 3 4RF Dose Instruction: PLACE 1 RING VAGINALLY ONCE FOR 3 WEEKS Rx Instructions: PLACE 1 RING VAGINALLY ONCE FOR 3 WEEKS Primary Care Provider: Shakila Canales Referrals: Shakila Canales MD [Primary Care Provider] - Disposition Disposition: Home, Self Care
[2023-05-12] MEDS: Ondansetron ODT 4 MG Tablet PO (07:46)
[2023-05-12] MEDS: Famotidine 20 MG Tablet PO (07:46)
[2023-05-12 08:04] VITALS: BP 134/84; PULSE 94; RESP 16; O2SAT 97
[2023-05-12 09:24] VITALS: BP 129/88; PULSE 91; RESP 16; TEMP 36.7; O2SAT 99
== END 2023-05-12 09:25 | disposition home or self-care (01) ==
PROVIDERS: Emergency Provider Student in an Organized Health Care Education/Training Program; PCP Obstetrics & Gynecology; Visit Provider Student in an Organized Health Care Education/Training Program
DX: R11.2 Nausea with vomiting, unspecified (principal); E03.9 Hypothyroidism, unspecified; Z79.899 Other long term (current) drug therapy
CPT/HCPCS: 99283

== ENCOUNTER → 2023-10-03 | Outpatient (CLI) | payer OTHER, SELFPAY ==
[2023-10-03 11:00] LABS: Absolute Lymphocyte Count 1.33 X10^3/uL (0.83-4.51); Absolute Neutrophil Count 4.9 X10^3/uL (2.0-7.7); Basophil# 0.05 X10^3/uL; Basophil% 0.7 % (0-1); Eosinophil# 0.23 X10^3/uL; Eosinophils% 3.2 % (0-5); Hematocrit 43.4 % (37-47); Hemoglobin 14.9 g/dL (12.0-15.0); Lymphocyte # 1.33 X10^3/ul (0.83-4.51); Lymphocyte % 18.7 % (19-41); Mean Corp Hgb Conc 34.3 g/dL (32-36); Mean Corpuscular Hgb 31.7 pg (27.0-32.0); Mean Corpuscular Volume 92.3 fL (81-99); Monocyte# 0.58 X10^3/uL; Monocyte% 8.1 % (0-10); NRBC Flagged by Analyzer 0 % (0-5); Neutrophil # 4.91 X10^3/uL (2.7-7.7); Platelet Count 245 K/mm3 (150-450); RBC Distribution Width CV 12.6 % (11.6-14.6); RBC Distribution Width SD 42.5 fl (35.1-43.9); White Blood Count 7.1 K/mm3 (4.4-11.0)
[2023-10-03 11:19] LABS: Vitamin D,25 Hydroxy 38.5 ng/mL
[2023-10-03 11:23] LABS: ALB/GLOB Ratio 0.9 RATIO (0.9-2.4); AST(SGOT) 31 U/L (15-37); Alanine Aminotransfer ALT/SGPT 56 U/L (13-56); Albumin, Serum 3.5 g/dL (3.2-5.0); Alkaline Phosphatase 85 U/L (45-117); Anion Gap 6 (5-15); BUN 9 mg/dL (7-18); Chloride 108 mmol/L (98-107); Cholesterol 219 mg/dL (200); Creatinine, Serum 0.82 mg/dL (0.55-1.02); EST Glomerular Filtration Rate 89 mL/min (>60); Est Glom Filt Rate - Afr Amer 107 mL/min (>60); Glucose 89 mg/dL (74-106); High Density Lipoprotein 47 mg/dL; Potassium 4.1 mmol/L (3.5-5.1); Protein, Total 7.5 g/dL (6.4-8.2); Sodium Level 139 mmol/L (136-145); T4 Free Direct 0.95 ng/dL (0.76-1.46); Triglycerides 148 mg/dL; Very Low Density Lipoprotein 30 mg/dL (5-40)
[2023-10-03 12:20] LABS: Hemoglobin A1c 4.4 % (3.8-5.6)
== END | disposition home or self-care (01) ==
PROVIDERS: PCP Obstetrics & Gynecology; Referring Provider Nurse Practitioner Family; Visit Provider Nurse Practitioner Family
DX: E88.818 Other insulin resistance (principal); E03.8 Other specified hypothyroidism; E06.3 Autoimmune thyroiditis
CPT/HCPCS: 36415; 80053; 80061; 82306; 83036; 84439; 84443; 85025

== ENCOUNTER → 2024-03-12 | Outpatient (CLI) | payer OTHER, SELFPAY ==
[2024-03-12 09:59] LABS: ALB/GLOB Ratio 0.9 RATIO (0.9-2.4); AST(SGOT) 30 U/L (15-37); Alanine Aminotransfer ALT/SGPT 40 U/L (13-56); Albumin, Serum 3.5 g/dL (3.2-5.0); Alkaline Phosphatase 87 U/L (45-117); Anion Gap 8 (5-15); BUN 11 mg/dL (7-18); BUN/Creat Ratio 15.2 RATIO (10-20); Chloride 104 mmol/L (98-107); Cholesterol 234 mg/dL (200); Creatinine, Serum 0.72 mg/dL (0.55-1.02); EST Glomerular Filtration Rate 101 mL/min (>60); Est Glom Filt Rate - Afr Amer 123 mL/min (>60); Globulin 3.7 g/dL (2.2-4.2); Glucose 98 mg/dL (74-106); High Density Lipoprotein 50 mg/dL; Protein, Total 7.2 g/dL (6.4-8.2); Sodium Level 139 mmol/L (136-145); T4 Free Direct 1.29 ng/dL (0.76-1.46); Triglycerides 237 mg/dL; Very Low Density Lipoprotein 47 mg/dL (5-40); Vitamin B12 449 pg/mL (211-911); Vitamin D,25 Hydroxy 32.7 ng/mL
== END | disposition home or self-care (01) ==
LOC: LAB 08:51
PROVIDERS: Referring Provider Internal Medicine Endocrinology, Diabetes & Metabolism; Visit Provider Internal Medicine Endocrinology, Diabetes & Metabolism
DX: E03.8 Other specified hypothyroidism (principal); E06.3 Autoimmune thyroiditis; E28.2 Polycystic ovarian syndrome; E55.9 Vitamin D deficiency, unspecified
CPT/HCPCS: 36415; 80053; 80061; 82306; 82607; 84439; 84443

== ENCOUNTER → 2024-04-30 | Outpatient (CLI) | payer OTHER, SELFPAY | END | disposition home or self-care (01) | LOC: LAB 07:05 | PROVIDERS: Referring Provider Internal Medicine Endocrinology, Diabetes & Metabolism; Visit Provider Internal Medicine Endocrinology, Diabetes & Metabolism | DX: E03.8 Other specified hypothyroidism (principal); E06.3 Autoimmune thyroiditis; E28.2 Polycystic ovarian syndrome | CPT/HCPCS: 36415; 84439; 84443 ==

== ENCOUNTER → 2024-07-01 | Outpatient (CLI) | payer OTHER, SELFPAY ==
[2024-07-01 12:11] LABS: Thyroid Stim Hormone (TSH) 0.701 uIU/mL (0.300-4.200)
== END | disposition home or self-care (01) ==
PROVIDERS: Referring Provider Advanced Practice Midwife; Visit Provider Internal Medicine Endocrinology, Diabetes & Metabolism
DX: E03.8 Other specified hypothyroidism (principal); E06.3 Autoimmune thyroiditis
CPT/HCPCS: 36415; 84439; 84443

== ENCOUNTER → 2024-07-19 | Outpatient (CLI) | payer OTHER, SELFPAY | END | disposition home or self-care (01) | LOC: LAB 10:00 | PROVIDERS: Referring Provider Advanced Practice Midwife; Visit Provider Advanced Practice Midwife | DX: E28.2 Polycystic ovarian syndrome (principal) ==

== ENCOUNTER → 2024-08-04 | Outpatient (CLI) | payer OTHER, SELFPAY ==
--- NOTE | 2024-08-04 12:28 | US_ITS ---
PROCEDURE: TRANSVAGINAL NON- 08/04/2024 REASON FOR EXAM: PCOS, INFERTILITY TECHNIQUE: TRANSVAGINAL NON- COMPARISON: Prior study dated August 05, 2019. FINDINGS: Measurements: Uterus: 7.5 cm x 4.3 cm x 2.9 cm with a volume of 48.77 mL Endometrial Thickness: 4.4 mm. It is hyperechoic. Right Ovary: 2.6 cm x 2.4 cm x 2.6 cm with a volume of 8.16 mL. Left Ovary: 1.9 cm x 1.6 cm x 1.4 cm with a volume of 2.14 mL. Uterus: Normal size, myometrial echotexture, and contour. Endometrium: Unremarkable. Right ovary: Normal size and echotexture. Left ovary: Normal size and echotexture. Other: No large pelvic mass identified. US/Transvaginal Non- IMPRESSION: NORMAL transvaginal PELVIC ULTRASOUND. Reading Location: [place] [id number]
== END | disposition home or self-care (01) ==
PROVIDERS: Referring Provider Advanced Practice Midwife; Visit Provider Advanced Practice Midwife
DX: E28.2 Polycystic ovarian syndrome (principal); N97.0 Female infertility associated with anovulation
CPT/HCPCS: 76830

== ENCOUNTER → 2024-08-06 | Outpatient (CLI) | payer OTHER, SELFPAY ==
[2024-08-07 04:07] LABS: PROGESTERONE 0.2 ng/mL (.)
== END | disposition home or self-care (01) ==
PROVIDERS: Referring Provider Advanced Practice Midwife; Visit Provider Advanced Practice Midwife
DX: E28.2 Polycystic ovarian syndrome (principal); E03.8 Other specified hypothyroidism; E06.3 Autoimmune thyroiditis
CPT/HCPCS: 36415; 84144

== ENCOUNTER → 2024-09-08 | Outpatient (CLI) | payer OTHER, SELFPAY ==
[2024-09-10 04:07] LABS: PROGESTERONE 1.4 ng/mL (.)
== END | disposition home or self-care (01) ==
PROVIDERS: Obstetrics & Gynecology; Visit Provider Advanced Practice Midwife
DX: N97.0 Female infertility associated with anovulation (principal)
CPT/HCPCS: 36415; 84144

== ENCOUNTER → 2024-10-10 | Outpatient (CLI) | payer OTHER, SELFPAY ==
--- OUTSIDE RECORDS SUMMARY | 2024-10-10 16:20 | XMS RPT_ITS | CCD ---
Author Organization [facility] Care Team Providers Care Underwriting Support Manager Name Role Phone OPAL, XU LEI Unavailable Unavailable DEBAKILAH Unavailable Unavailable PLAYL, JUAN M Unavailable Unavailable PLAYL, JUAN M Unavailable Unavailable BERNARD ROYAL A Unavailable Unavailable GENNYBERNARD A Unavailable Unavailable BERNARD ROYAL Unavailable Unavailable Shakila Canales MD Unavailable [phone] Dr. Marlon Gaona Primary Care Provider [phone] Dr. Marlon Gaona Referring Provider Dr. Terrence Gallagher Attending Provider Dr. Shakila Canales Attending Provider [phone] Dr. Marlon Gaona Primary Care Provider [phone] Dr. Marlon Gaona Referring Provider Dr. Shakila Canales Attending Provider [phone] Dr. Marlon Gaona Referring Provider Ranjeet KESSLER, RITO Monterroso Attending Provider [phone] Dr. Shakila Canales Attending Provider [phone] Dr. Marlon Gaona Referring Provider Dr. Shakila Canales Attending Provider [phone] Dr. Marlon Gaona Primary Care Provider Dr. Marlon Gaona Referring Provider Dr. Nikky Velasquez Attending Provider [phone] Dr. Shakila Canales Attending Provider Care Physician, No Primary Primary Care Provider Unavailable King VICK, Dr. Ocampo Attending Provider King VICK, Dr. Ocampo Referring Provider Jimenez HICKMAN, Dr. Adkins Referring Provider Care Physician, No Primary Referring Provider Un available Mendez CNM, Alejandro Attending Provider [phone] Mendez CNM, Alejandro Referring Provider Care Physician, No Primary Primary Care Provider Unavailable King VICK, Dr. Ocampo Attending Provider King VICK, Dr. Ocampo Referring Provider Parker HICKMAN, Dr. Jhaveri Attending Provider Care Physician, No Primary Primary Care Provider Unavailable King VICK, Dr. Ocampo Attending Provider [phone] Care Physician, No Primary Primary Care Unava ilable Care Physician, No Primary Referring Unava ilable Marcradhaony, Shakila Attending Unavailable Care Physician, No Primary Primary Care Unava ilable Alejandro Simms Referring Unavailable Alejandro Simms Attending Unavailable Marcanthony, Shakila Primary Care Unavailable Marcanthony, Shakila Referring Unavailable Marcanthony, Shakila Attending Unavailable Marcanthony, Shakila Primary Care Unavailable Marcanthony, Shakila Referring Unavailable Marcanthony, Shakila Attending Unavailable Cele Almonte Attending Unavailable Marcanthony, Shakila Primary Care Unavailable Marcanthony, Shakila Referring Unavailable Cele Almonte Attending Unavailable Marcanthony, Shakila Primary Care Unavailable Marcanthony, Shakila Referring Unavailable Terrence Gallagher Attending Unavailable Care Physician, No Primary Primary Care Unava ilable Jed Gaona Referring Unavailable Care Physician, No Primary Primary Care Unava ilable Care Physician, No Primary Referring Unava ilable Alejandro Simms Attending Unavailable Cele Almonte Attending Unavailable Marcanthony, Shakila Primary Care Unavailable Marcanthony, Shakila Referring Unavailable Kriss Pollack Attending Unavailable Care Physician, No Primary Referring Unava ilable Care Physician, No Primary Primary Care Unava ilable Cele Almonte Referring Unavailable Cele Almonte Attending Unavailable Marcanthony, Shakila Primary Care Unavailable Care Physician, No Primary Primary Care Unava ilable Alejandro Simms Attending Unavailable Care Physician, No Primary Primary Care Unava ilable Alejandro Simms Attending Unavailable Alejandro Simms Referring Unavailable Terrence Gallagher Referring Unavailable Terrence Gallagher Attending Unavailable Care Physician, No Primary Primary Care Unava ilable Coltoni Referring Unavailable Terrence Gallagher Attending Unavailable Care Physician, No Primary Primary Care Unava ilTerrence Hill Attending Unavailable Care Physician, No Primary Primary Care Unava Alejandro Lee Referring Unavailable Care Physician, No Primary Primary Care Unava Alejandro Lee Attending Unavailable Alejandro Simms Referring Unavailable Allergies Allergy Classification Reported Allergen(s) Allergy Type Date of Onset Reaction(s) Facility (13 sources) Chlorhexidine Drug Allergy 3 [facility] (13 sources) Isopropyl Alcohol Drug Allergy 3 [facility] (7 sources) crab allergenic extract Drug Allergy 5 [facility] (8 sources) Shellfish; Translations: [shellfish derived] Allergy to substance 5 [facility] (1 source) Chlorhexidine Drug Allergy 5 [facility] (1 source) Isopropyl Alcohol Drug Allergy 5 [facility] (1 source) crab Drug allergy (disorder) 5 [facility] Medications Current Medications Medication Drug Class(es) Dates Sig (Normalized) Sig (Original) amoxicillin 875 mg oral tablet (4 sources) Penicillin-class Antibacterial Start: 08-08-2024 take 1 tablet by mouth twice daily Amoxicillin 875 mg tablet Active 875 mg PO TWICE A DAY August 08, 2024 12:00am x7 days cholecalciferol 0.025 mg oral capsule (8 sources) Vitamin D Start: 03-13-2024 take 1 capsule by mouth once daily Cholecalciferol (Vitamin D3) 25 mcg (1,000 unit) capsule Active 25 ug PO daily March 13, 2024 1:00am choline (4 sources) Start: 08-08-2024 choline Active PO August 08, 2024 12:00am Desogestrel-Ethinyl Estradiol (16 sources) Progestin, Estrogen Start: 10-11-2020 Desogestrel-Ethinyl Estradiol (Apri) 0.15-0.03 mg tablet Active 1 TABLET PO daily October 11, 2020 3:45pm Start: 10-11-2020 End: 10-17-2021 take 0.15 tablet by mouth once daily Desogestrel-Ethinyl Estradiol (Apri) 0.15-0.03 mg tablet Discontinued 1 {tbl} PO daily 15 02October 11, 2020 12:00am October 17, 2021 3:07pm Start: 10-11-2020 End: 10-17-2021 take 0.15 tablet by mouth once daily Desogestrel-Ethinyl Estradiol (Apri) 0.15-0.03 mg tablet Discontinued 1 {tbl} PO daily October 11, 2020 12:00am October 17, 2021 3:07pm Start: 10-11-2020 End: 10-17-2021 Desogestrel-Ethinyl Estradio l (Apri) 0.15-0.03 mg tablet Discontinued 1 TABLET PO daily October 10, 2020 11:00pm October 17, 2021 2:07pm Start: 10-11-2020 End: 10-17-2021 Desogestrel-Ethinyl Estradio l (Apri) 0.15-0.03 mg tablet Discontinued 1 TABLET PO daily October 11, 2020 12:00am October 17, 2021 3:07pm ferrous sulfate 325 mg oral tablet (8 sources) Start: 03-13-2024 take 1 tablet by mouth once daily Ferrous Sulfate (Feosol) 325 mg (65 mg iron) tablet Active 325 mg PO daily March 13, 2024 1:00am FLUoxetine 20 mg oral capsule (4 sources) Serotonin Reuptake Inhibitor Start: 08-08-2024 take 1 capsule by mouth once daily Fluoxetine (Prozac) 20 mg capsule Active 20 mg PO DAILY 30 August 08, 2024 12:00am hydrOXYzine pamoate 25 mg oral capsule (4 sources) Antihistamine Start: 08-08-2024 take 1 capsule by mouth every six hours as needed for anxiety Hydroxyzine Pamoate (Vistaril) 25 mg capsule Active 25 mg PO EVERY 6 HOURS as needed for anxiety August 08, 2024 12:00am make take 25-50 letrozole 2.5 mg oral tablet (2 sources) Aromatase Inhibitor Start: 08-14-2024 End: 09-11-2024 take 1 tablet by mouth once daily Letrozole 2.5 mg tablet Active 5 mg PO daily 10 0 September 11, 2024 7:37am take daily cycle day 3-7 medroxyPROGESTERone acetate 5 mg oral tablet (9 sources) Progestin Start: 08-08-2024 take 1 tablet by mouth once daily Medroxyprogesterone 5 mg tablet Active 5 mg PO daily 5 5 12 August 08, 2024 12:00am if no menses by cycle day 35-40 take provera Start: 07-09-2024 End: 07-14-2024 take 2 tablets by mouth once daily Medroxyprogesterone (Provera) 5 mg tablet Discontinued 10 mg PO DAILY 10 5 0 July 09, 2024 12:00am July 13, 2024 12:00am July 14, 2024 12:07am Abnormal uterine bleeding Abnormal uterine and vaginal bleeding, unspecified 2 tabs daily for 5 days. Call office if no withdrawal bleed Multivitamin (Daily Multi-Vitamin) tablet (16 sources) Start: 03-28-2018 take 1 tablet by mouth once daily Multivitamin (Daily Multi-Vitamin) tablet Active 1 TABLET PO DAILY March 28, 2018 5:24pm Start: 03-28-2018 End: 03-13-2024 Multivitamin (Daily Multi-Vi tamin) tablet Discontinued 1 {tbl} PO DAILY March 28, 2018 1:00am March 13, 2024 9:29am Start: 03-28-2018 take 1 tablet by chase th once daily Multivitamin (Daily Multi-Vitamin) tablet Active 1 TABLET PO DAILY March 28, 2018 12:00am Start: 03-28-2018 take 1 tablet by chase th once daily Multivitamin (Daily Multi-Vitamin) tablet Active 1 TABLET PO DAILY March 28, 2018 1:00am [place] 9-Xqh-Kvk-Fish Oil (Fish Oil) 1,200 (144-216) mg capsule (7 sources) Start: 07-01-2024 [place] 1-Tqi-Vlu-Fish Oil (Fish Oil) 1,200 (144-216) mg capsule Active NMA PO July 01, 2024 12:00am ondansetron 4 mg disintegrating oral tablet (9 sources) Serotonin-3 Receptor Antagonist Start: 05-12-2023 take 1 tablet by mouth every eight hours as needed for nausea Ondansetron 4 mg tablet,disintegratin g Active 4 mg PO EVERY 8 HOURS NEEDED as needed for Nausea 14 0 May 12, 2023 12:00am Brzuti06-Uqxo Fum-Folic Ac-Om3 (One A Day Women's Dha) 28 mg iron- 800 mcg combo pack (8 sources) Start: 03-13-2024 Fzyhuh31-Gaet Fum-Folic Ac-Om3 (One A Day Women's Dha) 28 mg iron- 800 mcg combo pack Active NMA PO March 13, 2024 1:00am [id number]-[id number]-L7 -Q18-E-A6 1 mg-1 mg- 500 unit tablet (7 sources) Start: 07-01-2024 [id number]-Udd-Mst-[id number]-V 6-Z68-A-L1 1 mg-1 mg- 500 unit tablet Active {tbl} PO July 01, 2024 12:00am Selenium 200 mcg capsule (7 sources) Start: 07-01-2024 Selenium 200 mcg capsule Active ug PO July 01, 2024 12:00am sertraline 100 mg oral tablet (20 sources) Serotonin Reuptake Inhibitor Start: 11-29-2023 End: 11-29-2023 take 1 tablet by mouth once daily Sertraline 100 mg tablet Active 100 mg PO DAILY 30 November 29, 2023 2:48pm Anxiety Anxiety disorder, unspecified Start: 05-22-2022 End: 11-29-2023 take 1 tablet by mouth once daily Sertraline 50 mg tablet Discontinued 50 mg PO DAILY 90 August 08, 2023 11:44am November 29, 2023 2:11pm traZODone hydrochloride 50 mg oral tablet (20 sources) Serotonin Reuptake Inhibitor Start: 11-29-2023 End: 11-29-2023 take 1 tablet by mouth at bedtime as needed Trazodone 50 mg tablet Active 50 mg PO AT BEDTIME as needed for insomnia 30 November 29, 2023 2:49pm Anxiety Anxiety disorder, unspecified Start: 10-17-2021 End: 10-26-2022 take 0.5-1 tablets by mouth at bedtime Trazodone 50 mg tablet Discontinued 50 mg PO AT BEDTIME 17 02October 17, 2021 3:20pm October 26, 2022 3:35pm insomnia 1/2 to 1 tab Start: 10-11-2020 End: 10-17-2021 Trazodone 100 mg tablet Disc ontinued 50 mg PO AT BEDTIME 17 02October 11, 2020 12:00am October 17, 2021 3:23pm insomnia Start: 10-11-2020 End: 10-17-2021 take 50 mg by mouth at bedtime Trazodone Discontinued 50 MG PO AT BEDTIME October 11, 2020 12:00am October 17, 2021 3:23pm Completed/Discontinued Medications Medication Drug Class(es) Dates Sig (Normalized) Sig (Original) acetaminophen 325 mg oral tablet (4 sources) Start: 09-11-2016 TYLENOL 325 MG TABS as needed ACETAMINOPHEN [id number] Shakila Canales MD acetaminophen 325 mg / oxyCODONE hydrochloride 5 mg oral tablet (20 sources) Opioid Agonist Start: 03-29-2020 End: 04-05-2020 Oxycodone-Acetaminoph en (Percocet) 5-325 mg tablet Discontinued 1 {tbl} PO TWICE A DAY as needed for pain (scale score 7-10) 14 7 0 March 29, 2020 April 04, 2020 1:00am April 05, 2020 1:03am Other acute postprocedural pain Start: 02-16-2020 End: 02-23-2020 Oxycodone-Acetaminophen (Per cocet) 5-325 mg tablet Discontinued 1 {tbl} PO 4 TIMES DAILY as needed for pain (scale score 7-10) 28 7 0 February 16, 2020 February 22, 2020 1:00am February 23, 2020 1:02am Other acute postprocedural pain Start: 02-02-2020 End: 02-09-2020 Oxycodone-Acetaminophen 1 TA BLET tablet Discontinued 1 {tbl} PO EVERY 4 HOURS NEEDED as needed for Pain Score 6-10 40 7 0 February 02, 2020 February 08, 2020 1:00am February 09, 2020 1:02am Other acute postprocedural pain 40 tabs (forty) Start: 02-02-2020 End: 02-09-2020 take 1 tablet by mouth every four hours as needed Oxycodone-Acetaminophen Discontinued 1 TABLET PO EVERY 4 HOURS NEEDED 40 7 February 02, 2020 February 09, 2020 1:02am 40 tabs (forty) Start: 01-24-2020 End: 01-31-2020 Oxycodone-Acetaminophen 1 TA BLET tablet Discontinued 1 {tbl} PO EVERY 4 HOURS NEEDED as needed for Pain Score 6-10 40 7 0 January 24, 2020 January 30, 2020 1:00am January 31, 2020 1:03am Other acute postprocedural pain 40 tabs (forty) Start: 01-24-2020 End: 01-31-2020 take 1 tablet by mouth every four hours as needed Oxycodone-Acetaminophen Discontinued 1 TABLET PO EVERY 4 HOURS NEEDED 40 7 January 24, 2020 January 31, 2020 1:03am 40 tabs (forty) Start: 12-13-2019 End: 12-20-2019 Oxycodone-Acetaminophen 5-32 5 mg tablet Discontinued 1 {tbl} PO EVERY 4 HOURS NEEDED as needed for Pain Score 6-10 40 7 0 December 13, 2019 December 19, 2019 12:00am December 20, 2019 12:03am Other acute postprocedural pain 40 tabs (forty) Start: 12-13-2019 End: 12-20-2019 take 1 tablet by mouth every four hours as needed Oxycodone-Acetaminophen Discontinued 1 TABLET PO EVERY 4 HOURS NEEDED 40 7 December 13, 2019 December 20, 2019 12:03am 40 tabs (forty) Start: 12-03-2019 End: 12-10-2019 Oxycodone-Acetaminophen 1 TA BLET tablet Discontinued 1 {tbl} PO EVERY 4 HOURS NEEDED as needed for Pain Score 6-10 40 7 0 December 03, 2019 December 09, 2019 12:00am December 10, 2019 12:02am Other acute postprocedural pain 40 tabs (forty) Start: 12-03-2019 End: 12-10-2019 take 1 tablet by mouth every four hours as needed Oxycodone-Acetaminophen Discontinued 1 TABLET PO EVERY 4 HOURS NEEDED 40 7 December 03, 2019 December 10, 2019 12:02am 40 tabs (forty) 0.8 ml adalimumab 50 mg/ml prefilled syringe (20 sources) Tumor Necrosis Factor Sachi Start: 09-11-2016 HUMIRA 40 MG/0.8ML P SKT use as directed every other week ADALIMUMAB [id number] Shakila Canales MD Start: 08-23-2015 End: 09-13-2017 Adalimumab 40 MG/0.8 ML pen injector kit Discontinued 1 NMA IM EVERY WEEK August 23, 2015 12:00am September 13, 2017 4:09pm Start: 08-23-2015 End: 09-13-2017 inject 1 dose by intramuscular injection every week Adalimumab Discontinued 1 DOSE IM EVERY WEEK August 23, 2015 12:00am September 13, 2017 4:09pm amoxicillin 875 mg / clavulanate 125 mg oral tablet (16 sources) Penicillin-class Antibacterial Start: 03-28-2018 End: 09-16-2018 Amoxicillin-Pot Clavulanate (Augmentin) 875-125 mg tablet Discontinued 1 {tbl} PO TWICE A DAY 60 2 March 28, 2018 1:00am September 16, 2018 11:14am azaTHIOprine 50 mg oral tablet (16 sources) Purine Antimetabolite Start: 08-23-2015 End: 06-26-2017 take 1 tablet by mouth once daily Azathioprine 50 MG tablet Discontinued 4 {tbl} PO DAILY@0800 August 23, 2015 12:00am June 26, 2017 3:11pm betamethasone 0.5 mg/ml topical cream (8 sources) Corticosteroid Start: 06-15-2023 End: 03-13-2024 Betamethasone Dipropionate 0.05 % cream Discontinued 1 NMA TOPICAL TWICE A DAY as needed for skin irritation 45 0 June 15, 2023 12:00am March 13, 2024 9:29am 12 hr buPROPion hydrochloride 90 mg / naltrexone hydrochloride 8 mg extended release oral tablet (9 sources) Opioid Antagonist, Aminoketone Start: 03-23-2023 End: 05-04-2023 Naltrexone-Bupropio n (Contrave) 8-90 mg tablet extended release Discontinued 2 {tbl} PO TWICE A DAY March 23, 2023 1:00am May 04, 2023 1:46pm celecoxib 100 mg oral capsule (20 sources) Nonsteroidal Anti-inflammatory Drug Start: 06-26-2017 End: 03-28-2018 take 1 capsule by mouth once Celecoxib (Celebrex) 100 mg capsule Discontinued 100 mg PO ONCE June 26, 2017 12:00am March 28, 2018 5:26pm Start: 09-11-2016 take 1 tablet by chase twice daily CELEBREX 100 MG CAPS One tablet by mouth twice daily CELECOXIB [id number] Shakila Canales MD cyclobenzaprine hydrochloride 5 mg oral tablet (16 sources) Muscle Relaxant Start: 06-26-2017 End: 03-28-2018 take 1 tablet by mouth three times daily as needed Cyclobenzaprine 5 mg tablet Discontinued 5 mg PO THREE TIMES A DAY as needed June 26, 2017 12:00am March 28, 2018 5:26pm diazePAM 5 mg oral tablet (20 sources) Benzodiazepine Start: 12-03-2019 End: 02-02-2020 take 1 tablet by mouth four times daily as needed for muscle spasms Diazepam 5 MG tablet Discontinued 5 mg PO 4 TIMES DAILY NEEDED as needed for Spasms 30 0 January 24, 2020 10:36am February 02, 2020 1:05pm 30 tabs (thirty) Diclofenac (16 sources) Nonsteroidal Anti-inflammatory Drug Start: 08-23-2015 End: 06-26-2017 Diclofenac Discontinued PO DAILY August 23, 2015 7:49am June 26, 2017 3:13pm Start: 08-23-2015 End: 06-26-2017 Diclofenac Discontinued PO D AILY August 22, 2015 11:00pm June 26, 2017 2:13pm Start: 08-23-2015 End: 06-26-2017 Diclofenac Discontinued PO D AILY August 23, 2015 12:00am June 26, 2017 3:13pm doxycycline hyclate 150 mg oral tablet (20 sources) Tetracycline-class Drug Start: 01-20-2020 End: 01-24-2020 take 1 tablet by mouth twice daily Doxycycline Hyclate 150 MG tablet Discontinued 150 mg PO TWICE A DAY January 20, 2020 1:00am January 24, 2020 10:36am Start: 09-11-2016 take 1 tablet by chase once daily DOXYCYCLINE HYCLATE 200 MG TBEC One tablet by mouth daily DOXYCYCLINE HYCLATE [id number] Shakila Canales MD Start: 08-23-2015 End: 06-26-2017 take 1 capsule by mouth once daily Doxycycline Hyclate 100 MG capsule Discontinued 100 mg PO DAILY August 23, 2015 12:00am June 26, 2017 3:12pm Start: 08-23-2015 End: 06-26-2017 take 2 capsules by mouth at bedtime Doxycycline Hyclate 100 MG capsule Discontinued 200 mg PO AT BEDTIME August 23, 2015 12:00am June 26, 2017 3:12pm Start: 08-23-2015 End: 06-26-2017 take 200 mg by mouth at bedtime Doxycycline Hyclate Di scontinued 200 MG PO AT BEDTIME August 23, 2015 12:00am June 26, 2017 3:12pm ergocalciferol 1.25 mg oral capsule (16 sources) Provitamin D2 Compound Start: 08-23-2015 End: 03-28-2018 Ergocalciferol (Vitamin D2) 50,000 UNIT capsule Discontinued 22150 U PO EVERY MONTH August 23, 2015 12:00am March 28, 2018 5:25pm 21 day ethinyl estradiol 0.294510 mg/hr / etonogestrel 0.005 mg/hr vaginal system (20 sources) Progestin, Estrogen Start: 11-29-2023 End: 03-13-2024 Etonogestrel-Ethinyl Estradiol (Nuvaring) 0.12-0.015 mg/24 hr ring Discontinued 0 .ROUTE .COMPLEX 3 November 29, 2023 2:48pm March 13, 2024 9:29am Anxiety Anxiety disorder, unspecified PLACE 1 RING VAGINALLY ONCE FOR 3 WEEKS Start: 10-17-2021 End: 02-20-2023 Etonogestrel-Ethinyl Estradi ol (Nuvaring) 0.12-0.015 mg/24 hr ring Discontinued 1 NMA VAGINAL ONCE 1 08 02March 21, 2022 5:11pm February 20, 2023 2:47pm Start: 10-17-2021 End: 02-20-2023 Etonogestrel-Ethinyl Estradi ol (Nuvaring) 0.12-0.015 mg/24 hr ring Discontinued 1 VAG RING VAGINAL ONCE 1 March 21, 2022 5:11pm February 20, 2023 2:47pm Start: 06-26-2017 End: 07-22-2019 Etonogestrel-Ethinyl Estradi ol (Nuvaring) 0.12-0.015 mg/24 hr ring Discontinued 1 NMA VAGINAL every 4 weeks 3 June 16, 2019 10:51am July 22, 2019 10:42am Start: 06-26-2017 End: 07-22-2019 Etonogestrel-Ethinyl Estradi ol (Nuvaring) 0.12-0.015 mg/24 hr ring Discontinued 1 VAG RING VAGINAL every 4 weeks 3 June 16, 2019 10:51am July 22, 2019 10:42am Start: 09-11-2016 NUVARING 0.12- 0.015 MG/24HR RING change every four weeks ETONOGESTREL-ETHINYL ESTRADIOL [id number] Shakila Canales MD Norgestimate-Ethinyl Estradiol (20 sources) Progestin, Estrogen Start: 05-18-2020 End: 10-11-2020 Norgestimate-Ethinyl Estradiol (Sprintec (28)) 0.25-35 mg-mcg tablet Discontinued 1 {tbl} PO daily 84 1 May 18, 2020 9:03am October 11, 2020 3:45pm Start: 05-18-2020 End: 10-11-2020 Norgestimate-Ethinyl Estradi ol (Sprintec (28)) 0.25-35 mg-mcg tablet Discontinued 1 {tbl} PO daily 84 May 18, 2020 9:03am October 11, 2020 3:45pm Start: 05-18-2020 End: 10-11-2020 take 1 tablet by mouth once daily Norgestimate-Ethinyl Estradiol (Sprintec (28)) 0.25-35 mg-mcg tablet Discontinued 1 TABLET PO daily 84 May 18, 2020 8:03am October 11, 2020 2:45pm Start: 05-18-2020 End: 10-11-2020 take 1 tablet by mouth once daily Norgestimate-Ethinyl Estradiol (Sprintec (28)) 0.25-35 mg-mcg tablet Discontinued 1 TABLET PO daily 84 May 18, 2020 9:03am October 11, 2020 3:45pm Start: 03-08-2020 End: 05-18-2020 Norgestimate-Ethinyl Estradi ol (Sprintec (28)) 0.25-35 mg-mcg tablet Discontinued 1 {tbl} PO daily 84 0 March 08, 2020 2:51pm May 18, 2020 9:03am Start: 03-08-2020 End: 05-18-2020 Norgestimate-Ethinyl Estradi ol (Sprintec (28)) 0.25-35 mg-mcg tablet Discontinued 1 {tbl} PO daily 84 March 08, 2020 2:51pm May 18, 2020 9:03am Start: 03-08-2020 End: 05-18-2020 take 1 tablet by mouth once daily Norgestimate-Ethinyl Estradiol (Sprintec (28)) 0.25-35 mg-mcg tablet Discontinued 1 TABLET PO daily 84 March 08, 2020 1:51pm May 18, 2020 8:03am Start: 03-08-2020 End: 05-18-2020 take 1 tablet by mouth once daily Norgestimate-Ethinyl Estradiol (Sprintec (28)) 0.25-35 mg-mcg tablet Discontinued 1 TABLET PO daily 84 March 08, 2020 2:51pm May 18, 2020 9:03am Start: 07-22-2019 End: 03-08-2020 take 1 tablet by mouth once daily Norgestimate-Ethinyl Estradiol (Sprintec (28)) 0.25-35 mg-mcg tablet Discontinued 1 TABLET PO daily 84 July 22, 2019 10:41am March 08, 2020 2:51pm Start: 07-22-2019 End: 03-08-2020 Norgestimate-Ethinyl Estradi ol (Sprintec (28)) 0.25-35 mg-mcg tablet Discontinued 1 {tbl} PO daily 84 July 22, 2019 12:00am March 08, 2020 2:51pm Start: 07-22-2019 End: 03-08-2020 Norgestimate-Ethinyl Estradi ol (Sprintec (28)) 0.25-35 mg-mcg tablet Discontinued 1 {tbl} PO daily 84 July 22, 2019 12:00am March 08, 2020 2:51pm Start: 07-22-2019 End: 03-08-2020 take 1 tablet by mouth once daily Norgestimate-Ethinyl Estradiol (Sprintec (28)) 0.25-35 mg-mcg tablet Discontinued 1 TABLET PO daily 84 July 21, 2019 11:00pm March 08, 2020 1:51pm Start: 07-22-2019 End: 03-08-2020 take 1 tablet by mouth once daily Norgestimate-Ethinyl Estradiol (Sprintec (28)) 0.25-35 mg-mcg tablet Discontinued 1 TABLET PO daily July 22, 2019 12:00am March 08, 2020 2:51pm etodolac 300 mg oral capsule (16 sources) Nonsteroidal Anti-inflammatory Drug Start: 08-23-2015 End: 06-26-2017 take 1 capsule by mouth three times daily at mealtime Etodolac 300 MG capsule Discontinued 300 mg PO 3 TIMES DAILY WITH MEALS 15 0 August 23, 2015 12:00am June 26, 2017 3:12pm with food Etonogestrel-Et hinyl Estradiol (Nuvaring) 0.12-0.015 mg/24 hr ring (9 sources) Start: 02-20-2023 End: 11-29-2023 Etonogestrel-Ethi nyl Estradiol (Nuvaring) 0.12-0.015 mg/24 hr ring Discontinued 0 .ROUTE .COMPLEX 3 4 February 20, 2023 2:47pm November 29, 2023 2:50pm PLACE 1 RING VAGINALLY ONCE FOR 3 WEEKS Start: 02-20-2023 End: 11-29-2023 Etonogestrel-Ethinyl Estradi ol (Nuvaring) 0.12-0.015 mg/24 hr ring Discontinued 0 .ROUTE .COMPLEX 3 February 20, 2023 2:47pm November 29, 2023 2:50pm PLACE 1 RING VAGINALLY ONCE FOR 3 WEEKS Start: 02-20-2023 Etonogestrel-E thinyl Estradiol (Nuvaring) 0.12-0.015 mg/24 hr ring Active 0 .ROUTE .COMPLEX 3 February 20, 2023 2:47pm PLACE 1 RING VAGINALLY ONCE FOR 3 WEEKS folic acid 0.8 mg oral capsule (16 sources) Start: 03-28-2018 End: 09-16-2018 take 1 capsule by mouth once daily Folic Acid 0.8 mg capsule Discontinued 0.8 mg PO DAILY March 28, 2018 1:00am September 16, 2018 11:16am furosemide 20 mg oral tablet (16 sources) Loop Diuretic Start: 10-11-2020 End: 10-13-2021 take 1 tablet by mouth once daily Furosemide (Lasix) 20 mg tablet Discontinued 20 mg PO DAILY October 11, 2020 12:00am October 13, 2021 8:07am gabapentin 300 mg oral capsule (20 sources) Anti-epileptic Agent Start: 12-11-2019 End: 02-16-2020 take 1 capsule by mouth twice daily Gabapentin (Neurontin) 300 mg capsule Discontinued 300 mg PO TWICE A DAY 60 1 December 11, 2019 12:00am February 16, 2020 1:55pm Start: 06-26-2017 End: 03-28-2018 take 1 capsule by mouth three times daily as needed Gabapentin 300 mg capsule Discontinued 300 mg PO THREE TIMES A DAY as needed June 26, 2017 12:00am March 28, 2018 5:25pm HYDROmorphone hydrochloride 2 mg oral tablet (20 sources) Opioid Agonist Start: 01-27-2020 End: 02-03-2020 take 7-10 mg by mouth every six hours as needed for pain Hydromorphone (Dilaudid) 2 mg tablet Discontinued 2 mg PO EVERY 6 HOURS as needed for pain (scale score 7-10) 28 7 0 January 27, 2020 February 02, 2020 1:00am February 03, 2020 1:02am Hidradenitis suppurativa Unspecified open wound of left upper arm, initial encounter Other acute postprocedural pain 28 tabs (twenty-eight) Start: 12-08-2019 End: 12-15-2019 Hydromorphone 2 MG tablet Di scontinued 2 - 4 mg PO .QODAILY PRN as needed for Pain Score 6-10 6 7 0 December 08, 2019 December 14, 2019 12:00am December 15, 2019 12:03am Other acute postprocedural pain 6 tabs (six) to be taken at the time of the VAC dressing changes only. hydroxychloroquine sulfate 200 mg oral tablet (16 sources) Antimalarial, Antirheumatic Agent Start: 06-26-2017 End: 09-16-2018 take 1 tablet by mouth once daily Hydroxychloroquine (Plaquenil) 200 mg tablet Discontinued 200 mg PO daily June 26, 2017 12:00am September 16, 2018 11:16am ibuprofen 200 mg oral capsule (4 sources) Nonsteroidal Anti-inflammatory Drug Start: 09-11-2016 ADVIL 200 MG CAPS every other day IBUPROFEN [id number] Shakila Canales MD ISOtretinoin 10 mg oral capsule (16 sources) Retinoid Start: 03-28-2018 End: 09-16-2018 Isotretinoin 10 mg capsule Discontinued PO 0 March 28, 2018 1:00am September 16, 2018 11:16am Start: 03-28-2018 End: 09-16-2018 Isotretinoin Discontinued PO March 28, 2018 1:00am September 16, 2018 11:16am levothyroxine sodium 0.175 mg oral tablet (20 sources) l-Thyroxine Start: 10-11-2020 End: 05-01-2024 take 1 tablet by mouth once daily Levothyroxine 175 mcg tablet Discontinued 175 ug PO DAILY 90 0 August 27, 2023 3:18pm March 13, 2024 9:46am Start: 03-28-2018 End: 10-11-2020 Levothyroxine 25 mcg capsule Discontinued 150 ug PO DAILY March 28, 2018 1:00am October 11, 2020 3:02pm Start: 03-28-2018 End: 10-11-2020 take 150 ug by mouth once daily Levothyroxine Discontinued 150 MCG PO DAILY March 28, 2018 1:00am October 11, 2020 3:02pm methotrexate 2.5 mg oral tablet (16 sources) Folate Analog Metabolic Inhibitor Start: 09-13-2017 End: 09-16-2018 take 1 tablet by mouth once Methotrexate Sodium 2.5 mg tablet Discontinued 2.5 mg PO ONCE September 13, 2017 12:00am September 16, 2018 11:16am MULTIPLE VITAMINS-MINERALS (4 sources) Start: 09-11-2016 take 1 tablet by mouth once daily MULTIVITAMIN WOMEN TABS One tablet by mouth daily MULTIPLE VITAMINS-MINERALS [id number] Shakila Canales MD phentermine hydrochloride 8 mg oral tablet (20 sources) Sympathomimetic Amine Anorectic Start: 06-09-2022 End: 10-26-2022 take 1 tablet by mouth once daily 30 minutes before mealtime for obesity Phentermine 8 mg tablet Discontinued 8 mg PO DAILY 30 30 2 June 09, 2022 4:54pm October 26, 2022 3:35pm must administer 30 minutes before meals/food reason for rx: obesity Start: 04-26-2022 End: 05-26-2022 take 1 tablet by mouth once daily 30 minutes before mealtime for obesity Phentermine 8 mg tablet Discontinued 8 mg PO DAILY 30 30 0 April 26, 2022 1:00am May 25, 2022 12:00am May 26, 2022 12:04am must administer 30 minutes before meals/food reason for rx: obesity Start: 11-09-2021 End: 04-06-2022 take 1 capsule by mouth once daily 30 minutes after breakfast Phentermine (Adipex-P) 37.5 mg capsule Discontinued 37.5 mg PO DAILY 30 January 09, 2022 9:48am April 06, 2022 10:36am BMI 44.5 must administer 30 minutes before or 1-2 hours after breakfast 24 hr phentermine 7.5 mg / topiramate 46 mg extended release oral capsule (20 sources) Sympathomimetic Amine Anorectic Start: 01-11-2023 End: 03-19-2023 Phentermine-Topiramate (Qsymia) 7.5-46 mg capsule, ER multiphase 24 hr Discontinued 1 NMA PO DAILY 30 2 January 11, 2023 1:00am March 19, 2023 2:20pm Start: 04-21-2022 End: 05-22-2022 Phentermine-Topiramate (Qsym ia) 7.5-46 mg capsule, ER multiphase 24 hr Discontinued 1 NMA PO DAILY 30 April 21, 2022 1:00am May 22, 2022 11:41am bmi over 40 promethazine hydrochloride 25 mg oral tablet (16 sources) Phenothiazine Start: 01-24-2020 End: 07-01-2020 take 1 tablet by mouth four times daily as needed for nausea Promethazine 25 MG tablet Discontinued 25 mg PO 4 TIMES DAILY NEEDED as needed for NAUSEA/VOMITING 30 January 24, 2020 10:33am July 01, 2020 8:42am Semaglutide (Weight Loss) (13 sources) Start: 04-06-2022 End: 05-04-2022 Semaglutide (Weight Loss) (Wegovy) 0.25 mg/0.5 mL pen injector Discontinued 0.25 mg SC EVERY WEEK 2 April 06, 2022 1:00am May 03, 2022 12:00am May 04, 2022 12:04am administer weeks 1 through 4 of therapy Start: 04-06-2022 End: 05-04-2022 Semaglutide (Weight Loss) (W egovy) 0.25 mg/0.5 mL pen injector Discontinued 0.25 mg SC EVERY WEEK 2 April 06, 2022 1:00am May 03, 2022 12:00am May 04, 2022 12:04am administer weeks 1 through 4 of therapy Start: 04-06-2022 End: 05-04-2022 Semaglutide (Weight Loss) (W egovy) 0.25 mg/0.5 mL pen injector Discontinued 0.25 MG SC EVERY WEEK 2 April 06, 2022 12:00am May 03, 2022 11:04pm administer weeks 1 through 4 of therapy Start: 04-06-2022 End: 05-04-2022 Semaglutide (Weight Loss) (W egovy) 0.25 mg/0.5 mL pen injector Discontinued 0.25 MG SC EVERY WEEK 2 April 06, 2022 1:00am May 04, 2022 12:04am administer weeks 1 through 4 of therapy spironolactone 25 mg oral tablet (20 sources) Aldosterone Antagonist Start: 03-28-2018 End: 10-11-2020 take 4 tablets by mouth once daily as needed for edema Spironolactone 25 mg tablet Discontinued 100 mg PO DAILY as needed for Edema March 28, 2018 1:00am October 11, 2020 3:02pm Start: 03-28-2018 End: 10-11-2020 take 100 mg by mouth once daily Spironolactone Discontinued 100 MG PO DAILY March 28, 2018 1:00am October 11, 2020 3:02pm Start: 09-11-2016 take 1 tablet by [facility] once daily SPIRONOLACTONE 100 MG TABS One tablet by mouth daily SPIRONOLACTONE [id number] Shakila Canales MD sulfamethoxazole 800 mg / trimethoprim 160 mg oral tablet (20 sources) Dihydrofolate Reductase Inhibitor Antibacterial, Sulfonamide Antimicrobial Start: 09-20-2020 End: 10-13-2021 Sulfamethoxazole-Trimethopri m (Bactrim Ds) 800-160 mg tablet Discontinued 1 {tbl} PO TWICE A DAY 42 21 0 September 20, 2020 12:00am October 13, 2021 8:07am Start: 08-23-2015 End: 06-26-2017 Sulfamethoxazole-Trimethopri m 1 TABLET tablet Discontinued 1 {tbl} PO TWICE A DAY 6 August 23, 2015 12:00am June 26, 2017 3:13pm Start: 08-23-2015 End: 06-26-2017 take 1 tablet by mouth twice daily Sulfamethoxazole-Trimethoprim Discontinu ed 1 TABLET PO TWICE A DAY 6 August 23, 2015 12:00am June 26, 2017 3:13pm Tirzepatide (Mounjaro) 2.5 mg/0.5 mL pen injector (9 sources) Start: 05-04-2023 End: 06-01-2023 Tirzepatide (Mounjaro) 2.5 mg/0.5 mL pen injector Discontinued 2.5 mg SC EVERY WEEK 2 May 04, 2023 12:00am May 31, 2023 12:00am June 01, 2023 12:07am Insulin resistance Metabolic syndrome Metabolic syndrome and other insulin resistance Start: 05-04-2023 End: 06-01-2023 Tirzepatide (Mounjaro) 2.5 m g/0.5 mL pen injector Discontinued 2.5 mg SC EVERY WEEK 04 18May 04, 2023 12:00am May 31, 2023 12:00am June 01, 2023 12:07am Start: 05-04-2023 Tirzepatide (M ounjaro) 2.5 mg/0.5 mL pen injector Active 2.5 MG SC EVERY WEEK 2 May 04, 2023 12:00am Tirzepatide (Mounjaro) 5 mg/ 0.5 mL pen injector (20 sources) Start: 07-24-2023 End: 11-14-2023 Tirzepatide (Mounjaro) 5 mg/ 0.5 mL pen injector Discontinued 5 mg SC EVERY WEEK 2 July 24, 2023 10:59am November 14, 2023 8:58am Start: 07-24-2023 End: 11-14-2023 Tirzepatide (Mounjaro) 5 mg/ 0.5 mL pen injector Discontinued 5 mg SC EVERY WEEK July 24, 2023 10:59am November 14, 2023 8:58am Start: 07-13-2023 End: 07-24-2023 Tirzepatide (Mounjaro) 5 mg/ 0.5 mL pen injector Discontinued 5 mg SC EVERY WEEK 2 0 July 13, 2023 4:35pm July 24, 2023 10:59am Start: 07-13-2023 End: 07-24-2023 Tirzepatide (Mounjaro) 5 mg/ 0.5 mL pen injector Discontinued 5 mg SC EVERY WEEK 2 July 13, 2023 4:35pm July 24, 2023 10:59am Start: 06-07-2023 End: 07-13-2023 Tirzepatide (Mounjaro) 5 mg/ 0.5 mL pen injector Discontinued 5 mg SC EVERY WEEK 2 June 07, 2023 12:00am July 13, 2023 4:35pm Start: 06-07-2023 End: 07-13-2023 Tirzepatide (Mounjaro) 5 mg/ 0.5 mL pen injector Discontinued 5 mg SC EVERY WEEK 2 June 07, 2023 12:00am July 13, 2023 4:35pm Tirzepatide 7.5 mg/0.5 mL pen injector (8 sources) Start: 11-14-2023 End: 11-29-2023 Tirzepatide 7.5 mg/0.5 mL pen injector Discontinued 7.5 mg SC EVERY WEEK November 14, 2023 12:00am November 29, 2023 2:12pm 4 ml tocilizumab 20 mg/ml injection (16 sources) Interleukin-6 Receptor Antagonist Start: 09-13-2017 End: 09-16-2018 Tocilizumab (Actemra) 80 mg/4 mL (20 mg/mL) solution Discontinued mg .Route 0 September 13, 2017 12:00am September 16, 2018 11:16am changed from Humura Start: 09-13-2017 End: 09-16-2018 tocilizumab 80 mg/4 mL (20 m g/mL) intravenous solution Discontinued MG .Route September 13, 2017 12:00am September 16, 2018 11:16am changed from Humura topiramate (20 sources) Start: 07-31-2022 End: 05-04-2023 take 1 capsule by mouth once daily Topiramate 50 mg capsule,extended release 24hr Discontinued 50 mg PO DAILY 90 4 July 31, 2022 5:13pm May 04, 2023 1:46pm Start: 07-31-2022 End: 05-04-2023 take 1 capsule by mouth once daily Topiramate 50 mg capsule,extended release 24hr Discontinued 50 mg PO DAILY July 31, 2022 5:13pm May 04, 2023 1:46pm Start: 07-21-2022 End: 07-31-2022 take 1 capsule by mouth once daily Topiramate 50 mg capsule,extended release 24hr Discontinued 50 mg PO DAILY July 21, 2022 12:14pm July 31, 2022 5:13pm Start: 07-21-2022 End: 07-31-2022 take 1 capsule by mouth once daily Topiramate 50 mg capsule,extended release 24hr Discontinued 50 mg PO DAILY July 21, 2022 12:14pm July 31, 2022 5:13pm Start: 06-09-2022 End: 07-21-2022 take 1 capsule by mouth once daily Topiramate 50 mg capsule,extended release 24hr Discontinued 50 mg PO DAILY 30 June 09, 2022 4:55pm July 21, 2022 12:15pm Start: 06-09-2022 End: 07-21-2022 take 1 capsule by mouth once daily Topiramate 50 mg capsule,extended release 24hr Discontinued 50 mg PO DAILY June 09, 2022 4:55pm July 21, 2022 12:15pm Start: 04-26-2022 End: 06-09-2022 take 1 capsule by mouth once daily Topiramate 50 mg capsule,extended release 24hr Discontinued 50 mg PO DAILY April 26, 2022 1:00am June 09, 2022 4:55pm Start: 04-26-2022 End: 06-09-2022 take 1 capsule by mouth once daily Topiramate 50 mg capsule,extended release 24hr Discontinued 50 mg PO DAILY April 26, 2022 1:00am June 09, 2022 4:55pm Start: 04-26-2022 End: 05-04-2023 take 50 mg by mouth once daily Topiramate Discontinued 50 MG PO DAILY July 31, 2022 5:13pm May 04, 2023 1:46pm traMADol hydrochloride 50 mg oral tablet (16 sources) Opioid Agonist Start: 09-27-2020 End: 05-12-2023 take 1 tablet by mouth twice daily as needed for pain Tramadol 50 mg tablet Discontinued 50 mg PO TWICE A DAY as needed for pain (scale score 7-10) 14 7 0 September 27, 2020 12:00am May 12, 2023 6:44am Problems Active Problems Problem Classification Problem Date Documented Date Episodic/Chronic Anxiety disorders (20 sources) Anxiety; Translations: [Anxiety disorder, unspecified] Onset: 11-29-2023 Chronic Comment on above: zoloft, recommended counseling. wean off zoloft try prozac at 20 may need 40 and vistaril PRN. may need effexor or pristiq when no TTC. in counseling. Chronic ulcer of skin (16 sources) Ulcer of lower extremity; Translations: [Non-pressure chronic ulcer of unspecified part of left lower leg with fat layer exposed] 09-20-2020 Chronic Female infertility (1 source) Female infertility associated with anovulation; Translations: [Female infertility associated with anovulation] Onset: 09-11-2024 Chronic Menstrual disorders (20 sources) Menorrhagia; Translations: [Excessive and frequent menstruation with regular cycle] Chronic Comment on above: nuvaring. nuvaring Nutritional deficiencies (20 sources) Cobalamin deficiency; Translations: [Deficiency of other specified B group vitamins] Episodic Open wounds of extremities (16 sources) Open wound of axillary region with complication; Translations: [Unspecified open wound of right upper arm, initial encounter] 10-20-2020 Episodic Open wounds of extremities (16 sources) Open wound of axillary region with complication; Translations: [Unspecified open wound of left upper arm, initial encounter] 10-20-2020 Episodic Other aftercare (16 sources) Drug-induced immunodeficiency ; Translations: [Immunodeficiency due to drug therapy] 12-01-2019 Episodic Comment on above: on Methotrexate for rheumatoid arthritis Other connective tissue disease (1 source) Personal history of other diseases of the musculoskeletal system and connective tissue; Translations: [PERS HX OTH DZ MSK SYSANDCNCTV TISSUE] Onset: 11-16-2017 Episodic Other endocrine disorders (20 sources) Polycystic ovary syndrome; Translations: [Polycystic ovarian syndrome] 04-06-2022 Chronic Comment on above: day 3 labs plan SA and then 3 c ycles of femara, if no conception plan HSG. offered HSG initially and patient decling. offered inferitlity speicalist referral and declined. Other endocrine disorders (14 sources) Polycystic ovarian syndrome; Translations: [Polycystic ovaries] Onset: 08-13-2024 Chronic Other nervous system disorders (16 sources) Paresthesia; Translations: [Paresthesia of skin] 10-18-2020 Episodic Other nutritional; endocrine; and metabolic disorders (1 source) Morbid (severe) obesity due to excess calories; Translations: [MORBID SEVERE OBES D/T EXCESS STACEY] Onset: 11-16-2017 Chronic Other nutritional; endocrine; and metabolic disorders (17 sources) Insulin resistance; Translations: [Metabolic syndrome] 10-18-2020 Chronic Other nutritional; endocrine; and metabolic disorders (20 sources) Metabolic syndrome X; Translations: [Metabolic syndrome] 04-06-2022 Chronic Comment on above: recommend weight los s. Re-calculated protein, fat, carbs intake at visit today. nutritional manageme nt Other nutritional; endocrine; and metabolic disorders (19 sources) Obesity; Translations: [Obesity, unspecified] 05-22-2022 Chronic Comment on above: Nutrition plan: re [employer] wat[employer]. 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 Meal planning. Track foods.Medication plan: None at this time. Recently weaned of tirzepitide. Remain off as they will be attempting in the next 3 months. control- nuvaring-remove when ready for . Behavior intervention: recommend daily journal of food intake with electronic methods; Sleep Hygiene; 7-8 hours sleep; stress management. Mindful eating; sitting down to eat; portion control. Exercise plan: increase daily steps; tracking-works from home-will work to increase steps (average is 7,000; goal of 10,000). Walking dog; incorporating weights well and will continue to do so. Add NEAT activity. sec to PCOS Other nutritional; endocrine; and metabolic disorders (12 sources) Obesity, unspecified; Translations: [Obesity, unspecified] Chronic Other nutritional; endocrine; and metabolic disorders (12 sources) Metabolic syndrome; Translations: [Dysmetabolic syndrome X] Chronic Other nutritional; endocrine; and metabolic disorders (9 sources) Body mass index 40+ - severely obese; Translations: [Body mass index (BMI) 40.0-44.9, adult] 05-04-2023 Chronic Comment on above: SW- 237 05/03; 225 to day; Down 7 pounds from previous visit. total loss 12 pounds; up 5 pounds today but feeling much better than previous visit.Initial goal- 5% weight reduction within 3 months of nutritional and medication intervention recommendations.initial obesity assessment lab panel reviewed; follow up reviewed. Other nutritional; endocrine; and metabolic disorders (3 sources) Body mass index (BMI) 40.0-44.9, adult; Translations: [Body Mass Index 40.0-44.9, adult] 02-08-2023 Chronic Other skin disorders (16 sources) Axillary hidradenitis suppurativa; Translations: [Hidradenitis suppurativa] 12-01-2019 Episodic Comment on above: bilateral axillary h idradenitis, worse on the left Other skin disorders (1 source) Hidradenitis suppurativa; Translations: [Hidradenitis] 05-04-2023 Episodic Residual codes; unclassified (16 sources) Family history of malignant neoplasm of skin; Translations: [Family history of malignant neoplasm of other organs or systems] 12-01-2019 Episodic Residual codes; unclassified (16 sources) Peripheral edema; Translations: [Edema, unspecified] 08-20-2020 Episodic Residual codes; unclassified (8 sources) Infertile 08-06-2024 Episodic Comment on above: TVUS nl, day 3 labs, progesterone-likely needs letrozole sec to PCOS see a/p Rheumatoid arthritis and related disease (18 sources) Rheumatoid arthritis without rheumatoid factor, multiple sites; Translations: [Rheumatoid arthritis] Onset: 11-16-2017 12-17-2019 Chronic Comment on above: at present is off Me thotrexate Spondylosis; intervertebral disc disorders; other back problems (1 source) Low back pain; Translations: [LOW BACK PAIN] Onset: 11-16-2017 Episodic Superficial injury; contusion (16 sources) Contusion of lower leg; Translations: [Contusion of unspecified lower leg, initial encounter] 09-20-2020 Episodic Thyroid disorders (20 sources) Hypothyroidism; Translations: [Hypothyroidism, unspecified] Onset: 03-13-2024 Chronic Comment on above: stable controlled Unclassified (1 source) Other insulin resistance; Translations: [Other insulin resistance] Onset: 10-26-2023 Past or Other Problems Problem Classification Problem Date Documented Da te Episodic/Chronic Medical examination/evaluation (2 sources) Encounter for general adult medical examination without abnormal findings; Translations: [Encounter for general adult medical examination without abnormal findings] Onset: 12-08-2016 Episodic Results Test Name Value Interpretation Reference Range Facility PROGESTERONE 4317on 09-11-19 PROGESTERONE 1.4 ng/mL Normal . [facility] Comment on above: Order Comment: N Day 21 Result Comment: Foll icular phase 0.1 - 0.9 Luteal phase 1.8 - 23.9 Ovulation phase 0.1 - 12.0 First trimester 11.0 - 44.3 Second trimester 25.4 - 83.3 Third trimester 58.7 - 214.0 Postmenopausal 0.0 - 0.1 Performed at: [facility] [id number] Weekend Anchor: Vlad Giraldo PhD, Phone: [phone] Performed By: #### L [id number] #### [facility] [address] [place], [place], [address] Miscellaneous Lab Procedureo n 2024 [facility] [place] Normal [facility] Comment on above: Order Comment: PT ST ATED THAT CNM SAID SHE HAD TO GET DRAW TODAY [facility] OF [place]. DIRECT SEND Result Comment: Sent directly to testing facility per ordering physician. Performed By: #### L 809.3000, [id number] #### [facility] [address] [place], [address] Senior Clerk Office Visit Reporton 08-08-2024 Senior Clerk Office Visit Report [facility] [address], [address] [place] [address] OFFICE VISIT Date of Service: 08/08/24 MR#: [id number] Acct: [id number] Name: JONELLE GÓMEZ Rep #: [id number] : 1995 Provider: Dr. Shakila yousif MD Age/Sex: 28/F Location: [facility] Status: Signed Intake Vital Signs 07/01/24 08:40 08/08/24 10:36 Height 5 ft 3 in 5 ft 2 in Weight: 262 lb 2 oz BMI 47.9 BP 139/89 H Intake Visit Reasons: discuss anxiety med and letrozole Bun Machine Operator Required: No Is patient in pain?: No Allergies crab Allergy (Verified 08/08/24 10:38) Rash shellfish derived (lobster) Allergy (Verified 08/08/24 10:38) Rash chlorhexidine (From ChloraPrep Clear) Adverse Reaction (Verified 08/08/24 10:38) Rash isopropyl alcohol (From ChloraPrep Clear) Adverse Reaction (Verified 08/08/24 10:38) Rash Medications ???Medication ???Instructions ???Recorded ???Confirmed ???Type ondansetron 4 mg disintegrating 4 mg PO Q8H PRN PRN Nausea #14 tab s 05/12/23 08/08/24 Rx tablet sertraline 100 mg tablet 100 mg PO DAILY #30 tabs 11/29/23 08/08/24 Rx trazodone 50 mg tablet 50 mg PO QHS PRN insomnia #30 tabs 11/29/23 08/08/24 Rx cholecalciferol (vitamin D3) 25 25 mcg PO QDAY 03/13/24 08/08/24 H istory mcg (1,000 unit) capsule ferrous sulfate 325 mg (65 mg 325 mg PO QDAY 03/13/24 08/08/24 H istory iron) tablet (Feosol) vits 75-iron 28 mg-folic pkg PO 03/13/24 08/08/24 History acid 800 mcg-omega-3 oral combo pack (One A Day Women[facility] DHA) levothyroxine 175 mcg tablet 175 mcg PO .qd, 1.5 on Sundays #96 05/01/24 08/08/24 Rx tabs [id number]- leucovorin 1 tab PO 07/01/24 08/08/24 History mg-B6-B12 1 mg-C-D3 500 unit tablet omega 8-krs-mtj-fish oil 1,200 mg cap PO 07/01/24 08/08/24 History (144 mg-216 mg) capsule (Fish Oil) selenium 200 mcg capsule mcg PO 07/01/24 08/08/24 History amoxicillin 875 mg tablet 875 mg PO BID 08/08/24 08/08/24 Hi story choline PO 08/08/24 History fluoxetine 20 mg capsule (Prozac) 20 mg PO DAILY #30 caps 08/08/24 08/08/24 Rx hydroxyzine pamoate 25 mg capsule 25 mg PO Q6H PRN anxiety #90 caps 08/08/24 08/08/24 Rx (Vistaril) medroxyprogesterone 5 mg tablet 5 mg PO QDAY 5 days #5 tabs 08/08/24 Rx PFSH Medical History (Updated 08/10/24 @ 12:[address] 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 Insulin resistance Paresthesia Hidradenitis suppurativa Open wound of left axillary region with complication Open wound of right axillary region with complication Allergies Axillary hidradenitis suppurativa Breast lump in female History of blood clots Back problem Fibromyalgia Rheumatoid arthritis Surgical History [place] teeth extracted Family History Sister Diabetes Grandmother Lung cancer Skin cancer Grandfather Dementia CVA (cerebral vascular accident) Parkinsons disease Other Anxiety Arthritis Asthma Psychiatric care Thyroid disorder Social History current occupational status: employed 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 she is TTC and has irregular menses and worsening anxiety, open to medication, hasn't had SA yet and she hasn't had hsg, open to trying OI first prior to HSG. History 0 Elective abortions Hx Para Spontaneous abortions Hx # Term Pregnancies Ectopic pregnancies Hx # Pregnancies Multiple births # of living children ROS Const Constitutional: Denies fatigue, fever(s), headache(s), increased appetite, poor appetite, weight gain or weight loss GI GI: Reports as per HPI; Denies abdominal pain, constipation, nausea or vomiting : Reports as per HPI; Denies difficulty voiding, dysuria, hematuria, pelvic pain, urinary frequency, urinary incontinence, urinary hesitancy, urinary urgency, vaginal discharge, vaginal dryness, vaginal odor, vaginal pruritus or other (more content not included)... Normal [facility] PROGESTERONE 4317on 08-08-19 PROGESTERONE 0.2 ng/mL Normal . [facility] Comment on above: Order Comment: NDay Result Comment: Foll icular phase 0.1 - 0.9 Luteal phase 1.8 - 23.9 Ovulation phase 0.1 - 12.0 First trimester 11.0 - 44.3 Second trimester 25.4 - 83.3 Third trimester 58.7 - 214.0 Postmenopausal 0.0 - 0.1 Performed at: [facility] [id number] Weekend Anchor: Vlad Giraldo PhD, Phone: [phone] Performed By: #### L 506.0973, [id number] #### [facility] [address] [facility] [place], [place], [id number] Transvaginal Non-on 08-04-2024 Transvaginal Non- [facility] [address] [place], [place] [address] Transvaginal Non- MR#: [id number] Acct: [id number] Name: JONELLE GÓMEZ Rep #: [id number] : 1995 F 28 From: [place] MD PCP: Care Physician,No Primary Status: REG CLI Study: Transvaginal Non- Date of Exam: Exam# [id number] Ordering Dr: Alejandro Simms CNM PROCEDURE: TRANSVAGINAL NON- 08/04/2024 REASON FOR EXAM: PCOS, INFERTILITY TECHNIQUE: TRANSVAGINAL NON- COMPARISON: Prior study dated August 05, 2019. FINDINGS: Measurements: Uterus: 7.5 cm x 4.3 cm x 2.9 cm with a volume of 48.77 mL Endometrial Thickness: 4.4 mm. It is hyperechoic. Right Ovary: 2.6 cm x 2.4 cm x 2.6 cm with a volume of 8.16 mL. Left Ovary: 1.9 cm x 1.6 cm x 1.4 cm with a volume of 2.14 mL. Uterus: Normal size, myometrial echotexture, and contour. Endometrium: Unremarkable. Right ovary: Normal size and echotexture. Left ovary: Normal size and echotexture. Other: No large pelvic mass identified. US/Transvaginal Non- IMPRESSION: NORMAL transvaginal PELVIC ULTRASOUND. Reading Location: [place] [address] CC: APURVA Simms; No Primary Care Physician Custodian Athletic Equipment: Signed Normal [facility] Antimullerian Hormone, Serum on 07-19-2024 AMH, SERUM Normal [facility] Comment on above: Result Comment: ITS A DIRECT SEND Performed By: #### L 803.3000, L801.1541 #### [facility] [address] [place], [address] Senior Clerk Office Visit Reporton 07-01-2024 Senior Clerk Office Visit Report [facility] [address], [address] [place] [address] OFFICE VISIT Date of Service: 07/01/24 MR#: [id number] Acct: [id number] Name: JONELLE GÓMEZ Rep #: [id number] : 1995 Provider: APURVA Be ams Age/Sex: 28/F Location: [facility] Status: Signed Intake Vital Signs 03/13/24 08:28 07/01/24 08:39 07/01/24 08:40 Height 5 ft 3 in 5 ft 3 in 5 ft 3 in Weight: 241 lb 252 lb BMI 42.7 44.6 BP 129/92 H 131/87 H Blood Pressure Location Rt brachial Position Sitting Pulse 73 Pulse Source Monitor Pulse Oximetry (%) 98 Oxygen Delivery Method room air Intake Visit Reasons: Fertility Consult Chief Complaint: Fertility Consult Bun Machine Operator Required: No Is patient in pain?: No Allergies crab Allergy (Verified 07/01/24 08:40) Rash shellfish derived (lobster) Allergy (Verified 07/01/24 08:40) Rash chlorhexidine (From ChloraPrep Clear) Adverse Reaction (Verified 07/01/24 08:40) Rash isopropyl alcohol (From ChloraPrep Clear) Adverse Reaction (Verified 07/01/24 08:40) Rash Medications ???Medication ???Instructions ???Recorded ???Confirmed ???Type ondansetron 4 mg disintegrating 4 mg PO Q8H PRN PRN Nausea #14 tab s 05/12/23 07/01/24 Rx tablet sertraline 100 mg tablet 100 mg PO DAILY #30 tabs 11/29/23 07/01/24 Rx trazodone 50 mg tablet 50 mg PO QHS PRN insomnia #30 tabs 11/29/23 07/01/24 Rx cholecalciferol (vitamin D3) 25 25 mcg PO QDAY 03/13/24 07/01/24 H istory mcg (1,000 unit) capsule ferrous sulfate 325 mg (65 mg 325 mg PO QDAY 03/13/24 07/01/24 H istory iron) tablet (Feosol) vits 75-iron 28 mg-folic pkg PO 03/13/24 07/01/24 History acid 800 mcg-omega-3 oral combo pack (One A Day Women's DHA) levothyroxine 175 mcg tablet 175 mcg PO .qd, 1.5 on Sundays #96 05/01/24 07/01/24 Rx tabs [id number]- leucovorin 1 tab PO 07/01/24 07/01/24 History mg-B6-B12 1 mg-C-D3 500 unit tablet omega 5-sic-rcl-fish oil 1,200 mg cap PO 07/01/24 07/01/24 History (144 mg-216 mg) capsule (Fish Oil) selenium 200 mcg capsule mcg PO 07/01/24 07/01/24 History Is last menstrual period known: Yes Last Menstrual Period: 06/01/24 Post menopausal: No PFSH Medical History Obesity PCOS (polycystic ovarian syndrome) B12 deficiency 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 Insulin resistance Paresthesia Hidradenitis suppurativa Open wound of left axillary region with complication Open wound of right axillary region with complication Allergies Axillary hidradenitis suppurativa Breast lump in female History of blood clots Back problem Fibromyalgia Rheumatoid arthritis Surgical History [place] teeth extracted Family History Sister Diabetes Grandmother Lung cancer Skin cancer Grandfather Dementia CVA (cerebral vascular accident) Parkinsons disease Other Anxiety Arthritis Asthma Psychiatric care Thyroid disorder Social History current occupational status: employed 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 Stopped OCP in December and has been having regular menses every 30-35 days since. she is not having any ovulation sx and she is using test strips that do not indicate ovulation. She is following with Dr Gallagher for thyroid management-last TSH (april) was elevated. Dysmenorrhea: cramping x 1-2 days prior to cycle Irregular menses: no Menopausal symptoms: no Persistent AMAYA or visual changes: headache with menses Hirsutism: no Previous contraception used: nuvaring-stopped in December of 2023 Duration of regular unprotected intercourse: 6 months history of pelvic infections in patient or partner: cystic family history of endometriosis: no tobacco use for patient or her partner: no partner fathered any pregnancies: no partner history of testicular issues, ejaculatory dysfunction, or history of Mumps: no Partner medications/vitamins/s upplements: no Partner's employment: any additional risk factors identified: none Female Reproductive His (more content not included)... Normal [facility] T4 Free Directon 07-01-2024 T4 FREE DIRECT 1.70 ng/dL High 0.76-1.46 [facility] Comment on above: Performed By: #### L 506.0400, L501.9520 #### [facility] [address] [place], [address] T4 freeOrdered By: Terrence Gallagher on 07-01-2024 Free T4 [Mass/Vol] 1.70 ng/dL High 0.76-1.46 [facility] TSH DL <= 0.005 mIU/L QnOrde red By: Terrence Gallagher on 07-01-2024 TSH Qn 0.701 uIU/mL 0.300-4.200 [facility] Thyroid Stim Hormone (TSH)on 07-01-2024 TSH 0.701 uIU/mL Normal 0.300-4.200 [facility] Comment on above: Performed By: #### L 506.0400, L501.9520 #### [facility] [address], [address] T4 Free Directon 04-30-2024 T4 FREE DIRECT 1.40 ng/dL Normal 0.76-1.46 [facility] Comment on above: Performed By: #### L 501.9520, L506.0400 #### [facility] [address] [place], [address] T4 freeOrdered By: Terrence Gallagher on 04-30-2024 Free T4 [Mass/Vol] 1.40 ng/dL 0.76-1.46 [facility] TSH DL <= 0.005 mIU/L QnOrde red By: Terrence Gallagher on 04-30-2024 Thyroid Stimulating Hormone (TSH) 5.770 uIU/mL High 0.300-4.200 [facility] TSH Qn 5.770 uIU/mL High 0.300-4.200 [facility] Thyroid Stim Hormone (TSH)on 04-30-2024 TSH 5.770 uIU/mL High 0.300-4.200 [facility] Comment on above: Performed By: #### L 501.9520, L506.0400 #### [facility] [address] [place], [address] Endocrinology Visit Reporton 03-13-2024 Endocrinology Visit Report [facility] [address] [place] [address] OFFICE VISIT Date of Service: 03/13/24 MR#: [id number] Acct: [id number] Name: JONELLE GÓMEZ Rep #: [id number] : 1995 Provider: Oren Sandy Age/Sex: 28/F Location: [facility] [place] Status: Signed Intake Vital Signs 01/04/23 09:11 12/12/23 10:16 03/13/24 08:28 Height 5 ft 3 in 5 ft 3 in 5 ft 3 in Weight: 241 lb BMI 42.7 BP 129/92 H Blood Pressure Location Rt brachial Position Sitting Pulse 73 Pulse Source Monitor Pulse Oximetry (%) 98 Oxygen Delivery Method room air Intake Visit Reasons: 14 M FU Chief Complaint: Hypothyroidism Is patient in pain?: No Allergies chlorhexidine (From ChloraPrep Clear) Adverse Reaction (Verified 03/13/24 08:29) Rash isopropyl alcohol (From ChloraPrep Clear) Adverse Reaction (Verified 03/13/24 08:29) Rash Medications ???Medication ???Instructions ???Recorded ???Confirmed ???Type ondansetron 4 mg disintegrating 4 mg PO Q8H PRN PRN Nausea #14 tab s 05/12/23 03/13/24 Rx tablet sertraline 100 mg tablet 100 mg PO DAILY #30 tabs 11/29/23 03/13/24 Rx trazodone 50 mg tablet 50 mg PO QHS PRN insomnia #30 tabs 11/29/23 03/13/24 Rx cholecalciferol (vitamin D3) 25 25 mcg PO QDAY 03/13/24 03/13/24 H istory mcg (1,000 unit) capsule ferrous sulfate 325 mg (65 mg 325 mg PO QDAY 03/13/24 03/13/24 H istory iron) tablet (Feosol) levothyroxine 175 mcg tablet 175 mcg PO DAILY #90 tabs 03/13/24 03/13/24 Rx vits 75-iron 28 mg-folic pkg PO 03/13/24 03/13/24 History acid 800 mcg-omega-3 oral combo pack (One A Day Women's DHA) [facility] Medical History Obesity PCOS (polycystic ovarian syndrome) B12 deficiency 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 Insulin resistance Paresthesia Hidradenitis suppurativa Open wound of left axillary region with complication Open wound of right axillary region with complication Allergies Axillary hidradenitis suppurativa Breast lump in female History of blood clots Back problem Fibromyalgia Rheumatoid arthritis Surgical History [place] teeth extracted Family History Sister Diabetes Grandmother Lung cancer Skin cancer Grandfather Dementia CVA (cerebral vascular accident) Parkinsons disease Other Anxiety Arthritis Asthma Psychiatric care Thyroid disorder Social History current occupational status: employed 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 She is planning to get soon. She has hypothyroidism and is taking levothyroxine. She reports that she misses a lot of tablets. TSH is 13.2 ROS Const Constitutional: No fatigue or weight change ENT ENT: No dizziness/vertigo Cardio Cardiology: No chest pain at rest, chest pain with exertion, shortness of breath or palpitations Skin Skin: No wounds Endo Endocrine: No fatigue or weight change Exam Const General: cooperative, healthy appearing, comfortable, no acute distress, well developed and not cushingoid Nutritional Appearance: well nourished Orientation: alert, awake and oriented x3 HENMT Head: normal to inspection Ears: hearing grossly normal bilaterally Nose: external nose normal Mouth: oral mucosae normal Eyes General: appearance normal, both eyes and all related structures Alignment and Position: alignment normal Periorbital: periorbital findings normal Eyelids: eyelids normal Conjunctivae: conjunctivae normal Neck Neck: normal visual inspection Neck mass: No Thyroid: diffusely enlarged Carotids: no bruits Lymphatic: no lymphadenopathy noted Chest Chest palpation inspection: normal inspection of the chest Resp Effort Inspection: normal respiratory effort, able to speak in complete sentences, symmetric chest movement, no audible wheezes and no cough Auscultation: Bilateral: Clear to Auscultation Cardio Rate: regular rate Rhythm: regular rhythm Skin (more content not included)... Normal [facility] [id number] DOrdered By: Jamaal Gallagher on 03-12-2024 Vitamin D 25-Hydroxy 32.7 ng/mL [facility] Comment on above: Vitamin D 25(OH) Sta tus Range Deficiency <20 ng/mL (50nmol/L) Insufficiency 20 - 30 ng/mL (50 - 75 nmol/L) Sufficiency 30 - 100 ng/mL (75 - 250 nmol/L) Toxicity >100 ng/mL (>250 nmol/L) Albumin to globulin ratioOrd ered By: Terrence Gallagher on 03-12-2024 Albumin/Globulin [Mass ratio] 0.9 {ratio} 0.9-2.4 [facility] Bilirubin, totalOrdered By: Terrence Gallagher on 03-12-2024 Bilirubin [Mass/Vol] 0.70 mg/dL 0.20-1.00 [facility] Comment on above: For patients on eltr ombopag therapy, use of Dimension [place] TBIL is not recommended. Blood urea nitrogen (BUN)/cr eatinine ratioOrdered By: Terrence Gallagher on 03-12-2024 Urea nitrogen/Creatinine [Mass ratio] 15.2 mg/mg 10-20 [facility] Carbon dioxide measurementOr dered By: Terrence Gallagher on 03-12-2024 CO2 [Moles/Vol] 27.0 mmol/L 21.0-32.0 [facility] Chloride measurementOrdered By: Terrence Gallagher on 03-12-2024 Chloride [Moles/Vol] 104 mmol/L 98-107 [facility] Comprehensive Metabolic Prof ilon 03-12-2024 Albumin [Mass/Vol] 3.5 g/dL Normal 3.2-5.0 [facility] Comment on above: Performed By: #### L 803.3000, L801.1541 #### [facility] [address] [place], [address] Albumin/Globulin [Mass ratio] 0.9 {ratio} Normal 0.9-2.4 [facility] Comment on above: Performed By: #### L 803.3000, L801.1541 #### [facility] [address] [place], [address] ALK P 87 U/L Normal 45-117 [facility] Comment on above: Performed By: #### L 803.3000, L801.1541 #### [facility] [address] [place], [address] ALT [Catalytic activity/Vol] 40 U/L Normal 13-56 [facility] Comment on above: Performed By: #### L 803.3000, L801.1541 #### [facility] [address] [place], [address] AST [Catalytic activity/Vol] 30 U/L Normal 15-37 [facility] Comment on above: Performed By: #### L 803.3000, L801.1541 #### [facility] [address] [place], [address] Bilirubin [Mass/Vol] 0.70 mg/dL Normal 0.20-1.00 [facility] Comment on above: Result Comment: For patients on eltrombopag therapy, use of Dimension [place] TBIL is not recommended. Performed By: #### L 803.3000, L801.1541 #### [facility] [address] [place], [address] BUN/CRE 15.2 RATIO Normal 10-20 [facility] Comment on above: Performed By: #### L 803.3000, L801.1541 #### [facility] [address] [place], [address] CA,Total 9.0 mg/dL Normal 8.5-10.1 [facility] Comment on above: Performed By: #### L 803.3000, L801.1541 #### [facility] [address] [place], [address] Chloride [Moles/Vol] 104 mmol/L Normal 98-107 [facility] Comment on above: Performed By: #### L 803.3000, L801.1541 #### [facility] [address] [place], [address] CO2 [Moles/Vol] 27.0 mmol/L Normal 21.0-32.0 [facility] Comment on above: Performed By: #### L 803.3000, L801.1541 #### [facility] [address] [place], [address] Creatinine [Mass/Vol] 0.72 mg/dL Normal 0.55-1.02 [facility] Comment on above: Result Comment: The validity of the calculated GFR GFRAA in patients over 70 years has not been determined. Clinical correlation is essential. Performed By: #### L 803.3000, L801.1541 #### [facility] [address] [place], [address] EST GFR - AA 123 mL/min Normal >60 [facility] Comment on above: Result Comment: Afri can Nicaraguan GFR Calc Performed By: #### L 803.3000, L801.1541 #### [facility] [address] [place], [address] GAP 8 Normal 5-15 [facility] Comment on above: Performed By: #### L 803.3000, L801.1541 #### [facility] [address] [place], [address] GFR/1.73 sq M.predicted among non-blacks MDRD (S/P/Bld) [Vol rate/Area] 101 mL/min/{1.73_m2} Normal >60 [facility] Comment on above: Result Comment: Non- GFR Calc Performed By: #### L 803.3000, L801.1541 #### [facility] [address] [place], [address] Globulin (S) [Mass/Vol] 3.7 g/dL Normal 2.2-4.2 [facility] Comment on above: Performed By: #### L 803.3000, L801.1541 #### [facility] [address] [place], [address] Glucose [Mass/Vol] 98 mg/dL Normal 74-106 [facility] Comment on above: Performed By: #### L 803.3000, L801.1541 #### [facility] [address] [place], [address] Potassium [Moles/Vol] 4.0 mmol/L Normal 3.5-5.1 [facility] Comment on above: Performed By: #### L 803.3000, L801.1541 #### [facility] [address] [place], [address] Sodium [Moles/Vol] 139 mmol/L Normal 136-145 [facility] Comment on above: Performed By: #### L 803.3000, L801.1541 #### [facility] [address] [place], [address] T PROT 7.2 g/dL Normal 6.4-8.2 [facility] Comment on above: Performed By: #### L 803.3000, L801.1541 #### [facility] [address] [place], [address] Urea nitrogen [Mass/Vol] 11 mg/dL Normal 7-18 [facility] Comment on above: Performed By: #### L 803.3000, L801.1541 #### [facility] [address] [place], [place], [address] Direct serum free thyroxine (FT4) measurementOrdered By: Terrence Gallagher on 03-12-2024 Free T4 [Mass/Vol] 1.29 ng/dL 0.76-1.46 [facility] Estimated glomerular filtrat ion rate (GFR) AmericanOrdered By: Terrence Gallagher on 03-12-2024 Estimated GFR (MDRD) Amer 123 mL/min >60 [facility] Comment on above: GFR Calc Glomerular filtration rate ( GFR) estimationOrdered By: Terrence Gallagher on 03-12-2024 Estimated GFR (MDRD) Non-Af Amer 101 mL/min >60 [facility] Comment on above: Non- GFR Calc GFR/1.73 sq M.predicted among non-blacks MDRD (S/P/Bld) [Vol rate/Area] 101 mL/min/{1.73_m2} >60 [facility] Comment on above: Non- GFR Calc Glucose measurementOrdered B y: Terrence Gallagher on 03-12-2024 Glucose [Mass/Vol] 98 mg/dL 74-106 [facility] High density lipoprotein (HD L) measurementOrdered By: Terrence Gallagher on 03-12-2024 Cholesterol in HDL [Mass/Vol] 50 mg/dL >40 [facility] Comment on above: The drugs N-Acetylcy steine and Metamizole may falsely depress this assay. Reference Range HDL <40 mg/dL Low HDL Cholesterol HDL >or= 60 mg/dL High HDL Cholesterol Laboratory - Chemistry and C hemistry - challengeOrdered By: Terrence Gallagher on 03-12-2024 AST [Catalytic activity/Vol] 30 U/L 15-37 [facility] Lipid Profileon 03-12-2024 Cholesterol [Mass/Vol] 234 mg/dL High 200 [facility] Comment on above: Result Comment: <200 mg/dL Desirable 200-240 mg/dL Borderline >240 mg/dL High Risk Performed By: #### L 803.3000, L801.1541 #### [facility] [address] [place], [address] Cholesterol in HDL [Mass/Vol] 50 mg/dL Normal [facility] Comment on above: Result Comment: The drugs N-Acetylcysteine and Metamizole may falsely depress this assay. Reference Range HDL <40 mg/dL Low HDL Cholesterol HDL >or= 60 mg/dL High HDL Cholesterol Performed By: #### L 803.3000, L801.1541 #### [facility] [address] [place], [address] Cholesterol in LDL [Mass/Vol] 137 mg/dL High 0-130 [facility] Comment on above: Performed By: #### L 803.3000, L801.1541 #### [facility] [address] [place], [address] Cholesterol in VLDL [Mass/Vol] 47 mg/dL High 5-40 [facility] Comment on above: Performed By: #### L 803.3000, L801.1541 #### [facility] [address] [place], [address] Triglyceride [Mass/Vol] 237 mg/dL High [facility] Comment on above: Result Comment: The drugs N-Acetylcysteine and Metamizole may falsely depress this assay. Serum Triglycerides Reference Interval Normal <150 mg/dL Borderline high 150 - 199 mg/dL High 200 - 499 mg/dL Very High > or = 500 mg/dL Performed By: #### L 803.3000, L801.1541 #### [facility] [address] [place], [address] Low density lipoprotein (LDL ) cholesterol measurementOrdered By: Terrence Gallagher on 03-12-2024 Cholesterol in LDL [Mass/Vol] 137 mg/dL High 0-130 [facility] Potassium measurementOrdered By: Terrence Gallagher on 03-12-2024 Potassium [Moles/Vol] 4.0 mmol/L 3.5-5.1 [facility] Serum anion gap measurementO rdered By: Terrence Gallagher on 03-12-2024 Anion gap [Moles/Vol] 8 mmol/L 5-15 [facility] Serum globulin measurementOr dered By: Terrence Gallagher on 03-12-2024 Globulin (S) [Mass/Vol] 3.7 g/dL 2.2-4.2 [facility] Serum or plasma alanine kwon otransferase (ALT) measurementOrdered By: Terrence Gallagher on 03-12-2024 ALT [Catalytic activity/Vol] 40 U/L 13-56 [facility] Serum or plasma albumin monica urement (mass/volume)Ordered By: Terrence Gallagher on 03-12-2024 Albumin [Mass/Vol] 3.5 g/dL 3.2-5.0 [facility] Serum or plasma alkaline eduin sphatase measurementOrdered By: Terrence Gallagher on 03-12-2024 ALP [Catalytic activity/Vol] 87 U/L 45-117 [facility] Serum or plasma calcium monica urement (mass/volume)Ordered By: Terrence Gallagher on 03-12-2024 Calcium [Mass/Vol] 9.0 mg/dL 8.5-10.1 [facility] Serum or plasma cholesterol measurement (mass/volume)Ordered By: Terrence Gallagher on 03-12-2024 Cholesterol [Mass/Vol] 234 mg/dL High <200 [facility] Comment on above: <200 mg/dL Desirable 200-240 mg/dL Borderline >240 mg/dL High Risk Serum or plasma creatinine m easurement (mass/volume)Ordered By: Terrence Gallagher on 03-12-2024 Creatinine [Mass/Vol] 0.72 mg/dL 0.55-1.02 [facility] Comment on above: The validity of the calculated GFR & GFRAA in patients over 70 years has not been determined. Clinical correlation is essential. Serum or plasma thyroid stim ulating hormone (TSH) measurement (units/volume)Ordered By: Terrence Gallagher on 03-12-2024 TSH Qn 13.200 uIU/mL High 0.358-3.740 [facility] Serum or plasma urea nitroge n measurement (mass/volume)Ordered By: Terrence Gallagher on 03-12-2024 Urea nitrogen [Mass/Vol] 11 mg/dL 7-18 [facility] Sodium levelOrdered By: Terrence Gallagher on 03-12-2024 Sodium [Moles/Vol] 139 mmol/L 136-145 [facility] T4 Free Directon 03-12-2024 T4 FREE DIRECT 1.29 ng/dL Normal 0.76-1.46 [facility] Comment on above: Performed By: #### L 803.3000, L801.1541 #### [facility] [address] [place], [place], [id number] TSH QnOrdered By: Terrence Gallagher on 03-12-2024 Thyroid Stimulating Hormone (TSH) 13.200 uIU/mL High 0.358-3.740 [facility] Thyroid Stim Hormone (TSH)on 03-12-2024 TSH 13.200 uIU/mL High 0.358-3.740 [facility] Comment on above: Performed By: #### L 803.3000, L801.1541 #### [facility] [address] [place], [place], [id number] Total proteinOrdered By: Colton Gallagher on 03-12-2024 Protein [Mass/Vol] 7.2 g/dL 6.4-8.2 [facility] Triglycerides measurementOrd ered By: Terrence Gallagher on 03-12-2024 Triglyceride [Mass/Vol] 237 mg/dL High <199 [facility] Comment on above: The drugs N-Acetylcy steine and Metamizole may falsely depress this assay.Serum Triglycerides Reference Interval Normal <150 mg/dL Borderline high 150 - 199 mg/dL High 200 - 499 mg/dL Very High > or = 500 mg/dL Very low density lipoprotein (VLDL) cholesterol measurementOrdered By: Terrence Gallagher on 03-12-2024 Very low density lipoprotein (VLDL) cholesterol measurement 47 mg/dL High 5-40 [facility] VLDL Cholesterol 47 mg/dL High -40 [facility] Vitamin B12on 03-12-2024 Cobalamin (Vitamin B12) [Mass/Vol] 449 pg/mL Normal -91 [facility] Comment on above: Performed By: #### L 803.3000, L801.1541 #### [facility] [address] [place], [place], [address] Vitamin B12 measurementOrder ed By: Terrence Gallagher on 03-12-2024 Cobalamin (Vitamin B12) [Mass/Vol] 449 pg/mL - [facility] Vitamin D,25 Hydroxyon 03-12 Vitamin D 25-OH 32.7 ng/mL Normal [facility] Comment on above: Result Comment: Lianne min D 25(OH) Status Range Deficiency <20 ng/mL (50nmol/L) Insufficiency 20 - 30 ng/mL (50 - 75 nmol/L) Sufficiency 30 - 100 ng/mL (75 - 250 nmol/L) Toxicity >100 ng/mL (>250 nmol/L) Performed By: #### L 803.3000, L801.1541 #### [facility] [address] [place], [place], [address] Senior Clerk Office Visit Reporton 12-12-2023 Senior Clerk Office Visit Report [facility] [facility] [address], [address] [place] [address] OFFICE VISIT Date of Service: 12/12/23 MR#: [id number] Acct: [id number] Name: JONELLE GÓMEZ Rep #: [id number] : 1995 Provider: RITO Rob Age/Sex: 28/F Location: [facility] Status: Signed Intake Vital Signs 11/14/23 09:02 11/29/23 14:10 12/12/23 10:08 12/12/23 10:16 Height 5 ft 3 in 5 ft 3 in 5 ft 3 in 5 ft 3 in Weight: 223 lb 228 lb BMI 39.4 40.4 BP 131/84 H 128/79 H Pulse 85 Intake Visit Reasons: 1 M WM Bun Machine Operator Required: No Is patient in pain?: No Allergies chlorhexidine (From ChloraPrep Clear) Adverse Reaction (Verified 12/12/23 10:07) Rash isopropyl alcohol (From ChloraPrep Clear) Adverse Reaction (Verified 12/12/23 10:07) Rash Medications ???Medication ???Instructions ???Recorded ???Confirmed ???Type multivitamin (Daily Multi-Vitamin 1 tab PO DAILY 03/28/18 12/12/23 History tablet) ondansetron 4 mg disintegrating 4 mg PO Q8H PRN PRN Nausea #14 tabs 05/12/23 12/12/23 Rx tablet betamethasone dipropionate 0.05 % 1 applic topical BID PRN skin 06/15/23 12/12/23 Rx topical cream irritation #45 grams levothyroxine 175 mcg tablet 175 mcg PO DAILY #90 tabs 08/27/23 12/12/23 Rx etonogestrel 0.12 mg-ethinyl See Rx Instructions .Route 11/29/23 12/12/23 Rx estradiol 0.015 mg/24 hr vaginal .COMPLEX ##3 ring (NuvaRing) sertraline 100 mg tablet 100 mg PO DAILY #30 tabs 11/29/23 12/12/23 Rx trazodone 50 mg tablet 50 mg PO QHS PRN insomnia #30 tabs 11/29/23 12/12/23 Rx Last Menstrual Period: 11/25/23 PFSH PFSH Medical History (Updated 12/12/23 @ 11:41 by Cele Almonte NP-Irvin) Obesity PCOS (polycystic ovarian syndrome) B12 deficiency 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 Insulin resistance Paresthesia Hidradenitis suppurativa Open wound of left axillary region with complication Open wound of right axillary region with complication Allergies Axillary hidradenitis suppurativa Breast lump in female History of blood clots Back problem Fibromyalgia Rheumatoid arthritis Surgical History [place] teeth extracted Family History Sister Diabetes Grandmother Lung cancer Skin cancer Grandfather Dementia CVA (cerebral vascular accident) Parkinsons disease Other Anxiety Arthritis Asthma Psychiatric care Thyroid disorder Social History current occupational status: employed 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 Status: Never smoker alcohol intake: current alcohol intake frequency: 0-2 drinks per day details: occasionally substance use type: does not use caffeine: Yes what type of physical activity do you participate in: walking, aerobics and weight training frequency: 3-4 times per week seatbelt use: always do you feel safe at home: Yes additional social history: Jacobo-GEOVANNY DOES NOT USE ASPIRIN DOES NOT USE IBUPROFEN NEEDED History 0 Elective abortions Hx Para Spontaneous abortions Hx # Term Pregnancies Ectopic pregnancies Hx # Pregnancies Multiple births # of living children HPI 1 M WM Details: JONELLE GÓMEZ is a 28 year old Female presenting for a weight management follow up; and her potentially seeking in the next 6 months. She would like to talk through this and what diet should look like. She is no longer taking tirzepitide and feeling so much better. More energy and able to eat without feeling nauseous. She no longer is experiencing GERD either. Female Reproductive History Last Menstrual Period: 11/25/23 Cycle Length: 21-35 Questions: metorrhagia: No, sexually active: Yes (nuva ring), dyspareunia: No and PCB: No ROS Const Reports as per HPI, Denies difficulty sleeping, Denies excessive sweating, Denies fatigue (new onset severe) and Denies fever(s) Eyes Denies change in vision and Denies diplopia ENT Denies dizziness Card Denies chest pain, Denies dyspnea, Denies dyspnea on exertion, Denies palpitations and Denies rapid heart rate Resp Denies dyspnea and Denies dyspnea on exertion GI Reports as per HPI, Denies abdominal pain, Denies constipation, Denies hematemesis, Reports nausea, Reports vomiting and Reports other (see HPI) Musc Denies numbness Neuro No confusion, No dizziness, No memory loss and No numbness Psych Denies confusion, Denies depression, Denies memory loss, Denies mood swings and Denies suicidal ideation Endo Denies excessive sweating, Denies fatigue (new onset severe), Denies palpitations and Reports other (denies symptoms of hypoglycemia) Exam (more content not included)... Normal [facility] Senior Clerk Office Visit Reporton 11-29-2023 Senior Clerk Office Visit Report [facility] [address], [address] [place] [address] OFFICE VISIT Date of Service: 11/29/23 MR#: [id number] Acct: [id number] Name: JONELLE GÓMEZ Rep #: [id number] : 1995 Provider: Dr. 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: No Accompanied by: Self Is patient in pain?: No Feel stressed/tense/nervous /anxious/difficulty sleeping: to some extent Allergies chlorhexidine (From ChloraPrep Clear) Adverse Reaction (Verified 11/29/23 14:11) Rash isopropyl alcohol (From ChloraPrep Clear) Adverse Reaction (Verified 11/29/23 14:11) Rash Medications ???Medication ???Instructions ???Recorded ???Confirmed ???Type multivitamin (Daily Multi-Vitamin 1 tab PO DAILY 03/28/18 11/29/23 History tablet) ondansetron 4 mg disintegrating 4 mg PO Q8H PRN PRN Nausea #14 tabs 05/12/23 11/29/23 Rx tablet betamethasone dipropionate 0.05 % 1 applic topical BID PRN skin 06/15/23 11/29/23 Rx topical cream irritation #45 grams levothyroxine 175 mcg tablet 175 mcg PO DAILY #90 tabs 08/27/23 11/29/23 Rx etonogestrel 0.12 mg-ethinyl See Rx Instructions .Route 11/29/23 11/29/23 Rx estradiol 0.015 mg/24 hr vaginal .COMPLEX ##3 ring (NuvaRing) sertraline 100 mg tablet 100 mg PO DAILY #30 tabs 11/29/23 11/29/23 Rx trazodone 50 mg tablet 50 mg PO QHS PRN insomnia #30 tabs 11/29/23 11/29/23 Rx Is last menstrual period known: Yes Last Menstrual Period: 11/25/23 Post menopausal: No Patient : No : No Control Method: Nuva ring [facility] Medical History Obesity PCOS (polycystic ovarian syndrome) B12 deficiency 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 Insulin resistance Paresthesia Hidradenitis suppurativa Open wound of left axillary region with complication Open wound of right axillary region with complication Allergies Axillary hidradenitis suppurativa Breast lump in female History of blood clots Back problem Fibromyalgia Rheumatoid arthritis Surgical History [place] teeth extracted Family History Sister Diabetes Grandmother Lung cancer Skin cancer Grandfather Dementia CVA (cerebral vascular accident) Parkinsons disease Other Anxiety Arthritis Asthma Psychiatric care Thyroid disorder Social History (Updated 11/29/23 @ 14:14 by Georgie Alvarado) current occupational status: employed 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 Status: Never smoker alcohol intake: current alcohol intake frequency: 0-2 drinks per day details: occasionally substance use type: does not use caffeine: Yes what type of physical activity do you participate in: walking, aerobics and weight training frequency: 3-4 times per week seatbelt use: always do you feel safe at home: Yes additional social history: Jacobo-GEOVANNY DOES NOT USE ASPIRIN DOES NOT USE IBUPROFEN NEEDED History 0 Elective abortions Hx Para Spontaneous abortions Hx # Term Pregnancies Ectopic pregnancies Hx # Pregnancies Multiple births # of living children HPI Encounter for routine gynecological examination Details: JONELLE GÓMEZ is a 28 year old who presents for annual exam. dad was admitted to mental health facility Last PAP: nl History of abnormal PAP: no severe Other preventative health care screenings: reviewed Female Reproductive History Last Menstrual Period: 11/25/23 Questions: metorrhagia: No, sexually active: Yes, dyspareunia: No and PCB: No Menopausal Symptoms: No hot flashes, No night sweats, No weight change, No mood changes, No difficulty concentrating, No sleep problems and No change in libido ROS Const Constitutional: Reports as per HPI; Denies fatigue, increased appetite, poor appetite, night sweats, weight gain or weight loss Cardio Card: Denies chest pain Resp Resp: Denies cough or dyspnea GI GI: Reports as per HPI; Denies abdominal pain, bloating, constipation, nausea or vomiting : Reports as per HPI and other; Denies difficulty voiding, dysuria, hematuria, hot flashes, nipple discharge, pelvic pain, prolapse symptoms, urinary frequency, urinary incontinence, urinary urgency, vaginal discharge, vaginal dryness, vaginal odor or vaginal pruritus Skin (more content not included)... Normal [facility] Senior Clerk Office Visit Reporton 11-14-2023 Senior Clerk Office Visit Report [facility] [address], [address] [place] [address] OFFICE VISIT Date of Service: 11/14/23 MR#: [id number] Acct: [id number] Name: JONELLE GÓMEZ Rep #: [id number] : 1995 Provider: RITO Rob Age/Sex: 28/F Location: [facility] Status: Signed with Addenda ADDENDUM by RITO Almonte on 11/21/23 at 1400 Assessment and Plan Assessment and Plan (1) Obesity: Status: Chronic Qualifiers: Obesity type: due to excess calories Obesity classification: adult class 3 (BMI >= 40) Serious obesity comorbidity presence: with serious comorbidity Body mass index: BMI 45.0-49.9 Qualified Code(s): E66.01 - Morbid (severe) obesity due to excess calories; Z68.42 - Body mass index [BMI] 45.0-49.9, adult Comment: Nutrition plan: weight watchers. declined net applications developer consult; increase healthy nutritious foods intake as recommended on high protein plan to fuel her body and prevent a starvation mode. Medication plan: Recommend to at least wean; prefer her to stop Tirzepitide compound. She is using tirzepitide-7.5mg not filled through our office; explained that we do not support compounded medication choices. She is agreeable to staying in program for lifestyle support and management; failed adipex didn't tolerate Contrave. control- nuvaring. Behavior intervention: recommend daily journal of food intake with electronic methods; Sleep Hygiene; 7-8 hours sleep; stress management. Mindful eating; sitting down to eat. Exercise plan: increase daily steps; tracking-works from home-will work to increase steps (average is 7,000; goal of 10,000). Walking dog; incorporating weights well and will continue to do so. Add NEAT activity. Vitals entered under 10/03 note. note updated as appropriate for this visit. (2) BMI 40.0-44.9, adult: Status: Acute Comment: SW- 237 05/03; 225 today; Down 7 pounds from previous visit. total loss 12 pounds; 2 additional pounds today. Initial goal- 5% weight reduction within 3 months of nutritional and medication intervention recommendations. initial obesity assessment lab panel reviewed; additional blood work ordered at previous visit; she is to obtain this today after visit. (3) Insulin resistance: Status: Acute (4) Metabolic syndrome: Status: Acute Comment: recommend weight loss. Re-calculated protein, fat, carbs intake at visit today. (5) PCOS (polycystic ovarian syndrome): Status: Chronic (6) Dysmenorrhea: Status: Acute Comment: nushaiing (7) Menorrhagia with regular cycle: Status: Acute Comment: nuvaring. 11/21/23 1400 Date Cele Almonte cc: * Signed ADDENDUM by Cheyenne Hinojosa on 11/21/23 at 1106 Assessment and Plan Assessment and Plan (1) Obesity: Status: Chronic Qualifiers: Obesity type: due to excess calories Obesity classification: adult class 3 (BMI >= 40) Serious obesity comorbidity presence: with serious comorbidity Body mass index: BMI 45.0-49.9 Qualified Code(s): E66.01 - Morbid (severe) obesity due to excess calories; Z68.42 - Body mass index [BMI] 45.0-49.9, adult Comment: Nutrition plan: weight watchers. declined net applications developer consult; increase healthy nutritious foods intake as recommended on high protein plan to fuel her body and prevent a starvation mode. Medication plan: Recommend to at least wean; prefer her to stop Tirzepitide compound. She is using tirzepitide-7.5mg not filled through our office; explained that we do not support compounded medication choices. She is agreeable to staying in program for lifestyle support and management; failed adipex didn't tolerate Contrave. control- nuvaring. Behavior intervention: recommend daily journal of food intake with electronic methods; Sleep Hygiene; 7-8 hours sleep; stress management. Mindful eating; sitting down to eat. Exercise plan: increase daily steps; tracking-works from home-will work to increase steps (average is 7,000; goal of 10,000). Walking dog; incorporating weights well and will continue to do so. Add NEAT activity. (2) BMI 40.0-44.9, adult: Status: Acute Comment: SW- 237 05/03; 225 today; Down 7 pounds from previous visit. total loss 12 pounds; 2 additional pounds today. Initial goal- 5% weight reduction within 3 months of nutritional and medication intervention recommendations. initial obesity assessment lab panel reviewed; additional blood work ordered at previous visit; she is to obtain this today after visit. (3) Insulin resistance: Status: Acute (4) Metabolic syndrome: Status: Acute Comment: recommend weight loss. Re-calculated protein, fat, carbs intake at visit today. (5) PCOS (polycystic ovarian syndrome): Status: Chronic (6) Dysmenorrhea: Status: Acute Comment: nuvaring (7) Menorrhagia with regular cycle: Status: Acute Comm (more content not included)... Normal [facility] CBC W/Diff, Automatedon 09-19 Absolute Lymph 1.33 X10 3/uL Normal 0.83-4.51 [facility] Comment on above: Performed By: #### L 501.9520, L100.0100, L506.0400, L501.9985, L506.1000, L500.4100, L500.4050 #### [facility] [address] [place], [address] Absolute Neut 4.9 X10 3/uL Normal 2.0-7.7 [facility] Comment on above: Performed By: #### L 501.9520, L100.0100, L506.0400, L501.9985, L506.1000, L500.4100, L500.4050 #### [facility] [address] [place], [address] Basophils/100 WBC (Bld) 0.7 % Normal 0-1 [facility] Comment on above: Performed By: #### L 501.9520, L100.0100, L506.0400, L501.9985, L506.1000, L500.4100, L500.4050 #### [facility] [address] [place], [address] Eosinophils/100 WBC (Bld) 3.2 % Normal 0-5 [facility] Comment on above: Performed By: #### L 501.9520, L100.0100, L506.0400, L501.9985, L506.1000, L500.4100, L500.4050 #### [facility] [address] [place], [address] Erythrocyte distribution width (RBC) [Ratio] 12.6 % Normal 11.6-14.6 [facility] Comment on above: Performed By: #### L 501.9520, L100.0100, L506.0400, L501.9985, L506.1000, L500.4100, L500.4050 #### [facility] [address] [place], [address] Hematocrit (Bld) [Volume fraction] 43.4 % Normal 37-47 [facility] Comment on above: Performed By: #### L 501.9520, L100.0100, L506.0400, L501.9985, L506.1000, L500.4100, L500.4050 #### [facility] [address] [place], [address] Hemoglobin (Bld) [Mass/Vol] 14.9 g/dL Normal 12.0-15.0 [facility] Comment on above: Performed By: #### L 501.9520, L100.0100, L506.0400, L501.9985, L506.1000, L500.4100, L500.4050 #### [facility] [address] [place], [address] IG% 0.300 Normal 0.0-0.9 [facility] Comment on above: Result Comment: IG% - Immature Granulocytes (promyelocytes, myelocytes and metamyelocytes) > 1% indicates that a LEFT SHIFT is Present. Performed By: #### L 501.9520, L100.0100, L506.0400, L501.9985, L506.1000, L500.4100, L500.4050 #### [facility] [address] [place], [address] Lymphocytes/100 WBC (Bld) 18.7 % Low 19-41 [facility] Comment on above: Performed By: #### L 501.9520, L100.0100, L506.0400, L501.9985, L506.1000, L500.4100, L500.4050 #### [facility] [address] [place], [address] MCH (RBC) [Entitic mass] 31.7 pg Normal 27.0-32.0 [facility] Comment on above: Performed By: #### L 501.9520, L100.0100, L506.0400, L501.9985, L506.1000, L500.4100, L500.4050 #### [facility] [address] [place], [address] MCHC (RBC) [Mass/Vol] 34.3 g/dL Normal 32-36 [facility] Comment on above: Performed By: #### L 501.9520, L100.0100, L506.0400, L501.9985, L506.1000, L500.4100, L500.4050 #### [facility] [address] [place], [address] MCV (RBC) [Entitic vol] 92.3 fL Normal 81-99 [facility] Comment on above: Performed By: #### L 501.9520, L100.0100, L506.0400, L501.9985, L506.1000, L500.4100, L500.4050 #### [facility] [address] [place], [address] Monocytes/100 WBC (Bld) 8.1 % Normal 0-10 [facility] Comment on above: Performed By: #### L 501.9520, L100.0100, L506.0400, L501.9985, L506.1000, L500.4100, L500.4050 #### [facility] [address] [place], [address] Neutrophils/100 WBC (Bld) 69.0 % Normal 47-70 [facility] Comment on above: Performed By: #### L 501.9520, L100.0100, L506.0400, L501.9985, L506.1000, L500.4100, L500.4050 #### [facility] [address] [place], [address] Nucleated RBC (Bld) [#/Vol] 0 10*3/uL Normal 0-5 [facility] Comment on above: Performed By: #### L 501.9520, L100.0100, L506.0400, L501.9985, L506.1000, L500.4100, L500.4050 #### [facility] [address] [place], [address] Platelet mean volume (Bld) [Entitic vol] 9.0 fL Normal 6.2-12.0 [facility] Comment on above: Performed By: #### L 501.9520, L100.0100, L506.0400, L501.9985, L506.1000, L500.4100, L500.4050 #### [facility] [address] [place], [address] Platelets (Bld) [#/Vol] 245 10*3/uL Normal 150-450 [facility] Comment on above: Performed By: #### L 501.9520, L100.0100, L506.0400, L501.9985, L506.1000, L500.4100, L500.4050 #### [facility] [address] [place], [address] RBC (Bld) [#/Vol] 4.70 10*6/uL Normal 4.2-5.4 [facility] Comment on above: Performed By: #### L 501.9520, L100.0100, L506.0400, L501.9985, L506.1000, L500.4100, L500.4050 #### [facility] [address] [place], [address] RDW SD 42.5 fl Normal 35.1-43.9 [facility] Comment on above: Performed By: #### L 501.9520, L100.0100, L506.0400, L501.9985, L506.1000, L500.4100, L500.4050 #### [facility] [address] [place], [address] WBC (Bld) [#/Vol] 7.1 10*3/uL Normal 4.4-11.0 [facility] Comment on above: Performed By: #### L 501.9520, L100.0100, L506.0400, L501.9985, L506.1000, L500.4100, L500.4050 #### [facility] [address] [place], [address] Comprehensive Metabolic Prof ilon 10-03-2023 Albumin [Mass/Vol] 3.5 g/dL Normal 3.2-5.0 [facility] Comment on above: Performed By: #### L 501.9520, L100.0100, L506.0400, L501.9985, L506.1000, L500.4100, L500.4050 #### [facility] [address] [place], [address] Albumin/Globulin [Mass ratio] 0.9 {ratio} Normal 0.9-2.4 [facility] Comment on above: Performed By: #### L 501.9520, L100.0100, L506.0400, L501.9985, L506.1000, L500.4100, L500.4050 #### [facility] [address] [place], [address] ALK P 85 U/L Normal 45-117 [facility] Comment on above: Performed By: #### L 501.9520, L100.0100, L506.0400, L501.9985, L506.1000, L500.4100, L500.4050 #### [facility] [address] [place], [address] ALT [Catalytic activity/Vol] 56 U/L Normal 13-56 [facility] Comment on above: Performed By: #### L 501.9520, L100.0100, L506.0400, L501.9985, L506.1000, L500.4100, L500.4050 #### [facility] [address] [place], [address] AST [Catalytic activity/Vol] 31 U/L Normal 15-37 [facility] Comment on above: Performed By: #### L 501.9520, L100.0100, L506.0400, L501.9985, L506.1000, L500.4100, L500.4050 #### [facility] [address] [place], [address] Bilirubin [Mass/Vol] 0.80 mg/dL Normal 0.20-1.00 [facility] Comment on above: Result Comment: For patients on eltrombopag therapy, use of Dimension [place] TBIL is not recommended. Performed By: #### L 501.9520, L100.0100, L506.0400, L501.9985, L506.1000, L500.4100, L500.4050 #### [facility] [address] [place], [address] BUN/CRE 11.0 RATIO Normal 10-20 [facility] Comment on above: Performed By: #### L 501.9520, L100.0100, L506.0400, L501.9985, L506.1000, L500.4100, L500.4050 #### [facility] [address] [place], [address] CA,Total 9.0 mg/dL Normal 8.5-10.1 [facility] Comment on above: Performed By: #### L 501.9520, L100.0100, L506.0400, L501.9985, L506.1000, L500.4100, L500.4050 #### [facility] [address] [place], [address] Chloride [Moles/Vol] 108 mmol/L High 98-107 [facility] Comment on above: Performed By: #### L 501.9520, L100.0100, L506.0400, L501.9985, L506.1000, L500.4100, L500.4050 #### [facility] [address] [place], [address] CO2 [Moles/Vol] 25.0 mmol/L Normal 21.0-32.0 [facility] Comment on above: Performed By: #### L 501.9520, L100.0100, L506.0400, L501.9985, L506.1000, L500.4100, L500.4050 #### [facility] [address] [place], [address] Creatinine [Mass/Vol] 0.82 mg/dL Normal 0.55-1.02 [facility] Comment on above: Result Comment: The validity of the calculated GFR GFRAA in patients over 70 years has not been determined. Clinical correlation is essential. Performed By: #### L 501.9520, L100.0100, L506.0400, L501.9985, L506.1000, L500.4100, L500.4050 #### [facility] [address] [place], [address] EST GFR - AA 107 mL/min Normal >60 [facility] Comment on above: Result Comment: Afri can [place] GFR Calc Performed By: #### L 501.9520, L100.0100, L506.0400, L501.9985, L506.1000, L500.4100, L500.4050 #### [facility] [address] [place], [address] GAP 6 Normal 5-15 [facility] Comment on above: Performed By: #### L 501.9520, L100.0100, L506.0400, L501.9985, L506.1000, L500.4100, L500.4050 #### [facility] [address] [place], [address] GFR/1.73 sq M.predicted among non-blacks MDRD (S/P/Bld) [Vol rate/Area] 89 mL/min/{1.73_m2} Normal >60 [facility] Comment on above: Result Comment: Non- GFR Calc Performed By: #### L 501.9520, L100.0100, L506.0400, L501.9985, L506.1000, L500.4100, L500.4050 #### [facility] [address] [place], [address] Globulin (S) [Mass/Vol] 4.0 g/dL Normal 2.2-4.2 [facility] Comment on above: Performed By: #### L 501.9520, L100.0100, L506.0400, L501.9985, L506.1000, L500.4100, L500.4050 #### [facility] [address] [place], [address] Glucose [Mass/Vol] 89 mg/dL Normal 74-106 [facility] Comment on above: Performed By: #### L 501.9520, L100.0100, L506.0400, L501.9985, L506.1000, L500.4100, L500.4050 #### [facility] [address] [place], [address] Potassium [Moles/Vol] 4.1 mmol/L Normal 3.5-5.1 [facility] Comment on above: Performed By: #### L 501.9520, L100.0100, L506.0400, L501.9985, L506.1000, L500.4100, L500.4050 #### [facility] [address] [place], [address] Sodium [Moles/Vol] 139 mmol/L Normal 136-145 [facility] Comment on above: Performed By: #### L 501.9520, L100.0100, L506.0400, L501.9985, L506.1000, L500.4100, L500.4050 #### [facility] [address] [place], [address] T PROT 7.5 g/dL Normal 6.4-8.2 [facility] [place] Comment on above: Performed By: #### L 501.9520, L100.0100, L506.0400, L501.9985, L506.1000, L500.4100, L500.4050 #### [facility] [address] [place], [address] Urea nitrogen [Mass/Vol] 9 mg/dL Normal 7-18 [facility] Comment on above: Performed By: #### L 501.9520, L100.0100, L506.0400, L501.9985, L506.1000, L500.4100, L500.4050 #### [facility] [address] [place], [address] Hemoglobin A1con 10-03-2023 HbA1c (Bld) [Mass fraction] 4.4 % Normal 3.8-5.6 [facility] Comment on above: Result Comment: Norm al < 5.7 % Prediabetic 5.7 - 6.4 % Diabetic >or= 6.5 % Please note range changes. Performed By: #### L 803.3000, L801.1541 #### [facility] [address] [place], [address] Lipid Profileon 10-03-2023 Cholesterol [Mass/Vol] 219 mg/dL High 200 [facility] Comment on above: Result Comment: <200 mg/dL Desirable 200-240 mg/dL Borderline >240 mg/dL High Risk Performed By: #### L 803.3000, L801.1541 #### [facility] [address] [place], [address] Cholesterol in HDL [Mass/Vol] 47 mg/dL Normal [facility] Comment on above: Result Comment: The drugs N-Acetylcysteine and Metamizole may falsely depress this assay. Reference Range HDL <40 mg/dL Low HDL Cholesterol HDL >or= 60 mg/dL High HDL Cholesterol Performed By: #### L 803.3000, L801.1541 #### [facility] [address] [place], [address] Cholesterol in LDL [Mass/Vol] 142 mg/dL High 0-130 [facility] Comment on above: Performed By: #### L 803.3000, L801.1541 #### [facility] [address] [place], [address] Cholesterol in VLDL [Mass/Vol] 30 mg/dL Normal 5-40 [facility] Comment on above: Performed By: #### L 803.3000, L801.1541 #### [facility] [address] [place], [address] Triglyceride [Mass/Vol] 148 mg/dL Normal [facility] Comment on above: Result Comment: The drugs N-Acetylcysteine and Metamizole may falsely depress this assay. Serum Triglycerides Reference Interval Normal <150 mg/dL Borderline high 150 - 199 mg/dL High 200 - 499 mg/dL Very High > or = 500 mg/dL Performed By: #### L 803.3000, L801.1541 #### [facility] [address] [place], [address] Senior Clerk Office Visit Reporton 10-03-2023 Senior Clerk Office Visit Report [facility] [address], [address] [place] [address] OFFICE VISIT Date of Service: 10/03/23 MR#: [id number] Acct: [id number] Name: JONELLE GÓMEZ Rep #: [id number] : 1995 Provider: RITO Rob Age/Sex: 28/F Location: [facility] Status: Signed Intake Vital Signs 09/03/23 13:41 10/03/23 09:38 10/03/23 09:41 Height 5 ft 3 in 5 ft 3 in 5 ft 3 in Weight: 232 lb 225 lb BMI 41.1 39.8 BP 133/90 H 115/88 H Position Sitting Pulse 90 92 Pulse Source Monitor Intake Visit Reasons: 4 WK FU Bun Machine Operator Required: No Is patient in pain?: No Allergies chlorhexidine (From ChloraPrep Clear) Adverse Reaction (Verified 10/03/23 09:48) Rash isopropyl alcohol (From ChloraPrep Clear) Adverse Reaction (Verified 10/03/23 09:48) Rash Medications ???Medication ???Instructions ???Recorded ???Confirmed ???Type multivitamin (Daily Multi-Vitamin 1 tab PO DAILY 03/28/18 10/03/23 History tablet) etonogestrel 0.12 mg-ethinyl See Rx Instructions .Route 02/20/23 10/03/23 Rx estradiol 0.015 mg/24 hr vaginal .COMPLEX ##3 ring (NuvaRing) ondansetron 4 mg disintegrating 4 mg PO Q8H PRN PRN Nausea #14 tabs 05/12/23 10/03/23 Rx tablet betamethasone dipropionate 0.05 % 1 applic topical BID PRN skin 06/15/23 10/03/23 Rx topical cream irritation #45 grams tirzepatide 5 mg/0.5 mL 5 mg (0.5 mL) subcut QWEEK #2 mL 07/24/23 10/03/23 Rx subcutaneous pen injector (Mounjaro) sertraline 50 mg tablet 50 mg PO DAILY #90 TABLETS 08/08/23 10/03/23 Rx levothyroxine 175 mcg tablet 175 mcg PO DAILY #90 tabs 08/27/23 10/03/23 Rx Last Menstrual Period: 10/09/22 Zika: Zika virus screening: Negative : No Have you fallen in the past year?: No PFSH PFSH Medical History Allergies Axillary hidradenitis suppurativa B12 deficiency Back problem Breast lump in female Fibromyalgia Hidradenitis suppurativa History of blood clots 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 Insulin resistance Obesity Open wound of left axillary region with complication Open wound of right axillary region with complication Paresthesia PCOS (polycystic ovarian syndrome) Rheumatoid arthritis Surgical History [place] teeth extracted Family History Sister Diabetes Grandmother Lung cancer Skin cancer Grandfather Dementia CVA (cerebral vascular accident) Parkinsons disease Other Anxiety Arthritis Asthma Psychiatric care Thyroid disorder Social History Smoking Status: Never smoker alcohol intake: current alcohol intake frequency: 0-2 drinks per day details: occasionally substance use type: does not use caffeine: Yes what type of physical activity do you participate in: walking, aerobics and weight training frequency: 3-4 times per week seatbelt use: always do you feel safe at home: Yes additional social history: Single- Patient works at [employer] DOES NOT USE ASPIRIN DOES NOT USE IBUPROFEN NEEDED History 0 Elective abortions Hx Para Spontaneous abortions Hx # Term Pregnancies Ectopic pregnancies Hx # Pregnancies Multiple births # of living children HPI 4 WK FU Details: JONELLE GÓMEZ is a 28 year old Female presenting for a weight management follow up; she is doing well with medication; she obtains this through compounding pharmacy and not through our office. We have agreed to follow along with her in a non-medicinal support through her weight loss journey. Female Reproductive History Last Menstrual Period: 10/09/22 ROS Const Reports as per HPI, Denies difficulty sleeping, Denies excessive sweating, Denies fatigue (new onset severe) and Denies fever(s) Eyes Denies change in vision and Denies diplopia ENT Denies dizziness Card Denies chest pain, Denies dyspnea, Denies dyspnea on exertion, Denies palpitations and Denies rapid heart rate Resp Denies dyspnea and Denies dyspnea on exertion GI Reports as per HPI, Denies abdominal pain and Denies constipation Musc Denies numbness Neuro No confusion, No dizziness, No memory loss and No numbness Psych Denies confusion, Denies depression, Denies memory loss, Denies mood swings and Denies suicidal ideation Endo Denies excessive sweating, Denies fatigue (new onset severe), Denies palpitations and Reports other (denies symptoms of hypoglycemia) Exam Const General: cooperative, healthy appearing, comfortable and no acute distress Orientation: alert HENMT Head: normal to inspection and normocephalic Eyes (more content not included)... Normal [facility] T4 Free Directon 10-03-2023 T4 FREE DIRECT 0.95 ng/dL Normal 0.76-1.46 [facility] Comment on above: Performed By: #### L 683.1234, L801.6621 #### [facility] [address] [place], [address] Thyroid Stim Hormone (TSH)on 10-03-2023 TSH 6.070 uIU/mL High 0.358-3.740 [facility] Comment on above: Performed By: #### L 803.3000, L801.1541 #### [facility] [address] [place], [address] Vitamin D,25 Hydroxyon 10-02 Vitamin D 25-OH 38.5 ng/mL Normal [facility] Comment on above: Result Comment: Lianne min D 25(OH) Status Range Deficiency <20 ng/mL (50nmol/L) Insufficiency 20 - 30 ng/mL (50 - 75 nmol/L) Sufficiency 30 - 100 ng/mL (75 - 250 nmol/L) Toxicity >100 ng/mL (>250 nmol/L) Performed By: #### L 501.9520, L100.0100, L506.0400, L501.9985, L506.1000, L500.4100, L500.4050 #### [facility] [address] [place], [place], [address] Basophil percentageOrdered B y: Jacquelin Chen on 12-20-2022 Cholesterol [Mass/Vol] 197 mg/dL <200 [facility] Comment on above: <200 mg/dL Desirable 200-240 mg/dL Borderline >240 mg/dL High Risk Triglyceride [Mass/Vol] 216 mg/dL <199 [facility] Comment on above: The drugs N-Acetylcy steine and Metamizole may falsely depress this assay.Serum Triglycerides Reference Interval Normal <150 mg/dL Borderline high 150 - 199 mg/dL High 200 - 499 mg/dL Very High > or = 500 mg/dL Laboratory - Chemistry and C hemistry - challengeOrdered By: Marlon [place] on 12-20-2022 Cobalamin (Vitamin B12) [Mass/Vol] 294 pg/mL 211-911 [facility] No Panel InformationOrdered By: Marlon [place] on 12-20-2022 Vitamin D 25-Hydroxy 31.5 ng/mL [facility] Comment on above: Vitamin D 25(OH) Sta tus Range Deficiency <20 ng/mL (50nmol/L) Insufficiency 20 - 30 ng/mL (50 - 75 nmol/L) Sufficiency 30 - 100 ng/mL (75 - 250 nmol/L) Toxicity >100 ng/mL (>250 nmol/L) Serum or plasma cholesterol in HDL measurement (mass/volume)Ordered By: Jacquelin Chen on 12-20-2022 Cholesterol in HDL [Mass/Vol] 41 mg/dL >40 [facility] Comment on above: The drugs N-Acetylcy steine and Metamizole may falsely depress this assay. Reference Range HDL <40 mg/dL Low HDL Cholesterol HDL >or= 60 mg/dL High HDL Cholesterol Serum or plasma cholesterol in VLDL measurement (mass/volume)Ordered By: Jacquelin Chen on 12-20-2022 Cholesterol in VLDL [Mass/Vol] 43 mg/dL 5-40 [facility] Serum or plasma low density lipoprotein (LDL) cholesterol measurement (mass/volume)Ordered By: Jacquelin Chen on 12-20-2022 Cholesterol in LDL [Mass/Vol] 113 mg/dL 0-130 [facility] Whole blood hemoglobin A1c/t otal hemoglobin ratio (mass fraction)Ordered By: Marlon [place] on 12-20-2022 HbA1c (Bld) [Mass fraction] 4.7 % 3.8-5.6 [facility] Comment on above: Normal < 5.7 % Predi abetic 5.7 - 6.4 % Diabetic >or= 6.5 % Please note range changes. Laboratory - Chemistry and C hemistry - challengeOrdered By: Shakila [place] on 11-02-2022 Free T4 [Mass/Vol] 0.95 ng/dL 0.76-1.46 [facility] No Panel InformationOrdered By: Shakila [place] on 11-02-2022 Thyroid Stimulating Hormone (TSH) 5.82 uIU/mL 0.358-3.74 [facility] Basophil percentageOrdered B y: Dr. [place] on 06-26-2022 Bilirubin [Mass/Vol] 0.60 mg/dL 0.20-1.00 [facility] Comment on above: For patients on eltr ombopag therapy, use of Dimension [place] TBIL is not recommended. Chloride [Moles/Vol] 107 mmol/L 98-107 [facility] Glucose [Mass/Vol] 87 mg/dL 74-106 [facility] Potassium [Moles/Vol] 3.6 mmol/L 3.5-5.1 [facility] Protein [Mass/Vol] 7.5 g/dL 6.4-8.2 [facility] Sodium [Moles/Vol] 137 mmol/L 136-145 [facility] Laboratory - Chemistry and C hemistry - challengeOrdered By: Dr. [place] on 06-26-2022 ALP [Catalytic activity/Vol] 114 U/L 45-117 [facility] ALT [Catalytic activity/Vol] 51 U/L 13-56 [facility] CO2 [Moles/Vol] 22.0 mmol/L 21.0-32.0 [facility] Free T4 [Mass/Vol] 0.99 ng/dL 0.76-1.46 [facility] Globulin (S) [Mass/Vol] 4.0 g/dL 2.2-4.2 [facility] Urea nitrogen/Creatinine [Mass ratio] 14.2 mg/mg 10-20 [facility] No Panel InformationOrdered By: Dr. [place] on 06-26-2022 Estimated GFR (MDRD) Amer 115 mL/min >60 [facility] Comment on above: GFR Calc Estimated GFR (MDRD) Non-Af Amer 95 mL/min >60 [facility] Comment on above: Non- GFR Calc Thyroid Stimulating Hormone (TSH) 6.79 uIU/mL 0.358-3.74 [facility] Serum or plasma albumin monica urement (mass/volume)Ordered By: Dr. [place] on 06-26-2022 Albumin [Mass/Vol] 3.5 g/dL 3.2-5.0 [facility] Serum or plasma albumin/glob ulin mass ratioOrdered By: Dr. [place] on 06-26-2022 Albumin/Globulin [Mass ratio] 0.9 {ratio} 0.9-2.4 [facility] Serum or plasma calcium monica urement (mass/volume)Ordered By: Dr. [place] on 06-26-2022 Calcium [Mass/Vol] 8.7 mg/dL 8.5-10.1 [facility] Serum or plasma creatinine m easurement (mass/volume)Ordered By: Dr. [place] on 06-26-2022 Creatinine [Mass/Vol] 0.77 mg/dL 0.55-1.02 [facility] Comment on above: The validity of the calculated GFR & GFRAA in patients over 70 years has not been determined. Clinical correlation is essential. Serum or plasma urea nitroge n measurement (mass/volume)Ordered By: Dr. [place] on 06-26-2022 Urea nitrogen [Mass/Vol] 11 mg/dL 7-18 [facility] Thin prep Papanicolaou smear with manual screeningOrdered By: Dr. [place] on 06-26-2022 Thin prep Papanicolaou smear with manual screening 28 U/L 15-37 [facility] Thin prep Papanicolaou smear with manual screening 8 5-15 [facility] Cervical or vagninal specime n microscopic examination by cytology stain (reported ason 10-17-2021 Cytology report Cyto stain Doc (Cvx/Vag) Comment . [facility] Work Phone: Comment on above: The Pap smear is a s creening test designed to aid in thedetection of premalignant and malignant conditions of theuterine cervix. It is not a diagnostic procedure andshould not be used as the sole means of detecting cervicalcancer. Both false-positive and false-negative reports dooccur. Laboratory - Cytologyon 09-20 Pediatric Dietician Cyto stain Nom (Cvx/Vag) [ID] Comment . [facility] Work Phone: Comment on above: Michell Ramos, Cytot echnologist (ASCP) Laboratory - Miscellaneous t estson 10-17-2021 Service comment (Unsp spec) [Interp] Comment . [facility] Work Phone: Comment on above: This liquid based Th inPrep(R) pap test was screened withthe use of an image guided system. Service comment (Unsp spec) [Interp] . . [facility] Work Phone: No Panel Informationon 10-17 Human Papillomavirus Screen Comment . [facility] Work Phone: Comment on above: The HPV DNA reflex c elie were not met with this specimenresult therefore, no HPV testing was performed.Performed at: [place] - [facility] [address] [place], [place] [id number] Director: Israel Pop MD, Phone: [phone] at: - [facility] [address] [id number] Director: Jolanta Ackerman MD, Phone: [phone] Pathology report final diagnosis Narrative Comment . [facility] Work Phone: Comment on above: NEGATIVE FOR INTRAEP ITHELIAL LESION OR MALIGNANCY. Basophil percentageon 2021 Bilirubin [Mass/Vol] 0.50 mg/dL 0.20-1.00 [facility] Work Phone: Comment on above: For patients on eltr ombopag therapy, use of Dimension [place] TBIL is not recommended. Chloride [Moles/Vol] 110 mmol/L 98-107 [facility] Work Phone: Glucose [Mass/Vol] 101 mg/dL 74-106 [facility] Work Phone: Comment on above: Fasting Glucose resu lt from 100 to 125 mg/dL suggests IMPAIRED HOMEOSTASIS per A.D.A. criteria. Potassium [Moles/Vol] 3.8 mmol/L 3.5-5.1 [facility] Work Phone: Protein [Mass/Vol] 6.8 g/dL 6.4-8.2 [facility] Work Phone: Sodium [Moles/Vol] 141 mmol/L 136-145 [facility] Work Phone: Laboratory - Chemistry and C hemistry - challengeon 10-13-2021 ALP [Catalytic activity/Vol] 100 U/L 45-117 [facility] Work Phone: ALT [Catalytic activity/Vol] 39 U/L 13-56 [facility] Work Phone: CO2 [Moles/Vol] 26.0 mmol/L 21.0-32.0 [facility] Work Phone: Cobalamin (Vitamin B12) [Mass/Vol] 287 pg/mL 211-911 [facility] Work Phone: Free T4 [Mass/Vol] 0.92 ng/dL 0.76-1.46 [facility] Work Phone: Globulin (S) [Mass/Vol] 3.9 g/dL 2.2-4.2 [facility] Work Phone: Urea nitrogen/Creatinine [Mass ratio] 18.0 mg/mg 10-20 [facility] Work Phone: No Panel Informationon 10-13 Estimated GFR (MDRD) Amer 125 mL/min >60 [facility] Work Phone: Comment on above: GFR Calc Estimated GFR (MDRD) Non-Af Amer 103 mL/min >60 [facility] Work Phone: Comment on above: Non- GFR Calc Thyroid Stimulating Hormone (TSH) 8.37 uIU/mL 0.358-3.74 [facility] Work Phone: Serum or plasma albumin monica urement (mass/volume)on 10-13-2021 Albumin [Mass/Vol] 2.9 g/dL 3.2-5.0 [facility] Work Phone: Serum or plasma albumin/glob ulin mass ratioon 10-13-2021 Albumin/Globulin [Mass ratio] 0.7 {ratio} 0.9-2.4 [facility] Work Phone: Serum or plasma calcium monica urement (mass/volume)on 10-13-2021 Calcium [Mass/Vol] 8.3 mg/dL 8.5-10.1 [facility] Work Phone: Serum or plasma creatinine m easurement (mass/volume)on 10-13-2021 Creatinine [Mass/Vol] 0.72 mg/dL 0.55-1.02 [facility] Work Phone: Comment on above: The validity of the calculated GFR & GFRAA in patients over 70 years has not been determined. Clinical correlation is essential. Serum or plasma urea nitroge n measurement (mass/volume)on 10-13-2021 Urea nitrogen [Mass/Vol] 13 mg/dL 7-18 [facility] Work Phone: Thin prep Papanicolaou smear with manual screeningon 10-13-2021 Thin prep Papanicolaou smear with manual screening 22 U/L 15-37 [facility] Work Phone: Thin prep Papanicolaou smear with manual screening 5 5-15 [facility] Work Phone: OBSOLETEon 06-28-2020 OBSOLETE Refill (GOLDYPWS) JONELLE MARINELLI ([id number]) 1995 F Date Time Provider Department 06/28/20 ALEJANDRO HARRISON FAMPWS During your visit today, we recorded the following information about you: Eun Flores Ma 06/28/2020 4:04 PM Signed Pending Prescriptions Disp Refills LEVOTHYROXINE 50 MCG TABLET 30 tablet 11 Sig: Take 1 tablet by mouth once daily. Take on empty stomach. For Thyroid ANTHONY: No MARIA E 08/05/2019 NOV not scheduled at this time Last refilled 08/20/2018 #30 11 refills Eun Schmitt APRN.VAHE KUMAR 06/28/2020 10:11 PM Signed The following approved medication requests have been transmitted electronically. Pending Prescriptions Disp Refills LEVOTHYROXINE 50 MCG TABLET 90 tablet 1 Sig: Take 1 tablet by mouth once daily. Take on empty stomach. For Thyroid ANTHONY: No Al Schmitt APRN.VAHE KUMAR Allergies As of Date: 06/28/2020 (No Known Allergies) Date Reviewed: 08/05/2019 Reviewed by: Alejandro Harrison - Fully Assessed Reason for Visit: Refill Request [94] Primary Visit Diagnosis:Hypothyroidi sm, acquired [E03.9] Order(s):levothyroxine (LEVOXYL) 50 mcg tabletTake 1 tablet by mouth once daily. Take on empty stomach. For ThyroidDisp: 90 tabletRfl: 1 Prescriptions as of 06/28/2020 Sig: LEVOTHYROXINE 50 MCG TABLET Take 1 tablet by mouth once d* ESCITALOPRAM 20 MG TABLET Take 1 tablet by mouth once d* GABAPENTIN 300 MG CAPSULE Take 300 mg by mouth twice da* ONE-A-DAY WOMENS FORMULA ORAL Take by mouth as directed. * ACETAMINOPHEN 500 MG TABLET 2 tab po prn for pain Problem List As Of Date 06/28/2020 Noted Resolved INGROWING NAIL [L60.0] 01/06/2005 09/01/2005 ABNORMAL COAGULATION PROFILE [R79.1] 09/01/2005 PAIN IN JOINT, LOWER LEG [M25.569] 03/05/2007 05/09/2007 BACKACHE NOS [M54.9] 03/05/2007 05/09/2007 Chronic polyarticular juvenile rheumatoid arthr*07/25/2007 Verruca [B07.9] 11/09/2009 Breast lump [N63.0] 12/11/2009 10/31/2011 Irritable bowel syndrome with constipation [K58*09/28/2010 Dysmenorrhea [N94.6] 10/31/2011 07/12/2016 Abnormal bleeding in menstrual cycle [N93.9] 10/31/2011 07/12/2016 Obesity, Class III, BMI 40-49.9 (morbid obesity*10/04/2017 Hypothyroidism, acquired [E03.9] 12/06/2017 Prescriptions ordered this encounter Disp Refills Start End LEVOTHYROXINE 50 MCG TABLET 90 t* 1 06/28/2020 12/25/2020 Route: ORAL Sig: Take 1 tablet by mouth once daily. Take on empty stomach. For Thyroid Medications Discontinued During This Encounter Prescriptions - levothyroxine (LEVOXYL) 50 mcg tablet (Discontinued) Take 1 tablet by mouth once daily. Take on empty stomach. For Thyroid Encounter Status:Closed by AL SCHMITT on 06/28/20 Normal [facility] CBC without Diffon 8 Erythrocyte distribution width Auto Ratio (RBC) 13.4 % Normal 11.1-15.3 [facility] Comment on above: Order Comment: nhc Performed By: #### C BC ####[facility] [place] [address] Hematocrit Auto Volume Fraction (Bld) 44.6 % Normal 34.6-45.0 [facility] Comment on above: Order Comment: nhc Performed By: #### C BC ####[facility] [place] [address] Hemoglobin mass conc (Bld) 15.5 g/dL Normal 11.5-15.5 [facility] Comment on above: Order Comment: nhc Performed By: #### C BC ####[address] [address] MCH Auto Entitic mass (RBC) 30.9 pg Normal 27.2-33.6 [facility] Comment on above: Order Comment: nhc Performed By: #### C BC ####[facility] [place] [address] MCHC Auto mass conc (RBC) 34.8 g/dL Normal 32.9-35.3 [facility] Comment on above: Order Comment: nhc Performed By: #### C BC ####[address] [address] MCV Auto Entitic volume (RBC) 88.8 fL Normal 81.3-96.7 [facility] Comment on above: Order Comment: nhc Performed By: #### C BC ####[address] [address] Platelet mean volume Auto Entitic volume (Bld) 8.1 fL Normal 6.4-10.0 [facility] Comment on above: Order Comment: nhc Performed By: #### C BC ####[address] [address] Platelets Auto #/vol (Bld) 304 x(10)3/cumm Normal 138-367 [facility] Comment on above: Order Comment: nhc Performed By: #### C BC ####[facility] [place] [address] RBC Auto #/vol (Bld) 5.03 X(10)6/cumm Normal 3.90-5.10 [facility] Comment on above: Order Comment: nhc Performed By: #### C BC ####[facility] [place], [place] [id number] WBC Auto #/vol (Bld) 10.7 x(10)3/cumm High 3.6-10.3 [facility] Comment on above: Order Comment: nhc Performed By: #### C BC ####[place] [address] Comprehensive Metabolic Pane rodolfo 11-15-2017 Albumin mass conc 4.0 g/dL Normal 3.4-5.0 [facility] Comment on above: Order Comment: nhc Performed By: #### C MP ####[place] [address] ALP enzyme act/vol 100 U/L Normal 45-117 [facility] Comment on above: Order Comment: nhc Performed By: #### C MP ####[place] [id number] ALT enzyme act/vol 56 U/L Normal 12-78 [facility] Comment on above: Order Comment: nhc Performed By: #### C MP ####[place] [address] Anion gap 3 molar conc 7 mmol/L Normal [facility] Comment on above: Order Comment: nhc Performed By: #### C MP ####[place] [id number] AST enzyme act/vol 32 U/L Normal 15-37 [facility] Comment on above: Order Comment: nhc Performed By: #### C MP ####[place] [id number] Bili, Total 0.6 mg/dL Normal 0.2-1.0 [facility] Comment on above: Order Comment: nhc Performed By: #### C MP ####[facility] [place] [address] C02 28 mmol/L Normal 21-32 [facility] Comment on above: Order Comment: nhc Performed By: #### C MP ####[facility] [place] [address] Calcium mass conc 9.1 mg/dL Normal 8.5-10.1 [facility] Comment on above: Order Comment: nhc Performed By: #### C MP ####[facility] [place] [address] Chloride molar conc 103 mmol/L Normal 98-107 [facility] Comment on above: Order Comment: nhc Performed By: #### C MP ####[address] [address] Creatinine mass conc 0.64 mg/dL Normal 0.60-1.30 [facility] Comment on above: Order Comment: nhc Performed By: #### C MP ####[facility] [place] [address] eGFR -Amer >60 Normal >=60 [facility] Comment on above: Order Comment: nhc Performed By: #### C MP ####[facility] [place] [address] GFR/1.73 sq M predicted among non-blacks MDRD vol rate/area (S/P/Bld) mL/min/{1.73_m2} Normal >=60 [facility] Comment on above: Order Comment: nhc Performed By: #### C MP ####[facility] [place] [address] Glucose mass conc 78 mg/dL Normal 74-106 [facility] Comment on above: Order Comment: nhc Performed By: #### C MP ####[address] [address] Potassium molar conc 3.9 mmol/L Normal 3.5-5.1 [facility] Comment on above: Order Comment: nhc Performed By: #### C MP ####[facility] [place] [id number] Protein mass conc 7.7 g/dL Normal 6.4-8.2 [facility] Comment on above: Order Comment: nhc Performed By: #### C MP ####[address] [address] Sodium molar conc 138 mmol/L Normal 136-145 [facility] Comment on above: Order Comment: nhc Performed By: #### C MP ####[facility] [address] [address] Urea nitrogen mass conc 11 mg/dL Normal 7-18 [facility] Comment on above: Order Comment: nhc Performed By: #### C MP ####[facility] [address] [address] Sed Rate - Westergrenon 09-2 Sed Rate 1 mm/hr Normal 0-20 [facility] Comment on above: Order Comment: nhc Performed By: #### E SR ####[address] [address] Progress Noteon 10-04-2016 Biological Science Technician Fish Authentication Interface Message Text Returning patientPaige Akilah Marinelli is a 21 y.o. female presenting today forChief ComplaintPatient presents with Follow Up TOMEKA [facility]History of Presenting ProblemHPRacheal Sal is here for follow up of TOMEKA. She has made an appointment with in Rheumatology for December. She has been off azathioprine for the last2 months due to miscommunication regarding the addition of celebrex and shethought she was supposed to stop the azathioprine. She has no side effects tocelebrex but has had more joint pain in the back and hips. She was in physicaltherapy who thought she had a bulging disc. She is doing exercises at home andit helped the pain shooting down the legs. She has some numbness intermittentlyin the toes. She has easy bruising on her legs but not other places. This summershe has had to take tramadol a couple times per week. She has triedacupuncture. She has had lymph node under the left arm and swelling on the leftsubmandibular area.CHAQ: Overall CHAQ Score: 0Past Medical HistoryPast Medical History:Diagnosis Date TOMEKA (juvenile idiopathic arthritis)Allergies: No Known AllergiesMedications:O utpatient Encounter Prescriptions as of 10/04/2016Medication Sig Dispense Refill vitamin D (ERGOCALCIFEROL) 98768 units capsule Take 1 Cap (50,000 Units) bymouth every 7 days 12 Cap 3 Etonogestrel-Ethinyl Estradiol (NUVARING VA) Place vaginally celecoxib (CELEBREX) 200 MG capsule Take 1 Cap (200 mg) by mouth 2 times daily60 Cap 5 azaTHIOprine (IMURAN) 50 MG tablet Take 4 Tabs (200 mg) by mouth daily 270 Tab1 TraMADol (ULTRAM) 50 MG tablet Take 1 Tab (50 mg) by mouth every 6 hours asneeded for Pain 30 Tab 0 HUMIRA PEN 40 MG/0.8ML pen INJECT ONE PEN (40 MG) SUBCUTANEOUSLY EVERY OTHERWEEK, REFRIGERATE. 2 Pen 3 Multiple Vitamins-Minerals (MULTIVITAMIN PO) Take by mouth daily. hydrocortisone 2.5 % ointment Apply to affected area 2 times daily. 30 g 1 DOXYCYCLINE HYCLATE PO Take by mouth. cyclobenzaprine (FLEXERIL) 10 MG tablet Concord-3 Fatty Acids (FISH OIL PO) Take 1 Tab by mouth daily. CALCIUM PO Take 1 Tab by mouth daily. acetaminophen (TYLENOL) 500 MG tablet Take 1,000 mg by mouth every 6 hours asneeded.Review of SystemsReview of SystemsConstitutional: Negative for decreased appetite, fever and weight loss.HENT: Negative for headaches and oral ulcers.Eyes: Negative for blurred vision, dry eyes, photophobia, eye redness and visualdisturbance.Resp iratory: Negative for chest pain, cough and shortness of breath.Gastrointestina l: Negative for abdominal pain, anorexia, diarrhea, hematochezia,nausea, ulcer and vomiting.Musculoskelet al: Negative for difficulty going up stairs, difficulty raisinghead from bed, difficulty turning doorknob, difficulty walking, joint swellingand muscle weakness.Skin: Negative for rash.Neurological: Negative for light-headedness.Physi stacey ExaminationVitals: 10/04/16 1035BP: 123/81Pulse: 94Resp: 16Temp: 35.8 C (96.4 F)Growth percentile SmartLinks can only be used for patients less than 20 yearsold.Height: 159 cm Facility age limit for growth percentiles is 20 years.Weight - Scale: 100.3 kg Facility age limit for growth percentiles is 20years.VAS Pain: 0-10 Scale: 1Physical ExamVitals reviewed.Constitutiona l: She appears well-developed. She appears healthy.HENT:Mucous membranes moist, no mucosal ulcersEyes: Conjunctivae are normal.Neck: Normal range of motion. Neck supple.Cardiovascular: Normal rate and regular rhythm.Pulmonary/Chest : Effort normal and breath sounds normal.Abdominal: Soft. She exhibits no mass. There is no splenomegaly or hepatomegaly.There is no tenderness.Musculoskel etal:There is no synovitis, warmth, erythema, tenderness, or restriction range ofmotion of the fingers, wrists, elbows, shoulders, hips, knees, ankles, or toes.Gait is normal.Range of motion of the lumbar spine is normal but unable to touch her toes dueto tight hamstrings. Shober's is normal and there is no localized tenderness tothe spinous process or paraspinal muscles. SI joints are tender with normalrange of motionLymphadenopathy: She has no cervical adenopathy (though she feels a fullness I was unable todetect adenopathy).Neurologic al: She is alert.Skin: Rash (left axilla subcutaneous nodule consistent with previouslesions.infect ions) noted.Laboratory Testing:Past month all labs: ALL labs past month:No visits with results within 1 Month(s) from this visit.Latest known visit with results is:Hospital Outpatient Visit on 07/26/2016Component Date Value Ref Range Status Sodium 07/26/2016 139 133 - 145 mEq/L Final Potassium 07/26/2016 4.4 3.3 - 5.1 mEq/L Final Chloride 07/26/2016 106 96 - 108 mEq/L Final Carbon Dioxide 07/26/2016 25.6 22.0 - 29.0 mEq/L Final BUN 07/26/2016 14 4 - 19 mg/dL Final Glucose 07/26/2016 95 70 - 99 mg/dL Final Total Bilirubin 07/26/2016 1.0 0.0 - 1.0 mg/dl Final AST 07/26/2016 34* 0 - 31 U/L Final ALT 07/26/2016 32* 0 - 31 U/L Final Alkaline Phosphatase 07/26/2016 69 35 - 104 U/L Final Calcium 07/26/2016 9.2 7.6 - 11.0 mg/dL Final Protein, Total 07/26/2016 7.7 5.9 - 8.4 g/dL Final Albumin 07/26/2016 4.0 3.5 - 5.0 g/dL Final Creatinine 07/26/2016 0.66 0.50 - 1.00 mg/dL Final Comment 07/26/2016 ----- Final WBC 07/26/2016 8.9 4.5 - 11.0 10E9/L Final RBC 07/26/2016 4.93* 4.00 - 4.90 10E12/L Final Hemoglobin 07/26/2016 15.7* 12.0 - 15.0 g/dl Final Hematocrit 07/26/2016 44.4* 36.0 - 44.0 % Final MCV 07/26/2016 90.1 80.0 - 100.0 fl Final MCH 07/26/2016 31.8 26.0 - 34.0 pg Final MCHC 07/26/2016 35.4 31.0 - 37.0 % Final RDW 07/26/2016 12.3 0.0 - 14.4 % Final Platelets 07/26/2016 308 150 - 450 10E9/L Final MPV 07/26/2016 7.7 fl Final Differential Complete 07/26/2016 Manual Final ESR (Sed Rate) 07/26/2016 14 mm Final ESR Interpretation 07/26/2016 Final Value: 25 OH Vitamin D 07/26/2016 19* 20 - 50 ng/mL Final Band Neutrophil 07/26/2016 0* 5 - 11 % Final Segmented Neutrophils 07/26/2016 55 35 - 66 % Final Lymphocytes 07/26/2016 36 24 - 44 % Final % Monocytes 07/26/2016 5 3 - 6 % Final % Eosinophils 07/26/2016 3 0 - 3 % Final % Basophils 07/26/2016 1 0 - 1 % Final % Metamyelocytes 07/26/2016 0 0 - 0 % Final % Myelocytes 07/26/2016 0 0 - 0 % Final % Promyelocytes 07/26/2016 0 0 - 0 % Final Absolute Neutrophil No. 07/26/2016 4.9 Final Cell Morphology 07/26/2016 Normal FinalAssessment & Plan:Jonelle was seen today for follow up tomeka.Diagnoses and all orders for this visit:TOMEKA (juvenile idiopathic arthritis)- She has an increase in pain due to stopping the azathioprine HUMIRA PEN 40 MG/0.8ML pen; Inject 0.8 mL (40 mg) into the skin every 14days- resume azaTHIOprine (IMURAN) 50 MG tablet; Take 2 Tabs (100 mg) by mouthdaily Continue celebrex- May use TraMADol (ULTRAM) 50 MG tablet; Take 1 Tab (50 mg) by mouth every6 hours as needed for Pain- Trial of gabapentin (NEURONTIN) 300 MG capsule; Take 1 Cap (300 mg) bymouth 2 times daily for chronic pain from both the TOMEKA and the back pain.Chronic left-sided low back pain with bilateral sciaticaContinue exercise program and prn acupuncture.Reviewed the following lifestyle/preventive care with the patient: excerciseguidelines and avoid live vaccinesPaige was referred to the following services: adult rheumatology.Follow up as needed as she is transitioning careCounseling and/or coordination of care (face to face) was greater than 15minutes, which is more than 50% of the total time of [facility] Deb10/[facility]/2016 Normal [facility] Lab Report: PAP I-G w/rfx hr HPVon 09-14-2016 HPV RFLX Comment . [facility] Office Visit: est annualon 0 09-11-2016 Fall risk assessment No Sarah simeon [facility] Protein mass conc Done [facility] Tobacco smoking status NHIS Never [facility] Tobacco smoking status [facility] Never smoker [facility] Vital Signs Date Time Vital Sign Value Performing Clinician Wan angelo 08-08-2024 10:36-0400 Body height 157.48 cm No Primary Care Physician [facility] 08-08-2024 10:36-0400 Body mass index (BMI) [Ratio] 47.9 kg/m2 No Primary Care Physician [facility] 08-08-2024 10:36-0400 Body weight 118.89 kg No Primary Care Physician [facility] 08-08-2024 10:36-0400 Diastolic blood pressure 89 mm[Hg] No Primary Care Physician [facility] 08-08-2024 10:36-0400 Systolic blood pressure 139 mm[Hg] No Primary Care Physician [facility] 07-01-2024 08:40-0400 Body height 160.02 cm No Primary Care Physician [facility] 07-01-2024 08:39-0400 Body mass index (BMI) [Ratio] 44.6 kg/m2 No Primary Care Physician [facility] 07-01-2024 08:39-0400 Body weight 114.3 kg No Primary Care Physician [facility] 07-01-2024 08:39-0400 Diastolic blood pressure 87 mm[Hg] No Primary Care Physician [facility] 07-01-2024 08:39-0400 Systolic blood pressure 131 mm[Hg] No Primary Care Physician [facility] 03-13-2024 08:28-0500 Body mass index (BMI) [Ratio] 42.7 kg/m2 No Primary Care Physician [facility] 03-13-2024 08:28-0500 Body weight 109.31 kg No Primary Care Physician [facility] 03-13-2024 08:28-0500 Diastolic blood pressure 92 mm[Hg] No Primary Care Physician [facility] 03-13-2024 08:28-0500 Heart rate 73 /min No Primary Care Physician [facility] 03-13-2024 08:28-0500 SaO2% (BldA) [Mass fraction] 98 % No Primary Care Physician [facility] 03-13-2024 08:28-0500 Systolic blood pressure 129 mm[Hg] No Primary Care Physician [facility] 05-12-2023 09:24-0400 Body temperature 98.1 [degF] Dr. Marlon Gaona Work Phone: [facility] 05-12-2023 09:24-0400 Diastolic blood pressure 88 mm[Hg] Dr. Marlon Gaona Work Phone: [facility] 05-12-2023 09:24-0400 Heart rate 91 /min Dr. Marlon Gaona Work Phone: 3(330)364-131988 [place] [address] 05-12-2023 09:24-0400 Respiratory rate 16 /min Dr. Marlon Gaona Work Phone: [facility] 05-12-2023 09:24-0400 SaO2% (BldA) [Mass fraction] 99 % Dr. Marlon Gaona Work Phone: [facility] 05-12-2023 09:24-0400 Systolic blood pressure 129 mm[Hg] Dr. Marlon Gaona Work Phone: 3(504)261-069488 [place] [address] 05-12-2023 06:44-0400 Body height 160.[address] Marlon Gaona Work Phone: 0(186)180-213901 [address] 05-12-2023 06:44-0400 Body mass index (BMI) [Ratio] 38.9 kg/m2 Dr. Marlon Gaona Work Phone: 0(397)948-839588 [place] [address] 05-12-2023 06:44-0400 Body weight 99.[address] Marlon Gaona Work Phone: 1(840)237-446388 [place] [address] 05-04-2023 13:45-0400 Body mass index (BMI) [Ratio] 42 kg/m2 Dr. Marlon Gaona Work Phone: 1(060)786-244501 [address] 05-04-2023 13:45-0400 Body weight 107.[address] Marlon Gaona Work Phone: 6(969)445-590688 [place] [address] 05-04-2023 13:45-0400 Diastolic blood pressure 90 mm[Hg] Dr. Marlon Gaona Work Phone: 0(834)354-199388 [place] [address] 05-04-2023 13:45-0400 Heart rate 85 /min Dr. Marlon Gaona Work Phone: 7(061)393-717688 [place] [address] 05-04-2023 13:45-0400 Systolic blood pressure 128 mm[Hg] Dr. Marlon Gaona Work Phone: 1(923)092-511588 [place] [address] 03-19-2023 08:38-0500 Body mass index (BMI) [Ratio] 42 kg/m2 Dr. Marlon Gaona Work Phone: [facility] 03-19-2023 08:38-0500 Body weight 107.[address] Marlon Gaona Work Phone: [facility] 03-19-2023 08:38-0500 Diastolic blood pressure 87 mm[Hg] Dr. Marlon Gaona Work Phone: [facility] 03-19-2023 08:38-0500 Systolic blood pressure 156 mm[Hg] Dr. Marlon Gaona Work Phone: [facility] 02-08-2023 09:14-0500 Body mass index (BMI) [Ratio] 41.8 kg/m2 Dr. Marlon Gaona Work Phone: [facility] 02-08-2023 09:14-0500 Diastolic blood pressure 87 mm[Hg] Dr. Marlon Gaona Work Phone: [facility] 02-08-2023 09:14-0500 Systolic blood pressure 129 mm[Hg] Dr. Marlon Gaona Work Phone: [facility] 02-08-2023 08:51-0500 Body weight 107.[address] Marlon Gaona Work Phone: [facility] 10-26-2022 15:37-0400 Body height 160.[address] Marlon Gaona Work Phone: [facility] 10-26-2022 15:33-0400 Body mass index (BMI) [Ratio] 41.1 kg/m2 Dr. Marlon Gaona Work Phone: [facility] 10-26-2022 15:33-0400 Body weight 105.[address] Marlon Gaona Work Phone: [facility] 10-26-2022 15:33-0400 Diastolic blood pressure 86 mm[Hg] Dr. Marlon Gaona Work Phone: [facility] 10-26-2022 15:33-0400 Systolic blood pressure 124 mm[Hg] Dr. Marlon Gaona Work Phone: [facility] 08-23-2022 09:36-0400 Body mass index (BMI) [Ratio] 40.9 kg/m2 Dr. Marlon Gaona Work Phone: [facility] 08-23-2022 09:36-0400 Body weight 104.[address] Marlon Gaona Work Phone: [facility] 08-23-2022 09:36-0400 Diastolic blood pressure 87 mm[Hg] Dr. Marlon Gaona Work Phone: [facility] 08-23-2022 09:36-0400 Heart rate 80 /min Dr. Marlon Gaona Work Phone: [facility] 08-23-2022 09:36-0400 Systolic blood pressure 131 mm[Hg] Dr. Marlon Gaona Work Phone: [facility] 07-10-2022 13:01-0400 Body height 157.[address] Marlon Gaona Work Phone: [facility] 07-10-2022 13:01-0400 Body weight 105.[address] Marlon Gaona Work Phone: [facility] 06-26-2022 15:38-0400 Body mass index (BMI) [Ratio] 42.6 kg/m2 Dr. Marlon Gaona Work Phone: [facility] 06-26-2022 15:38-0400 Body weight 105.[address] Marlon Gaona Work Phone: [facility] 06-26-2022 15:38-0400 Diastolic blood pressure 78 mm[Hg] Dr. Marlon Gaona Work Phone: [facility] 06-26-2022 15:38-0400 Systolic blood pressure 118 mm[Hg] Dr. Marlon Gaona Work Phone: [facility] 06-12-2022 14:06-0400 Body height 157.[address] Marlon Gaona Work Phone: [facility] 06-12-2022 14:06-0400 Body weight 107.[address] Marlon Gaona Work Phone: [facility] 05-22-2022 11:37-0400 Body mass index (BMI) [Ratio] 43.7 kg/m2 Dr. Marlon Gaona Work Phone: [facility] 05-22-2022 11:37-0400 Body weight 108.[address] Marlon Gaona Work Phone: [facility] 05-22-2022 11:37-0400 Diastolic blood pressure 88 mm[Hg] Dr. Marlon Gaona Work Phone: [facility] 05-22-2022 11:37-0400 Systolic blood pressure 136 mm[Hg] Dr. Marlon Gaona Work Phone: [facility] 04-06-2022 09:06-0500 Body mass index (BMI) [Ratio] 43.7 kg/m2 Dr. Marlon Gaona Work Phone: [facility] 04-06-2022 09:06-0500 Body weight 108.[address] Marlon Gaona Work Phone: [facility] 04-06-2022 09:06-0500 Diastolic blood pressure 84 mm[Hg] Dr. Marlon Gaona Work Phone: [facility] 04-06-2022 09:06-0500 Heart rate 97 /min Dr. Marlon Gaona Work Phone: [facility] 04-06-2022 09:06-0500 Systolic blood pressure 124 mm[Hg] Dr. Marlon Gaona Work Phone: [facility] 10-17-2021 15:07-0400 Body height 157.[address] Marlon Gaona Work Phone: [facility] Work Phone: 10-17-2021 15:06-0400 Body mass index (BMI) [Ratio] 46 kg/m2 Dr. Marlon Gaona Work Phone: [facility] Work Phone: 10-17-2021 15:06-0400 Body weight 114.[address] Marlon Gaona Work Phone: [facility] Work Phone: 10-17-2021 15:06-0400 Diastolic blood pressure 74 mm[Hg] Dr. Marlon Gaona Work Phone: [facility] Work Phone: 10-17-2021 15:06-0400 Systolic blood pressure 126 mm[Hg] Dr. Marlon Gaona Work Phone: [facility] Work Phone: 10-13-2021 08:08-0400 Body mass index (BMI) [Ratio] 45.6 kg/m2 Dr. Marlon Gaona Work Phone: [facility] Work Phone: 10-13-2021 08:08-0400 Body temperature 95.5 [degF] Dr. Marlon Gaona Work Phone: [facility] Work Phone: 10-13-2021 08:08-0400 Body weight 113.[address] Marlon Gaona Work Phone: [facility] Work Phone: 10-13-2021 08:08-0400 Diastolic blood pressure 84 mm[Hg] Dr. Marlon Gaona Work Phone: [facility] Work Phone: 10-13-2021 08:08-0400 Heart rate 80 /min Dr. Marlon Gaona Work Phone: [facility] Work Phone: 08-25-2022 08:08-0400 Respiratory rate 16 /min Dr. Marlon Gaona Work Phone: [facility] Work Phone: 10-13-2021 08:08-0400 SaO2% (BldA) [Mass fraction] 96 % Dr. Marlon Gaona Work Phone: [facility] Work Phone: 10-13-2021 08:08-0400 Systolic blood pressure 130 mm[Hg] Dr. Marlon Gaona Work Phone: [facility] Work Phone: 09-11-2016 15:59-0400 BMI (Body Mass Index) 38.12 kg/m2 Shakila Canales MD [facility] 09-11-2016 15:59-0400 Body Temperature 98.7 [degF] Shakila Canales MD [facility] 09-11-2016 15:59-0400 Body Temperature 98.71 [degF] Shakila Canales MD [facility] 09-11-2016 15:59-0400 BP Diastolic 67 mm[Hg] Shakila Canales MD [facility] 09-11-2016 15:59-0400 BP Systolic 107 mm[Hg] Shakila Canales MD [facility] 09-11-2016 15:59-0400 Height 160.02 cm Shakila Canales MD [facility] 09-11-2016 15:59-0400 Pulse (Heart Rate) 78 /min Shakila Canales MD [facility] 09-11-2016 15:59-0400 Respiratory Rate 16 /min Shakila Canales MD [facility] 09-11-2016 15:59-0400 Weight 97.61 kg Shakila Canales MD [facility] Encounters Encounter Date Encounter Type Care Provider Facility Start: 09-08-2024 End: 09-08-2024 ambulatory No Primary Care Physician -Lab [facility] Start: 09-08-2024 End: 09-08-2024 Patient encounter procedure Alejandro Simms CNM -Lab [facility] Start: 09-08-2024 End: 09-08-2024 ambulatory No Primary Care Physician Facility:[facility] Start: 08-08-2024 End: 08-08-[address] Shakila Canales MD -[facility] Work Phone: Start: 08-08-2024 End: 08-08-2024 ambulatory No Primary Care Physician [facility] Work Phone: Start: 08-06-2024 End: 08-06-2024 ambulatory No Primary Care Physician [facility] Work Phone: Start: 08-06-2024 End: 08-06-2024 Patient encounter procedure Alejandro Simms CNM -Lab [facility] Start: 08-06-2024 End: 08-06-2024 ambulatory No Primary Care Physician Facility:[facility] Start: 08-04-2024 End: 08-04-2024 ambulatory No Primary Care Physician [facility] Work Phone: Start: 08-04-2024 End: 08-04-2024 Patient encounter procedure Alejandro Simms CNM -[facility] Work Phone: Start: 08-04-2024 End: 08-04-2024 ambulatory No Primary Care Physician Facility:[facility] Start: 07-19-2024 End: 07-19-2024 ambulatory No Primary Care Physician [facility] Work Phone: Start: 07-19-2024 End: 07-19-2024 Patient encounter procedure Alejandro Simms CNM -Laboratory Work Phone: Start: 07-19-2024 End: 07-19-2024 ambulatory No Primary Care Physician Facility:[facility] Start: 07-01-2024 End: 07-01-2024 Patient encounter procedure Alejandro Simms CNM -[facility] Work Phone: Start: 07-01-2024 End: 07-01-2024 ambulatory No Primary Care Physician [facility] Work Phone: Start: 07-01-2024 End: 07-01-2024 ambulatory Terrence Elliott Facility:[facility] Start: 04-30-2024 End: 04-30-2024 ambulatory No Primary Care Physician [facility] Work Phone: Start: 04-30-2024 End: 04-30-[address] Terrence Gallagher MD -Laboratory Work Phone: Start: 04-30-2024 End: 04-30-2024 ambulatory [facility] Facility:[facility] Start: 04-03-2024 ambulatory Kirss Jacksontings Facility :[facility] Start: 03-13-2024 End: 03-13-[address] Terrence Gallagher MD -[facility] Work Phone: Start: 03-13-2024 End: 03-13-2024 ambulatory Terrence Gallagher Facility:[facility] Start: 03-12-2024 End: 03-12-[address] Terrence Gallagher MD -Laboratory Work Phone: Start: 03-12-2024 End: 03-12-2024 ambulatory [facility] Facility:[facility] Start: 12-12-2023 End: 12-12-2023 ambulatory [facility] Facility:[facility] Start: 11-29-2023 End: 11-29-2023 ambulatory Shakila Canales Facility:[facility] Start: 11-23-2023 ambulatory Shakila Canales Faci lity:[facility] Start: 11-14-2023 End: 11-14-2023 [facility] Start: 10-03-2023 End: 10-03-2023 ambulatory [facility] Facility:[facility] Start: 10-03-2023 End: 10-03-2023 ambulatory [facility] Facility:[facility] Start: 05-12-2023 End: 05-12-2023 Emergency department patient visit Dr. Marlon Gaona Work Phone: [facility] Work Phone: Start: 05-04-2023 End: 05-04-[address] Marlon Gaona Work Phone: [facility] Work Phone: Start: 03-19-2023 End: 03-19-[address] Marlon Gaona Work Phone: [facility] Work Phone: Start: 02-08-2023 End: 02-08-[address] Marlon Gaona Work Phone: [facility] Work Phone: Start: 12-20-2022 End: 12-20-[address] Marlon Gaona Work Phone: [facility] Work Phone: Start: 12-20-2022 End: 12-20-[address] Marlon Gaona Work Phone: [facility] Work Phone: Start: 11-02-2022 End: 11-02-[address] Marlon Gaona Work Phone: [facility] Work Phone: Start: 11-02-2022 End: 11-02-[address] [facility] Start: 10-26-2022 End: 10-26-[address] Marlon Gaona Work Phone: [facility] Work Phone: Start: 08-23-2022 End: 08-23-[address] Marlon Gaona Work Phone: [facility] Work Phone: Start: 07-10-2022 End: 07-19-[address] Marlon Gaona Work Phone: [facility] Work Phone: Start: 07-10-2022 End: 07-19-[address] [facility] Start: 06-26-2022 End: 06-26-[address] Marlon Gaona Work Phone: [facility] Start: 06-26-2022 End: 06-26-[address] Maroln Gaona Work Phone: [facility] Start: 06-12-2022 End: 06-18-[address] Marlon Gaona Work Phone: [facility] Work Phone: Start: 06-12-2022 End: 06-18-[address] [facility] Start: 05-22-2022 End: 05-22-[address] Marlon Gaona Work Phone: [facility] Start: 04-06-2022 End: 04-06-[address] Marlon Gaona Work Phone: [facility] Start: 10-17-2021 End: 10-17-[address] Marlon Gaona Work Phone: [facility] Work Phone: Start: 10-17-2021 End: 10-17-[address] Marlon Gaona Work Phone: [facility]-Laboratory, Specimen Start: 10-17-2021 End: 10-17-[address] Marlon Gaona Work Phone: [facility] Start: 10-13-2021 End: 10-13-[address] Marlon Gaona Work Phone: [facility] [facility] Work Phone: Start: 10-13-2021 End: 10-13-[address] Marlon Gaona Work Phone: [facility] Start: 11-15-2017 End: 11-16-2017 Patient encounter BERNARD ROYAL [facility] Start: 12-08-2016 End: 12-08-2016 Ambulatory XU LEI OPAL [facility] Start: 10-04-2016 End: 10-04-2016 Ambulatory [facility] Procedures Date Procedure Procedure Detail Performing Clinician Start: 09-08-2024 Serum progesterone measurement No Primary Care Physician Comment on above: Follicular phase 0.1 - 0.9 Luteal phase 1.8 - 23.9 Ovulation phase 0.1 - 12.0 First trimester 11.0 - 44.3 Second trimester 25.4 - 83.3 Third trimester 58.7 - 214.0 Postmenopausal 0.0 - 0.1Performed at: [facility] [address] [id number] Director: Vlad Giraldo PhD, Phone: [phone] Start: 08-06-2024 Serum progesterone measurement No Primary Care Physician Comment on above: Follicular phase 0.1 - 0.9 Luteal phase 1.8 - 23.9 Ovulation phase 0.1 - 12.0 First trimester 11.0 - 44.3 Second trimester 25.4 - 83.3 Third trimester 58.7 - 214.0 Postmenopausal 0.0 - 0.1Performed at: [facility] [address] [id number] Director: Vlad Giraldo PhD, Phone: [phone] Start: 08-04-2024 Transvaginal echography No Primary Care Physician Start: 07-19-2024 Procedure No Primary Care Physician Comment on above: Sent directly to [facility] per ordering physician. Start: 03-12-2024 Measurement of renal function No Primary Care Physician Comment on above: GFR Calc Start: 03-12-2024 Vitamin D, 25-hydrox y measurement No Primary Care Physician Comment on above: Vitamin D 25(OH) Sta tus Range Deficiency <20 ng/mL (50nmol/L) Insufficiency 20 - 30 ng/mL (50 - 75 nmol/L) Sufficiency 30 - 100 ng/mL (75 - 250 nmol/L) Toxicity >100 ng/mL (>250 nmol/L) Start: 09-11-2016 Gynecologic examination [employer] Supervisor annual e nanette Canales MD Start: 09-11-2016 Screening for malign ant neoplasm of cervix Screening, cervical cancer Shakila Canales MD Plan of Treatment Date Care Activity Detail Author Start: 07-19-2024 Procedure [facility] Start: 10-17-2021 Liquid based cervica l cytology screening [facility] Work Phone: Blood chemistry [facility] Patient Education ED Vomiting (Adult) [facility] Work Phone: Patient referral [facility] Work Phone: Serum progesterone measurement [facility] T4 free measurement [facility] T4 free measurement [facility] Thyroid stimulating hormone measurement [facility] Thyroid stimulating hormone measurement [facility] Payers Date Payer Category Payer Unknown [id number] 2023 Self-pay [id number] 2023 Private Health Insurance [id number] 1959 Private Health Insurance [id number] Private Health Insurance [facility] [id number] Private Health Insurance [id number] Unknown [id number] .[id number]. 462 Unknown [id number] .[id number]. 462 Unknown [id number] 2..1.763172.3.579.2. 462 Unknown [id number] 2.16.840.1.763185.3.579.2. 462 Unknown [id number] 2.16.840.1.415384.3.579.2. 462 Unknown [id number] 2.16.840.1.500261.3.579.2. 462 Unknown [id number] 2.16.840.1.186972.3.579.2. 462 Unknown [id number] 2.16.840.1.885150.3.579.2. 462 Unknown [id number] 2.16.840.1.498829.3.579.2. 462 Unknown [id number] 2.16.840.1.047116.3.579.2. 462 Unknown [id number] 2.16.840.1.218232.3.579.2. 462 Unknown [id number] 2.16.840.1.543330.3.579.2. 462 Unknown [id number] 2.16.840.1.715442.3.579.2. 462 Unknown [id number] 2.16.840.1.149617.3.579.2. 462 Unknown [id number] 2.16.840.1.050218.3.579.2. 462 Unknown [id number] 2.16.840.1.376048.3.579.2. 462 Unknown [id number] 2.16.840.1.944665.3.579.2. 462 Social History Date Type Detail [facility] Work Phone: Start: 1995 Sex Assigned At Female [facility] Start: 10-17-2021 End: 05-12-2023 Tobacco smoking status NHIS Unknown if ever smoked [facility] Start: 01-20-2020 Non-smoker [facility] Start: 12-12-2023 [facility] ([facility] Start: 05-09-2024 Sex Female (finding) [facility] Clinical Notes 12-15-2020 to 08-05-2024 Note Date & Type Note Facility 08-05-2024 Radiology Diagnostic study note [facility] [address] [place] [address] Transvaginal Non- MR#: [id number] Acct: [id number] Name: JONELLE GÓMEZ Rep #: [id number] : 1995 F 28 From: Heber Vences MD PCP: Care Physician,No Primary Status: REG CLI Study:Transvaginal Non- Date of Exam: 08/04/24 Exam# [id number] Ordering Dr: Alejandro Simms CNM PROCEDURE: TRANSVAGINAL NON- 08/04/2024 REASON FOR EXAM: PCOS, INFERTILITY TECHNIQUE: TRANSVAGINAL NON- COMPARISON: Prior study dated August 05, 2019. FINDINGS: Measurements: Uterus: 7.5 cm x 4.3 cm x 2.9 cm with a volume of 48.77 mL Endometrial Thickness: 4.4 mm. It is hyperechoic. Right Ovary: 2.6 cm x 2.4 cm x 2.6 cm with a volume of 8.16 mL. Left Ovary: 1.9 cm x 1.6 cm x 1.4 cm with a volume of 2.14 mL. Uterus: Normal size, myometrial echotexture, and contour. Endometrium: Unremarkable. Right ovary: Normal size and echotexture. Left ovary: Normal size and echotexture. Other: No large pelvic mass identified. US/Transvaginal Non- IMPRESSION: NORMAL transvaginal PELVIC ULTRASOUND. [facility]: APURVA Simms; No Primary Care Physician ~ Custodian Athletic Equipment: Signed [facility] 07-01-2024 Evaluation note Diagnosis Onset Date Resolution PCOS (polycystic ovarian syndrome) chronic July 01, 2024 8:26am [facility] Work Phone: 1(427) 736-109805-13-2025 Evaluation note* Diagnosis Onset Date Resolution Status Admit Date PCOS (polycystic ovarian syndrome) chronic July 01, 2024 8 :26am Anxiety acute August 08 10:34am Infertility acute August 08 10:34am Metabolic syndrome acute July 212024 10:34am Obesity chronic August 08 10:34am PCOS (polycystic ovarian syndrome) chronic August 08, 2024 10:34am [facility] Work Phone: 1(160) 627-612305-13-2025 Evaluation note* Diagnosis Onset Date Resolution Status Admit Date PCOS (polycystic ovarian syndrome) chronic July 01, 2024 8 :26am Anxiety acute August 08 10:34am Infertility acute August 08 10:34am Metabolic syndrome acute July 212024 10:34am 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 July 10:34am Obesity chronic August 08 10:34am PCOS (polycystic ovarian syndrome) chronic August 08, 2024 10:34am [facility] Work Phone: 1(694) 681-642201-23-2025 Evaluation note* Diagnosis Onset Date Resolution Status Admit Date 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 No endocervical component is identified.[facility]ED A#[id number] Work Phone: Comment on above:Satisfactory for evaluation. No endocervical component is identified.12-15-2020 NotePatient Outreach (NETNAV) JONELLE MARINELLI ([id number]) 1995 F Date Time Provider Department 12/15/20 JADE LIM During your visit today, we recorded the following information about you: Jade Lim Population Health Navigator 12/15/2020 11:51 AM Signed POPULATION HEALTH NAVIGATION OUTREACH Action/FYI I left a voice message and a my chart message re: pcp No care everywhere Contact made with patient or family member? NO Pt identified by name and : NO Outreach Outcome/Action Unable to reach patient: Left message Ghosteryhart message sent Reason for Outreach Attribution: Provider Off-boarding Payer: Payor: [facility] / Plan: [facility] / Product Type: HMO / Care Gap Reviewed:: Reminder: Reminder note to check Health Maintenance for items below Health Maintenance items due: COVID-19 VACCINE(1) Never done HEPATITIS C SCREENING Never done HIV SCREENING Never done ANNUAL PCP TEAM CHRONIC DISEASE VISIT due on 08/04/2020 DEPRESSION SCREENING due on 08/04/2020 INFLUENZA(1) due on 10/20/2020 Advanced Directives Completed: Have you ever planned for future healthcare decisions with a power of commonwealth attorney, living will, or advance directives? No. Please bring a copy to your next appointment or email to [email or web address] Referrals: N/A Message Sent to Practice: NO Navigation Signature: Jade Lim Population Health Navigator December 15, 2020 11:50 AM Allergies As of Date: 12/15/2020 (No Known Allergies) Date Reviewed: 08/05/2019 Reviewed by: Alejandro Harrison - Fully Assessed Reason for Visit: Population Health Navigation Outreach [3910] Cmt: Offboarding Prescriptions as of 12/15/2020 - levothyroxine (LEVOXYL) 50 mcg tablet Take 1 tablet by mouth once daily. Take on empty stomach. For Thyroid - escitalopram oxalate (LEXAPRO) 20 mg tablet Take 1 tablet by mouth once daily. - gabapentin (NEURONTIN) 300 mg capsule Take 300 mg by mouth twice daily as needed. - multivit,calc,mins/iron/folic (ONE-A-DAY WOMENS FORMULA ORAL) Take by mouth as directed. - ACETAMINOPHEN 500 MG TAB 2 tab po prn for pain Meds Comments as of 11/23/2009: Problem List As Of Date 12/15/2020 Noted Resolved INGROWING NAIL [L60.0] 01/06/2005 09/01/2005 ABNORMAL COAGULATION PROFILE [R79.1] 09/01/2005 PAIN IN JOINT, LOWER LEG [M25.569] 03/05/2007 05/09/2007 BACKACHE NOS [M54.9] 03/05/2007 05/09/2007 Chronic polyarticular juvenile rheumatoid arthr*07/25/2007 Verruca [B07.9] 11/09/2009 Breast lump [N63.0] 12/11/2009 10/31/2011 Irritable bowel syndrome with constipation [K58*09/28/2010 Dysmenorrhea [N94.6] 10/31/2011 07/12/2016 Abnormal bleeding in menstrual cycle [N93.9] 10/31/2011 07/12/2016 Obesity, Class III, BMI 40-49.9 (morbid obesity*10/04/2017 Hypothyroidism, acquired [E03.9] 12/06/2017 Encounter Status:Closed by RAPHAEL POPULATION HEALTH NAVIGATORJADE on 12/15/20[facility]10-27-2021 NoteHNO ID: [id number] Author: Jade Lim Population Health Navigabdirahman Service: ? Author Type: ? Type: Progress Notes Filed: 12/15/2020 11:51 AM Note Text: POPULATION HEALTH NAVIGATION OUTREACH Action/FYI I left a voice message and a my chart message re: pcp No care everywhere Contact made with patient or family member? NO Pt identified by name and : NO Outreach Outcome/Action Unable to reach patient: Left message MyChart message sent Reason for Outreach Attribution: Provider Off-boarding Payer: Payor: [facility] / Plan: [facility] / Product Type: HMO / Care Gap Reviewed:: Reminder: Reminder note to check Health Maintenance for items below Health Maintenance items due: COVID-19 VACCINE(1) Never done HEPATITIS C SCREENING Never done HIV SCREENING Never done ANNUAL PCP TEAM CHRONIC DISEASE VISIT due on 08/04/2020 DEPRESSION SCREENING due on 08/04/2020 INFLUENZA(1) due on 10/20/2020 Advanced Directives Completed: Have you ever planned for future healthcare decisions with a power of commonwealth attorney, living will, or advance directives? No. Please bring a copy to your next appointment or email to Referrals: N/A Message Sent to Practice: NO Navigation Signature: Jade Lim Population Health Navigator December 15, 2020 11:50 [facility] summary Author Howie Garcia [facility] May 12, 2023 9:06am Note Date/Time May 12, 2023 7:2 7am [facility] Medical Records Department [address] [place] [address] Emergency Department Summary 05/12/23 MR#: [id number] Acct: [id number] Name: JONELLE GÓMEZ Rep # :[id number] : 1995 27 From: Howie Garcia DO PCP: Dr. Shakila Canales MD Status :REG ER Location: ED HPI HPI - GI History of Present Illness Chief Complaint: Nausea/Vomiting Narrative Narrative: 27-year-old female with nausea and vomiting since early this morning. States hewent out last night had a few drinks and dinner with the family. She woke up with nausea and vomiting. She states she does not feel like she is come down with COVID, flu. She states that a few drinks would not typically make her sick. Denies concern for . She denies cough, congestion, fever, chills. She denies abdominal pain. Patient states she does have pretty bad anxiety and states that anxiety typically will make her feel nauseous. She states it feels better from an anxiety standpoint this point but can get her nausea under control. 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 Insulin resistance Obesity Open wound of left axillary region with complication Open wound of right axillary region with complication Paresthesia PCOS (polycystic ovarian syndrome) Rheumatoid arthritis Home Medications multivitamin (Daily Multi-Vitamin tablet) 1 tab PO DAILY 03/28/18 [History Last Taken Unknown] sertraline 50 mg tablet (Zoloft) 50 mg PO QDAY #30 tabs 05/22/22 [Rx Last Taken Unknown] levothyroxine 175 mcg tablet 175 mcg PO DAILY #90 tabs 01/04/23 [Rx Last Taken Unknown] etonogestrel 0.12 mg-ethinyl estradiol 0.015 mg/24 hr vaginal ring (NuvaRing) See Rx Instructions .Route .COMPLEX ##3 02/20/23 [Rx Last Taken Unknown] tirzepatide 2.5 mg/0.5 mL subcutaneous pen injector (Mounjaro) 2.5 mg (0.5 mL) subcut QWEEK 4 weeks #2 mL 05/04/23 [Rx Last Taken Unknown] ondansetron 4 mg disintegrating tablet 4 mg PO Q8H PRN PRN Nausea #14 tabs 05/12/23 [Rx Last Taken Unknown] Allergy/AdvReac Type Severity Reaction Status Date / Time chlorhexidine AdvReac Rash Verified 05/12/23 06:43 [From ChloraPrep Clear] isopropyl alcohol AdvReac Rash Verified 05/12/23 06:43 [From ChloraPrep Clear] Family History Sister Diabetes Grandmother Lung cancer Skin cancer Grandfather Dementia CVA (cerebral vascular accident) Parkinsons disease Other Anxiety Arthritis Asthma Psychiatric care Thyroid disorder Surgical History [place] teeth extracted Social History Smoking Status: Never smoker alcohol intake: current alcohol intake frequency: 0-2 drinks per day details: occasionally substance use type: does not use caffeine: Yes what type of physical activity do you participate in: walking, aerobics and weight training frequency: 3-4 times per week seatbelt use: always do you feel safe at home: Yes additional social history: Single- Patient works at [employer] DOES NOT USE ASPIRIN DOES NOT USE IBUPROFEN NEEDED ROS ROS ED Review of Systems ROS Unobtainable: Denies due to encephalopathy Constitutional Constitutional ED: Denies chills, fever(s) or sweats ENT ENT ED: Denies rhinorrhea or sore throat Cardiovascular Cardiovascular: Denies chest pain or palpitations Respiratory/Chest Respiratory/Chest: Denies cough, dyspnea or dyspnea on exertion Gastrointestinal Gastrointestinal: Reports nausea and vomiting; Denies abdominal pain Genitourinary Genitourinary ED: Denies dysuria or hematuria Musculoskeletal Musculoskeletal: Denies arthralgias or back pain Integumentary Denies abscess or Abrasions Neurologic Neurologic: Denies headache(s) Psychiatric Psychiatric: Reports anxiety; Denies depression EXAM Physical Exam Const Vital Signs: 05/12/23 06:44 05/12/23 08:04 Temperature 97 F L Temperature Source Temporal Pulse Rate 114 H 94 Respiratory Rate 18 16 Blood Pressure 146/97 H 134/84 H Blood Pressure Mean 113 100 Pulse Ox 96 97 Oxygen Delivery Method Room Air Positive well nourished General Appearance ED: NAD; Negative for pallor HEENT Reports moist mucous membranes normocephalic and atraumatic Eyes PERRL Neck no lymphadenopathy Resp normal respiratory effort and clear to auscultation bilaterally Cardio regular rate and regular rhythm GI non-distended Back/Spine no CVA tenderness Neuro CN's II-XII intact bilaterally Sensorium / Orientation: alert Psych mental status grossly normal Skin General Skin Exam: Negative for jaundice or pallor MDM MDM MDM Narrative Medical decision making narrative: Patient presenting with nausea and vomiting. She is wanting testing for viral sources. After discussion she wants to try oral antiemetics and Pepcid. Will reevaluate her and if she is not improving we will likely start an IV and give some fluids. Patient minimal this course. Patient was reevaluated at 9:05 AM. She was able to pass p.o. challenge. I will give her prescription for Zofran for home. She is counseled to drink small amounts of fluids frequently. Returnprecautions discussed. Impression: 1. Nausea/vomiting Lab Data Attestation: I reviewed the patient's lab results. Discharge Plan Triage Chief Complaint: Nausea/Vomiting ED Provider: Howie Garcia Dx/Rx/DC Orders Instructions: ED Vomiting (Adult) Prescriptions: New ondansetron 4 mg tablet,disintegrating 4 mg PO Q8H PRN PRN (Reason: Nausea) Qty: 14 0RF No Action multivitamin [Daily Multi-Vitamin] tablet 1 tab PO DAILY sertraline [Zoloft] 50 mg tablet 50 mg PO QDAY Qty: 30 12RF levothyroxine 175 mcg tablet 175 mcg PO DAILY Qty: 90 3RF Mounjaro 2.5 mg/0.5 mL pen injector 2.5 mg subcut QWEEK 28 Days Qty: 2 0RF etonogestrel-ethinyl estradiol [NuvaRing] 0.12-0.015 mg/24 hr ring See Rx Instructions .ROUTE .COMPLEX Qty: 3 4RF Dose Instruction: PLACE 1 RING VAGINALLY ONCE FOR 3 WEEKS Rx Instructions: PLACE 1 RING VAGINALLY ONCE FOR 3 WEEKS Primary Care Provider: Shakila Canales Referrals: Shakila Canales MD [Primary Care Provider] - Disposition Disposition: Home, Self Care What to do if you have Problems For any increased pain, shortness of breath, bleeding, nausea or vomiting, chestpain, or any unexpected problems, contact your Primary Care Provider. Call [facility] ([phone]) or report to the closest Emergency Room. Call 911 if necessary. 05/12/23905 <Electronically signed by Howie Garcia DO> Cosigner Signature (if applicable): CC: Dr. 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 acute Insulin resistance acute Menorrhagia with regular cycle acute Metabolic syndrome acute PCOS (polycystic ovarian syndrome) acute Encounter for routine gynecological examination noneactive [facility] Work Phone: Evaluation note* Diagnosis Onset Date Resolution Status B12 deficiency acute 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 acute Obesity acute PCOS (polycystic ovarian syndrome) acute Encounter for routine gynecological examination noneactive [facility] Work Phone: Evaluation note* Diagnosis Onset Date Resolution Status B12 deficiency acute Metabolic syndrome acute Obesity acute PCOS (polycystic ovarian syndrome) acute Anxiety acute Dysmenorrhea acute Insulin resistance acute Menorrhagia with regular cycle acute Metabolic syndrome acute Obesity acute PCOS (polycystic ovarian syndrome) acute [facility] Work Phone: Evaluation note* Diagnosis Onset Date Resolution Status B12 deficiency acute Metabolic syndrome acute Obesity acute PCOS (polycystic ovarian syndrome) acute Anxiety acute Dysmenorrhea acute Insulin resistance acute Menorrhagia with regular cycle acute Metabolic syndrome acute Obesity acute PCOS (polycystic ovarian syndrome) acute Anxiety acute Dysmenorrhea acute Menorrhagia with regular cycle acute Metabolic syndrome acute Obesity acute PCOS (polycystic ovarian syndrome) acute [facility] Work Phone: Evaluation note* Diagnosis Onset Date Resolution Status B12 deficiency acute 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 acute Insulin resistance acute Metabolic syndrome acute Obesity acute PCOS (polycystic ovarian syndrome) acute Dysmenorrhea acute 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 acute Menorrhagia with regular cycle acute Metabolic syndrome acute Obesity acute PCOS (polycystic ovarian syndrome) acute Encounter for routine gynecological examination noneactive [facility] Work Phone: Evaluation note* Diagnosis Onset Date Resolution Status Dysmenorrhea acute 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 acute Menorrhagia with regular cycle acute Metabolic syndrome acute Obesity acute PCOS (polycystic ovarian syndrome) acute Encounter for routine gynecological examination noneactive [facility] Work Phone: Evaluation note* Diagnosis Onset Date Resolution Status BMI 40.0-44.9, adult acute Metabolic syndrome acute Obesity chronic Anxiety acute BMI 40.0-44.9, adult acute Metabolic syndrome acute 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 PCOS (polycystic ovarian syndrome) chronic BMI 40.0-44.9, adult acute Dysmenorrhea acute Insulin resistance acute Menorrhagia with regular cycle acute Metabolic syndrome acute Axillary hidradenitis suppurativa chronic Obesity chronic PCOS (polycystic ovarian syndrome) chronic [facility] Work Phone: Reason for referral (narrative)No reason for referral [facility] Work Phone: Summary Purpose Family History No Family History Records Found Relationship Condition Age at Onset Recorded Date/T dagoberto Not Specified Psychiatric care Unknown Anxiety Unknown Arthritis Unknown Disorder of thyroid Unknown Asthma Unknown sister Diabetes mellitus Unknown grandmother Malignant neoplasm of lung Unknown Malignant neoplasm of skin Unknown grandfather Dementia Unknown Cerebrovascular accident (CVA) Unknown Parkinson's disease Unknown Advance Directives No Advanced Directives Records Found Advance Directive Response Recorded Date/ Time Living Will No August 20, 2020 6 :03pm Power of Macerator Operator No August 20, 2020 6:03pm Advance Directive Response Recorded Date/ Time Living Will No August 20, 2020 5 :03pm Power of Macerator Operator No August 20, 2020 5:03pm Advance Directive Response Recorded Date/ Time Living Will No May 12, 2023 6:44am Power of Macerator Operator No May 11 6:44am Advance Directive Response Recorded Date/ Time Living Will No August 20, 2020 6 :03pm Do you have a Healthcare Power of Macerator Operator? 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 Insulin resistance Menorrhagia with regular cycle Metabolic syndrome PCOS (polycystic ovarian syndrome) Encounter for routine gynecological examination Chief Complaint 1 Y FU- THYROID E ORDERS 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) Reason for Visit B12 deficiency 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 Obesity PCOS (polycystic ovarian syndrome) Encounter for routine gynecological examination Chief Complaint weight management di scussion metabolic syndrome/weight management MORBID OBESITY, PCOS Reason for Visit B12 deficiency Metabolic syndrome Obesity PCOS (polycystic ovarian syndrome) Anxiety Dysmenorrhea Insulin resistance Menorrhagia with regular cycle Metabolic syndrome Obesity PCOS (polycystic ovarian syndrome) Chief Complaint weight management di scussion metabolic syndrome/weight management MORBID OBESITY, PCOS 4 WK F/U E-ORDER MORBID OBESITY, PCOS Reason for Visit B12 deficiency Metabolic syndrome Obesity PCOS (polycystic ovarian syndrome) Anxiety Dysmenorrhea Insulin resistance Menorrhagia with regular cycle Metabolic syndrome Obesity PCOS (polycystic ovarian syndrome) Anxiety Dysmenorrhea Menorrhagia with regular cycle Metabolic syndrome Obesity PCOS (polycystic ovarian syndrome) Chief Complaint HR/BP/WT CHECK 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) Reason for Visit B12 deficiency 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 Insulin resistance Metabolic syndrome Obesity PCOS (polycystic ovarian syndrome) Dysmenorrhea 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 Menorrhagia with regular cycle Metabolic syndrome Obesity PCOS (polycystic ovarian syndrome) Encounter for routine gynecological examination Chief Complaint 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) Reason for Visit Dysmenorrhea 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 Menorrhagia with regular cycle Metabolic syndrome Obesity PCOS (polycystic ovarian syndrome) Encounter for routine gynecological examination Chief Complaint 1 M FU weight/BP 1 M FU weight/BP MEDICATION FOLLOW UP nv Reason for Visit BMI 40.0-44.9, adult Metabolic syndrome Obesity Anxiety BMI 40.0-44.9, adult Metabolic syndrome 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 PCOS (polycystic ovarian syndrome) BMI 40.0-44.9, adult Dysmenorrhea Insulin resistance Menorrhagia with regular cycle Metabolic syndrome Axillary hidradenitis suppurativa Obesity PCOS (polycystic ovarian syndrome) Chief Complaint Admit Date 14 M FU March 13, 2024 8 :15am Reason for Visit Admit Date Hypothyroidism due to Ian's thyroi ditis March 13, 2024 8:15am PCOS (polycystic ovarian syndrome) Janua 2024 8:15am PCOS (polycystic ovarian syndrome) June 192024 8:26am Chief Complaint Admit Date Fertility Consult July 01, 2024 8:26a m Reason for Visit Admit Date PCOS (polycystic ovarian syndrome) June 192024 8:26am Chief Complaint Admit Date Fertility Consult July 01, 2024 8:26a m PCOS August 04, 2024 12:1 7pm discuss anxiety med and letrozole July 212024 10:34am Reason for Visit Admit Date PCOS (polycystic ovarian syndrome) June 192024 8:26am Anxiety August 08, 2024 10:3 4am Infertility August 08, 2024 10:3 4am Metabolic syndrome August 08, 2024 10:3 4am Obesity August 08, 2024 10:3 4am PCOS (polycystic ovarian syndrome) August 08, 2024 10:34am Reason for Visit Admit Date PCOS (polycystic ovarian syndrome) June 192024 8:26am Anxiety August 08, 2024 10:3 4am Infertility August 08, 2024 10:3 4am Metabolic syndrome August 08, 2024 10:3 4am Hypothyroidism due to Ian's thyroi ditis August 08, 2024 10:34am Obesity August 08, 2024 10:3 4am PCOS (polycystic ovarian syndrome) August 08, 2024 10:34am Additional Source Comments INFORMATION SOURCE (unrecogn ized section and content) DATE CREATED AUTHOR 08/14/2017 [facility] DATE CREATED AUTHOR AUTHOR'S ORGANIZ ATION 08/15/2017 [facility] DATE CREATED AUTHOR AUTHOR'S ORGANIZ ATION 12/17/2017 [facility] DATE CREATED AUTHOR AUTHOR'S ORGANIZ ATION 04/07/2021 [facility] DATE CREATED AUTHOR AUTHOR'S ORGANIZ ATION 09/13/[address] [facility] Goals (unrecognized section and content) Goals may be documented in a n alternate sectionGoals may be documented in an alternate sectionGoals may be documented in an alternate sectionGoals may be documented in an alternate sectionGoals may be documented in an alternate sectionGoals may be documented in an alternate sectionGoals may be documented in an alternate sectionGoals may be documented in an alternate sectionGoals may be documented in an alternate sectionGoals may be documented in an alternate sectionGoals may be documented in an alternate sectionGoals may be documented in an alternate sectionGoals may be documented in an alternate sectionGoals may be documented in an alternate sectionGoals may be documented in an alternate sectionGoals may be documented in an alternate section Care Teams (unrecognized sec tion and content) Team Status: Active Member Role Status Dates No Primary Care Physician Primary Care Provider Active Team Status: Inactive Member Role Status Dates No Primary Care Physician Primary Care Provider Active Start: April 30, 2024 End: April 30, 2024 Dr. Terrence aGllagher MD Attending Provider Active Sta rt: April 30, 2024 End: April 30, 2024 Dr. Terrence Gallagher MD Referring Provider Active Sta rt: April 30, 2024 End: April 30, 2024 Team Status: Inactive Member Role Status Dates No Primary Care Physician Primary Care Provider Active Start: July 01, 2024 End: July 01, 2024 No Primary Care Physician Referring Provider Active Start: July 01, 2024 End: July 01, 2024 Alejandro Simms CNM Attending Provider Active S tart: July 01, 2024 End: July 01, 2024 Team Status: Inactive Member Role Status Dates No Primary Care Physician Primary Care Provider Active Start: July 01, 2024 End: July 01, 2024 Dr. Terrence Gallagher MD Attending Provider Active Sta rt: July 01, 2024 End: July 01, 2024 Alejandro Simms CNM Referring Provider Active S tart: July 01, 2024 End: July 01, 2024 Team Status: Inactive Member Role Status Dates No Primary Care Physician Primary Care Provider Active Start: July 19, 2024 End: July 19, 2024 Alejandro Simms CNM Attending Provider Active S tart: July 19, 2024 End: July 19, 2024 Alejandro Simms CNM Referring Provider Active S tart: July 19, 2024 End: July 19, 2024 Team Status: Active Member Role Status Dates No Primary Care Physician Primary Care Provider Active Start: August 04, 2024 Alejandro Simms CNM Attending Provider Active S tart: August 04, 2024 Alejandro Simms CNM Referring Provider Active S tart: August 04, 2024 Team Status: Active Member Role Status Dates No Primary Care Physician Primary Care Provider Active Start: August 06, 2024 Alejandro Simms CNM Attending Provider Active S tart: August 06, 2024 Alejandro Simms CNM Referring Provider Active S tart: August 06, 2024 Team Status: Inactive Member Role Status Dates No Primary Care Physician Primary Care Provider Active Start: August 08, 2024 End: August 08, 2024 No Primary Care Physician Referring Provider Active Start: August 08, 2024 End: August 08, 2024 Dr. Shakila Canales MD Attending Provider Active Start: August 08, 2024 End: August 08, 2024 Team Status: Active Member Role Status Dates Alejandro Harrison [employer]KE [employer]ING FINISHER, [employer] FINISHER-C Family Provider Active Dr. Marlon Gaona MD Primary Care Provider Activ e Team Status: Inactive Member Role Status Dates Dr. Marlon Gaona MD Primary Care Provider, Refe rring Provider Active Dr. Shakila Canales MD Attending Provider Active Team Status: Inactive Member Role Status Dates Dr. Marlon Gaona MD Primary Care Provider Activ e Dr. Shakila Canales MD Attending Provider, Referr ing Provider Active Team Status: Active Member Role Status Dates Alejandro Harrison [employer]KE [employer]ING FINISHER, [employer]BE[employer]KE [employer]ING FINISHER-C Family Provider Active Team Status: Inactive Member Role Status Dates Dr. Marlon Gaona MD Referring Provider Active Dr. Shakila Canales MD Attending Provider Active Team Status: Inactive Member Role Status Dates Dr. Marlon Gaona MD Referring Provider Active Kriss Pollack [employer]KE LINING FINISHER, [employer]BE[employer]ING FINISHER-C Attending Provider Active Team Status: Inactive Member Role Status Dates Dr. Shakila Canales MD Attending Provider, Referr ing Provider Active Team Status: Inactive Member Role Status Dates Dr. Marlon Gaona MD Primary Care Provider Activ e Jacquelin Chen , [employer] FINISHER-C Attending Provider, Referring Pr ovider Active Team Status: Active Member Role Status Dates Alejandro Harrison [employer]KE [employer]ING FINISHER, [employer]BE[employer]ING FINISHER-C Family Provider Active Dr. Shakila Canales MD Primary Care Provider Acti ve Team Status: Inactive Member Role Status Dates Dr. Marlon Gaona MD Primary Care Provider, Refe rring Provider Active Kriss Pollack [employer]ING FINISHER, [employer]BE[employer] BRAKE LINING FINISHER-C Active Dr. Nikky Velasquez DO Attending Provider Activ e Team Status: Inactive Member Role Status Dates Dr. Shakila Canales MD Primary Care Provider Acti ve Dr. Howie Garcia DO Emergency Provider Active Team Status: Active Member Role Status Dates Alejandro Harrison [employer]BE[employer] BRAKE LINING FINISHER, [employer]BE[employer]RAKE [employer]ING FINISHER-C Family Provider Active No Primary Care Physician Primary Care Provider Active Team Status: Inactive Member Role Status Dates No Primary Care Physician Primary Care Provider Active Start: March 12, 2024 End: March 12, 2024 Dr. Terrence Gallagher MD Attending Provider Active Sta rt: March 12, 2024 End: March 12, 2024 Dr. Terrence Gallagher MD Referring Provider Active Sta rt: March 12, 2024 End: March 12, 2024 Team Status: Inactive Member Role Status Dates Dr. Jed Gaona MD Referring Provider Active Start: March 13, 2024 End: March 13, 2024 Dr. Terrence Gallagher MD Attending Provider Active Sta rt: March 13, 2024 End: March 13, 2024 No Primary Care Physician Primary Care Provider Active Start: March 13, 2024 End: March 13, 2024 Team Status: Active Member Role Status Dates No Primary Care Physician Primary Care Provider Active Start: July 01, 2024 Dr. Terrence Gallagher MD Attending Provider Active Sta rt: July 01, 2024 Alejandro Simms CNM Referring Provider Active S tart: July 01, 2024 Team Status: Inactive Member Role Status Dates No Primary Care Physician Primary Care Provider Active Start: August 04, 2024 End: August 04, 2024 Alejandro Simms CNM Attending Provider Active S tart: August 04, 2024 End: August 04, 2024 Alejandro Simms CNM Referring Provider Active S tart: August 04, 2024 End: August 04, 2024 Team Status: Inactive Member Role Status Dates No Primary Care Physician Primary Care Provider Active Start: August 06, 2024 End: August 06, 2024 Alejandro Simms CNM Attending Provider Active S tart: August 06, 2024 End: August 06, 2024 Alejandro Simms CNM Referring Provider Active S tart: August 06, 2024 End: August 06, 2024 Team Status: Active Member Role/Relationship Status Dates No Primary Care Physician Primary Care Provider Active Team Status: Inactive Member Role/Relationship Status Dates No Primary Care Physician Primary Care Provider Active Start: July 01, 2024 End: July 01, 2024 No Primary Care Physician Referring Provider Active Start: July 01, 2024 End: July 01, 2024 Alejandro Simms CNM Attending Provider Active S tart: July 01, 2024 End: July 01, 2024 Team Status: Inactive Member Role/Relationship Status Dates No Primary Care Physician Primary Care Provider Active Start: July 01, 2024 End: July 01, 2024 Dr. Terrence Gallagher MD Attending Provider Active Sta rt: July 01, 2024 End: July 01, 2024 Alejandro Simms CNM Referring Provider Active S tart: July 01, 2024 End: July 01, 2024 Team Status: Inactive Member Role/Relationship Status Dates No Primary Care Physician Primary Care Provider Active Start: July 19, 2024 End: July 19, 2024 Alejandro Simms CNM Attending Provider Active S tart: July 19, 2024 End: July 19, 2024 Alejandro Simms CNM Referring Provider Active S tart: July 19, 2024 End: July 19, 2024 Team Status: Inactive Member Role/Relationship Status Dates No Primary Care Physician Primary Care Provider Active Start: August 04, 2024 End: August 04, 2024 Alejandro Simms CNM Attending Provider Active S tart: August 04, 2024 End: August 04, 2024 Alejandro Simms CNM Referring Provider Active S tart: August 04, 2024 End: August 04, 2024 Team Status: Inactive Member Role/Relationship Status Dates No Primary Care Physician Primary Care Provider Active Start: August 06, 2024 End: August 06, 2024 Alejandro Simms CNM Attending Provider Active S tart: August 06, 2024 End: August 06, 2024 Alejandro Simms CNM Referring Provider Active S tart: August 06, 2024 End: August 06, 2024 Team Status: Inactive Member Role/Relationship Status Dates No Primary Care Physician Primary Care Provider Active Start: August 08, 2024 End: August 08, 2024 No Primary Care Physician Referring Provider Active Start: August 08, 2024 End: August 08, 2024 Dr. Shakila Canales MD Attending Provider Active Start: August 08, 2024 End: August 08, 2024 Team Status: Inactive Member Role/Relationship Status Dates No Primary Care Physician Primary Care Provider Active Start: September 08, 2024 End: September 08, 2024 Alejandro Simms CNM Attending Provider Active S tart: September 08, 2024 End: September 08, 2024 FOR RECORDS PERTAINING TO PATIENTS WHO ARE OR HAVE BEEN ENROLLED IN A CHEMICAL DEPENDENCY/SUBSTANCEABUSE PROGRAM, SOME INFORMATION MAY BE OMITTED. This clinical summary was aggregated from multiple sources. Caution should be exercised in using it in the provision of clinical care. This summary normalizes information from multiple sources, and as a consequence, information in this document may materially change the coding, format and clinical context of patient data. In addition, data may be omitted in some cases. CLINICAL DECISIONS SHOULD BE BASED ON THE PRIMARY CLINICAL RECORDS. [facility] [email or web address] provides no warranty or guarantee of the accuracy or completeness of information in this document.
[2024-10-15 12:54] LABS: PROGESTERONE 8.6 ng/mL (.)
== END | disposition home or self-care (01) ==
LOC: BWCLAB 12:51
PROVIDERS: Obstetrics & Gynecology; Visit Provider Obstetrics & Gynecology
DX: E28.2 Polycystic ovarian syndrome (principal)
CPT/HCPCS: 36415; 84144

== ENCOUNTER → 2024-10-21 | Outpatient (CLI) | payer OTHER, SELFPAY ==
[2024-10-21 17:13] LABS: hCG Titer Quant., Serum < 1 mIU/mL (<9 non-preg)
== END | disposition home or self-care (01) ==
PROVIDERS: Referring Provider Obstetrics & Gynecology; Visit Provider Obstetrics & Gynecology
DX: N91.2 Amenorrhea, unspecified (principal)
CPT/HCPCS: 36415; 84702

== ENCOUNTER → 2024-10-30 | Outpatient (CLI) | payer OTHER, SELFPAY ==
--- NOTE | 2024-10-30 11:50 | RAD_ITS ---
PROCEDURE: SALPINGOGRAM 10/30/2024 REASON FOR EXAM: INFERTILITY TECHNIQUE: Procedure Code: RADSAL Modality: DX Procedure: SALPINGOGRAM COMPARISON: None. FINDINGS: Normal internal contour of the uterus is seen. Normal-appearing bilateral fallopian tubes, with free spillage seen bilaterally. No abnormality is identified. RAD/Salpingogram IMPRESSION: Normal fluoroscopic hysterosalpingogram. Reading Location: [place] [id number]
--- OUTSIDE RECORDS SUMMARY | 2024-10-30 19:56 | XMS RPT_ITS | CCD ---
Author Organization [facility] Care Team Providers Care Machine Try Out Setter Name Role Phone OPAL, XU LEI Unavailable Unavailable DEBAKILAH Unavailable Unavailable PLAYL, JUAN M Unavailable Unavailable PLAYL, JUAN M Unavailable Unavailable BERNARD ROYAL A Unavailable Unavailable GENNYBERNARD A Unavailable Unavailable BERNARD ROYAL Unavailable Unavailable Shakila Canales MD Unavailable [phone] Dr. Marlon Gaona Primary Care Provider Dr. Marlon Gaona Referring Provider Dr. Terrence Gallagher Attending Provider Dr. Shakila Canales Attending Provider [phone] Dr. Marlon Gaona Primary Care Provider [phone] Dr. Marlon Gaona Referring Provider Dr. Shakila Canales Attending Provider [phone] Dr. Marlon Gaona Referring Provider Ranjeet KESSLER, RITO Monterroso Attending Provider [phone] Dr. Shakila Canales Attending Provider [phone] Dr. Marlon Gaona Referring Provider Dr. Shakila Canales Attending Provider [phone] Dr. Marlon Gaona Primary Care Provider Dr. Marlon Gaona Referring Provider Dr. Nikky Velasquez Attending Provider Dr. Shakila Canales Attending Provider Care Physician, No Primary Primary Care Provider Unavailable King VICK, Dr. Ocampo Attending Provider King VICK, Dr. Ocampo Referring Provider Jimenez HICKMAN, Dr. Adkins Referring Provider [phone] Care Physician, No Primary Referring Provider Un available Mendez CNM, Alejandro Attending Provider [phone] Mendez CNOren, Alejandro Referring Provider [phone] Care Physician, No Primary Primary Care Provider Unavailable King VICK, Dr. Ocampo Attending Provider King VICK, Dr. Ocampo Referring Provider Parker HICKMAN, Dr. Jhaveri Attending Provider Care Physician, No Primary Primary Care Provider Unavailable King VICK, Dr. Ocampo Attending Provider Erick Jorge DO, Dr. Sher Attending Provider Care Physician, No Primary Primary Care Unava ilable Care Physician, No Primary Referring Unava ilable MarcanthonyShakila Attending Unavailable Care Physician, No Primary Primary Care Unava ilable Marcanthony, Shakila Referring Unavailable Shakila Canales Attending Unavailable Terrence Gallagher Attending Unavailable Care Physician, No Primary Primary Care Unava ilable Terrence Gallagher Referring Unavailable [place] ESTIMATING ENGINEER, Kriss Attending Unavailable Care Physician, No Primary Referring Unava ilable Care Physician, No Primary Primary Care Unava ilable Cele Almonte Attending Unavailable Marcanthony, Shakila Primary Care Unavailable Marcanthony, Shakila Referring Unavailable Terrence Gallagher Attending Unavailable Care Physician, No Primary Primary Care Unava ilable Jed Gaona Referring Unavailable MarcanthonyShakila Attending Unavailable Marcanthony, Shakila Primary Care Unavailable Marcanthony, Shakila Referring Unavailable Cele Almonte Attending Unavailable Marcanthony, Shakila Primary Care Unavailable Marcanthony, Shakila Referring Unavailable Care Physician, No Primary Primary Care Unava ilable Care Physician, No Primary Referring Unava ilable Alejandro Simms Attending Unavailable Marcanthony, Shakila Primary Care Unavailable Marcanthony, Shakila Referring Unavailable MarcanthonyShakila Attending Unavailable Terrence Gallagher Referring Unavailable Terrence Gallagher Attending Unavailable Care Physician, No Primary Primary Care Unava ilable Terrence Gallagher Attending Unavailable Care Physician, No Primary Primary Care Unava ilable Alejandro Simms Referring Unavailable Care Physician, No Primary Primary Care Unava ilable Alejandro Simms Attending Unavailable Alejandro Simms Referring Unavailable Care Physician, No Primary Primary Care Unava ilable Alejandro Simms Attending Unavailable Alejandro Simms Referring Unavailable Care Physician, No Primary Primary Care Unava ilable Alejandro Simms Referring Unavailable Alejandro Simms Attending Unavailable Care Physician, No Primary Primary Care Unava ilable Alejandro Simms Attending Unavailable Nikky Velasquez [facility], No Primary Primary Care Unava ilable Allergies Allergy Classification Reported Allergen(s) Allergy Type Date of Onset Reaction(s) Facility (14 sources) Chlorhexidine Drug Allergy 3 [facility] (14 sources) Isopropyl Alcohol Drug Allergy 3 [facility] (8 sources) crab allergenic extract Drug Allergy 5 [facility] (9 sources) Shellfish; Translations: [shellfish derived] Allergy to substance 5 [facility] (1 source) Chlorhexidine Drug Allergy 5 [facility] (1 source) Isopropyl Alcohol Drug Allergy 5 [facility] (1 source) crab Drug allergy (disorder) 5 [facility] Medications Current Medications Medication Drug Class(es) Dates Sig (Normalized) Sig (Original) amoxicillin 875 mg oral tablet (5 sources) Penicillin-class Antibacterial Start: 08-08-2024 take 1 tablet by mouth twice daily Amoxicillin 875 mg tablet Active 875 mg PO TWICE A DAY August 08, 2024 12:00am x7 days cholecalciferol 0.025 mg oral capsule (9 sources) Vitamin D Start: 03-13-2024 take 1 capsule by mouth once daily Cholecalciferol (Vitamin D3) 25 mcg (1,000 unit) capsule Active 25 ug PO daily March 13, 2024 1:00am choline (5 sources) Start: 08-08-2024 choline Active PO August 08, 2024 12:00am Desogestrel-Ethinyl Estradiol (17 sources) Progestin, Estrogen Start: 10-11-2020 Desogestrel-Ethinyl Estradiol (Apri) 0.15-0.03 mg tablet Active 1 TABLET PO daily 28 [place] 23rd, 2021 3:45pm Start: 10-11-2020 End: 10-17-2021 take 0.15 [...] 3:07pm ferrous sulfate 325 mg oral tablet (9 sources) Start: 03-13-2024 take 1 tablet by mouth once daily Ferrous Sulfate (Feosol) 325 mg (65 mg iron) tablet Active 325 mg PO daily March 13, 2024 1:00am FLUoxetine 20 mg oral capsule (5 sources) Serotonin Reuptake Inhibitor Start: 08-08-2024 take 1 capsule by mouth once daily Fluoxetine (Prozac) 20 mg capsule Active 20 mg PO DAILY 30 August 08, 2024 12:00am hydrOXYzine pamoate 25 mg oral capsule (5 sources) Antihistamine Start: 08-08-2024 take 1 capsule by mouth every six hours as needed for anxiety Hydroxyzine Pamoate (Vistaril) 25 mg capsule Active 25 mg PO EVERY 6 HOURS as needed for anxiety August 08, 2024 12:00am make take 25-50 letrozole 2.5 mg oral tablet (4 sources) Aromatase Inhibitor Start: 08-14-2024 End: 09-11-2024 take 1 tablet by mouth once daily Letrozole 2.5 mg tablet Active 5 mg PO daily 10 0 September 11, 2024 7:37am take daily cycle day 3-7 medroxyPROGESTERone acetate 5 mg oral tablet (11 sources) Progestin Start: 08-08-2024 take 1 tablet by mouth once daily Medroxyprogesterone 5 mg tablet Active 5 mg PO daily 5 5 August 08, 2024 12:00am if no menses by cycle day 35-40 take provera Start: 07-09-2024 End: 07-14-2024 take 2 tablets by mouth once daily Medroxyprogesterone (Provera) 5 mg tablet Discontinued 10 mg PO DAILY 10 5 July 09, 2024 12:00am July 13, 2024 12:00am July 14, 2024 12:07am Abnormal uterine bleeding Abnormal uterine and vaginal bleeding, unspecified 2 tabs daily for 5 days. Call office if no withdrawal bleed Multivitamin (Daily Multi-Vitamin) tablet (17 sources) Start: 03-28-2018 take 1 tablet by [...] TABLET PO DAILY March 28, 2018 1:00am [place] 5-Ysb-Wns-Fish Oil (Fish Oil) 1,200 (144-216) mg capsule (8 sources) Start: 07-01-2024 [place] 0-Oit-Nje-Fish Oil (Fish Oil) 1,200 (144-216) mg capsule Active NMA PO July 01, 2024 12:00am ondansetron 4 mg disintegrating oral tablet (10 sources) Serotonin-3 Receptor Antagonist Start: 05-12-2023 take 1 tablet by mouth every eight hours as needed for nausea Ondansetron 4 mg tablet,disintegratin g Active 4 mg PO EVERY 8 HOURS NEEDED as needed for Nausea 14 0 May 12, 2023 12:00am Ggktic54-[place] Fum-Folic Ac-Om3 (One A Day Women's Dha) 28 mg iron- 800 mcg combo pack (9 sources) Start: 03-13-2024 Iqstak62-Osst Fum-Folic Ac-Om3 (One A Day Women's Dha) 28 mg iron- 800 mcg combo pack Active NMA PO March 13, 2024 1:00am [id number]-Fsw-Ams-Yhhlbn-J4 -N09-I-P7 1 mg-1 mg- 500 unit tablet (8 sources) Start: 07-01-2024 J17-Yqb-Bfr-Kkszch-S 6-X22-B-E8 1 mg-1 mg- 500 unit tablet Active {tbl} PO July 01, 2024 12:00am Selenium 200 mcg capsule (8 sources) Start: 07-01-2024 Selenium 200 mcg capsule [...] mg tablet Discontinued 50 mg PO DAILY August 08, 2023 11:44am November 29, 2023 2:11pm traZODone hydrochloride 50 mg oral tablet (20 sources) Serotonin Reuptake Inhibitor Start: 11-29-2023 End: 11-29-2023 take 1 tablet by mouth at bedtime as needed Trazodone 50 mg tablet Active 50 mg PO AT BEDTIME as needed for insomnia 18 07November 29, 2023 2:49pm Anxiety Anxiety disorder, unspecified [...] TYLENOL 325 MG TABS as needed ACETAMINOPHEN [id number] Shaklia Canales MD acetaminophen 325 mg / oxyCODONE [...] TABLET PO EVERY 4 HOURS NEEDED 40 February 02, 2020 February 09, 2020 1:02am [...] TABLET PO EVERY 4 HOURS NEEDED 40 January 24, 2020 January 31, 2020 1:03am [...] TABLET PO EVERY 4 HOURS NEEDED 40 December 13, 2019 December 20, 2019 12:03am [...] TABLET PO EVERY 4 HOURS NEEDED 40 December 03, 2019 December 10, 2019 12:02am 40 tabs (forty) 0.8 ml adalimumab 50 mg/ml prefilled syringe (20 sources) Tumor Necrosis Factor Sachi Start: 09-11-2016 HUMIRA 40 MG/0.8ML P SKT use as directed every other week ADALIMUMAB [id number] Shakila Canales MD Start: 08-23-2015 End: 09-13-2017 [...] mg / clavulanate 125 mg oral tablet (17 sources) Penicillin-class Antibacterial Start: 03-28-2018 End: 09-16-2018 Amoxicillin-Pot Clavulanate (Augmentin) 875-125 mg tablet Discontinued 1 {tbl} PO TWICE A DAY 60 2 March 28, 2018 1:00am September 16, 2018 11:14am azaTHIOprine 50 mg oral tablet (17 sources) Purine Antimetabolite Start: 08-23-2015 End: 06-26-2017 take 1 tablet by mouth once daily Azathioprine 50 MG tablet Discontinued 4 {tbl} PO DAILY@0800 August 23, 2015 12:00am June 26, 2017 3:11pm betamethasone 0.5 mg/ml topical cream (9 sources) Corticosteroid Start: 06-15-2023 End: 03-13-2024 Betamethasone Dipropionate 0.05 % cream Discontinued 1 NMA TOPICAL TWICE A DAY as needed for skin irritation 45 0 June 15, 2023 12:00am March 13, 2024 9:29am 12 hr buPROPion hydrochloride 90 mg / naltrexone hydrochloride 8 mg extended release oral tablet (10 sources) Opioid Antagonist, Aminoketone Start: 03-23-2023 End: [...] Start: 09-11-2016 take 1 tablet by chase th twice daily CELEBREX 100 MG CAPS One tablet by mouth twice daily CELECOXIB [id number] Shakila Canales MD cyclobenzaprine hydrochloride 5 mg oral tablet (17 sources) Muscle Relaxant Start: 06-26-2017 End: 03-28-2018 [...] 02, 2020 1:05pm 30 tabs (thirty) Diclofenac (17 sources) Nonsteroidal Anti-inflammatory Drug Start: 08-23-2015 End: [...] Start: 09-11-2016 take 1 tablet by chase th once daily DOXYCYCLINE HYCLATE 200 MG TBEC One tablet by mouth daily DOXYCYCLINE HYCLATE [id number] Shakila Canales MD Start: 08-23-2015 End: 06-26-2017 [...] 2017 3:12pm ergocalciferol 1.25 mg oral capsule (17 sources) Provitamin D2 Compound Start: 08-23-2015 End: 03-28-2018 Ergocalciferol (Vitamin D2) 50,000 UNIT capsule Discontinued 65749 U PO EVERY MONTH August 23, 2015 12:00am March 28, 2018 5:25pm 21 day ethinyl estradiol 0.790931 mg/hr / etonogestrel 0.005 mg/hr vaginal system [...] RING change every four weeks ETONOGESTREL-ETHINYL ESTRADIOL [id number] Shakila Canales MD Norgestimate-Ethinyl Estradiol (20 sources) [...] mg-mcg tablet Discontinued 1 TABLET PO daily May 18, 2020 8:03am October 11, 2020 [...] tablet Discontinued 1 TABLET PO daily July 21, 2019 11:00pm March 08, 2020 1:51pm Start: 07-22-2019 End: 03-08-2020 take 1 tablet by mouth once daily Norgestimate-Ethinyl Estradiol (Sprintec (28)) 0.25-35 mg-mcg tablet Discontinued 1 TABLET PO daily July 22, 2019 12:00am March 08, 2020 2:51pm etodolac 300 mg oral capsule (17 sources) Nonsteroidal Anti-inflammatory Drug Start: 08-23-2015 End: 06-26-2017 take 1 capsule by mouth three times daily at mealtime Etodolac 300 MG capsule Discontinued 300 mg PO 3 TIMES DAILY WITH MEALS 15 0 August 23, 2015 12:00am June 26, 2017 3:12pm with food Etonogestrel-Et hinyl Estradiol (Nuvaring) 0.12-0.015 mg/24 hr ring (10 sources) Start: 02-20-2023 End: 11-29-2023 Etonogestrel-Ethi nyl [...] WEEKS folic acid 0.8 mg oral capsule (17 sources) Start: 03-28-2018 End: 09-16-2018 take 1 capsule by mouth once daily Folic Acid 0.8 mg capsule Discontinued 0.8 mg PO DAILY March 28, 2018 1:00am September 16, 2018 11:16am furosemide 20 mg oral tablet (17 sources) Loop Diuretic Start: 10-11-2020 End: 10-13-2021 [...] only. hydroxychloroquine sulfate 200 mg oral tablet (17 sources) Antimalarial, Antirheumatic Agent Start: 06-26-2017 End: 09-16-2018 take 1 tablet by mouth once daily Hydroxychloroquine (Plaquenil) 200 mg tablet Discontinued 200 mg PO daily June 26, 2017 12:00am September 16, 2018 11:16am ibuprofen 200 mg oral capsule (4 sources) Nonsteroidal Anti-inflammatory Drug Start: 09-11-2016 ADVIL 200 MG CAPS every other day IBUPROFEN [id number] Shakila Canales MD ISOtretinoin 10 mg oral capsule (17 sources) Retinoid Start: 03-28-2018 End: 09-16-2018 Isotretinoin [...] 2020 3:02pm methotrexate 2.5 mg oral tablet (17 sources) Folate Analog Metabolic Inhibitor Start: 09-13-2017 End: 09-16-2018 take 1 tablet by mouth once Methotrexate Sodium 2.5 mg tablet Discontinued 2.5 mg PO ONCE September 13, 2017 12:00am September 16, 2018 11:16am MULTIPLE VITAMINS-MINERALS (4 sources) Start: 09-11-2016 take 1 tablet by mouth once daily MULTIVITAMIN WOMEN TABS One tablet by mouth daily MULTIPLE VITAMINS-MINERALS [id number] Shakila Canales MD phentermine hydrochloride 8 mg [...] capsule Discontinued 37.5 mg PO DAILY 30 0 January 09, 2022 9:48am April 06, 2022 [...] 40 promethazine hydrochloride 25 mg oral tablet (17 sources) Phenothiazine Start: 01-24-2020 End: 07-01-2020 take 1 tablet by mouth four times daily as needed for nausea Promethazine 25 MG tablet Discontinued 25 mg PO 4 TIMES DAILY NEEDED as needed for NAUSEA/VOMITING 30 January 24, 2020 10:33am July 01, 2020 8:42am Semaglutide (Weight Loss) (14 sources) Start: 04-06-2022 End: 05-04-2022 Semaglutide (Weight Loss) (Ruperto) 0.25 mg/0.5 mL pen injector Discontinued 0.25 mg SC EVERY WEEK 2 28 0 April 06, 2022 1:00am May 03, 2022 [...] 3:02pm Start: 09-11-2016 take 1 tablet by chase once daily SPIRONOLACTONE 100 MG TABS One tablet by mouth daily SPIRONOLACTONE [id number] Shakila Canales MD sulfamethoxazole 800 mg / [...] ed 1 TABLET PO TWICE A DAY August 23, 2015 12:00am June 26, 2017 3:13pm Tirzepatide (Mounjaro) 2.5 mg/0.5 mL pen injector (10 sources) Start: 05-04-2023 End: 06-01-2023 Tirzepatide (Mounjaro) [...] injector Active 2.5 MG SC EVERY WEEK 04 18May 04, 2023 12:00am Tirzepatide (Mounjaro) 5 mg/ [...] 4:35pm Tirzepatide 7.5 mg/0.5 mL pen injector (9 sources) Start: 11-14-2023 End: 11-29-2023 Tirzepatide 7.5 mg/0.5 mL pen injector Discontinued 7.5 mg SC EVERY WEEK November 14, 2023 12:00am November 29, 2023 2:12pm 4 ml tocilizumab 20 mg/ml injection (17 sources) Interleukin-6 Receptor Antagonist Start: 09-13-2017 End: [...] 24hr Discontinued 50 mg PO DAILY 90 July 31, 2022 5:13pm May 04, 2023 1:46pm Start: 07-21-2022 End: 07-31-2022 take 1 capsule by mouth once daily Topiramate 50 mg capsule,extended release 24hr Discontinued 50 mg PO DAILY 90 July 21, 2022 12:14pm July 31, 2022 [...] 1:46pm traMADol hydrochloride 50 mg oral tablet (17 sources) Opioid Agonist Start: 09-27-2020 End: 05-12-2023 [...] TTC. in counseling. Chronic ulcer of skin (17 sources) Ulcer of lower extremity; Translations: [Non-pressure chronic ulcer of unspecified part of left lower leg with fat layer exposed] 09-20-2020 Chronic Female infertility (1 source) Female infertility associated with anovulation; Translations: [Female infertility associated with anovulation] Onset: 09-11-2024 Chronic Menstrual disorders (20 sources) Menorrhagia; Translations: [Excessive and frequent menstruation with regular cycle] Onset: 10-21-2024 Chronic Comment on above: nuvaring. nuvaring Nutritional deficiencies (20 sources) Cobalamin deficiency; Translations: [Deficiency of other specified B group vitamins] Episodic Open wounds of extremities (17 sources) Open wound of axillary region with complication; Translations: [Unspecified open wound of right upper arm, initial encounter] 10-20-2020 Episodic Open wounds of extremities (17 sources) Open wound of axillary region with complication; Translations: [Unspecified open wound of left upper arm, initial encounter] 10-20-2020 Episodic Other aftercare (17 sources) Drug-induced immunodeficiency ; Translations: [Immunodeficiency due [...] Polycystic ovarian syndrome; Translations: [Polycystic ovaries] Onset: 10-16-2024 Chronic Other nervous system disorders (17 sources) Paresthesia; Translations: [Paresthesia of skin] 10-18-2020 Episodic Other nutritional; endocrine; and metabolic disorders (1 source) Morbid (severe) obesity due to excess calories; Translations: [MORBID SEVERE OBES D/T EXCESS STACEY] Onset: 11-16-2017 Chronic Other nutritional; endocrine; and metabolic disorders (18 sources) Insulin resistance; Translations: [Metabolic syndrome] 10-18-2020 Chronic Other nutritional; endocrine; and metabolic disorders (20 sources) Metabolic syndrome X; Translations: [Metabolic syndrome] 04-06-2022 Chronic Comment on above: recommend weight los s. Re-calculated protein, fat, carbs intake at visit today. nutritional manageme nt Other nutritional; endocrine; and metabolic disorders (20 sources) Obesity; Translations: [Obesity, unspecified] 05-22-2022 Chronic Comment on above: Nutrition plan: weig Curasight watchers. declined sash maker consult; increase healthy nutritious foods intake as [...] Chronic Other nutritional; endocrine; and metabolic disorders (10 sources) Body mass index 40+ - severely [...] 40.0-44.9, adult] 02-08-2023 Chronic Other skin disorders (17 sources) Axillary hidradenitis suppurativa; Translations: [Hidradenitis suppurativa] 12-01-2019 Episodic Comment on above: bilateral axillary h idradenitis, worse on the left Other skin disorders (1 source) Hidradenitis suppurativa; Translations: [Hidradenitis] 05-04-2023 Episodic Residual codes; unclassified (17 sources) Family history of malignant neoplasm of skin; Translations: [Family history of malignant neoplasm of other organs or systems] 12-01-2019 Episodic Residual codes; unclassified (17 sources) Peripheral edema; Translations: [Edema, unspecified] 08-20-2020 Episodic Residual codes; unclassified (10 sources) Infertile 08-06-2024 Episodic Comment on above: TVUS nl, day 3 labs, progesterone-likely needs letrozole sec to PCOS see a/p Rheumatoid arthritis and related disease (19 sources) Rheumatoid arthritis without rheumatoid factor, multiple sites; Translations: [Rheumatoid arthritis] Onset: 11-16-2017 12-17-2019 Chronic Comment on above: at present is off Me thotrexate Spondylosis; intervertebral disc disorders; other back problems (1 source) Low back pain; Translations: [LOW BACK PAIN] Onset: 11-16-2017 Episodic Superficial injury; contusion (17 sources) Contusion of lower leg; Translations: [Contusion of unspecified lower leg, initial encounter] 09-20-2020 Episodic Thyroid disorders (20 sources) Hypothyroidism; Translations: [Hypothyroidism, unspecified] Onset: 03-13-2024 Chronic Comment on above: stable controlled Past or Other Problems Problem Classification Problem Date Documented Da te Episodic/Chronic Medical examination/evaluation (2 sources) Encounter for general adult medical examination without abnormal findings; Translations: [Encounter for general adult medical examination without abnormal findings] Onset: 12-08-2016 Episodic Results Test Name Value Interpretation Reference Range Facility hCG Titer Quant., Serumon HCG QUANT. < 1 Normal <9 non-preg [facility] Comment on above: Result Comment: Gest ational Age 0.2-1 Week: 5-50 mIU/mL 1-2 Weeks: 50-500 mIU/mL 2-3 Weeks: 100-5000 mIU/mL 3-4 Weeks: 500-10,000 mIU/mL 4-5 Weeks:1000-50,000 mIU/mL 5-6 Weeks: 10,000-100,000 mIU/mL 6-8 Weeks: 15,000-200,000 mIU/mL 2-3 Months:10,000-100,000 mIU/mL Performed By: #### L [id number] #### [facility] [address] [place], [address] PROGESTERONE 4317on 10-16-19 25 PROGESTERONE 8.6 ng/mL Normal . [facility] Comment on above: Order Comment: N day 21 Result Comment: Foll icular phase 0.1 - 0.9 Luteal phase 1.8 - 23.9 Ovulation phase 0.1 - 12.0 First trimester 11.0 - 44.3 Second trimester 25.4 - 83.3 Third trimester 58.7 - 214.0 Postmenopausal 0.0 - 0.1 Performed at: - [facility] [id number] Manager Chemistry: Vlad Giraldo PhD, Phone: [phone] Performed By: #### L [id number] #### [facility] [address] [place], [place], [id number] PROGESTERONE 4317on 09-11-19 25 PROGESTERONE 1.4 ng/mL Normal . [facility] Comment on above: Order Comment: N Day 21 Result Comment: Foll icular phase 0.1 - 0.9 Luteal phase 1.8 - 23.9 Ovulation phase 0.1 - 12.0 First trimester 11.0 - 44.3 Second trimester 25.4 - 83.3 Third trimester 58.7 - 214.0 Postmenopausal 0.0 - 0.1 Performed at: [facility] [id number] Manager Chemistry: Vlad Giraldo PhD, Phone: [phone] Performed By: #### L 801.6803 #### [facility] [address] [place], [place], [address] Miscellaneous Lab Procedureo n 2024 [facility] Normal [facility] Comment on above: Order Comment: PT ST ATED THAT CNM SAID SHE HAD TO GET DRAW TODAY [facility] [place]. DIRECT SEND Result Comment: Sent directly to testing facility per ordering physician. Performed By: #### L 802.3000, [id number] #### [facility] [address] [place], [place], [address] Live Ammunition Inspector Office Visit Reporton 08-08-2024 Live Ammunition Inspector Office Visit Report [facility] [address], [address] [place] [address] OFFICE VISIT Date of Service: 08/08/24 MR#: [id number] Acct: [id number] Name: JONELLE GÓMEZ Rep #: [id number] : 1995 Provider: Dr. Shakila yousif MD Age/Sex: 28/F [place] [facility] [place]: S[place] Intake Vital Signs 07/01/24 08:40 08/08/24 10:36 Height 5 ft 3 in 5 ft 2 in Weight: 262 lb 2 oz BMI 47.9 BP 139/89 H Intake Visit Reasons: discuss anxiety med and letrozole Link Trainer Operator Required: No Is patient in pain?: [...] on Sundays #96 05/01/24 08/08/24 Rx tabs [id number]- leucovorin 1 tab PO 07/01/24 08/08/24 History mg-B6-B12 1 mg-C-D3 500 unit tablet omega 8-iik-nsw-fish oil 1,200 mg cap PO 07/01/24 08/08/24 [...] Back problem Fibromyalgia Rheumatoid arthritis Surgical History O'Brien teeth extracted Family History Sister Diabetes Grandmother Lung cancer Skin cancer Grandfather Dementia CVA (cerebral vascular accident) Parkinsons disease Other Anxiety Arthritis Asthma Psychiatric care Thyroid disorder Social History current occupational status: employed 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 Normal [facility] PROGESTERONE 4317on 08-08-19 PROGESTERONE 0.2 ng/mL Normal . [facility] Comment on above: Order Comment: PT ATED THAT CNM SAID SHE HAD TO GET DRAW TODAY [facility] [place]. DIRECT SEND Result Comment: Foll icular phase 0.1 - 0.9 Luteal phase 1.8 - 23.9 Ovulation phase 0.1 - 12.0 First trimester 11.0 - 44.3 Second trimester 25.4 - 83.3 Third trimester 58.7 - 214.0 Postmenopausal 0.0 - 0.1 Performed at: [facility] [id number] Manager Chemistry: Vlad Giraldo PhD, Phone: [phone] Performed By: #### L 803.3000, L801.1541 #### [facility] [address] [place], [place], [address] Transvaginal Non-on 08-04-2024 Transvaginal Non- [facility] [facility] [address] [place], [place] [address] Transvaginal Non- MR#: [id number] Acct: [id number] Name: JONELLE GÓMEZ Rep #: [id number] : 1995 F 28 From: [place] MD PCP: Care Physician,No Primary Status: REG CLI Study: Transvaginal Non- Date of Exam: Exam# [id number] Ordering Dr: Alejandro Simms CNM PROCEDURE: TRANSVAGINAL [...] IMPRESSION: NORMAL transvaginal PELVIC ULTRASOUND. Reading Location: [place] [address] CC: APURVA Simms; No Primary Care Physician Space Technologist: Signed Normal [facility] Antimullerian Hormone, Serum on 07-19-2024 AMH, SERUM Normal [facility] Comment on above: Result Comment: ITS A DIRECT SEND Performed By: #### L 803.3000, L801.1541 #### [facility] [address] [place], [address] Live Ammunition Inspector Office Visit Reporton 07-01-2024 Live Ammunition Inspector Office Visit Report [facility] [address], [address] [place] [address] OFFICE VISIT Date of Service: 07/01/24 MR#: [id number] Acct: [id number] Name: JONELLE GÓMEZ Rep #: [id number] : 1995 Provider: APURVA Be ams Age/Sex: 28/F [place] [facility] [place]: [place] Intake Vital Signs 03/13/24 08:28 [...] Reasons: Fertility Consult Chief Complaint: Fertility Consult Link Trainer Operator Required: No Is patient in pain?: [...] on Sundays #96 05/01/24 07/01/24 Rx tabs [id number]-pkaojhqkkiw- leucovorin 1 tab PO 07/01/24 07/01/24 History mg-B6-B12 1 mg-C-D3 500 unit tablet omega 9-wjp-jnu-fish oil 1,200 mg cap PO 07/01/24 07/01/24 [...] Back problem Fibromyalgia Rheumatoid arthritis Surgical History O'Brien teeth extracted Family History Sister Diabetes Grandmother Lung cancer Skin cancer Grandfather Dementia CVA (cerebral vascular accident) Parkinsons disease Other Anxiety Arthritis Asthma Psychiatric care Thyroid disorder Social History current occupational status: employed 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 Normal [facility] T4 Free Directon 07-01-2024 T4 FREE DIRECT 1.70 ng/dL High 0.76-1.46 [facility] Comment on above: Performed By: #### L 506.0400, L501.9520 #### [facility] [address] [place], [address] T4 freeOrdered By: Terrence Gallagher on 07-01-2024 Free T4 [Mass/Vol] 1.70 ng/dL High 0.76-1.46 [facility] TSH DL <= 0.005 mIU/L QnOrde red By: Terrence Gallagher on 07-01-2024 TSH Qn 0.701 uIU/mL 0.300-4.200 [facility] Thyroid Stim Hormone (TSH)on 07-01-2024 TSH 0.701 uIU/mL Normal 0.300-4.200 [facility] Comment on above: Performed By: #### L 506.0400, L501.9520 #### [facility] [address] [place], [address] T4 Free Directon 04-30-2024 T4 FREE DIRECT 1.40 ng/dL Normal 0.76-1.46 [facility] Comment on above: Performed By: #### L 803.3000, L801.1541 #### [facility] [address] [place], [address] T4 freeOrdered By: Terrence Gallagher on 04-30-2024 Free T4 [Mass/Vol] 1.40 ng/dL 0.76-1.46 [facility] TSH DL <= 0.005 mIU/L QnOrde red By: Terrence Gallagher on 04-30-2024 Thyroid Stimulating Hormone (TSH) 5.770 uIU/mL High 0.300-4.200 [facility] TSH Qn 5.770 uIU/mL High 0.300-4.200 [facility] Thyroid Stim Hormone (TSH)on 04-30-2024 TSH 5.770 uIU/mL High 0.300-4.200 [facility] Comment on above: Performed By: #### L 803.3000, L801.1541 #### [facility] [address] [place], [address] Endocrinology Visit Reporton 03-13-[address] [facility] 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 Insulin resistance Paresthesia Hidradenitis suppurativa Open wound of left axillary region with complication Open wound of right axillary region with complication Allergies Axillary hidradenitis suppurativa Breast lump in female History of blood clots Back problem Fibromyalgia Rheumatoid arthritis Surgical History O'Brien teeth extracted Family History Sister Diabetes Grandmother Lung cancer Skin cancer Grandfather Dementia CVA (cerebral vascular accident) Parkinsons disease Other Anxiety Arthritis Asthma Psychiatric care Thyroid disorder Social History current occupational status: employed 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 Normal [facility] [id number] DOrdered By: Sancho Gallagher on 03-12-2024 Vitamin D 25-Hydroxy 32.7 ng/mL [facility] Comment on above: Vitamin D 25(OH) Sta tus Range Deficiency <20 ng/mL (50nmol/L) Insufficiency 20 - 30 ng/mL (50 - 75 nmol/L) Sufficiency 30 - 100 ng/mL (75 - 250 nmol/L) Toxicity >100 ng/mL (>250 nmol/L) Albumin to globulin ratioOrd ered By: Terrence Gallagher on 03-12-2024 Albumin/Globulin [Mass ratio] 0.9 {ratio} 0.9-2.4 [facility] Bilirubin, totalOrdered By: Terrence Gallagher on 03-12-2024 Bilirubin [Mass/Vol] 0.70 mg/dL 0.20-1.00 [facility] Comment on above: For patients on eltr ombopag therapy, use of Dimension [place] TBIL is not recommended. Blood urea nitrogen (BUN)/cr eatinine ratioOrdered By: Terrence Gallagher on 03-12-2024 Urea nitrogen/Creatinine [Mass ratio] 15.2 mg/mg 10-20 [facility] Carbon dioxide measurementOr dered By: Terrence Gallagher on 03-12-2024 CO2 [Moles/Vol] 27.0 mmol/L 21.0-32.0 [facility] Chloride measurementOrdered By: Terrnece Gallagher on 03-12-2024 Chloride [Moles/Vol] 104 mmol/L 98-107 [facility] Comprehensive Metabolic Prof ilon 03-12-2024 Albumin [Mass/Vol] 3.5 g/dL Normal 3.2-5.0 [facility] Comment on above: Performed By: #### L 506.0400, L501.9520, L500.4100, L503.0105, L500.4050, L506.1000 #### [facility] [address] [place], [address] Albumin/Globulin [Mass ratio] 0.9 {ratio} Normal 0.9-2.4 [facility] Comment on above: Performed By: #### L 506.0400, L501.9520, L500.4100, L503.0105, L500.4050, L506.1000 #### [facility] [address] [place], [address] ALK P 87 U/L Normal 45-117 [facility] Comment on above: Performed By: #### L 506.0400, L501.9520, L500.4100, L503.0105, L500.4050, L506.1000 #### [facility] [address] [place], [address] ALT [Catalytic activity/Vol] 40 U/L Normal 13-56 [facility] Comment on above: Performed By: #### L 506.0400, L501.9520, L500.4100, L503.0105, L500.4050, L506.1000 #### [facility] [address] [place], [address] AST [Catalytic activity/Vol] 30 U/L Normal 15-37 [facility] Comment on above: Performed By: #### L 506.0400, L501.9520, L500.4100, L503.0105, L500.4050, L506.1000 #### [facility] [address] [place], [address] Bilirubin [Mass/Vol] 0.70 mg/dL Normal 0.20-1.00 [facility] Comment on above: Result Comment: For patients on eltrombopag therapy, use of Dim[place] TBIL is not recommended. Performed By: #### L 506.0400, L501.9520, L500.4100, L503.0105, L500.4050, L506.1000 #### [facility] [address] [place], [address] BUN/CRE 15.2 RATIO Normal 10-20 [facility] Comment on above: Performed By: #### L 506.0400, L501.9520, L500.4100, L503.0105, L500.4050, L506.1000 #### [facility] [address] [place], [address] CA,Total 9.0 mg/dL Normal 8.5-10.1 [facility] Comment on above: Performed By: #### L 506.0400, L501.9520, L500.4100, L503.0105, L500.4050, L506.1000 #### [facility] [address] [place], [address] Chloride [Moles/Vol] 104 mmol/L Normal 98-107 [facility] Comment on above: Performed By: #### L 506.0400, L501.9520, L500.4100, L503.0105, L500.4050, L506.1000 #### [facility] [address] [place], [address] CO2 [Moles/Vol] 27.0 mmol/L Normal 21.0-32.0 [facility] Comment on above: Performed By: #### L 506.0400, L501.9520, L500.4100, L503.0105, L500.4050, L506.1000 #### [facility] [address] [place], [address] Creatinine [Mass/Vol] 0.72 mg/dL Normal 0.55-1.02 [facility] Comment on above: Result Comment: The validity of the calculated GFR GFRAA in patients over 70 years has not been determined. Clinical correlation is essential. Performed By: #### L 506.0400, L501.9520, L500.4100, L503.0105, L500.4050, L506.1000 #### [facility] [address] [place], [address] EST GFR - AA 123 mL/min Normal >60 [facility] Comment on above: Result Comment: Afri can Moroccan GFR Calc Performed By: #### L 506.0400, L501.9520, L500.4100, L503.0105, L500.4050, L506.1000 #### [facility] [address] [place], [address] GAP 8 Normal 5-15 [facility] Comment on above: Performed By: #### L 506.0400, L501.9520, L500.4100, L503.0105, L500.4050, L506.1000 #### [facility] [address] [place], [place], [id number] (948) GFR/1.73 sq M.predicted among non-blacks MDRD (S/P/Bld) [Vol rate/Area] 101 mL/min/{1.73_m2} Normal >60 [facility] Comment on above: Result Comment: Non- GFR Calc Performed By: #### L 506.0400, L501.9520, L500.4100, L503.0105, L500.4050, L506.1000 #### [facility] [address] [place], [place], [id number] Globulin (S) [Mass/Vol] 3.7 g/dL Normal 2.2-4.2 [facility] Comment on above: Performed By: #### L 506.0400, L501.9520, L500.4100, L503.0105, L500.4050, L506.1000 #### [facility] [address] [place], [address] Glucose [Mass/Vol] 98 mg/dL Normal 74-106 [facility] Comment on above: Performed By: #### L 506.0400, L501.9520, L500.4100, L503.0105, L500.4050, L506.1000 #### [facility] [address] [place], [address] Potassium [Moles/Vol] 4.0 mmol/L Normal 3.5-5.1 [facility] Comment on above: Performed By: #### L 506.0400, L501.9520, L500.4100, L503.0105, L500.4050, L506.1000 #### [facility] [address] [place], [address] Sodium [Moles/Vol] 139 mmol/L Normal 136-145 [facility] Comment on above: Performed By: #### L 506.0400, L501.9520, L500.4100, L503.0105, L500.4050, L506.1000 #### [facility] [address] [place], [address] T PROT 7.2 g/dL Normal 6.4-8.2 [facility] Comment on above: Performed By: #### L 506.0400, L501.9520, L500.4100, L503.0105, L500.4050, L506.1000 #### [facility] [address] [place], [address] Urea nitrogen [Mass/Vol] 11 mg/dL Normal 7-18 [facility] Comment on above: Performed By: #### L 506.0400, L501.9520, L500.4100, L503.0105, L500.4050, L506.1000 #### [facility] [address] [place], [address] Direct serum free thyroxine (FT4) measurementOrdered By: Terrence Gallagher on 03-12-2024 Free T4 [Mass/Vol] 1.29 ng/dL 0.76-1.46 [facility] Estimated glomerular filtrat ion rate (GFR) AmericanOrdered By: Terrence Gallagher on 03-12-2024 Estimated GFR (MDRD) Amer 123 mL/min >60 [facility] Comment on above: GFR Calc Glomerular filtration rate ( GFR) estimationOrdered By: Terrence Gallagher on 03-12-2024 Estimated GFR (MDRD) Non-Af Amer 101 mL/min >60 [facility] Comment on above: Non- GFR Calc GFR/1.73 sq M.predicted among non-blacks MDRD (S/P/Bld) [Vol rate/Area] 101 mL/min/{1.73_m2} >60 [facility] Comment on above: Non- GFR Calc Glucose measurementOrdered B y: Terrence Gallagher on 03-12-2024 Glucose [Mass/Vol] 98 mg/dL 74-106 [facility] High density lipoprotein (HD L) measurementOrdered By: Terrence Gallagher on 03-12-2024 Cholesterol in HDL [Mass/Vol] 50 mg/dL >40 [facility] Comment on above: The drugs N-Acetylcy steine and Metamizole may falsely depress this assay. Reference Range HDL <40 mg/dL Low HDL Cholesterol HDL >or= 60 mg/dL High HDL Cholesterol Laboratory - Chemistry and C hemistry - challengeOrdered By: Terrence Gallagher on 03-12-2024 AST [Catalytic activity/Vol] 30 U/L 15-37 [facility] Lipid Profileon 03-12-2024 Cholesterol [Mass/Vol] 234 mg/dL High [address] [facility] Comment on above: Result Comment: <200 mg/dL Desirable 200-240 mg/dL Borderline >240 mg/dL High Risk Performed By: #### L 506.0400, L501.9520, L500.4100, L503.0105, L500.4050, L506.1000 #### [facility] [address] [place], [address] Cholesterol in HDL [Mass/Vol] 50 mg/dL Normal [facility] Comment on above: Result Comment: The drugs N-Acetylcysteine and Metamizole may falsely depress this assay. Reference Range HDL <40 mg/dL Low HDL Cholesterol HDL >or= 60 mg/dL High HDL Cholesterol Performed By: #### L 506.0400, L501.9520, L500.4100, L503.0105, L500.4050, L506.1000 #### [facility] [address] [place], [address] Cholesterol in LDL [Mass/Vol] 137 mg/dL High 0-130 [facility] Comment on above: Performed By: #### L 506.0400, L501.9520, L500.4100, L503.0105, L500.4050, L506.1000 #### [facility] [address] [place], [address] Cholesterol in VLDL [Mass/Vol] 47 mg/dL High 5-40 [facility] Comment on above: Performed By: #### L 506.0400, L501.9520, L500.4100, L503.0105, L500.4050, L506.1000 #### [facility] [address] [place], [address] Triglyceride [Mass/Vol] 237 mg/dL High [facility] Comment on above: Result Comment: The drugs N-Acetylcysteine and Metamizole may falsely depress this assay. Serum Triglycerides Reference Interval Normal <150 mg/dL Borderline high 150 - 199 mg/dL High 200 - 499 mg/dL Very High > or = 500 mg/dL Performed By: #### L 506.0400, L501.9520, L500.4100, L503.0105, L500.4050, L506.1000 #### [facility] [address] [place], [address] Low density lipoprotein (LDL ) cholesterol measurementOrdered By: Terrence Gallagher on 03-12-2024 Cholesterol in LDL [Mass/Vol] 137 mg/dL High 0-130 [facility] Potassium measurementOrdered By: Terrence Gallagher on 03-12-2024 Potassium [Moles/Vol] 4.0 mmol/L 3.5-5.1 [facility] Serum anion gap measurementO rdered By: Terrence Gallagher on 03-12-2024 Anion gap [Moles/Vol] 8 mmol/L 5-15 [facility] Serum globulin measurementOr dered By: Terrence Gallagher on 03-12-2024 Globulin (S) [Mass/Vol] 3.7 g/dL 2.2-4.2 [facility] Serum or plasma alanine kwon otransferase (ALT) measurementOrdered By: Terrence Gallagher on 03-12-2024 ALT [Catalytic activity/Vol] 40 U/L 13-56 [facility] Serum or plasma albumin monica urement (mass/volume)Ordered By: Terrence Gallagher on 03-12-2024 Albumin [Mass/Vol] 3.5 g/dL 3.2-5.0 [facility] Serum or plasma alkaline eduin sphatase measurementOrdered By: Terrence Gallagher on 03-12-2024 ALP [Catalytic activity/Vol] 87 U/L 45-117 [facility] Serum or plasma calcium monica urement (mass/volume)Ordered By: Terrence Gallagher on 03-12-2024 Calcium [Mass/Vol] 9.0 mg/dL 8.5-10.1 [facility] Serum or plasma cholesterol measurement (mass/volume)Ordered By: Terrence Gallagher on 03-12-2024 Cholesterol [Mass/Vol] 234 mg/dL High <[address] [facility] Comment on above: <200 mg/dL Desirable 200-240 mg/dL Borderline >240 mg/dL High Risk Serum or plasma creatinine m easurement (mass/volume)Ordered By: Terrence Gallagher on 03-12-2024 Creatinine [Mass/Vol] 0.72 mg/dL 0.55-1.02 [facility] Comment on above: The validity of the calculated GFR & GFRAA in patients over 70 years has not been determined. Clinical correlation is essential. Serum or plasma thyroid stim ulating hormone (TSH) measurement (units/volume)Ordered By: Terrence Gallagher on 03-12-2024 TSH Qn 13.200 uIU/mL High 0.358-3.740 [facility] Serum or plasma urea nitroge n measurement (mass/volume)Ordered By: Terrence Gallagher on 03-12-2024 Urea nitrogen [Mass/Vol] 11 mg/dL 7-18 [facility] Sodium levelOrdered By: Terrence Gallagher on 03-12-2024 Sodium [Moles/Vol] 139 mmol/L 136-145 [facility] T4 Free Directon 03-12-2024 T4 FREE DIRECT 1.29 ng/dL Normal 0.76-1.46 [facility] Comment on above: Performed By: #### L 803.3000, L801.1541 #### [facility] [address], [place], [id number] TSH QnOrdered By: Terrence Gallagher on 03-12-2024 Thyroid Stimulating Hormone (TSH) 13.200 uIU/mL High 0.358-3.740 [facility] Thyroid Stim Hormone (TSH)on 03-12-2024 TSH 13.200 uIU/mL High 0.358-3.740 [facility] Comment on above: Performed By: #### L 506.0400, L501.9520, L500.4100, L503.0105, L500.4050, L506.1000 #### [facility] [address] [place], [place], [id number] Total proteinOrdered By: Colton Gallagher on 03-12-2024 Protein [Mass/Vol] 7.2 g/dL 6.4-8.2 [facility] Triglycerides measurementOrd ered By: Terrence Gallagher on 03-12-2024 Triglyceride [Mass/Vol] 237 mg/dL High <199 [facility] Comment on above: The drugs N-Acetylcy steine and Metamizole may falsely depress this assay.Serum Triglycerides Reference Interval Normal <150 mg/dL Borderline high 150 - 199 mg/dL High 200 - 499 mg/dL Very High > or = 500 mg/dL Very low density lipoprotein (VLDL) cholesterol measurementOrdered By: Terrence Gallagher on 03-12-2024 Very low density lipoprotein (VLDL) cholesterol measurement 47 mg/dL High 5-40 [facility] VLDL Cholesterol 47 mg/dL High 5-40 [facility] Vitamin B12on 03-12-2024 Cobalamin (Vitamin B12) [Mass/Vol] 449 pg/mL Normal -911 [facility] Comment on above: Performed By: #### L 803.3000, L801.1541 #### [facility] [address] [place], [place], [address] Vitamin B12 measurementOrder ed By: Terrence Gallagher on 03-12-2024 Cobalamin (Vitamin B12) [Mass/Vol] 449 pg/mL 211-911 [facility] Vitamin D,25 Hydroxyon 03-12 Vitamin D 25-OH 32.7 ng/mL Normal [facility] Comment on above: Result Comment: Lianne min D 25(OH) Status Range Deficiency <20 ng/mL (50nmol/L) Insufficiency 20 - 30 ng/mL (50 - 75 nmol/L) Sufficiency 30 - 100 ng/mL (75 - 250 nmol/L) Toxicity >100 ng/mL (>250 nmol/L) Performed By: #### L 803.3000, L801.1541 #### [facility] [address] [place], [place], [address] Live Ammunition Inspector Office Visit Reporton 12-12-2023 Live Ammunition Inspector Office Visit Report [facility] [address], [address] [place] [address] OFFICE VISIT Date of Service: 12/12/23 MR#: [id number] Acct: [id number] Name: JONELLE GÓMEZ Rep #: [id number] : 1995 Provider: RITO Rob Age/Sex: 28/F [place] [facility] [place]: S[place] Intake Vital Signs 11/14/23 09:02 11/29/23 14:10 12/12/23 10:08 12/12/23 10:16 Height 5 ft 3 in 5 ft 3 in 5 ft 3 in 5 ft 3 in Weight: 223 lb 228 lb BMI 39.4 40.4 BP 131/84 H 128/79 H Pulse 85 Intake Visit Reasons: 1 M Link Trainer Operator Required: No Is patient in pain?: [...] Medical History (Updated 12/12/23 @ 11:41 by RITO Blunt) Obesity PCOS (polycystic ovarian syndrome) B12 deficiency 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 Insulin resistance Paresthesia Hidradenitis suppurativa Open wound of left axillary region with complication Open wound of right axillary region with complication Allergies Axillary hidradenitis suppurativa Breast lump in female History of blood clots Back problem Fibromyalgia Rheumatoid arthritis Surgical History O'Brien teeth extracted Family History Sister Diabetes Grandmother Lung cancer Skin cancer Grandfather Dementia CVA (cerebral vascular accident) Parkinsons disease Other Anxiety Arthritis Asthma Psychiatric care Thyroid disorder Social History current occupational status: employed 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 Normal [facility] Live Ammunition Inspector Office Visit Reporton 11-29-2023 Live Ammunition Inspector Office Visit Report [facility] [address], [address] [place] [address] OFFICE VISIT Date of Service: 11/29/23 MR#: [id number] Acct: [id number] Name: JONELLE GÓMEZ Rep #: [id number] : 1995 Provider: Dr. 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 Link Trainer Operator Required: No Accompanied by: Self Is [...] No : No Control Method: Nuva ring [facility] Medical History Obesity PCOS (polycystic ovarian syndrome) B12 deficiency Hypothyroidism due to Ina's thyroiditis Insulin resistance Paresthesia Hidradenitis suppurativa Open wound of left axillary region with complication Open wound of right axillary region with complication Allergies Axillary hidradenitis suppurativa Breast lump in female History of blood clots Back problem Fibromyalgia Rheumatoid arthritis Surgical History O'Brien teeth extracted Family History Sister Diabetes Grandmother Lung cancer Skin cancer Grandfather Dementia CVA (cerebral vascular accident) Parkinsons disease Other Anxiety Arthritis Asthma Psychiatric care Thyroid disorder Social History (Updated 11/29/23 @ 14:14 by Georgie Alvarado) current occupational status: employed 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 Normal [facility] Live Ammunition Inspector Office Visit Reporton 11-14-2023 Live Ammunition Inspector Office Visit Report [facility] [address] [address], [address] [place] [address] OFFICE VISIT Date of Service: 11/14/23 MR#: [id number] Acct: [id number] Name: JONELLE GÓMEZ Rep #: [id number] : 1995 Provider: RITO Rob Age/Sex: 28/F [place] [facility] [place]: [place] with Addenda ADDENDUM by RITO [...] adult Comment: Nutrition plan: weight watchers. declined sash maker consult; increase healthy nutritious foods intake as [...] adult Comment: Nutrition plan: weight watchers. declined sash maker consult; increase healthy nutritious foods intake as [...] Acute Comm (more content not included)... Normal [facility] Basophil percentageOrdered B y: Jacquelin Chen on 12-20-2022 Cholesterol [Mass/Vol] 197 mg/dL <[address] [facility] Comment on above: <200 mg/dL Desirable 200-240 mg/dL Borderline >240 mg/dL High Risk Triglyceride [Mass/Vol] 216 mg/dL <199 [facility] Comment on above: The drugs N-Acetylcy steine and Metamizole may falsely depress this assay.Serum Triglycerides Reference Interval Normal <150 mg/dL Borderline high 150 - 199 mg/dL High 200 - 499 mg/dL Very High > or = 500 mg/dL Laboratory - Chemistry and C hemistry - challengeOrdered By: Marlon Gaona on 12-20-2022 Cobalamin (Vitamin B12) [Mass/Vol] 294 pg/mL 211-911 [facility] No Panel InformationOrdered By: Marlon Gaona on 12-20-2022 Vitamin D 25-Hydroxy 31.5 ng/mL [facility] Comment on above: Vitamin D 25(OH) Sta tus Range Deficiency <20 ng/mL (50nmol/L) Insufficiency 20 - 30 ng/mL (50 - 75 nmol/L) Sufficiency 30 - 100 ng/mL (75 - 250 nmol/L) Toxicity >100 ng/mL (>250 nmol/L) Serum or plasma cholesterol in HDL measurement (mass/volume)Ordered By: Jacquelin Chen on 12-20-2022 Cholesterol in HDL [Mass/Vol] 41 mg/dL >40 [facility] Comment on above: The drugs N-Acetylcy steine and Metamizole may falsely depress this assay. Reference Range HDL <40 mg/dL Low HDL Cholesterol HDL >or= 60 mg/dL High HDL Cholesterol Serum or plasma cholesterol in VLDL measurement (mass/volume)Ordered By: Jacquelin Chen on 12-20-2022 Cholesterol in VLDL [Mass/Vol] 43 mg/dL 5-40 [facility] Serum or plasma low density lipoprotein (LDL) cholesterol measurement (mass/volume)Ordered By: Jacquelin Chen on 12-20-2022 Cholesterol in LDL [Mass/Vol] 113 mg/dL 0-130 [facility] Whole blood hemoglobin A1c/t otal hemoglobin ratio (mass fraction)Ordered By: Marlon Gaona on 12-20-2022 HbA1c (Bld) [Mass fraction] 4.7 % 3.8-5.6 [facility] Comment on above: Normal < 5.7 % Predi abetic 5.7 - 6.4 % Diabetic >or= 6.5 % Please note range changes. Laboratory - Chemistry and C hemistry - challengeOrdered By: Shakila Canales on 11-02-2022 Free T4 [Mass/Vol] 0.95 ng/dL 0.76-1.46 [facility] No Panel InformationOrdered By: Shakila Canales on 11-02-2022 Thyroid Stimulating Hormone (TSH) 5.82 uIU/mL 0.358-3.74 [facility] Basophil percentageOrdered B y: Dr. Canales on 06-26-2022 Bilirubin [Mass/Vol] 0.60 mg/dL 0.20-1.00 [facility] Comment on above: For patients on eltr ombopag therapy, use of Dimension [place] TBIL is not recommended. Chloride [Moles/Vol] 107 mmol/L 98-107 [facility] Glucose [Mass/Vol] 87 mg/dL 74-106 [facility] Potassium [Moles/Vol] 3.6 mmol/L 3.5-5.1 [facility] Protein [Mass/Vol] 7.5 g/dL 6.4-8.2 [facility] Sodium [Moles/Vol] 137 mmol/L 136-145 [facility] Laboratory - Chemistry and C hemistry - challengeOrdered By: Dr. Canales on 06-26-2022 ALP [Catalytic activity/Vol] 114 U/L 45-117 [facility] ALT [Catalytic activity/Vol] 51 U/L 13-56 [facility] CO2 [Moles/Vol] 22.0 mmol/L 21.0-32.0 [facility] Free T4 [Mass/Vol] 0.99 ng/dL 0.76-1.46 [facility] Globulin (S) [Mass/Vol] 4.0 g/dL 2.2-4.2 [facility] Urea nitrogen/Creatinine [Mass ratio] 14.2 mg/mg 10-20 [facility] No Panel InformationOrdered By: Dr. Canales on 06-26-2022 Estimated GFR (MDRD) Amer 115 mL/min >60 [facility] Comment on above: GFR Calc Estimated GFR (MDRD) Non-Af Amer 95 mL/min >60 [facility] Comment on above: Non- GFR Calc Thyroid Stimulating Hormone (TSH) 6.79 uIU/mL 0.358-3.74 [facility] Serum or plasma albumin monica urement (mass/volume)Ordered By: Dr. Canales on 06-26-2022 Albumin [Mass/Vol] 3.5 g/dL 3.2-5.0 [facility] Serum or plasma albumin/glob ulin mass ratioOrdered By: Dr. Canales on 06-26-2022 Albumin/Globulin [Mass ratio] 0.9 {ratio} 0.9-2.4 [facility] Serum or plasma calcium monica urement (mass/volume)Ordered By: Dr. Canales on 06-26-2022 Calcium [Mass/Vol] 8.7 mg/dL 8.5-10.1 [facility] Serum or plasma creatinine m easurement (mass/volume)Ordered By: Dr. Canales on 06-26-2022 Creatinine [Mass/Vol] 0.77 mg/dL 0.55-1.02 [facility] Comment on above: The validity of the calculated GFR & GFRAA in patients over 70 years has not been determined. Clinical correlation is essential. Serum or plasma urea nitroge n measurement (mass/volume)Ordered By: Dr. Canales on 06-26-2022 Urea nitrogen [Mass/Vol] 11 mg/dL 7-18 [facility] Thin prep Papanicolaou smear with manual screeningOrdered By: Dr. Canales on 06-26-2022 Thin prep Papanicolaou smear with manual screening 28 U/L 15-37 [facility] Thin prep Papanicolaou smear with manual screening 8 5-15 [facility] Cervical or vagninal specime n microscopic examination by cytology stain (reported ason 10-17-2021 Cytology report Cyto stain Doc (Cvx/Vag) Comment . [facility] Work Phone: Comment on above: The Pap smear is a s creening test designed to aid in thedetection of premalignant and malignant conditions of theuterine cervix. It is not a diagnostic procedure andshould not be used as the sole means of detecting cervicalcancer. Both false-positive and false-negative reports dooccur. Laboratory - Cytologyon 09-20 Store Lead Cyto stain Nom (Cvx/Vag) [ID] Comment . [facility] Work Phone: Comment on above: Michell Ramos, Cytot echnologist (ASCP) Laboratory - Miscellaneous t estson 10-17-2021 Service comment (Unsp spec) [Interp] Comment . [facility] Work Phone: Comment on above: This liquid based Th inPrep(R) pap test was screened withthe use of an image guided system. Service comment (Unsp spec) [Interp] . . [facility] Work Phone: No Panel Informationon 10-17 Human Papillomavirus Screen Comment . [facility] Work Phone: Comment on above: The HPV DNA reflex c riteria were not met with this specimenresult therefore, no HPV testing was performed.Performed at: [place] - [facility] [id number] [place], [place] [id number] Director: Israel Pop MD, Phone: [phone] at: - [facility] [address] [id number] Director: Jolanta Ackerman MD, Phone: [phone] Pathology report final diagnosis Narrative Comment . [facility] Work Phone: Comment on above: NEGATIVE FOR INTRAEP ITHELIAL LESION OR MALIGNANCY. Basophil percentageon 2021 Bilirubin [Mass/Vol] 0.50 mg/dL 0.20-1.00 [facility] Work Phone: Comment on above: For patients on eltr ombopag therapy, use of Dim[place] TBIL is not recommended. Chloride [Moles/Vol] 110 mmol/L 98-107 [facility] Work Phone: Glucose [Mass/Vol] 101 mg/dL 74-106 [facility] Work Phone: Comment on above: Fasting Glucose resu lt from 100 to 125 mg/dL suggests IMPAIRED HOMEOSTASIS per A.D.A. criteria. Potassium [Moles/Vol] 3.8 mmol/L 3.5-5.1 [facility] Work Phone: Protein [Mass/Vol] 6.8 g/dL 6.4-8.2 [facility] Work Phone: Sodium [Moles/Vol] 141 mmol/L 136-145 [facility] Work Phone: Laboratory - Chemistry and C hemistry - challengeon 10-13-2021 ALP [Catalytic activity/Vol] 100 U/L 45-117 [facility] Work Phone: ALT [Catalytic activity/Vol] 39 U/L 13-56 [facility] Work Phone: CO2 [Moles/Vol] 26.0 mmol/L 21.0-32.0 [facility] Work Phone: Cobalamin (Vitamin B12) [Mass/Vol] 287 pg/mL 211-911 [facility] Work Phone: Free T4 [Mass/Vol] 0.92 ng/dL 0.76-1.46 [facility] Work Phone: Globulin (S) [Mass/Vol] 3.9 g/dL 2.2-4.2 [facility] Work Phone: Urea nitrogen/Creatinine [Mass ratio] 18.0 mg/mg 10-20 [facility] Work Phone: No Panel Informationon 10-13 Estimated GFR (MDRD) Amer 125 mL/min >60 [facility] Work Phone: Comment on above: GFR Calc Estimated GFR (MDRD) Non-Af Amer 103 mL/min >60 [facility] Work Phone: Comment on above: Non- GFR Calc Thyroid Stimulating Hormone (TSH) 8.37 uIU/mL 0.358-3.74 [facility] Work Phone: Serum or plasma albumin monica urement (mass/volume)on 10-13-2021 Albumin [Mass/Vol] 2.9 g/dL 3.2-5.0 [facility] Work Phone: Serum or plasma albumin/glob ulin mass ratioon 10-13-2021 Albumin/Globulin [Mass ratio] 0.7 {ratio} 0.9-2.4 [facility] Work Phone: Serum or plasma calcium monica urement (mass/volume)on 10-13-2021 Calcium [Mass/Vol] 8.3 mg/dL 8.5-10.1 [facility] Work Phone: Serum or plasma creatinine m easurement (mass/volume)on 10-13-2021 Creatinine [Mass/Vol] 0.72 mg/dL 0.55-1.02 [facility] Work Phone: Comment on above: The validity of the calculated GFR & GFRAA in patients over 70 years has not been determined. Clinical correlation is essential. Serum or plasma urea nitroge n measurement (mass/volume)on 10-13-2021 Urea nitrogen [Mass/Vol] 13 mg/dL 7-18 [facility] Work Phone: Thin prep Papanicolaou smear with manual screeningon 10-13-2021 Thin prep Papanicolaou smear with manual screening 22 U/L 15 [facility] Work Phone: Thin prep Papanicolaou smear with manual screening 5- [facility] Work Phone: OBSOLETEon 06-28-2020 OBSOLETE Refill (GOLDYPWS) JONELLE MARINELLI ([id number]) 1995 F Date Time Provider Department 06/28/20 [...] refilled 08/20/2018 #30 11 refills Eun Schmitt APRN.JOSÉ, VAHE 06/28/2020 10:11 PM Signed The following approved medication requests have been transmitted electronically. Pending Prescriptions Disp Refills LEVOTHYROXINE 50 MCG TABLET 90 tablet 1 Sig: Take 1 tablet by mouth once daily. Take on empty stomach. For Thyroid ANTHONY: No Al Schmitt APRN.GOLF CLUB MANAGER, DNP Allergies As of Date: 06/28/2020 (No Known [...] AL SCHMITT on 06/28/[address] [facility] CBC without Diffon Erythrocyte distribution width Auto Ratio (RBC) 13.4 % Normal 11.1-15.3 [facility] Comment on above: Order Comment: nhc Performed By: #### C BC ####[place] [id number] Hematocrit Auto Volume Fraction (Bld) 44.6 % Normal 34.6-45.0 [facility] Comment on above: Order Comment: nhc Performed By: #### C BC ####[place] [id number] Hemoglobin mass conc (Bld) 15.5 g/dL Normal 11.5-15.5 [facility] Comment on above: Order Comment: nhc Performed By: #### C BC ####[place] [id number] MCH Auto Entitic mass (RBC) 30.9 pg Normal 27.2-33.6 [facility] Comment on above: Order Comment: nhc Performed By: #### C BC ####[place] [id number] MCHC Auto mass conc (RBC) 34.8 g/dL Normal 32.9-35.3 [facility] Comment on above: Order Comment: nhc Performed By: #### C BC ####[address] [address] MCV Auto Entitic volume (RBC) 88.8 fL Normal 81.3-96.7 [facility] Comment on above: Order Comment: nhc Performed By: #### C BC ####[place] [id number] Platelet mean volume Auto Entitic volume (Bld) 8.1 fL Normal 6.4-10.0 [facility] Comment on above: Order Comment: nhc Performed By: #### C BC ####[facility] [place] [address] Platelets Auto #/vol (Bld) 304 x(10)3/cumm Normal 138-367 [facility] Comment on above: Order Comment: nhc Performed By: #### C BC ####[facility] [place] [address] RBC Auto #/vol (Bld) 5.03 X(10)6/cumm Normal 3.90-5.10 [facility] Comment on above: Order Comment: nhc Performed By: #### C BC ####[facility] [place] [address] WBC Auto #/vol (Bld) 10.7 x(10)3/cumm High 3.6-10.3 [facility] Comment on above: Order Comment: nhc Performed By: #### C BC ####[facility] [place] [address] Comprehensive Metabolic Pane rodolfo 11-15-2017 Albumin mass conc 4.0 g/dL Normal 3.4-5.0 [facility] Comment on above: Order Comment: nhc Performed By: #### C MP ####[facility] [place] [address] ALP enzyme act/vol 100 U/L Normal 45-117 [facility] Comment on above: Order Comment: nhc Performed By: #### C MP ####[facility] [place] [address] ALT enzyme act/vol 56 U/L Normal 12-78 [facility] Comment on above: Order Comment: nhc Performed By: #### C MP ####[facility] [place] [address] Anion gap 3 molar conc 7 mmol/L Normal [facility] Comment on above: Order Comment: nhc Performed By: #### C MP ####[address] [address] AST enzyme act/vol 32 U/L Normal 15-37 [facility] Comment on above: Order Comment: nhc Performed By: #### C MP ####[facility] [place] [address] Bili, Total 0.6 mg/dL Normal 0.2-1.0 [facility] Comment on above: Order Comment: nhc Performed By: #### C MP ####[facility] [place] [address] C02 28 mmol/L Normal 21-32 [facility] Comment on above: Order Comment: nhc Performed By: #### C MP ####[facility] [place] [address] Calcium mass conc 9.1 mg/dL Normal 8.5-10.1 [facility] Comment on above: Order Comment: nhc Performed By: #### C MP ####[facility] [place] [address] Chloride molar conc 103 mmol/L Normal 98-107 [facility] Comment on above: Order Comment: nhc Performed By: #### C MP ####[facility] [place] [address] Creatinine mass conc 0.64 mg/dL Normal 0.60-1.30 [facility] Comment on above: Order Comment: nhc Performed By: #### C MP ####[facility] [place] [address] eGFR -Amer >60 Normal >=60 [facility] Comment on above: Order Comment: nhc Performed By: #### C MP ####[facility] [place] [address] GFR/1.73 sq M predicted among non-blacks MDRD vol rate/area (S/P/Bld) mL/min/{1.73_m2} Normal >=60 [facility] Comment on above: Order Comment: nhc Performed By: #### C MP ####[facility] [place] [address] Glucose mass conc 78 mg/dL Normal 74-106 [facility] Comment on above: Order Comment: nhc Performed By: #### C MP ####[facility] [place] [address] Potassium molar conc 3.9 mmol/L Normal 3.5-5.1 [facility] Comment on above: Order Comment: nhc Performed By: #### C MP ####[address] [address] Protein mass conc 7.7 g/dL Normal 6.4-8.2 [facility] Comment on above: Order Comment: nhc Performed By: #### C MP ####[address] [address] Sodium molar conc 138 mmol/L Normal 136-145 [facility] Comment on above: Order Comment: nhc Performed By: #### C MP ####[address] [address] Urea nitrogen mass conc 11 mg/dL Normal 7-18 [facility] Comment on above: Order Comment: nhc Performed By: #### C MP ####[address] [address] Sed Rate - Westergrenon 09-2 Sed Rate 1 mm/hr Normal 0-20 [facility] Comment on above: Order Comment: nhc Performed By: #### E SR ####[address] [address] Progress Noteon 10-04-2016 Sales And Marketing Intern Authentication Interface Message Text Returning patientPaige Akilah Marinelli is a 21 y.o. female presenting today forChief ComplaintPatient presents with Follow Up TOMEKA [facility].History of Presenting ProblemHPI Jonelle is here for follow up of TOMEKA. [...] 10/04/2016Medication Sig Dispense Refill vitamin D (ERGOCALCIFEROL) 54758 units capsule Take 1 Cap (50,000 Units) [...] by mouth. cyclobenzaprine (FLEXERIL) 10 MG tablet [place]-3 Fatty Acids (FISH OIL PO) Take 1 [...] total time [place] 25 [place] MD Deb10/04/2016 Normal [facility] Lab Report: PAP I-G w/rfx hr HPVon 09-14-2016 HPV RFLX Comment . [facility] Office Visit: est annualon 0 09-11-2016 Fall risk assessment No [place] [facility] Protein [facility] conc [facility] Tobacco smoking status NHIS Never [facility] Tobacco smoking status NHIS Never smoker [facility][1] Vital Signs Date Time Vital Sign Value Performing Clinician Wan angelo 08-08-2024 10:36-0400 Body height 157.48 cm No Primary Care Physician [facility] 08-08-2024 10:36-0400 Body mass index (BMI) [Ratio] 47.9 kg/m2 No Primary Care Physician [facility] 08-08-2024 10:36-0400 Body weight 118.89 kg No Primary Care Physician [facility] 08-08-2024 10:36-0400 Diastolic blood pressure 89 mm[Hg] No Primary Care Physician [facility] 08-08-2024 10:36-0400 Systolic blood pressure 139 mm[Hg] No Primary Care Physician [facility] 07-01-2024 08:40-0400 Body height 160.02 cm No Primary Care Physician [facility] 07-01-2024 08:39-0400 Body mass index (BMI) [Ratio] 44.6 kg/m2 No Primary Care Physician [facility] 07-01-2024 08:39-0400 Body weight 114.3 kg No Primary Care Physician [facility] 07-01-2024 08:39-0400 Diastolic blood pressure 87 mm[Hg] No Primary Care Physician [facility] 07-01-2024 08:39-0400 Systolic blood pressure 131 mm[Hg] No Primary Care Physician [facility] 03-13-2024 08:28-0500 Body mass index (BMI) [Ratio] 42.7 kg/m2 No Primary Care Physician [facility] 03-13-2024 08:28-0500 Body weight 109.31 kg No Primary Care Physician [facility] 03-13-2024 08:28-0500 Diastolic blood pressure 92 mm[Hg] No Primary Care Physician [facility] 03-13-2024 08:28-0500 Heart rate 73 /min No Primary Care Physician [facility] 03-13-2024 08:28-0500 SaO2% (BldA) [Mass fraction] 98 % No Primary Care Physician [facility] 03-13-2024 08:28-0500 Systolic blood pressure 129 mm[Hg] No Primary Care Physician [facility] 05-12-2023 09:24-0400 Body temperature 98.1 [degF] Dr. Marlon Gaona Work Phone: [facility] 05-12-2023 09:24-0400 Diastolic blood pressure 88 mm[Hg] Dr. Marlon Gaona Work Phone: [facility] 05-12-2023 09:24-0400 Heart rate 91 /min Dr. Marlon Gaona Work Phone: [facility] 05-12-2023 09:24-0400 Respiratory rate 16 /min Dr. Marlon Gaona Work Phone: [facility] 05-12-2023 09:24-0400 SaO2% (BldA) [Mass fraction] 99 % Dr. Marlon Gaona Work Phone: [facility] 05-12-2023 09:24-0400 Systolic blood pressure 129 mm[Hg] Dr. Marlon Gaona Work Phone: [facility] 05-12-2023 06:44-0400 Body height 160.[address] Marlon Gaona Work Phone: [facility] 05-12-2023 06:44-0400 Body mass index (BMI) [Ratio] 38.9 kg/m2 Dr. Marlon Gaona Work Phone: [facility] 05-12-2023 06:44-0400 Body weight 99.[address] Marlon Gaona Work Phone: [facility] 05-04-2023 13:45-0400 Body mass index (BMI) [Ratio] 42 kg/m2 Dr. Marlon Gaona Work Phone: [facility] 05-04-2023 13:45-0400 Body weight 107.[address] Marlon Gaona Work Phone: [facility] 05-04-2023 13:45-0400 Diastolic blood pressure 90 mm[Hg] Dr. Marlon Gaona Work Phone: [facility] 05-04-2023 13:45-0400 Heart rate 85 /min Dr. Marlon Gaona Work Phone: [facility] 05-04-2023 13:45-0400 Systolic blood pressure 128 mm[Hg] Dr. Marlon Gaona Work Phone: [facility] 03-19-2023 08:38-0500 Body mass index (BMI) [Ratio] 42 kg/m2 Dr. Marlon Gaona Work Phone: [facility] 03-19-2023 08:38-0500 Body weight 107.[address] Marlon Gaona Work Phone: 1(830)709-285518 [place] [address] 03-19-2023 08:38-0500 Diastolic blood pressure 87 mm[Hg] Dr. Marlon Gaona Work Phone: 2(825)152-203015 [address] 03-19-2023 08:38-0500 Systolic blood pressure 156 mm[Hg] Dr. Marlon Gaona Work Phone: 7(424)572-291860 [place] [address] 02-08-2023 09:14-0500 Body mass index (BMI) [Ratio] 41.8 kg/m2 Dr. Marlon Gaona Work Phone: 9(821)531-542715 [address] 02-08-2023 09:14-0500 Diastolic blood pressure 87 mm[Hg] Dr. Marlon Gaona Work Phone: 0(074)800-504015 [address] 02-08-2023 09:14-0500 Systolic blood pressure 129 mm[Hg] Dr. Marlon Gaona Work Phone: 1(748)325-938915 [address] 02-08-2023 08:51-0500 Body weight 107.[address] Marlon Gaona Work Phone: 9(211)041-073518 [place] [address] 10-26-2022 15:37-0400 Body height 160.[address] Marlon Gaona Work Phone: 3(411)112-083615 [address] 10-26-2022 15:33-0400 Body mass index (BMI) [Ratio] 41.1 kg/m2 Dr. Marlon Gaona Work Phone: 6(078)678-061615 [address] 10-26-2022 15:33-0400 Body weight 105.[address] Marlon Gaona Work Phone: 5(580)392-372315 [address] 09-07-2023 15:33-0400 Diastolic blood pressure 86 mm[Hg] Dr. Marlon Gaona Work Phone: [facility] 10-26-2022 15:33-0400 Systolic blood pressure 124 mm[Hg] Dr. Marlon Gaona Work Phone: [facility] 08-23-2022 09:36-0400 Body mass index (BMI) [Ratio] 40.9 kg/m2 Dr. Marlon Gaona Work Phone: [facility] 08-23-2022 09:36-0400 Body weight 104.[address] Marlon Gaona Work Phone: 8(970)088-853015 [address] 08-23-2022 09:36-0400 Diastolic blood pressure 87 mm[Hg] Dr. Marlon Gaona Work Phone: 0(249)143-157818 [place] [address] 08-23-2022 09:36-0400 Heart rate 80 /min Dr. Marlon Gaona Work Phone: [facility] 08-23-2022 09:36-0400 Systolic blood pressure 131 mm[Hg] Dr. Marlon Gaona Work Phone: 8(039)718-181218 [place] [address] 07-10-2022 13:01-0400 Body height 157.[address] Marlon Gaona Work Phone: 1(945)243-458318 [place] [address] 07-10-2022 13:01-0400 Body weight 105.[address] Marlon Gaona Work Phone: [facility] 06-26-2022 15:38-0400 Body mass index (BMI) [Ratio] 42.6 kg/m2 Dr. Marlon Gaona Work Phone: 0(838)584-108918 [place] [address] 06-26-2022 15:38-0400 Body weight 105.[address] Marlon Gaona Work Phone: [facility] 06-26-2022 15:38-0400 Diastolic blood pressure 78 mm[Hg] Dr. Marlon Gaona Work Phone: 3(265)320-733218 [place] [address] 06-26-2022 15:38-0400 Systolic blood pressure 118 mm[Hg] Dr. Marlon Gaona Work Phone: [facility] 06-12-2022 14:06-0400 Body height 157.[address] Marlon Gaona Work Phone: [facility] 06-12-2022 14:06-0400 Body weight 107.[address] Marlon Gaona Work Phone: 3(512)[phone] [place] [address] 05-22-2022 11:37-0400 Body mass index (BMI) [Ratio] 43.7 kg/m2 Dr. Marlon Gaona Work Phone: 1(844)[phone] [address] 05-22-2022 11:37-0400 Body weight 108.[address] Marlon Gaona Work Phone: 4(461)[phone] [place] [address] 05-22-2022 11:37-0400 Diastolic blood pressure 88 mm[Hg] Dr. Marlon Gaona Work Phone: [facility] 05-22-2022 11:37-0400 Systolic blood pressure 136 mm[Hg] Dr. Marlon Gaona Work Phone: 8(745)[phone] [place] [address] 04-06-2022 09:06-0500 Body mass index (BMI) [Ratio] 43.7 kg/m2 Dr. Marlon Gaona Work Phone: 6(815)[phone] [place] [address] 04-06-2022 09:06-0500 Body weight 108.[address] Marlon Gaona Work Phone: [facility] 04-06-2022 09:06-0500 Diastolic blood pressure 84 mm[Hg] Dr. Marlon Gaona Work Phone: 3(684)[phone] [place] [address] 04-06-2022 09:06-0500 Heart rate 97 /min Dr. Marlon Gaona Work Phone: [facility] 04-06-2022 09:06-0500 Systolic blood pressure 124 mm[Hg] Dr. Marlon Gaona Work Phone: 2(436)[phone] [place] [address] 10-17-2021 15:07-0400 Body height 157.[address] Marlon Gaona Work Phone: [facility] Work Phone: 10-17-2021 15:06-0400 Body mass index (BMI) [Ratio] 46 kg/m2 Dr. Marlon Gaona Work Phone: [facility] Work Phone: 10-17-2021 15:06-0400 Body weight 114.[address] Marlon Gaona Work Phone: [facility] Work Phone: 10-17-2021 15:06-0400 Diastolic blood pressure 74 mm[Hg] Dr. Marlon Gaona Work Phone: [facility] Work Phone: 10-17-2021 15:06-0400 Systolic blood pressure 126 mm[Hg] Dr. Marlon Gaona Work Phone: [facility] Work Phone: 10-13-2021 08:08-0400 Body mass index (BMI) [Ratio] 45.6 kg/m2 Dr. Marlon Gaona Work Phone: [facility] Work Phone: 10-13-2021 08:08-0400 Body temperature 95.5 [degF] Dr. Marlon Gaona Work Phone: [facility] Work Phone: 10-13-2021 08:08-0400 Body weight 113.[address] aMrlon Gaona Work Phone: [facility] Work Phone: 10-13-2021 08:08-0400 Diastolic blood pressure 84 mm[Hg] Dr. Marlon Gaona Work Phone: [facility] Work Phone: 10-13-2021 08:08-0400 Heart rate 80 /min Dr. Marlon Gaona Work Phone: [facility] Work Phone: 10-13-2021 08:08-0400 Respiratory rate 16 /min Dr. Marlon Gaona Work Phone: [facility] Work Phone: 10-13-2021 08:08-0400 SaO2% (BldA) [Mass fraction] 96 % Dr. Marlon Gaona Work Phone: [facility] Work Phone: 10-13-2021 08:08-0400 Systolic blood pressure 130 mm[Hg] Dr. Marlon Gaona Work Phone: [facility] Work Phone: 09-11-2016 15:59-0400 BMI (Body Mass Index) 38.12 kg/m2 Shakila Canales MD [facility][1] 09-11-2016 15:59-0400 Body Temperature 98.7 [degF] Shakila Canales MD [facility][1] 09-11-2016 15:59-0400 Body Temperature 98.71 [degF] Shakila Canales MD [facility][1] 09-11-2016 15:59-0400 BP Diastolic 67 mm[Hg] Shakila Canales MD [facility][1] 09-11-2016 15:59-0400 BP Systolic 107 mm[Hg] Shakila Canales MD [facility][1] 09-11-2016 15:59-0400 Height 160.02 cm Shakila Canales MD [facility][1] 09-11-2016 15:59-0400 Pulse (Heart Rate) 78 /min Shakila Canales MD [facility][1] 09-11-2016 15:59-0400 Respiratory Rate 16 /min Shakila Canales MD [facility][1] 09-11-2016 15:59-0400 Weight 97.61 kg Shakila Canales MD [facility][1] Encounters Encounter Date Encounter Type Care Provider Facility Start: 10-21-2024 ambulatory No Primary Car e Physician Facility:[facility] Start: 10-10-2024 End: 10-10-2024 ambulatory No Primary Care Physician -Lab [facility][1] Start: 10-10-2024 End: 10-10-[address] Nikky Velasquez DO -Lab [facility][1] Start: 10-10-2024 End: 10-10-2024 ambulatory Nikky Velasquez Facility:[facility] Start: 09-08-2024 End: 09-08-2024 ambulatory No Primary Care Physician -Lab [facility][1] Start: 09-08-2024 End: 09-08-2024 Patient encounter procedure Alejandro Simms CNM -Lab [facility][1] Start: 09-08-2024 End: 09-08-2024 ambulatory No Primary Care Physician Facility:[facility] Start: 08-08-2024 End: 08-08-[address] Shakila Canales MD -[facility][1] Work Phone: Start: 08-08-2024 End: 08-08-2024 ambulatory No Primary Care Physician [facility] Work Phone: Start: 08-06-2024 End: 08-06-2024 ambulatory No Primary Care Physician [facility] Work Phone: Start: 08-06-2024 End: 08-06-2024 Patient encounter procedure Alejandro Simms CNM -Lab [facility][1] Start: 08-06-2024 End: 08-06-2024 ambulatory No Primary Care Physician Facility:[facility] Start: 08-04-2024 End: 08-04-2024 ambulatory No Primary Care Physician [facility] Work Phone: Start: 08-04-2024 End: 08-04-2024 Patient encounter procedure Alejandro Simms CNM -[facility] Work Phone: Start: 08-04-2024 End: 08-04-2024 ambulatory No Primary Care Physician Facility:[facility] Start: 07-19-2024 End: 07-19-2024 ambulatory No Primary Care Physician [facility] Work Phone: Start: 07-19-2024 End: 07-19-2024 Patient encounter procedure Alejandro Simms CNM -Laboratory Work Phone: Start: 07-19-2024 End: 07-19-2024 ambulatory No Primary Care Physician Facility:[facility] Start: 07-01-2024 End: 07-01-2024 Patient encounter procedure Alejandro Simms CNOren -[facility] Work Phone: Start: 07-01-2024 End: 07-01-2024 ambulatory No Primary Care Physician [facility] Work Phone: Start: 07-01-2024 End: 07-01-[address] [facility] Facility:[facility] Start: 04-30-2024 End: 04-30-2024 ambulatory No Primary Care Physician [facility] Work Phone: Start: 04-30-2024 End: 04-30-[address] Terrence Gallagher MD -Laboratory Work Phone: Start: 04-30-2024 End: 04-30-[address] [facility] Facility:[facility] Start: 04-03-2024 ambulatory Kriss Pollack ESTIMATING ENGINEER Facil ity:[facility] Start: 03-13-2024 End: 03-13-[address] Terrence Gallagher MD -[facility] Work Phone: Start: 03-13-2024 End: 03-13-[address] [facility] Facility:[facility] Start: 03-12-2024 End: 03-12-[address] Terrence Gallagher MD -Laboratory Work Phone: Start: 03-12-2024 End: 03-12-[address] [facility] Facility:[facility] Start: 12-12-2023 End: 12-12-2023 ambulatory [facility] Facility:[facility] Start: 11-29-2023 End: 11-29-2023 ambulatory Shakila Canales Facility:[facility] Start: 11-23-2023 ambulatory Shakila Canales Faci lity:[facility] Start: 11-14-2023 End: 11-14-2023 ambulatory [facility] Facility:[facility] Start: 05-12-2023 End: 05-12-2023 Emergency department patient visit Dr. Marlon Gaona Work Phone: [facility]-Emergency Department Work Phone: Start: 05-04-2023 End: 05-04-[address] Marlon Gaona Work Phone: [facility] Work Phone: Start: 03-19-2023 End: 03-19-[address] Marlon Gaona Work Phone: [facility] Work Phone: Start: 02-08-2023 End: 02-08-[address] Marlon Gaona Work Phone: [facility] Work Phone: Start: 12-20-2022 End: 12-20-[address] Marlon Gaona Work Phone: [facility] Work Phone: Start: 12-20-2022 End: 12-20-[address] Marlon Gaona Work Phone: [facility]-Laboratory Work Phone: Start: 11-02-2022 End: 11-02-[address] Marlon Gaona Work Phone: [facility] Work Phone: Start: 11-02-2022 End: 11-02-[address] [facility] Gaona [facility] Start: 10-26-2022 End: 10-26-[address] Marlon Gaona Work Phone: [facility] Work Phone: Start: 08-23-2022 End: 08-23-[address] Marlon Gaona Work Phone: [facility] Work Phone: Start: 07-10-2022 End: 07-19-[address] Marlon Gaona Work Phone: [facility] Work Phone: Start: 07-10-2022 End: 07-19-[address] Marlon Gaona [facility] Start: 06-26-2022 End: 06-26-[address] Marlon Gaona Work Phone: [facility]-Laboratory Start: 06-26-2022 End: 06-26-[address] Marlon Gaona Work Phone: [facility] Start: 06-12-2022 End: 06-18-[address] Marlon Gaona Work Phone: [facility] Work Phone: Start: 06-12-2022 End: 06-18-[address] Marlon Gaona [facility] Start: 05-22-2022 End: 05-22-[address] Marlon Gaona Work Phone: [facility] Start: 04-06-2022 End: 04-06-[address] Marlon Gaona Work Phone: [facility] Start: 10-17-2021 End: 10-17-[address] Marlon Gaona Work Phone: [facility] Work Phone: Start: 10-17-2021 End: 10-17-[address] Marlon Gaona Work Phone: [facility]-Laboratory, Specimen Start: 10-17-2021 End: 10-17-[address] Marlon Gaona Work Phone: [facility] Start: 10-13-2021 End: 10-13-[address] Marlon Gaona Work Phone: [facility] Work Phone: Start: 10-13-2021 End: 10-13-[address] Marlon Gaona Work Phone: [facility] Start: 11-15-2017 End: 11-16-2017 Patient encounter BERNARD Wu [facility] Start: 12-08-2016 End: 12-08-[address] [facility] Start: 10-04-2016 End: 10-04-2016 Ambulatory [facility] Procedures Date Procedure Procedure Detail Performing Clinician Start: 10-10-2024 Serum progesterone measurement No Primary Care Physician Comment on above: Follicular phase 0.1 - 0.9 Luteal phase 1.8 - 23.9 Ovulation phase 0.1 - 12.0 First trimester 11.0 - 44.3 Second trimester 25.4 - 83.3 Third trimester 58.7 - 214.0 Postmenopausal 0.0 - 0.1Performed at: [id number] [place] [address] [id number] Director: Vlad Giraldo PhD, Phone: [phone] Start: 09-08-2024 Serum progesterone measurement No Primary Care Physician Comment on above: Follicular phase 0.1 - 0.9 Luteal phase 1.8 - 23.9 Ovulation phase 0.1 - 12.0 First trimester 11.0 - 44.3 Second trimester 25.4 - 83.3 Third trimester 58.7 - 214.0 Postmenopausal 0.0 - 0.1Performed at: [facility] [place], [place] [id number] Director: Vlad Giraldo PhD, Phone: [phone] Start: 08-06-2024 Serum progesterone measurement No Primary Care Physician Comment on above: Follicular phase 0.1 - 0.9 Luteal phase 1.8 - 23.9 Ovulation phase 0.1 - 12.0 First trimester 11.0 - 44.3 Second trimester 25.4 - 83.3 Third trimester 58.7 - 214.0 Postmenopausal 0.0 - 0.1Performed at: [address] [id number] Director: Vlad Giraldo PhD, Phone: [phone] Start: 08-04-2024 Transvaginal echography No Primary Care Physician Start: 07-19-2024 Procedure No Primary Care Physician Comment on above: [facility] per ordering physician. Start: 03-12-2024 Measurement of [...] ng/mL (>250 nmol/L) Start: 09-11-2016 Gynecologic examination Chief Wheelage Clerk annual e nanette Canales MD Start: 09-11-2016 Screening for malign ant neoplasm of cervix Screening, cervical cancer Shakila Canales MD Plan of Treatment Date Care Activity Detail Author Start: 07-19-2024 Procedure [facility] Start: 10-17-2021 Liquid based cervica l cytology screening [facility] Work Phone: Blood chemistry [facility] Patient Education ED Vomiting (Adult) [facility] Work Phone: Patient referral [facility] Work Phone: Serum progesterone measurement [facility] T4 free measurement [facility] T4 free measurement [facility] Thyroid stimulating hormone measurement [facility] Thyroid stimulating hormone measurement [facility] Payers Date Payer Category Payer Unknown [id number] 2023 Self-pay [id number] 2023 Private Health Insurance [id number] 1959 Private Health Insurance [id number] Private Health Insurance [employer] [id number] Private Health Insurance [id number] Unknown [id number] [id number]. 462 Unknown [id number] 2.16840.1.451625.3.579.2. 462 Unknown [id number] 2.16.840.1.155938.3.579.2. 462 Unknown [id number] 2.16.840.1.058481.3.579.2. 462 Unknown [id number] 2.16.840.1.601408.3.579.2. 462 Unknown [id number] 2.16.840.1.686778.3.579.2. 462 Unknown [id number] 2.16.840.1.760027.3.579.2. 462 Unknown [id number] 2.16.840.1.967733.3.579.2. 462 Unknown [id number] 2.16.840.1.219923.3.579.2. 462 Unknown [id number] 2.16.840.1.664315.3.579.2. 462 Unknown [id number] 2.16.840.1.619539.3.579.2. 462 Unknown [id number] 2.16.840.1.250543.3.579.2. 462 Unknown [id number] 2.16.840.1.473031.3.579.2. 462 Unknown [id number] 2.16.840.1.382331.3.579.2. 462 Unknown [id number] 2.16.840.1.922241.3.579.2. 462 Unknown [id number] 2.16.840.1.680561.3.579.2. 462 Unknown [id number] 2.16840.1.771216.3.579.2. 462 Social History Date Type Detail Facility [facility] Work Phone: Start: 1995 Sex Assigned At Female [facility] Start: 10-17-2021 End: 05-12-2023 Tobacco smoking status [facility] Unknown if ever smoked [facility] Start: 01-20-2020 Non-smoker [facility] Start: 12-12-2023 [facility] (finding[facility] Start: 05-09-2024 Sex Female (finding) [facility] Clinical Notes 12-15-2020 to 08-05-2024 Note Date & Type Note Facility 08-05-2024 Radiology Diagnostic study note [facility] Imaging Services [address] [place], [place] [address] Transvaginal Non- MR#: [id number] Acct: [id number] Name: JONELLE GÓMEZ Rep #: [id number] : 1995 F 28 From: Heber Vences MD PCP: Care Physician,No Primary Status: REG CLI Study:Transvaginal Non- Date of Exam: 08/04/24 Exam# [id number] Ordering Dr: Alejandro Simms CNM PROCEDURE: TRANSVAGINAL [...] IMPRESSION: NORMAL transvaginal PELVIC ULTRASOUND. Reading Location: [place] [address] CC: APURVA Simms; No Primary Care Physician ~ Space Technologist: Signed [facility] 07-01-2024 Evaluation note Diagnosis Onset Date Resolution PCOS (polycystic ovarian syndrome) chronic July 01, 2024 8:26am [facility] Work Phone: 1(941) 668-347305-13-2025 Evaluation note* Diagnosis Onset Date Resolution Status Admit Date PCOS (polycystic ovarian syndrome) chronic July 01, 2024 8 :26am Anxiety acute August 08 10:34am Infertility acute August 08 10:34am Metabolic syndrome acute July 212024 10:34am Obesity chronic August 08 10:34am PCOS (polycystic ovarian syndrome) chronic August 08, 2024 10:34am [facility] Work Phone: 1(249) 596-151105-13-2025 Evaluation note* Diagnosis Onset Date Resolution Status Admit Date PCOS (polycystic ovarian syndrome) chronic July 01, 2024 8 :26am Anxiety acute August 08 10:34am Infertility acute August 08 10:34am Metabolic syndrome acute July 212024 10:34am 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 July 10:34am Obesity chronic August 08 10:34am PCOS (polycystic ovarian syndrome) chronic August 08, 2024 10:34am [facility] Work Phone: 1(142) 497-454701-23-2025 Evaluation note* Diagnosis Onset Date Resolution Status Admit Date 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 No endocervical component is identified.[id number] Work Phone: Comment on above:Satisfactory for evaluation. No endocervical component is identified.12-15-2020 NotePatient Outreach (PACHECONAV) JONELLE MARINELLI ([id number]) 1995 F Date Time Provider Department 12/15/20 [...] Outcome/Action Unable to reach patient: Left message Brainiac TVt message sent Reason for Outreach Attribution: Provider Off-boarding Payer: Payor: [facility] / Plan: [facility] CHOICE PLUS / Product Type: HMO / [...] future healthcare decisions with a power of employment attorney, living will, or advance directives? No. Please bring a copy to your next appointment or email to [email or web address] Referrals: N/A Message Sent to Practice: [...] Hypothyroidism, acquired [E03.9] 12/06/2017 Encounter Status:Closed by RAPHALE POPULATION HEALTH NAVIGATOR, JADE L on 12/15/20[facility]10-27-2021 NoteHNO ID: [id number] Author: Jadesancho Lim Population Health Navigator Service: ? Author Type: ? Type: Progress Notes Filed: 12/15/2020 11:51 AM Note Text: POPULATION HEALTH NAVIGATION OUTREACH Action/FYI I left a voice message and a my chart message re: pcp No care everywhere Contact made with patient or family member? NO Pt identified by name and : NO Outreach Outcome/Action Unable to reach patient: Left message Sendiahart message sent Reason for Outreach Attribution: Provider Off-boarding Payer: Payor: [facility] / Plan: [facility] CHOICE PLUS / Product Type: HMO / [...] future healthcare decisions with a power of employment attorney, living will, or advance directives? No. Please bring a copy to your next appointment or email to [email or web address] Referrals: N/A Message Sent to Practice: NO Navigation Signature: Jade Lim Population Health Navigator December 15, 2020 11:50 [facility] summary Author Howie Garcia [facility] May 12, 2023 9:06am Note Date/Time May 12, 2023 7:2 7am [facility] Medical Records Department [address] [place] [address] Emergency Department Summary 05/12/23 MR#: [id number] Acct: [id number] Name: JONELLE GÓMEZ Rep # :[id number] : 1995 27 From: Howie Garcia DO [...] but can get her nausea under control. [facility] Medical History Allergies Axillary hidradenitis suppurativa B12 [...] Asthma Psychiatric care Thyroid disorder Surgical History O'Brien teeth extracted Social History Smoking Status: Never [...] additional social history: Single- Patient works at [employer] DOES NOT USE ASPIRIN DOES NOT [...] problems, contact your Primary Care Provider. Call [employer] ([phone]) or report to the closest Emergency Room. Call 911 if necessary. 05/12/23 0906 <Electronically signed by Howie Garcia DO> Cosigner Signature (if applicable): CC: Dr. Shakila Canales MD ~ Signed [facility] Work Phone: evaluation noteNo assessment information available [facility] Work Phone: evaluation note* Diagnosis Onset Date Resolution Status B12 deficiency acute 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 acute Obesity acute PCOS (polycystic ovarian syndrome) acute Anxiety acute Dysmenorrhea acute 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 acute Insulin resistance acute Menorrhagia with regular cycle acute Metabolic syndrome acute PCOS (polycystic ovarian syndrome) acute Encounter for routine gynecological examination noneactive [facility] Work Phone: Evaluation note* Diagnosis Onset Date Resolution Status B12 deficiency acute 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 acute Obesity acute PCOS (polycystic ovarian syndrome) acute Encounter for routine gynecological examination noneactive [facility] Work Phone: Evaluation note* Diagnosis Onset Date Resolution Status B12 deficiency acute Metabolic syndrome acute Obesity acute PCOS (polycystic ovarian syndrome) acute Anxiety acute Dysmenorrhea acute Insulin resistance acute Menorrhagia with regular cycle acute Metabolic syndrome acute Obesity acute PCOS (polycystic ovarian syndrome) acute [facility] Work Phone: Evaluation note* Diagnosis Onset Date Resolution Status B12 deficiency acute Metabolic syndrome acute Obesity acute PCOS (polycystic ovarian syndrome) acute Anxiety acute Dysmenorrhea acute Insulin resistance acute Menorrhagia with regular cycle acute Metabolic syndrome acute Obesity acute PCOS (polycystic ovarian syndrome) acute Anxiety acute Dysmenorrhea acute Menorrhagia with regular cycle acute Metabolic syndrome acute Obesity acute PCOS (polycystic ovarian syndrome) acute [facility] Work Phone: Evaluation note* Diagnosis Onset Date Resolution Status B12 deficiency acute 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 acute Insulin resistance acute Metabolic syndrome acute Obesity acute PCOS (polycystic ovarian syndrome) acute Dysmenorrhea acute 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 acute Menorrhagia with regular cycle acute Metabolic syndrome acute Obesity acute PCOS (polycystic ovarian syndrome) acute Encounter for routine gynecological examination noneactive [facility] Work Phone: Evaluation note* Diagnosis Onset Date Resolution Status Dysmenorrhea acute 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 acute Menorrhagia with regular cycle acute Metabolic syndrome acute Obesity acute PCOS (polycystic ovarian syndrome) acute Encounter for routine gynecological examination noneactive [facility] Work Phone: Evaluation note* Diagnosis Onset Date [...] Obesity chronic PCOS (polycystic ovarian syndrome) chronic [facility] Work Phone: Reason for referral (narrative)No reason for referral information [facility] Work Phone: Summary Purpose Family [...] August 20, 2020 6 :03pm Power of Equity Manager No August 20, 2020 6:03pm Advance Directive Response Recorded Date/ Time Living Will No August 20, 2020 5 :03pm Power of Equity Manager No August 20, 2020 5:03pm Advance Directive Response Recorded Date/ Time Living Will No May 12, 2023 6:44am Power of Equity Manager No May 11 6:44am Advance Directive Response Recorded Date/ Time Living Will No August 20, 2020 6 :03pm Do you have a Healthcare Power of Equity Manager? No August 20, 2020 6:03pm Chief Complaint and Reason for Visit Chief Complaint Admit Date 14 M FU March 13, 2024 8 :15am Fertility Consult July 01, 2024 8:26a m Reason for Visit Admit Date Hypothyroidism due to Ian's thyroi ditis March 13, 2024 8:15am PCOS (polycystic ovarian syndrome) Shaq 2024 8:15am Chief Complaint 1 Y FU- THYROID E ORDERS Annual ([employer]) Reason for Visit B12 deficiency 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 Obesity PCOS (polycystic ovarian syndrome) Anxiety Dysmenorrhea 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 Insulin resistance Menorrhagia with regular cycle Metabolic syndrome PCOS (polycystic ovarian syndrome) Encounter for routine gynecological examination Chief Complaint 1 Y FU- THYROID E ORDERS Annual ([employer]) Reason for Visit B12 deficiency Hypothyroidism due [...] ovarian syndrome) Chief Complaint HR/BP/WT CHECK Annual ([employer]) Reason for Visit B12 deficiency 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 Insulin resistance Metabolic syndrome Obesity PCOS (polycystic ovarian syndrome) Dysmenorrhea 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 Menorrhagia with regular cycle Metabolic syndrome Obesity PCOS (polycystic ovarian syndrome) Encounter for routine gynecological examination Chief Complaint Annual ([employer]) Reason for Visit Dysmenorrhea Hypothyroidism due to [...] 13, 2024 8:15am PCOS (polycystic ovarian syndrome) Shaq 2024 8:15am PCOS (polycystic ovarian syndrome) June [...] section and content) DATE CREATED AUTHOR 08/14/2017 [facility] DATE CREATED AUTHOR AUTHOR'S ORGANIZ ATION 08/15/2017 [facility] DATE CREATED AUTHOR AUTHOR'S ORGANIZ ATION 12/17/2017 [facility] DATE CREATED AUTHOR AUTHOR'S ORGANIZ ATION 04/07/[address] [facility] DATE CREATED AUTHOR AUTHOR'S ORGANIZ ATION 10/22/2024 [facility] Goals (unrecognized section and content) Goals may [...] April 30, 2024 Dr. Terrence Gallagher MD Attending Provider Active Sta rt: April [...] Active Member Role Status Dates Alejandro Harrison ESTIMATING ENGINEER, ESTIMATING ENGINEER-C Family Provider Active Dr. Marlon Gaona MD [...] Active Member Role Status Dates Alejandro Harrison ESTIMATING ENGINEER, ESTIMATING ENGINEER-C Family Provider Active Team Status: Inactive Member Role Status Dates Dr. Marlon Gaona MD Referring Provider Active Dr. Shakila Canales MD Attending Provider Active Team Status: Inactive Member Role Status Dates Dr. Marlon Gaona MD Referring Provider Active Kriss Pollack ESTIMATING ENGINEER, ESTIMATING ENGINEER-C Attending Provider Active Team Status: Inactive Member Role Status Dates Dr. Shakila Canales MD Attending Provider, Referr ing Provider Active Team Status: Inactive Member Role Status Dates Dr. Marlon Gaona MD Primary Care Provider Activ e Jacquelin Chen NP-C Attending Provider, Referring Pr ovider Active Team Status: Active Member Role Status Dates Alejandro Harrison ESTIMATING ENGINEER, ESTIMATING ENGINEER-C Family Provider Active Dr. Shakila Canales MD Primary Care Provider Acti ve Team Status: Inactive Member Role Status Dates Dr. Marlon Gaona MD Primary Care Provider, Refe rring Provider Active Kriss Pollack ESTIMATING ENGINEER, ESTIMATING ENGINEER-C Active Dr. Nikky Velasquez DO Attending Provider Activ e Team Status: Inactive Member Role Status Dates Dr. Shakila Canales MD Primary Care Provider Acti ve Dr. Howie Garcia DO Emergency Provider Active Team Status: Active Member Role Status Dates Alejandro Harrison ESTIMATING ENGINEER, ESTIMATING ENGINEER-C Family Provider Active No Primary Care Physician [...] August 04, 2024 End: August 04, 2024 Alejanrdo Simms CNM Referring Provider Active S tart: [...] September 08, 2024 End: September 08, 2024 Team Status: Inactive Member Role/Relationship Status Dates No Primary Care Physician Primary Care Provider Active Start: October 10, 2024 End: October 10, 2024 Dr. Nikky Velasquez , DO Attending Provider Activ e Start: October 10, 2024 End: October 10, 2024 FOR RECORDS PERTAINING TO PATIENTS WHO [...] BE BASED ON THE PRIMARY CLINICAL RECORDS. [employer] provides no warranty or guarantee of the accuracy or completeness of information in this document.
--- NOTE | 2024-11-01 01:34 | PN_ITS ---
Progress Note DOS-91/ Preop diagnosis: Infertility Postop diagnosis: Same plus bilateral tubal patency Procedure: Hysterosalpingogram Surgeon: Shakila Canales Implantable devices: None Complications: None Findings: Bilateral tubal patency and normal uterine cavity Operative details: Patient was taken to the x-ray room and was placed on the x- ray table and was in the dorsal lithotomy position. Speculum was placed in the vagina and the cervix prepped with Betadine and the HSG catheter was easily introduced into the uterus and speculum removed. Radiologist was brought in and while pushing radiopaque dye into the uterus via the HSG catheter the radiologist took multiple images and views and confirmed bilateral tubal patency seen. No gross uterine filling defects or abnormalities were seen. All instruments removed from the vagina and the uterus without complication. Patient tolerated the procedure well. Procedures Urinary/Genital [id number]: [id number] HSG/SIS
== END | disposition home or self-care (01) ==
LOC: RAD 11:49
PROVIDERS: Referring Provider Obstetrics & Gynecology; Visit Provider Obstetrics & Gynecology
DX: N97.9 Female infertility, unspecified (principal)
CPT/HCPCS: 58340; 74740; Q9967